=== PATIENT | female | born 1950 | race Caucasian/White ===

== ENCOUNTER 2017-08-08 10:07 | Outpatient (CLI) | payer MEDICARE, MEDICAID ==
--- NOTE | 2017-08-08 12:10 | RAD ---
TWO VIEWS OF THE CHEST: HISTORY: Dyspnea. COMPARISON: 07/21/2017 FINDINGS: Two views of the chest show a normal sized cardiomediastinal silhouette. There are healing right po sterior rib fractures. There is no evidence of consolidation, mass, or pleural effusion. IMPRESSION: No evidence of acute cardiopulmonary disease. POS: [facility]
== END 2017-08-08 10:08 | disposition home or self-care (01) ==
LOC: RAD 10:07
PROVIDERS: ATTEND Internal Medicine Critical Care Medicine
DX: R06.00 Dyspnea, unspecified (principal)
CPT/HCPCS: 71020

== ENCOUNTER 2017-08-23 18:26 | Emergency (ER) | payer MEDICARE, MEDICAID ==
[~2017-08-23 18:26] MED LIST: ISOVUE-370 76%-LOCM 1 ML ONE
[2017-08-23 19:26] LABS: #Basophils 0.1 thou/uL (0.0-0.2); #Eosinphils 0.1 thou/uL (0.0-0.7); #Lymphocytes 2.9 thou/uL (1.20-3.40); #Monocytes 0.8 thou/uL (0.11-0.59); #Neutrophils 5.4 thou/uL (1.40-6.50); %Basophils 0.6 % (0.0-1.0); %Eosinophils 0.8 % (0.0-10.0); %Lymphocytes 31.8 % (21.0-51.0); %Monocytes 8.8 % (0.0-10.0); Hematocrit 44.5 % (36.0-47.0); Mean Platelet Volume 6.4 fL (7.4-10.4); Red Blood Cell (RBC) Count 4.84 mill/uL (4.20-5.40); White Blood Cell (WBC) Count 9.2 thou/uL (4.8-10.8)
[2017-08-23 19:45] LABS: ALT (SGPT) 11 U/L (8-55); AST (SGOT) 22 U/L (5-34); Alkaline Phosphatase 93 U/L (40-150); Anion Gap 15 mmol/L (10-20); BUN (Urea Nitrogen) 9 mg/dL (9.8-20.1); Bilirubin, Total 0.3 mg/dL (0.2-1.2); CK (CPK) 363 U/L (29-168); Calc. Creatinine Clearance 0 mL/min (70-130); Calcium 9.7 mg/dL (7.8-10.44); Carbon Dioxide 23 mmol/L (23-31); Chloride 93 mmol/L (98-107); Estimated GFR-MDRD 89; Globulin 2.9 g/dL (2.4-3.5); Protein, Total 7.3 g/dL (6.0-8.3)
[2017-08-23] MEDS ORDERED: Lorazepam 2 MG/ML VIAL ONE (19:45)
[2017-08-23 19:50] LABS: Troponin I Less than 0.010 ng/mL (< 0.028)
--- NOTE | 2017-08-23 21:09 | RAD ---
PA AND LATERAL CHEST X-RAY 08/23/17 HISTORY: Dyspnea. Difficulty breathing. COMPARISON: 08/08/17. The cardiac silhouette and pulmonary vasculature are within normal limits. Lungs are clear. Remote r ight sided posterior rib fractures are again seen. There is osteopenia. Vascular calcifications in t he thoracic aorta. Postsurgical changes lower cervical spine are again seen. There has been no inter amadou change from prior exam. IMPRESSION: 1. No acute cardiopulmonary process. 2. Osteopenia with remote right sided rib fractures. POS: [facility]
--- NOTE | 2017-08-23 21:17 | CT ---
CT HEAD WITHOUT IV CONTRAST: 08/23/17 HISTORY: Headache post fall. COMPARISON: 07/22/16. FINDINGS: Again noted are mild scattered chronic small vessel ischemic changes as well as cerebral volume loss . There is mild cerebellar volume loss. There is no evidence of a hemorrhage, acute infarction, mass effect, or midline shift. There has been no interval change from the prior exam. No calvarial fract ure is seen. IMPRESSION: 1. No acute intracranial abnormalities demonstrated. 2. Stable chronic small vessel ischemic changes and cerebral as well as cerebellar volume loss. POS: [facility]
--- NOTE | 2017-08-23 23:41 | CT ---
CT ANGIOGRAM THORAX WITH IV CONTRAST AND 3D RECONSTRUCTION 08/23/17 HISTORY: Worsening shortness of breath that began 4 to 5 days ago. COMPARISON: 07/21/17. FINDINGS: No filling defects are seen in the pulmonary arteries to suggest a pulmonary arteries to suggest a p ulmonary embolus. Vascular calcifications are again seen in the thoracic aorta. Thoracic aorta is no rmal in caliber without evidence of an aortic dissection. Linear densities are seen within the regio n of the lingula and right lower lobe likely related to atelectasis. Very minimal pleural thickening at the posterior aspect of the right mid lung zone versus very tiny amount of pleural fluid. Remote right sided rib fractures are again seen. Calcified granulomata are seen in the spleen and liver. There is a small hiatal hernia. Small amount of fluid and debris is seen in the esophagus which may be related to gastroesophageal reflux. There has been no other interval change from prior exam. IMPRESSION: 1. No CT evidence of a pulmonary embolus. 2. Additional findings are as described above. POS: [facility]
== END 2017-08-23 22:31 | disposition home or self-care (01) ==
LOC: ERS 18:26
DX: J44.9 Chronic obstructive pulmonary disease, unspecified (principal); F41.9 Anxiety disorder, unspecified; I10 Essential (primary) hypertension; E78.5 Hyperlipidemia, unspecified; F31.9 Bipolar disorder, unspecified; Z87.891 Personal history of nicotine dependence; Z79.899 Other long term (current) drug therapy
CPT/HCPCS: 70450; 71020; 71275; 80053; 82550; 82553; 84484; 85025; 85379; 93005; 96374; J2060

== ENCOUNTER 2017-09-03 17:26 | Inpatient (IN) | payer MEDICARE, OTHER ==
[2017-09-03 18:11] LABS: #Lymphocytes 1.8 thou/uL (1.20-3.40); #Monocytes 0.5 thou/uL (0.11-0.59); #Neutrophils 6.2 thou/uL (1.40-6.50); %Basophils 0.4 % (0.0-1.0); %Eosinophils 0.5 % (0.0-10.0); %Lymphocytes 20.8 % (21.0-51.0); Hematocrit 40.4 % (36.0-47.0); Mean Platelet Volume 5.2 fL (7.4-10.4); Red Blood Cell (RBC) Count 4.42 mill/uL (4.20-5.40); White Blood Cell (WBC) Count 8.5 thou/uL (4.8-10.8)
[2017-09-03 18:27] LABS: ALT (SGPT) 8 U/L (8-55); AST (SGOT) 12 U/L (5-34); Alkaline Phosphatase 94 U/L (40-150); Anion Gap 12 mmol/L (10-20); BUN (Urea Nitrogen) 6 mg/dL (9.8-20.1); Bilirubin, Total 0.3 mg/dL (0.2-1.2); Calc. Creatinine Clearance 0 mL/min (70-130); Calcium 8.6 mg/dL (7.8-10.44); Carbon Dioxide 23 mmol/L (23-31); Chloride 89 mmol/L (98-107); Estimated GFR-MDRD Greater than 90; Globulin 2.4 g/dL (2.4-3.5); Lipase Less than 4 U/L (8-78); Magnesium 1.7 mg/dL (1.6-2.6)
--- NOTE | 2017-09-03 18:27 | RAD ---
PORTABLE CHEST: 09/03/17 HISTORY: Syncope. COMPARISON: 07/21/17 exam. The heart size is within normal limits. There are atherosclerotic changes of the aorta. Right sided rib fracture is again noted. The bones appear demineralized. IMPRESSION: No active intrathoracic disease. POS: [facility]
[2017-09-03 18:32] LABS: Troponin I Less than 0.010 ng/mL (< 0.028)
[2017-09-03 18:56] LABS: Osmolality, Serum 244 mOsm/kg (280-295)
[2017-09-03 19:09] LABS: Bilirubin Negative (Negative); Blood, Urine Negative (Negative); Glucose, Urine (Dipstick) Negative (Negative); Ketone, Urine Negative (Negative); Nitrite Negative (Negative); Protein, Urine (Dipstick) Negative (Neg-Trace)
[2017-09-03 19:11] LABS: Bacteria/HPF 2+ HPF (None Seen); Hyaline Casts/LPF 4-6 HYALINE CAST LPF (0-3 Hyaline); RBC/HPF 0-3 HPF (0-3)
[2017-09-03 19:15] LABS: Amphetamine Not Detected (NotDetected); Methadone Not Detected (NotDetected); Methamphetamine Not Detected (NotDetected)
--- NOTE | 2017-09-03 20:00 | CT ---
CT BRAIN PERFORMED WITHOUT CONTRAST ENHANCEMENT: 09/03/17 HISTORY: Altered mental status. COMPARISON: 08/23/17 study. There is some generalized ventricular and sulcal prominence. There is some small vessel chronic isch emic white matter change. There is no signs of intracerebral hemorrhage or extra-axial fluid collect ions. Mastoid air cells and visualized sinuses are clear. IMPRESSION: No acute intracranial abnormalities. POS: [facility]
[2017-09-03] MEDS ORDERED: Ondansetron ODT 4 MG TAB SL PRN (22:08)
[2017-09-03] MEDS ORDERED: Ondansetron HCl/PF 4 MG/2 ML Vial IVP PRN (22:08)
[2017-09-03] MEDS ORDERED: HYDROcodone/Acetaminophen 10/325 mg Tablet PO PRN (22:25)
[2017-09-03] MEDS ORDERED: Acetaminophen 325 MG TAB PO PRN (22:25)
[2017-09-03] MEDS ORDERED: Ondansetron ODT 4 MG TAB PO PRN (22:25)
[2017-09-03] MEDS ORDERED: HYDROcodone/Acetaminophen 5/325 mg Tablet PO PRN (22:25)
[2017-09-03 23:01] VITALS: BMI 20.7
[2017-09-03] MEDS: Sodium Chloride 0.9% 1,000 ML IV SCH (23:07)
[2017-09-04 05:06] LABS: #Eosinphils 0.1 thou/uL (0.0-0.7); #Lymphocytes 1.7 thou/uL (1.20-3.40); #Monocytes 0.5 thou/uL (0.11-0.59); #Neutrophils 5.5 thou/uL (1.40-6.50); %Basophils 0.1 % (0.0-1.0); %Eosinophils 1.1 % (0.0-10.0); %Lymphocytes 21.5 % (21.0-51.0); %Monocytes 6.6 % (0.0-10.0); Hematocrit 44.2 % (36.0-47.0); Mean Platelet Volume 5.8 fL (7.4-10.4); Red Blood Cell (RBC) Count 4.78 mill/uL (4.20-5.40); White Blood Cell (WBC) Count 7.8 thou/uL (4.8-10.8)
[2017-09-04 05:17] LABS: Anion Gap 10 mmol/L (10-20); BUN (Urea Nitrogen) 4 mg/dL (9.8-20.1); Calc. Creatinine Clearance 81 mL/min (70-130); Calcium 8.6 mg/dL (7.8-10.44); Carbon Dioxide 24 mmol/L (23-31); Chloride 98 mmol/L (98-107); Estimated GFR-MDRD Greater than 90
[2017-09-04] MEDS: Sodium Chloride 0.9% 1,000 ML IV SCH ×3 (05:47→18:10)
--- NOTE | 2017-09-04 06:54 | HP ---
DATE OF ADMISSION: 09/03/2017 CHIEF COMPLAINT: Dizzy. HISTORY OF PRESENT ILLNESS: Ms. Pierce is a 67-year-old white female with a history of COPD, hyp ertension, chronic headaches, and hyperlipidemia who presents to the emergency department for new ep isode of dizziness. She became dizzy/lightheaded earlier today. She does not know if this was related to any change in position. She actually fell and hit her head, but did not cause any injuries per further evaluation here. She has been a little more confused and weak than normal and she says that she has been off balance for about a week. Her last fall was on 05/19/2017. Again this time she did hit her head, but CT scan here was negativ e for injury. She denies any nausea or vomiting, no diarrhea or constipation. Her medical decision maker is Leonardo Kaiser in the emergency department as well my RNs. I discussed advance directives with the patient and her son, she does not want any breathing tube at all, but is okay with CPR, cardioversion/electricity, and pressors. Emergency department workup revealed sodium of 119, she was given normal saline. Vital signs remain ed stable otherwise and we were called for further workup and admission. PAST MEDICAL HISTORY: 1. COPD. 2. Headaches, chronic. 3. Hypertension. 4. Hyperlipidemia. PAST SURGICAL HISTORY: 1. Left breast biopsy. 2. Vulvectomy. 3. Hysterectomy with left oophorectomy. 4. Left knee repair. 5. Tonsillectomy. 6. Neck fusion. 7. Bilateral hip rods after a fall and hip fracture in May. HOME MEDICATIONS: She has no list available. She does state she takes lisinopril, she thinks 5 mg a day. She takes Ativan and gabapentin, these are relatively new. Her son has actually told her no t to take gabapentin, but she has been taking it anyways. ALLERGIES: DEMEROL, IMITREX and PENICILLIN. FAMILY HISTORY: Negative for clotting or bleeding disorder, she has no history of immune dysfunctio n. SOCIAL HISTORY: Negative for 1 pack per day. She smoked for many years. No alcohol of significanc e and no drugs. REVIEW OF SYSTEMS: A 10-point review of systems was performed and was negative for all other system s except as stated as per HPI. PHYSICAL EXAMINATION: VITAL SIGNS: Temperature 98.3, pulse 73, blood pressure 152/76, respiratory rate 18, satting 95% on room air. GENERAL: She is awake. She is alert. She is oriented x3. She is a well-developed, well-nourished , white female, appears to be in no acute distress, but does appear tired. HEENT: Normocephalic, atraumatic. Pupils equal, react bilaterally, mucous membranes are moist. Th ere are no visible lesions. No thrush. NECK: Supple, without lymphadenopathy, JVD or thyromegaly. LUNGS: Clear anteriorly. She has no wheezes, no rales, no rhonchi with symmetrical chest excursion . She has adequate air movement. There is no prolonged expiratory phase. No wheezing. CARDIOVASCULAR: Normal S1 and S2. She has a regular rate and a normal rhythm. She has no murmurs. ABDOMEN: Soft, it is nontender, nondistended, no masses, no organomegaly. She has no rebound, rigi dity or guarding. EXTREMITIES: Show no cyanosis, no clubbing. She has no edema. SKIN: Warm, moist, and well perfused without rashes or lesions. MUSCULOSKELETAL: Normal to inspection. Her joints are uninflamed. There is no palpable joint effu dipak, no tenderness. NEUROLOGIC: Nonfocal. She moves all 4 extremities equally. Sensation appears to be intact. Stren gth is 4 to 5/5. LABORATORY EVALUATION: CMP showed a sodium of 119, potassium normal at 4.5, chloride low at 89, bic arbonate 23, BUN 6, creatinine 0.58, and glucose was 95. Calcium normal at 8.6. Liver functions ar e normal. CBC was within normal limits. White blood cell count 8.5, hemoglobin 13.4 and platelets 335,000. S he had a troponin I that was negative and an MB that was normal at 2.1. TSH was normal at 2.42. Se rum osmolarity was low at 244. Urine drug screen was positive for benzodiazepines, and urinalysis w as otherwise contaminated skin cells. She had a brain CT that showed no acute intracranial abnormalities and a chest x-ray showed no acute cardiopulmonary abnormalities. ASSESSMENT AND PLAN: 1. Hyponatremia: She is hypoosmolar. Suspect this is due to losses. She appears to be euvolemic at this time. We will start her on normal saline and monitor response. We will shoot to correct ap proximately 10-15 mEq per day. I do not believe this is chronic hyponatremia. She had a sodium forest wn just a little over a week ago that was abnormal at 127 and back on 07/24/2017, was normal in the 140s. 2. Fall: Likely secondary to her hyponatremia and weakness. Should improve as her sodium improves . No evidence of any injury. 3. History of chronic obstructive pulmonary disease without acute exacerbation: She is not on any home medication that she knows of. Her son will give us her accurate list. 4. Hypertension, on lisinopril. Blood pressure currently 152/76. Watch closely and make adjustmen ts as needed. 5. Hyperlipidemia. She denies taking any medications for this at this time.
--- NOTE | 2017-09-04 08:34 | PDOC.EVN ---
Event Note - Event Note Event Note: Pt seen briefly, she indicated that her PCP is Dr. Vanegas. Discussed with Dr. Foley covering for Dr. Vanegas, who agreed to take over care of pt starting today. Will sign off.
[2017-09-04] MEDS ORDERED: FLU VACC TS2017-18 (>65YR) 0.5 ML SYRINGE IM ONE (09:00)
[2017-09-04] MEDS: Enoxaparin Sodium 40 MG/0.4 ML SYRINGE SC SCH (09:26)
[2017-09-04] MEDS: Famotidine 20 MG TAB PO SCH ×2 (09:26→20:34)
--- NOTE | 2017-09-04 13:43 | PRG ---
DATE OF SERVICE: 09/04/2017 TIME: 11:51 a.m. SUBJECTIVE: The patient denies any complaints at this time. She is resting comfortably in the bed. She was admitted overnight by the hospitalist group who called me after realizing that Dr. Vanegas is her primary care doctor and I resumed her care this morning. She states that the reason she came i nto the hospital only confusion and altered mental status has resolved completely. PHYSICAL EXAMINATION: VITAL SIGNS: Temperature 98.3, pulse 83, respirations 16, O2 sat 94% on room air, and blood pressur e 140/65. GENERAL: This is a thin female in no apparent distress. HEENT: Unremarkable. HEART: Regular rate and rhythm with no murmurs. LUNGS: Clear to auscultation bilaterally. ABDOMEN: Soft, nontender, and nondistended with normoactive bowel sounds. NEUROLOGIC: Nonfocal. LABORATORY DATA: CBC is unremarkable. Metabolic panel is significant for sodium of 128. This is i mproved from 119 night. Renal function is normal with BUN of 4 and creatinine is 0.58, glucose is 7 8. ASSESSMENT AND PLAN: 1. Hyponatremia, this is hypo-osmolar. She responded quite well to IV normal saline. We will cont inue this for the time being and repeat her basic metabolic panel in the morning. 2. Fall, likely secondary to #1 and weakness. She denies feeling weak at this time. 3. History of chronic obstructive pulmonary disease without acute exacerbation. 4. Hypertension, on lisinopril at home. 5. Hyperlipidemia.
[2017-09-04] MEDS ORDERED: Lisinopril 5 MG TAB PO SCH (17:30)
[2017-09-04] MEDS ORDERED: Nicotine 7 MG PATCH TOP SCH (18:00)
[2017-09-05] MEDS: Sodium Chloride 0.9% 1,000 ML IV SCH ×2 (02:39→08:44)
[2017-09-05 06:35] LABS: Anion Gap 6 mmol/L (10-20); BUN (Urea Nitrogen) 5 mg/dL (9.8-20.1); Calc. Creatinine Clearance 91 mL/min (70-130); Calcium 8.6 mg/dL (7.8-10.44); Carbon Dioxide 28 mmol/L (23-31); Chloride 106 mmol/L (98-107); Estimated GFR-MDRD Greater than 90
[2017-09-05] MEDS ORDERED: PROVENTIL INHALER 6.7 G (200 INHALATIONS) INH PRN (07:16)
[2017-09-05 07:45] VITALS: BP 186/81; TEMP 97.8
--- NOTE | 2017-09-05 07:52 | DIS ---
DISCHARGE DIAGNOSES: 1. Hyponatremia. 2. Fall. 3. Chronic obstructive pulmonary disease. 4. Hypertension. 5. Hyperlipidemia. CONSULTS: None. PROCEDURES: None. HOSPITAL COURSE: This is a 67-year-old female with history of severe COPD, tobacco abuse, hypertens ion, and hyperlipidemia who presented to the emergency room with confusion and dizziness. She did h ave a fall during this state, however, she was evaluated here along with a brain CT that showed no i njury to the brain. She was found to have a sodium of 119. The patient admits to not eating very much and drinking a lo t of fluids. She was started on normal saline and over the past 2 days has improved significantly. She is no longer confused at this time. As for her COPD, this is fairly stable. She has been on her home medications. She was not started on her DuoNebs and fills mildly out of breath. We will give her treatment of DuoNeb before she is d ischarged. As for her hypertension, her blood pressure is mildly elevated. However, she was not started on her home medications. She is asymptomatic at this time. DISPOSITION: Stable. DISCHARGE INSTRUCTIONS: 1. Discharged to home. 2. Diet: Regular. 3. Activity: Ad melia. 4. Followup: Followup visit with Dr. Vanegas in 7-10 days.
[2017-09-05] MEDS: Famotidine 20 MG TAB PO SCH (08:40)
[2017-09-05] MEDS: Enoxaparin Sodium 40 MG/0.4 ML SYRINGE SC SCH (08:41)
[2017-09-05] MEDS ORDERED: Lisinopril 5 MG TAB PO SCH (09:00)
== END 2017-09-05 10:08 | disposition home or self-care (01) | DRG 641 ==
LOC: ERS 17:26 → 2NO 21:00
PROVIDERS: ADMIT Family Medicine; ATTEND Family Medicine
DX: E87.1 Hypo-osmolality and hyponatremia (principal); J44.9 Chronic obstructive pulmonary disease, unspecified; I10 Essential (primary) hypertension; E78.5 Hyperlipidemia, unspecified; Z88.5 Allergy status to narcotic agent; Z88.0 Allergy status to penicillin; Z88.8 Allergy status to other drugs, medicaments and biological substances; F17.210 Nicotine dependence, cigarettes, uncomplicated; W19.XXXA Unspecified fall, initial encounter
CPT/HCPCS: 36415; 70450; 71010; 80048; 80053; 80306; 81003; 81015; 82553; 83690; 83735; 83930; 84443; 84484; 85025; 87040; 87086; 90471; 90682; 93005; 94640; 96365; A4216; G0008; J1650; J1956; J7620; Q2036

== ENCOUNTER 2017-10-03 14:50 | Observation (INO) | payer MEDICARE, OTHER ==
[2017-10-03 15:44] LABS: #Eosinphils 0.1 thou/uL (0.0-0.7); #Lymphocytes 2.4 thou/uL (1.20-3.40); #Monocytes 0.5 thou/uL (0.11-0.59); #Neutrophils 2.7 thou/uL (1.40-6.50); %Basophils 0.7 % (0.0-1.0); %Lymphocytes 41.8 % (21.0-51.0); %Monocytes 9.2 % (0.0-10.0); Hematocrit 41.3 % (36.0-47.0); Mean Platelet Volume 6.1 fL (7.4-10.4); White Blood Cell (WBC) Count 5.6 thou/uL (4.8-10.8)
[2017-10-03] MEDS ORDERED: Ketorolac Tromethamine 30 MG/ML VIAL ONE (15:51)
[2017-10-03] MEDS ORDERED: methylPREDNISolone Sod Succ/PF 125 MG/2 ML VIAL ONE (15:51)
[2017-10-03] MEDS ORDERED: diphenhydrAMINE 50 MG/ML VIAL ONE (15:51)
[2017-10-03] MEDS ORDERED: Metoclopramide HCl 10 MG/2 ML VIAL ONE (15:51)
[2017-10-03 15:57] LABS: ALT (SGPT) Less than 7 U/L (8-55); AST (SGOT) 12 U/L (5-34); Alkaline Phosphatase 74 U/L (40-150); Anion Gap 11 mmol/L (10-20); BUN (Urea Nitrogen) 5 mg/dL (9.8-20.1); Bilirubin, Total 0.5 mg/dL (0.2-1.2); Calc. Creatinine Clearance 0 mL/min (70-130); Calcium 9.1 mg/dL (7.8-10.44); Carbon Dioxide 24 mmol/L (23-31); Chloride 96 mmol/L (98-107); Estimated GFR-MDRD Greater than 90; Globulin 2.3 g/dL (2.4-3.5); Protein, Total 6.2 g/dL (6.0-8.3)
[2017-10-03 16:01] LABS: Troponin I Less than 0.010 ng/mL (< 0.028)
[2017-10-03] MEDS ORDERED: Magnesium Sulfate 2 GM/100 ML BAG ONE (17:43)
[2017-10-03] MEDS ORDERED: Labetalol HCl 100 MG/20 ML VIAL ONE (19:34)
--- NOTE | 2017-10-03 19:36 | CT ---
CT HEAD WITHOUT CONTRAST: Technique: Multiple axial tomograms were obtained through the head without IV enhancement. History: Headache. Hypertension. FINDINGS: The ventricles have normal size and position. There is no evidence of intracranial hemorrhage, mass, or infarct. Sinuses and mastoids are well aerated. IMPRESSION: No evidence of acute process. POS: [facility]
[2017-10-03] MEDS ORDERED: Montelukast Sodium 10 mg Tablet PO SCH (21:00)
[2017-10-03] MEDS ORDERED: Mirtazapine 15 MG TAB PO SCH (21:00)
[2017-10-03] MEDS ORDERED: busPIRone HCl 10 MG TAB PO SCH ×3 (21:00→22:30)
[2017-10-03] MEDS ORDERED: Ondansetron ODT 4 MG TAB PO PRN (21:10)
[2017-10-03] MEDS ORDERED: Bisacodyl 10 MG SUPP PR PRN (21:10)
[2017-10-03] MEDS ORDERED: Benzonatate 100 MG CAP PO PRN (21:10)
[2017-10-03 22:13] VITALS: BMI 20.4
[2017-10-03] MEDS ORDERED: Gabapentin 300 MG CAP PO SCH (22:15)
[2017-10-03] MEDS ORDERED: Varenicline Tartrate 0.5 MG TAB PO SCH (22:15)
[2017-10-03] MEDS ORDERED: traZODone HCl 50 MG TAB PO SCH (22:15)
[2017-10-03] MEDS ORDERED: Sodium Chloride 0.9% 1,000 ML IV SCH (22:15)
[2017-10-03] MEDS: Divalproex Sodium DR 500 MG TAB PO SCH (22:43)
[2017-10-03] MEDS: Lorazepam 0.5 MG TAB PO SCH (22:43)
[2017-10-03] MEDS: Acetaminophen 325 MG TAB PO PRN (22:44)
--- NOTE | 2017-10-04 00:10 | HP ---
DATE OF ADMISSION: 10/03/2017 PRIMARY CARE PHYSICIAN: Juanito Vanegas D.O. CHIEF COMPLAINT: Headache and elevated blood pressure. HISTORY OF PRESENT ILLNESS: This is a 67-year-old female with past medical history of hypertension, COPD, hyponatremia, physical deconditioning, who presented to the ER after physical therapy, found he r to have blood pressures in the 180s to 190s systolic. She also reported a worsening headache at th at time. She denied other neurologic changes including vision changes, speech changes, and weakness on one side. In the emergency room, she has been given labetalol, which has improved her blood press ure to 160s systolic. Her headache is improved; however, she still complains of headache in the fron [place] region. Brain scan in the emergency room shows no acute process. ALLERGIES: 1. IMITREX. 2. PENICILLIN. 3. DEMEROL. MEDICATIONS: 1. Mirtazapine 45 mg p.o. q. day. 2. Divalproex ER 500 mg p.o. b.i.d. 3. Lexapro 20 mg p.o. q. day. 4. Singulair 10 mg p.o. q. day. 5. Benztropine 2 mg p.o. b.i.d. 6. Trazodone 100 mg 2 tablets p.o. at bedtime. 7. Tessalon 100 mg q.4 hours p.r.n. cough. 8. Omeprazole 20 mg p.o. q. day. 9. Buspirone 15 mg p.o. b.i.d. 10. Lorazepam 0.5 mg p.o. t.i.d. p.r.n. anxiety. 11. Mucinex 600 mg p.o. b.i.d. p.r.n. cough. 12. Vitamin D3 50,000 units q. week. 13. Gabapentin 300 mg p.o. t.i.d. 14. Lisinopril 5 mg p.o. q. day. 15. ProAir inhaler 2 puffs inhaled q.4 hours as needed for shortness of breath, cough or wheezing. 16. Mometasone/formoterol 200/5 mcg 2 puffs inhaled twice a day. 17. Ipratropium/albuterol 0.5/2.5 mg per 3 mL nebulized 3 mL twice a day as needed for shortness of breath and cough. PAST SURGICAL HISTORY: 1. Hysterectomy. 2. Left knee surgery. 3. Tonsillectomy. 4. Hip fracture repair. SOCIAL HISTORY: Admits to smoking one-half pack per day. Denies alcohol and illicit drugs. FAMILY HISTORY: Unremarkable. REVIEW OF SYSTEMS: General: Reports low appetite. Denies fever or chills. HEENT: Denies headache , vision changes, sore throat, dysphagia. Skin: Denies rashes or lesions. Cardiovascular: Denies chest pain, palpitations. Respiratory: Denies shortness of breath, cough. Gastrointestinal: Denie s nausea, vomiting, abdominal pain, diarrhea, constipation. Genitourinary: Denies dysuria, hematuri a, and discharge. Musculoskeletal: Denies joint stiffness and swelling. Neurologic: Reports heada archie. Denies syncope and dizziness. PHYSICAL EXAMINATION: VITAL SIGNS: Blood pressure 186/97, pulse 78, respirations 20, temperature 97.4, oxygen saturation 9 5% on room air. GENERAL: Alert and oriented x3 with no acute distress. SKIN: No rashes or lesions. HEENT: Normocephalic. Pupils are equally round and react to light. Extraocular muscles intact. Mo ist mucous membranes with nonerythematous throat. HEART: Regular rate and rhythm, no murmurs. LUNGS: Clear to auscultation bilaterally, no wheezes or rales. ABDOMEN: Nontender, nondistended. Bowel sounds heard throughout. MUSCULOSKELETAL: Normal strength and range of motion. NEUROLOGIC: Cranial nerves II-XII intact. Sensation within normal limits. No cerebellar signs. LABORATORY DATA: White blood cell count 5.6, hemoglobin 13.6, hematocrit 41.3, platelets 321. Sodium 127, potassium 4.0, chloride 96, carbon dioxide 24, BUN 5, creatinine 0.61, glucose 112, calci um 9.1, total bilirubin 0.5, AST 12, ALT less than 7, alkaline phosphatase 74. CK-MB 1.4, Troponins less than 0.010, total protein 6.2, albumin 3.9, globulin 2.3. CT of the brain shows no acute process. ASSESSMENT AND PLAN: 1. Hypertensive urgency. We will increase her home medication of lisinopril to 10 mg daily. We geo l also give labetalol in the hospital p.r.n., systolic blood pressure greater than 180. She has no n eurologic signs at this time. If blood pressure is improved tomorrow, she may be able to go home. 2. Hyponatremia, this is likely due to poor diet. She is not eating regular meals. We will start M egace and continue on discharge. 3. Chronic obstructive pulmonary disease. Breathing is well controlled at this time.
[2017-10-04 04:57] LABS: #Monocytes 0.1 thou/uL (0.11-0.59); #Neutrophils 2.1 thou/uL (1.40-6.50); %Basophils 0.4 % (0.0-1.0); %Eosinophils 0.2 % (0.0-10.0); %Lymphocytes 32.3 % (21.0-51.0); %Monocytes 2.3 % (0.0-10.0); Hematocrit 43.6 % (36.0-47.0); Mean Platelet Volume 6.3 fL (7.4-10.4); Red Blood Cell (RBC) Count 4.63 mill/uL (4.20-5.40); White Blood Cell (WBC) Count 3.2 thou/uL (4.8-10.8)
[2017-10-04 05:06] LABS: Anion Gap 13 mmol/L (10-20); BUN (Urea Nitrogen) 8 mg/dL (9.8-20.1); Calc. Creatinine Clearance 78 mL/min (70-130); Calcium 9.1 mg/dL (7.8-10.44); Carbon Dioxide 21 mmol/L (23-31); Chloride 101 mmol/L (98-107); Estimated GFR-MDRD Greater than 90
[2017-10-04] MEDS ORDERED: Mometasone/Formoterol 120 PUFF INHALER INH SCH (06:30)
[2017-10-04] MEDS: Acetaminophen 325 MG TAB PO PRN (08:26)
[2017-10-04] MEDS: Divalproex Sodium DR 500 MG TAB PO SCH (08:26)
[2017-10-04] MEDS: Gabapentin 300 MG CAP PO SCH ×2 (08:27→16:03)
[2017-10-04] MEDS: Lorazepam 0.5 MG TAB PO SCH ×2 (08:27→16:03)
[2017-10-04] MEDS ORDERED: Docusate 100 MG CAP PO SCH (09:00)
[2017-10-04] MEDS ORDERED: Megestrol Acetate 40 MG TAB PO SCH (09:00)
[2017-10-04] MEDS ORDERED: Lisinopril 10 MG TAB PO SCH (09:00)
[2017-10-04] MEDS ORDERED: Escitalopram Oxalate 20 mg Tablet PO SCH (09:00)
[2017-10-04] MEDS ORDERED: Varenicline Tartrate 0.5 MG TAB PO SCH (09:00)
[2017-10-04] MEDS ORDERED: Gabapentin 300 MG CAP PO SCH (09:00)
[2017-10-04] MEDS ORDERED: busPIRone HCl 10 MG TAB PO SCH (09:00)
[2017-10-04] MEDS ORDERED: Ibuprofen 600 MG TAB PO SCH (16:00)
--- NOTE | 2017-10-04 16:25 | ULT ---
RENAL ULTRASOUND: Date: 10-04-17 Comparison: None. History: Labile blood pressures. Technique: Multiplanar grayscale sonographic imaging of the kidneys and urinary bladder obtained. FINDINGS: The right kidney measures 9.7 x 3.6 x 4.1 cm. There is no right sided renal mass, hydronephrosis or s tone noted. The pre void urinary bladder volume is approximately 18 cm. There is prominent circumferential urinar y bladder wall thickening, nonspecific. The left kidney measures 10.5 x 7.5 x 5.2 cm. No renal mass, hydronephrosis, or stone seen on the left. IMPRESSION: Nonspecific circumferential urinary bladder wall thickening. Clinical correlation and correlation wit h urinalysis is advised. Inflammatory, infectious, and/or neoplastic disease could have this appearan ce. POS: [facility]
[2017-10-04 16:27] VITALS: BP 132/64; TEMP 99.1
[2017-10-04] MEDS ORDERED: traZODone HCl 50 MG TAB PO SCH (21:00)
--- NOTE | 2017-10-05 11:36 | DIS ---
DATE OF ADMISSION: 10/03/2017 DATE OF DISCHARGE: 10/04/2017 ADMISSION DIAGNOSES: 1. Hypertensive urgency. 2. Hyponatremia. 3. Chronic obstructive pulmonary disease. DISCHARGE DIAGNOSES: 1. Hypertensive urgency, improved. 2. Hyponatremia, improved. 3. Chronic obstructive pulmonary disease. NEW DISCHARGE MEDICATIONS: 1. Increase lisinopril to 10 mg p.o. daily. 2. Megace 40 mg p.o. daily. CONSULTS: None. PROCEDURES: None. HOSPITAL COURSE: This is a 67-year-old female with past medical history of chronic obstruc tive pulmonary disease, chronic hyponatremia due to low appetite, who presented to the emergency room with headache and found to have blood pressures in the 180-190 systolic. She had been taking her li sinopril, but blood pressure had been slowly increasing. For her blood pressure, increased her lisin opril and her blood pressure stabilized in the hospital and was normal prior to discharge. For hyponatremia, she was given normal saline IV fluids and sodium did improve. This is most likely due to poor diet and loss of appetite. We will start Megace in the patient's setting to attempt to i mprove her appetite. As for her COPD, she was asymptomatic as far as shortness of breath, cough, and wheezing. Renal ultrasound was performed for the high blood pressure. There was no evidence of renal artery st enosis; however, there is bladder wall thickening. This will be evaluated in the outpatient setting. DISPOSITION: Stable. DISCHARGE INSTRUCTIONS: 1. Discharged to home. 2. Diet: Heart healthy. 3. Activity: ad melia. 4. Followup: Followup with Dr. aVnegas in the next 10-14 days.
[2017-10-08] MEDS ORDERED: Ergocalciferol 1.25 MG(50,000 UNITS) CAP PO SCH (09:00)
== END 2017-10-04 17:51 | disposition home or self-care (01) ==
LOC: ERS 14:50 → 2SW 19:04
PROVIDERS: ADMIT Family Medicine; ATTEND Family Medicine
DX: I16.0 Hypertensive urgency (principal); E87.1 Hypo-osmolality and hyponatremia; J44.9 Chronic obstructive pulmonary disease, unspecified; I10 Essential (primary) hypertension; F17.210 Nicotine dependence, cigarettes, uncomplicated; Z88.0 Allergy status to penicillin; Z88.5 Allergy status to narcotic agent; Z88.8 Allergy status to other drugs, medicaments and biological substances; Z79.899 Other long term (current) drug therapy; Z90.710 Acquired absence of both cervix and uterus; Z98.890 Other specified postprocedural states
CPT/HCPCS: 70450; 76770; 80048; 80053; 82553; 84484; 85025 ×2; 93005; 94640; 94664; 96361 ×2; 96365; 96367; 96375; 99285; 99406; G0378; 36415; J1200; J1885; J2765; J2930; J3475; S0179

== ENCOUNTER 2017-12-05 19:07 | Emergency (ER) | payer MEDICARE, OTHER ==
[2017-12-05 19:56] LABS: #Basophils 0.1 thou/uL (0.0-0.2); #Eosinphils 0.1 thou/uL (0.0-0.7); #Lymphocytes 2.8 thou/uL (1.20-3.40); #Monocytes 0.5 thou/uL (0.11-0.59); #Neutrophils 3.4 thou/uL (1.40-6.50); %Lymphocytes 40.5 % (21.0-51.0); %Monocytes 7.7 % (0.0-10.0); %Neutrophils 49.8 % (42.0-75.0); Hemoglobin 12.5 g/dL (12.0-16.0); Mean Corpuscular HGB CONC 33.2 g/dL (32.0-36.0); Mean Corpuscular Hemoglobin 32.4 pg (27.0-31.0); Mean Corpuscular Volume 97.6 fl (81.0-99.0); Mean Platelet Volume 5.3 fL (7.4-10.4); Platelet Count 330 thou/uL (130-400); RBC Distribution Width 12.2 % (11.5-14.5); Red Blood Cell (RBC) Count 3.86 mill/uL (4.20-5.40); White Blood Cell (WBC) Count 6.8 thou/uL (4.8-10.8)
[2017-12-05 20:03] LABS: PTT 33.3 SEC (22.9-36.1); Prothrombin Time 12.7 SEC (12.0-14.7)
[2017-12-05 20:19] LABS: ALT (SGPT) 8 U/L (8-55); AST (SGOT) 12 U/L (5-34); Albumin 3.8 g/dL (3.4-4.8); Alkaline Phosphatase 48 U/L (40-150); Anion Gap 12 mmol/L (10-20); BUN (Urea Nitrogen) 7 mg/dL (9.8-20.1); Bilirubin, Total 0.4 mg/dL (0.2-1.2); CK (CPK) 62 U/L (29-168); Calc. Creatinine Clearance 0 mL/min (70-130); Calcium 8.7 mg/dL (7.8-10.44); Carbon Dioxide 20 mmol/L (23-31); Chloride 96 mmol/L (98-107); Estimated GFR-MDRD Greater than 90; Globulin 2.2 g/dL (2.4-3.5); Glucose 91 mg/dL (80-115); Potassium 4.2 mmol/L (3.5-5.1); Sodium 124 mmol/L (136-145)
[2017-12-05 20:24] LABS: CKMB 1.1 ng/mL (0-6.6); Troponin I Less than 0.010 ng/mL (< 0.028)
--- NOTE | 2017-12-05 20:34 | RAD ---
PORTABLE CHEST: Date: 12-05-17 Provided Clinical History: Altered mental status. Comparison: 09-03-17 FINDINGS: Cardiac and mediastinal silhouette is within normal limits. Emphysematous changes are seen involving the lung parenchyma. No focal consolidation, pleural fluid, or pneumothorax are apparent. IMPRESSION: No evidence for an acute cardiopulmonary process. POS: [facility]
[2017-12-05 20:44] LABS: Bilirubin Negative (Negative); Blood, Urine Negative (Negative); Clarity CLEAR (Clear); Glucose, Urine (Dipstick) Negative (Negative); Leukocyte Negative (Negative); Nitrite Negative (Negative); Protein, Urine (Dipstick) Negative (Neg-Trace); Specific Gravity, Urine 1.009 (1.002-1.036); pH, Urine 6.5 (5.0-9.0)
--- NOTE | 2017-12-05 21:27 | CT ---
CT BRAIN: Date: 12-05-17 Provided Clinical History: Confusion, altered mental status, trauma. FINDINGS: Comparison is made with 10-03-17. Evaluation is limited by patient motion. The ventricular system appears normal in size and morphology . There is no evidence for intracranial hemorrhage or mass effect. The extracranial soft tissues and osseous structures demonstrate an unremarkable CT appearance. IMPRESSION: No evidence for intracranial hemorrhage or mass effect. POS: [facility]
--- NOTE | 2017-12-05 21:30 | CT ---
CT CERVICAL SPINE: Date: 12-05-17 Provided Clinical History: Trauma. FINDINGS: There is no evidence for fracture or traumatic subluxation. Post-operative and degenerative changes a re seen involving the cervical spine. There is degenerative retrolisthesis of C3 on C4. Post-operativ e changes of intervertebral disc device placement are noted at C3-4, C4-5, C5-6 and C6-7. Cervical de generative changes are noted. No prevertebral soft tissue swelling is evident. Visualized lung apices appear clear. IMPRESSION: No evidence for fracture or traumatic subluxation. POS: [facility]
[2017-12-05 22:50] LABS: Acetaminophen Less than 6.0 mcg/mL (10.0-30.0); Alcohol Less than 10 mg/dL (Less than 10); Salicylate Less than 8.0 mg/dL (15.0-30.0)
[2017-12-05 23:15] LABS: Amphetamine Not Detected (NotDetected); Barbiturates Screen Not Detected (NotDetected); Benzodiazepine Screen Detected (NotDetected); Cocaine Metabolite Screen Not Detected (NotDetected); Medtox Control Line Valid? VALID (VALID); Medtox Reader # READER 1; Methadone Not Detected (NotDetected); Methamphetamine Not Detected (NotDetected); Opiate Screen Detected (NotDetected); Oxycodone Screen Not Detected (NotDetected); Phencyclidine (PCP) Not Detected (NotDetected); THC/Cannabinoid Screen Not Detected (NotDetected); Tricyclic Screen Not Detected (NotDetected)
== END 2017-12-06 00:15 | disposition home or self-care (01) ==
LOC: ERS 19:07
DX: F13.10 Sedative, hypnotic or anxiolytic abuse, uncomplicated (principal); I10 Essential (primary) hypertension; J44.9 Chronic obstructive pulmonary disease, unspecified; E78.5 Hyperlipidemia, unspecified; F41.9 Anxiety disorder, unspecified; F31.9 Bipolar disorder, unspecified; Z87.891 Personal history of nicotine dependence; Z79.899 Other long term (current) drug therapy
CPT/HCPCS: 36415; 51701; 70450; 71045; 72125; 80053; 80306; 80307; 81003; 82550; 82553; 83605; 84484; 85025; 85610; 85730; 87086; 93005; 96360; A4353

== ENCOUNTER 2017-12-06 23:25 | Emergency (ER) | payer MEDICARE, OTHER ==
[2017-12-07] MEDS ORDERED: Albuterol Sulfate 2.5 mg/0.5 ml Neb ONE (00:54)
[2017-12-07 01:02] LABS: #Basophils 0.1 thou/uL (0.0-0.2); #Eosinphils 0.1 thou/uL (0.0-0.7); #Lymphocytes 2.3 thou/uL (1.20-3.40); #Monocytes 0.7 thou/uL (0.11-0.59); #Neutrophils 4.2 thou/uL (1.40-6.50); %Basophils 0.7 % (0.0-1.0); %Eosinophils 1.2 % (0.0-10.0); %Lymphocytes 31.7 % (21.0-51.0); %Monocytes 9.1 % (0.0-10.0); %Neutrophils 57.4 % (42.0-75.0); Hemoglobin 12.7 g/dL (12.0-16.0); Mean Corpuscular HGB CONC 32.9 g/dL (32.0-36.0); Mean Corpuscular Hemoglobin 32.4 pg (27.0-31.0); Mean Corpuscular Volume 98.5 fl (81.0-99.0); Mean Platelet Volume 5.5 fL (7.4-10.4); Platelet Count 364 thou/uL (130-400); RBC Distribution Width 12.2 % (11.5-14.5); Red Blood Cell (RBC) Count 3.91 mill/uL (4.20-5.40); White Blood Cell (WBC) Count 7.4 thou/uL (4.8-10.8)
[2017-12-07 01:19] LABS: ALT (SGPT) 7 U/L (8-55); AST (SGOT) 12 U/L (5-34); Alkaline Phosphatase 57 U/L (40-150); Anion Gap 12 mmol/L (10-20); BUN (Urea Nitrogen) 6 mg/dL (9.8-20.1); Bilirubin, Total 0.3 mg/dL (0.2-1.2); Calc. Creatinine Clearance 0 mL/min (70-130); Calcium 9.6 mg/dL (7.8-10.44); Carbon Dioxide 24 mmol/L (23-31); Chloride 101 mmol/L (98-107); Estimated GFR-MDRD 88; Globulin 2.4 g/dL (2.4-3.5); Glucose 98 mg/dL (80-115); Potassium 4.4 mmol/L (3.5-5.1); Protein, Total 6.4 g/dL (6.0-8.3); Sodium 133 mmol/L (136-145)
[2017-12-07 01:22] LABS: CKMB 1.9 ng/mL (0-6.6); Troponin I Less than 0.010 ng/mL (< 0.028)
[2017-12-07] MEDS ORDERED: methylPREDNISolone Sod Succ/PF 125 MG/2 ML VIAL ONE (01:44)
[2017-12-07] MEDS ORDERED: predniSONE 20 MG TAB ONE (02:21)
--- NOTE | 2017-12-07 07:39 | RAD ---
CHEST 1 VIEW: HISTORY: Shortness of breath. COMPARISON: Chest 1 view 12/05/17. FINDINGS: No pneumothorax or effusion. Cardiac silhouette and mediastinal contours are similar. No new focal airspace opacity. No acute intrathoracic abnormality. POS: [facility]
--- NOTE | 2017-12-10 17:49 | EKG ---
Test Reason : Blood Pressure : / mmHG Vent. Rate : 086 BPM Atrial Rate : 086 BPM P-R Int : 172 ms QRS Dur : 072 ms QT Int : 362 ms P-R-T Axes : 039 053 040 degrees QTc Int : 433 ms Normal sinus rhythm Normal ECG Confirmed by KOMAL ROSE D.O. ([id number]), photo editor YVROSE PAGAN ([id number]) on 12/10/2017 5:48:20 PM Referred By: ALFONSO Confirmed By:KOMAL ROSE D.O.
== END 2017-12-07 03:07 | disposition home or self-care (01) ==
LOC: ERS 23:25
DX: J44.1 Chronic obstructive pulmonary disease with (acute) exacerbation (principal); I10 Essential (primary) hypertension; E78.5 Hyperlipidemia, unspecified; F41.9 Anxiety disorder, unspecified; F32.9 Major depressive disorder, single episode, unspecified; Z87.891 Personal history of nicotine dependence; Z79.899 Other long term (current) drug therapy
CPT/HCPCS: 36415; 71045; 80053; 82553; 84484; 85025; 93005; 94640; J2930; J7506; J7611

== ENCOUNTER 2017-12-07 12:35 | Emergency (ER) | payer MEDICARE, OTHER ==
--- NOTE | 2017-12-07 13:54 | CT ---
NONCONTRAST HEAD CT: HISTORY: Trauma. COMPARISON: 12/05/2017 TECHNIQUE: A noncontrast head CT is performed from the skull base to the skull vertex. FINDINGS: No parenchymal hemorrhage. No extraaxial hematoma. No midline shift. The basilar cisterns are cortez nt. Brain volume is age appropriate. Cortical linder white matter differentiation is preserved. Ventricles and sulci are patent and symmetric. There is a small hematoma involving the right parietal scalp, near the vertex. The calvarium is inta ct. Adequate aeration of the sinuses and mastoid air cells. IMPRESSION: 1. No intracranial post traumatic sequela. 2. Small right parietal scalp hematoma, near the vertex. POS: [facility]
== END 2017-12-07 14:35 | disposition home or self-care (01) ==
LOC: ERS 12:35
DX: S01.01XA Laceration without foreign body of scalp, initial encounter (principal); I10 Essential (primary) hypertension; J44.9 Chronic obstructive pulmonary disease, unspecified; E78.5 Hyperlipidemia, unspecified; F41.9 Anxiety disorder, unspecified; F31.9 Bipolar disorder, unspecified; F17.210 Nicotine dependence, cigarettes, uncomplicated; W01.198A Fall on same level from slipping, tripping and stumbling with subsequent striking against other object, initial encounter
CPT/HCPCS: 12001; 70450

== ENCOUNTER 2017-12-16 14:18 | Emergency (ER) | payer MEDICARE, MEDICAID ==
[2017-12-16 14:59] LABS: #Lymphocytes 2.1 thou/uL (1.20-3.40); #Monocytes 0.7 thou/uL (0.11-0.59); #Neutrophils 4.6 thou/uL (1.40-6.50); %Basophils 0.6 % (0.0-1.0); %Eosinophils 0.6 % (0.0-10.0); %Lymphocytes 28.2 % (21.0-51.0); %Monocytes 9.2 % (0.0-10.0); %Neutrophils 61.4 % (42.0-75.0); Hemoglobin 14.4 g/dL (12.0-16.0); Mean Corpuscular HGB CONC 33.3 g/dL (32.0-36.0); Mean Corpuscular Hemoglobin 33.1 pg (27.0-31.0); Mean Corpuscular Volume 99.3 fl (81.0-99.0); Mean Platelet Volume 5.4 fL (7.4-10.4); Platelet Count 420 thou/uL (130-400); RBC Distribution Width 12.1 % (11.5-14.5); Red Blood Cell (RBC) Count 4.34 mill/uL (4.20-5.40); White Blood Cell (WBC) Count 7.4 thou/uL (4.8-10.8)
[2017-12-16 15:21] LABS: ALT (SGPT) 8 U/L (8-55); AST (SGOT) 14 U/L (5-34); Albumin 4.1 g/dL (3.4-4.8); Alkaline Phosphatase 66 U/L (40-150); Anion Gap 13 mmol/L (10-20); BUN (Urea Nitrogen) 8 mg/dL (9.8-20.1); Bilirubin, Total 0.4 mg/dL (0.2-1.2); Calc. Creatinine Clearance 0 mL/min (70-130); Calcium 9.7 mg/dL (7.8-10.44); Carbon Dioxide 20 mmol/L (23-31); Chloride 105 mmol/L (98-107); Estimated GFR-MDRD Greater than 90; Globulin 2.8 g/dL (2.4-3.5); Glucose 102 mg/dL (80-115); Protein, Total 6.9 g/dL (6.0-8.3); Sodium 134 mmol/L (136-145)
[2017-12-16 15:23] LABS: CKMB 3.1 ng/mL (0-6.6); Troponin I 0.014 ng/mL (< 0.028)
== END 2017-12-16 15:09 ==
LOC: ERS 14:18
DX: Z53.21 Procedure and treatment not carried out due to patient leaving prior to being seen by health care provider (principal)
CPT/HCPCS: 36415; 80053; 82553; 84484; 85025; 93005

== ENCOUNTER 2017-12-20 15:59 | Emergency (ER) | payer MEDICARE, MEDICAID ==
[2017-12-20] MEDS ORDERED: Meclizine HCl 25 MG TAB ONE (17:43)
--- NOTE | 2017-12-20 18:32 | CT ---
CT HEAD WITHOUT CONTRAST: 12/20/17 Multiple axial tomograms obtained through the head without IV enhancement. HISTORY: Dizziness. Ventricles have normal size and position. Mild cortical volume loss. No evidence of hemorrhage, mass or acute infarct. IMPRESSION: No acute abnormality. POS: [facility]
[2017-12-20] MEDS ORDERED: Acetaminophen 325 MG TAB ONE (18:49)
== END 2017-12-20 18:59 | disposition home or self-care (01) ==
LOC: ERS 15:59
DX: R42 Dizziness and giddiness (principal); S00.03XD Contusion of scalp, subsequent encounter; I10 Essential (primary) hypertension; J44.9 Chronic obstructive pulmonary disease, unspecified; E78.5 Hyperlipidemia, unspecified; F31.9 Bipolar disorder, unspecified; F41.9 Anxiety disorder, unspecified; F17.210 Nicotine dependence, cigarettes, uncomplicated
CPT/HCPCS: 70450

== ENCOUNTER 2018-02-14 00:45 | Emergency (ER) | payer MEDICARE, MEDICAID ==
[2018-02-14 01:32] LABS: #Basophils 0.1 thou/uL (0.0-0.2); #Eosinphils 0.1 thou/uL (0.0-0.7); #Lymphocytes 0.9 thou/uL (1.20-3.40); #Monocytes 0.3 thou/uL (0.11-0.59); #Neutrophils 6.2 thou/uL (1.40-6.50); %Basophils 0.8 % (0.0-1.0); %Eosinophils 0.7 % (0.0-10.0); %Lymphocytes 11.4 % (21.0-51.0); %Neutrophils 83.1 % (42.0-75.0); Hemoglobin 14.4 g/dL (12.0-16.0); Mean Corpuscular HGB CONC 32.7 g/dL (32.0-36.0); Mean Corpuscular Hemoglobin 32.7 pg (27.0-31.0); Mean Platelet Volume 5.4 fL (7.4-10.4); Platelet Count 415 thou/uL (130-400); RBC Distribution Width 11.9 % (11.5-14.5); White Blood Cell (WBC) Count 7.4 thou/uL (4.8-10.8)
[2018-02-14 01:47] LABS: ALT (SGPT) 7 U/L (8-55); AST (SGOT) 13 U/L (5-34); Albumin 3.9 g/dL (3.4-4.8); Alkaline Phosphatase 69 U/L (40-150); Anion Gap 12 mmol/L (10-20); BUN (Urea Nitrogen) 13 mg/dL (9.8-20.1); Bilirubin, Total 0.4 mg/dL (0.2-1.2); CK (CPK) 146 U/L (29-168); Calc. Creatinine Clearance 0 mL/min (70-130); Calcium 8.8 mg/dL (7.8-10.44); Carbon Dioxide 24 mmol/L (23-31); Chloride 100 mmol/L (98-107); Estimated GFR-MDRD Greater than 90; Globulin 2.5 g/dL (2.4-3.5); Glucose 124 mg/dL (80-115); Potassium 3.8 mmol/L (3.5-5.1); Protein, Total 6.4 g/dL (6.0-8.3); Sodium 132 mmol/L (136-145)
[2018-02-14 01:49] LABS: CKMB 2.3 ng/mL (0-6.6); Troponin I Less than 0.010 ng/mL (< 0.028)
[2018-02-14] MEDS ORDERED: Ondansetron HCl/PF 4 MG/2 ML Vial ONE (01:57)
--- NOTE | 2018-02-14 07:40 | RAD ---
SINGLE VIEW CHEST: Date: 02/14/18 COMPARISON: 12/07/17. HISTORY: Chest pain. FINDINGS: Single view of the chest shows a normal sized cardiomediastinal silhouette. There is no evidence of c onsolidation, mass, or pleural effusion. The bones are unremarkable. IMPRESSION: No evidence of acute cardiopulmonary disease. POS: [facility]
--- NOTE | 2018-03-17 14:58 | EKG ---
Test Reason : Blood Pressure : / mmHG Vent. Rate : 100 BPM Atrial Rate : 100 BPM P-R Int : 164 ms QRS Dur : 072 ms QT Int : 328 ms P-R-T Axes : 079 054 061 degrees QTc Int : 423 ms Normal sinus rhythm Biatrial enlargement Abnormal ECG Confirmed by MIRELLA SHAFFER, PING ([id number]), editor index YVROSE PAGAN ([id number]) on 03/17/2018 2:57:26 PM Referred By: Confirmed By:PING VU MD
== END 2018-02-14 02:56 | disposition home or self-care (01) ==
LOC: ERS 00:45
DX: R07.2 Precordial pain (principal); I10 Essential (primary) hypertension; J44.9 Chronic obstructive pulmonary disease, unspecified; E78.5 Hyperlipidemia, unspecified; F31.9 Bipolar disorder, unspecified; F41.9 Anxiety disorder, unspecified; F17.210 Nicotine dependence, cigarettes, uncomplicated; Z79.899 Other long term (current) drug therapy; Z71.6 Tobacco abuse counseling
CPT/HCPCS: 36415; 71045; 80053; 82553; 84484; 85025; 93005; 94760; 96374; 99406; J2405

== ENCOUNTER 2018-03-19 15:19 | Emergency (ER) | payer MEDICARE ==
[2018-03-19] MEDS ORDERED: Sulfameth/Trimethoprim DS 800-160mg TAB ONE (16:03)
[2018-03-19] MEDS ORDERED: HYDROcodone/Acetaminophen 5/325 mg Tablet ONE ×2 (16:03→16:05)
== END 2018-03-19 16:10 | disposition home or self-care (01) ==
LOC: SCSER 15:19
DX: L03.317 Cellulitis of buttock (principal); I10 Essential (primary) hypertension; J44.9 Chronic obstructive pulmonary disease, unspecified; E78.5 Hyperlipidemia, unspecified; F41.9 Anxiety disorder, unspecified; F31.9 Bipolar disorder, unspecified; F17.210 Nicotine dependence, cigarettes, uncomplicated; Z79.899 Other long term (current) drug therapy
CPT/HCPCS: 99283

== ENCOUNTER 2018-03-20 14:37 | Emergency (ER) | payer MEDICARE, OTHER ==
--- NOTE | 2018-03-20 16:20 | CT ---
CT BRAIN WITHOUT CONTRAST: HISTORY: Fall earlier today, in recliner at home. Altered mental status. COMPARISON: 12/20/2017 TECHNIQUE: Multiple contiguous axial images were obtained in a CT of the brain without contrast. FINDINGS: The brain is normal in morphology and attenuation without focal lesions or confluent areas of infarct ion. There is no evidence of hydrocephalus, intracranial hemorrhage, or extraaxial fluid collection. The calvarium and overlying soft tissues are unremarkable. The visualized paranasal sinuses and mast oid air cells are well aerated. IMPRESSION: No evidence of acute intracranial abnormality. POS: [facility]
--- NOTE | 2018-03-20 16:30 | RAD ---
TWO VIEWS OF THE LEFT HIP: COMPARISON: None. HISTORY: Fell off a chair with left hip pain. FINDINGS: Two views left hip show the patient to be status post ORIF of the left femur. No acute fracture or d islocation are seen. No perihardware lucency is present. There is mild soft tissue swelling lateral ly. IMPRESSION: No evidence of acute osseous abnormality. POS: [facility]
--- NOTE | 2018-03-20 16:30 | RAD ---
TWO VIEWS OF THE RIGHT HIP: COMPARISON: None. HISTORY: Slid off a chair and fell down with right hip pain. FINDINGS: Two views right hip show the patient to be status post ORIF of the proximal right femur. No acute fr acture or dislocation is seen. No perihardware lucency is identified. IMPRESSION: No evidence of acute osseous abnormality. POS: [facility]
--- NOTE | 2018-03-20 16:35 | RAD ---
AP RADIOGRAPH PELVIS: 03/20/2018 HISTORY: The patient was sitting down and slid off the chair and fell forward. Complaining of bilateral hip p ain. COMPARISON: 05/18/2017 FINDINGS: There are post surgical changes involving the hips bilaterally with intramedullary rods and dynamic c ompression type screws transfixing each femoral neck and proximal femur. No hardware complication is appreciated. No definite fracture is seen. There is deformity involving the right inferior pubic r amus and pubic bone, which has the appearance of a remote healed fracture. Post surgical changes of the right hip have occurred in the interim. No other interval change. IMPRESSION: 1. Bilateral total hip prosthesis without hardware complication. 2. Remote fracture, right inferior pubic ramus. 3. No obvious acute fracture is seen; however, dedicated views of each hip may be helpful for furthe r evaluation. 4. Suggestion of mild subcutaneous edema, lateral aspect of each hip. POS: [facility]
== END 2018-03-20 18:00 | disposition home or self-care (01) ==
LOC: ERS 14:37
DX: M25.551 Pain in right hip (principal); E78.5 Hyperlipidemia, unspecified; F31.9 Bipolar disorder, unspecified; F41.9 Anxiety disorder, unspecified; F17.210 Nicotine dependence, cigarettes, uncomplicated; I10 Essential (primary) hypertension; J44.9 Chronic obstructive pulmonary disease, unspecified; W07.XXXA Fall from chair, initial encounter; Z79.899 Other long term (current) drug therapy
CPT/HCPCS: 70450; 72170

== ENCOUNTER 2018-03-21 07:37 | Emergency (ER) | payer MEDICARE, OTHER ==
[2018-03-21] MEDS ORDERED: Acetaminophen 325 MG TAB ONE (08:38)
--- NOTE | 2018-03-21 08:56 | RAD ---
THREE VIEWS RIGHT SHOULDER: Indication: Fall. Comparison: None. FINDINGS: There is a comminuted three-part proximal humerus fracture that is mildly displaced. The distal fract ure fragment is displaced laterally [id number] cortex width. There is diffuse osteopenia. Visuali zed right lung is clear. IMPRESSION: Nondisplaced proximal humerus fracture. POS: [facility]
== END 2018-03-21 11:40 | disposition home or self-care (01) ==
LOC: ERS 07:37
DX: S42.201A Unspecified fracture of upper end of right humerus, initial encounter for closed fracture (principal); I10 Essential (primary) hypertension; J44.9 Chronic obstructive pulmonary disease, unspecified; E78.5 Hyperlipidemia, unspecified; F41.9 Anxiety disorder, unspecified; F31.9 Bipolar disorder, unspecified; F17.210 Nicotine dependence, cigarettes, uncomplicated; Z79.899 Other long term (current) drug therapy; W18.30XA Fall on same level, unspecified, initial encounter

== ENCOUNTER 2018-03-26 15:24 | Emergency (ER) | payer MEDICARE, OTHER ==
[2018-03-26] MEDS ORDERED: Ketorolac Tromethamine 30 MG/ML VIAL ONE (16:03)
== END 2018-03-26 16:31 | disposition home or self-care (01) ==
LOC: ERS 15:24
DX: S42.201D Unspecified fracture of upper end of right humerus, subsequent encounter for fracture with routine healing (principal); E78.5 Hyperlipidemia, unspecified; F31.9 Bipolar disorder, unspecified; F41.9 Anxiety disorder, unspecified; F17.210 Nicotine dependence, cigarettes, uncomplicated; I10 Essential (primary) hypertension; J44.9 Chronic obstructive pulmonary disease, unspecified
CPT/HCPCS: 96372; J1885

== ENCOUNTER 2018-06-29 13:07 | Observation (INO) | payer MEDICARE, OTHER ==
[2018-06-29 14:07] LABS: #Basophils 0.1 thou/uL (0.0-0.2); #Eosinphils 0.1 thou/uL (0.0-0.7); #Lymphocytes 1.8 thou/uL (1.20-3.40); #Monocytes 0.5 thou/uL (0.11-0.59); %Eosinophils 1.4 % (0.0-10.0); %Lymphocytes 32.7 % (21.0-51.0); Hemoglobin 13.8 g/dL (12.0-16.0); Mean Corpuscular HGB CONC 33.5 g/dL (32.0-36.0); Mean Corpuscular Hemoglobin 32.4 pg (27.0-31.0); Mean Corpuscular Volume 96.6 fL (78.0-98.0); Mean Platelet Volume 5.7 fL (7.4-10.4); Platelet Count 260 thou/uL (130-400); RBC Distribution Width 12.9 % (11.5-14.5); Red Blood Cell (RBC) Count 4.27 mill/uL (4.20-5.40); White Blood Cell (WBC) Count 5.4 thou/uL (4.8-10.8)
[2018-06-29 14:24] LABS: Troponin I Less than 0.010 ng/mL (< 0.028)
[2018-06-29 14:31] LABS: ALT (SGPT) 12 U/L (8-55); AST (SGOT) 20 U/L (5-34); Alkaline Phosphatase 61 U/L (40-150); Anion Gap 13 mmol/L (10-20); BUN (Urea Nitrogen) 13 mg/dL (9.8-20.1); Bilirubin, Total 0.4 mg/dL (0.2-1.2); CK (CPK) 72 U/L (29-168); Calc. Creatinine Clearance 0 mL/min (70-130); Calcium 9.5 mg/dL (7.8-10.44); Carbon Dioxide 28 mmol/L (23-31); Chloride 96 mmol/L (98-107); Estimated GFR-MDRD Greater than 90; Globulin 2.6 g/dL (2.4-3.5); Glucose 97 mg/dL (80-115); Protein, Total 6.6 g/dL (6.0-8.3); Sodium 132 mmol/L (136-145)
--- NOTE | 2018-06-29 14:40 | RAD ---
CHEST ONE VIEW: HISTORY: Altered mental status. COMPARISON: 04/05/2018 FINDINGS: Incompletely healed proximal right humerus fracture. Slight elongation of the aorta. Normal cardiac silhouette. Hyperinflation with chronic changes. No pneumothorax or osseous abnormalities. Old le ft rib fracture is noted. IMPRESSION: 1. No acute cardiopulmonary process. 2. Incompletely healed proximal right humerus fracture. POS: [facility]
--- NOTE | 2018-06-29 14:41 | CT ---
NONCONTRAST HEAD CT: HISTORY: Altered mental status. COMPARISON: 03/20/2018 FINDINGS: No parenchymal hemorrhage. No extraaxial hematoma. No midline shift. Basilar cisterns are patent. Age appropriate atrophy. Cortical linder white matter differentiation is preserved. The ventricles and sulci are patent and symmetric. Intact calvarium. Adequate aeration of the sinuses and mastoid air cells. IMPRESSION: No acute intracranial process. POS: [facility]
--- NOTE | 2018-06-29 15:04 | CT ---
CT CERVICAL SPINE WITHOUT CONTRAST: HISTORY: Mental status change. Confusion x4 days. Generalized weakness and balance issues x4 days. Fell yes terday and hit head. Post traumatic pain. COMPARISON: 12/05/2017 FINDINGS: There is no craniocervical dissociation. The lateral masses of C1 and C2 articulate appropriately. There has been removal of a cervical fusion plate at C4, C5, C6, and C7. Tracks from the previous sc rews are still present. There are disk prostheses at C3-C4, C4-C5, C5-C6, and C6-C7. Stable appeara nce of the C3 vertebral body with loss of vertebral body height and slight retropulsion. There is no evidence of an acute fracture. There is slight irregularity involving the superior endplate of T2, similar to the previous examination. Soft tissue neck structures are unremarkable. Atherosclerosis of the carotid arteries is noted. The upper mediastinum is unremarkable. Chronic changes in the lung parenchyma are noted. Atheroscle rosis of the aorta is identified. Varying degrees of central canal stenosis and neural foraminal narrowing on the basis of degenerative change. IMPRESSION: No cervical spine fracture. Chronic post surgical/post fusion changes are noted. POS: [facility]
[2018-06-29 15:31] LABS: Bilirubin Negative (Negative); Blood, Urine Negative (Negative); Clarity CLEAR (Clear); Glucose, Urine (Dipstick) Negative (Negative); Leukocyte Negative (Negative); Nitrite Negative (Negative); Protein, Urine (Dipstick) Negative (Neg-Trace); Specific Gravity, Urine 1.015 (1.002-1.036)
[2018-06-29] MEDS ORDERED: Bisacodyl 5 MG TAB PO PRN (21:26)
[2018-06-29] MEDS ORDERED: Labetalol HCl 100 MG/20 ML VIAL SLOW IVP PRN (21:26)
[2018-06-29] MEDS ORDERED: Senokot 8.6 MG TAB PO PRN (21:26)
[2018-06-29] MEDS ORDERED: Acetaminophen 325 MG TAB PO PRN (21:26)
[2018-06-29] MEDS ORDERED: hydrALAZINE 20 MG/ML VIAL SLOW IVP PRN (21:26)
[2018-06-29 21:59] VITALS: BMI 18.8
[2018-06-29] MEDS ORDERED: Benztropine 1 MG TAB PO SCH (22:30)
[2018-06-29] MEDS ORDERED: PROVENTIL INHALER 6.7 G (200 INHALATIONS) INH SCH (22:30)
[2018-06-29] MEDS ORDERED: Docusate 100 MG CAP PO SCH (22:30)
[2018-06-29] MEDS ORDERED: Heparin 5,000 UNITS/ML VIAL SC SCH (22:30)
[2018-06-29] MEDS ORDERED: busPIRone HCl 10 MG TAB PO SCH (22:30)
[2018-06-29] MEDS ORDERED: Mometasone/Formoterol 120 PUFF INHALER INH SCH (22:30)
[2018-06-29] MEDS ORDERED: Gabapentin 300 MG CAP PO SCH (22:30)
[2018-06-29] MEDS ORDERED: Meclizine HCl 25 MG TAB PO PRN (22:35)
[2018-06-29] MEDS ORDERED: Ondansetron ODT 4 MG TAB PO PRN (22:36)
[2018-06-29] MEDS ORDERED: traZODone HCl 50 MG TAB PO SCH (22:45)
[2018-06-29] MEDS ORDERED: Ibuprofen 200 MG TAB PO SCH (22:45)
[2018-06-29] MEDS ORDERED: PROVENTIL INHALER 6.7 G (200 INHALATIONS) INH PRN (23:24)
[2018-06-30 05:20] LABS: #Eosinphils 0.1 thou/uL (0.0-0.7); #Lymphocytes 1.5 thou/uL (1.20-3.40); #Monocytes 0.3 thou/uL (0.11-0.59); #Neutrophils 1.9 thou/uL (1.40-6.50); %Lymphocytes 39.7 % (21.0-51.0); %Monocytes 7.9 % (0.0-10.0); %Neutrophils 49.4 % (42.0-75.0); Hemoglobin 12.6 g/dL (12.0-16.0); Mean Corpuscular HGB CONC 34.2 g/dL (32.0-36.0); Mean Corpuscular Hemoglobin 32.1 pg (27.0-31.0); Mean Corpuscular Volume 93.9 fL (78.0-98.0); Platelet Count 229 thou/uL (130-400); RBC Distribution Width 12.5 % (11.5-14.5); Red Blood Cell (RBC) Count 3.91 mill/uL (4.20-5.40); White Blood Cell (WBC) Count 3.9 thou/uL (4.8-10.8)
[2018-06-30 05:37] LABS: Anion Gap 11 mmol/L (10-20); BUN (Urea Nitrogen) 12 mg/dL (9.8-20.1); Calc. Creatinine Clearance 79 mL/min (70-130); Calcium 8.7 mg/dL (7.8-10.44); Carbon Dioxide 27 mmol/L (23-31); Cardiac Risk 3.8 (Less than 4.5); Chloride 99 mmol/L (98-107); Cholesterol 185 mg/dl (< 200 Desired); Estimated GFR-MDRD Greater than 90; Glucose 80 mg/dL (80-115); HDL Cholesterol 49 mg/dL (>60 Neg Risk); LDL Cholesterol, Calculated 124 mg/dL; Potassium 4.2 mmol/L (3.5-5.1); Sodium 133 mmol/L (136-145); Triglycerides 62 mg/dL (Less than 150)
[2018-06-30] MEDS ORDERED: PROVENTIL INHALER 6.7 G (200 INHALATIONS) INH SCH (07:00)
[2018-06-30] MEDS: Mometasone/Formoterol 120 PUFF INHALER INH SCH ×2 (07:29→19:44)
--- NOTE | 2018-06-30 08:40 | ULT ---
ULTRASOUND CAROTID DOPPLER STANDARD: HISTORY: Transient ischemic attack. COMPARISON: None. TECHNIQUE: Real-time, linder scale, color Doppler and spectral analysis of the extracranial carotid and vertebral arteries is performed. FINDINGS: Moderate atherosclerotic plaque both carotid bulbs and proximal joint carotid arteries. Antegrade fl ow of both vertebral arteries. No elevated peak systolic velocities in the internal carotid arteries to suggest hemodynamically sign ificant stenosis. IMPRESSION: No hemodynamically significant stenosis. POS: [facility]
--- NOTE | 2018-06-30 08:54 | MRI ---
MRI BRAIN WITHOUT CONTRAST: Date: 06/29/18 HISTORY: TIA. COMPARISON: CT brain prior day. FINDINGS: On the diffusion-weighted imaging sequence, there are no abnormal areas of diffusion restriction to s uggest an acute infarction. This is confirmed on the ADC map. On the susceptibility-weighted imaging sequence, there are no abnormal areas of hemorrhage. Mild atrophy. No midline shift. Low grade microvascular ischemic changes. The [place] flow-voids are maintained. Orbits are unremarkable. IMPRESSION: No acute intracranial abnormality. No evidence of hemorrhage or infarct. POS: [facility]
[2018-06-30] MEDS ORDERED: Meclizine HCl 25 MG TAB PO PRN (08:59)
[2018-06-30] MEDS ORDERED: Lisinopril 10 MG TAB PO SCH (09:00)
[2018-06-30] MEDS ORDERED: busPIRone HCl 10 MG TAB PO SCH (09:00)
[2018-06-30] MEDS ORDERED: Non-Formulary Item 1 EACH (Fluticasone/Vilanterol [Breo Ellipta] 1 PUFF) INH SCH (09:00)
[2018-06-30] MEDS ORDERED: Montelukast Sodium 10 mg Tablet PO SCH (09:00)
[2018-06-30] MEDS ORDERED: Escitalopram Oxalate 20 mg Tablet PO SCH (09:00)
[2018-06-30] MEDS ORDERED: Ibuprofen 200 MG TAB PO SCH (09:00)
[2018-06-30] MEDS ORDERED: Divalproex Sodium DR 500 MG TAB PO SCH (09:00)
--- NOTE | 2018-06-30 09:40 | PDOC.EVN ---
Event Note - Event Note Event Note: h&p [id number]
--- NOTE | 2018-06-30 09:40 | HP ---
CHIEF COMPLAINT: Altered mental status. HISTORY OF PRESENT ILLNESS: This patient is a 67-year-old female who presented via the emergency dep artment. Family reports that the patient has been having some increased confusion and weakness with balance issues for about the last 4 days. I was able to talk to the patient's son. He reported that they found the patient yesterday morning early around 5:30-6 lying on the kitchen floor. They were unsure if the patient had fallen or was simply lying there. When he yelled her name, she easily imme diately awakened and he was able to get her up off the floor. He found no evidence that she had inju red herself at that time. The patient reports that she actually remembers falling and believes that she simply fell over backwards. She reports that she falls frequently because of balance issues. Th e patient's son also reports that she has a new PCP that she saw a few weeks ago. He is unaware of a ny new changes in her medications. They do report in the emergency department that the patient had q uit smoking about 3 weeks ago and has been wearing a nicotine patch. REVIEW OF SYSTEMS: Difficult to obtain as the patient is somewhat confused this morning. She does r eport that she has some difficulty with urinating. She states she has some urgency as difficulty ini tiating the void. She also reports some loose stools, but not ijeoma diarrhea. She denies any recent chest pain or cough. PAST MEDICAL HISTORY: Notable for apparent bipolar disorder with depression. She had a history of h yponatremia requiring previous admissions. She has hypertension, COPD, hyperlipidemia and anxiety. PAST SURGICAL HISTORY: Left breast biopsy, vulvectomy, hysterectomy with left oophorectomy, left kne e repair, tonsillectomy, cervical spinal fusion, bilateral hip rods following fall with hip fracture. FAMILY HISTORY: Not immediately obtainable history and the record indicate no significant findings. SOCIAL HISTORY: The patient was previously a 1 pack a day smoker, apparently quit 3 weeks ago. No h istory of alcohol or drugs. The patient currently lives with her son and [id number]. ALLERGIES: PENICILLIN, SUMATRIPTAN and MEPERIDINE. HOME MEDICATIONS: Depakote 1000 mg every day, Zofran 4 mg p.o. q.4 hours p.r.n., DuoNebs t.i.d., ibu profen 400 q.i.d., quetiapine 300 mg at bedtime, meclizine 25 mg q.i.d., gabapentin 300 mg at bedtime , albuterol 2 puffs q.i.d., Breo Ellipta 1 inhalation every day, escitalopram 20 mg every day, Zestri l 10 mg every day, Singulair 10 mg every day, trazodone 100 mg at bedtime, omeprazole 20 mg every day , BuSpar 15 mg b.i.d., Cogentin 2 mg at bedtime. PHYSICAL EXAMINATION: VITAL SIGNS: Temperature 98, pulse 69, respirations 15, O2 sat 92% on room air, BP ranging from 103/ 57-162/83. GENERAL APPEARANCE: Age appropriate female. She is awake, alert, in no distress, pleasant, conversa nt. She is somewhat confused. She is fidgeting good deal with things on her tray. She is having so me trouble hitting her coffee cup with her creamers and hitting her mouth with the food although she is not tremulous and appears to have a normal cerebellar function. HEENT: Pupils are reactive bilaterally. She has no OP lesions. She has upper incisors without jace olars or molars. NECK: Supple and symmetric. She has no thyromegaly, no lymphadenopathy. HEART: Regular rate and rhythm without murmurs, gallops or rubs. LUNGS: Clear to auscultation bilaterally with good chest wall expansion and air exchange. ABDOMEN: Soft, nontender, nondistended. EXTREMITIES: Warm and dry with good pulses. No edema. INITIAL LABORATORY DATA AND IMAGING DATA: Initial white count 5.4, hemoglobin 13.8, platelets 260. Sodium 132, potassium 5.0, chloride 96, BUN 13 and creatinine 0.62. Troponin less than 0.01. TSH is 3.7. Urinalysis was negative. Chest x-ray was clear. CT of the brain reveals no acute findings. CT cervical spine, no acute findings. Labs from this morning; white count 3.9, hemoglobin 12.6, plat elets 229. Sodium 133, potassium 4.2, chloride 99, BUN 12 and creatinine 0.4. Triglycerides 62, cho lesterol 185, LDL 124, HDL 49 and carotid Dopplers are negative. ASSESSMENT AND PLAN: 1. Altered mental status. Etiology of this is not fully clear at this time. It does not appear to be infectious. She does not appear to have had any type of vascular insufficiency or CVA. There is no evidence of traumatic injury to indicate concussion. The patient does have a history of mismanagi ng her own medications. We will check a urine drug screen. The patient's son indicates that about a month ago, they took over managing her medications and sorting them for her. Suspect that low likel ihood, but still a possibility. Next possibly iatrogenic secondary to polypharmacy. The patient is on numerous medications that could affect her cognition, memory and physical functioning as well as b alance. We will try to reach out to [facility] and get some information about why specifically she is on s ome of these medications and see if there are opportunities to wean it. There is also some possibili ty of some type of organic degenerative cognitive disorder, although this seems to be fairly abrupt i n onset and would make that less likely. We will keep the patient on telemetry for the time being to rule out the possibilities of arrhythmia, although presently, the patient is in sinus rhythm and sti ll symptomatic. 2. History of hypertension. Continue with her home medications. 3. Bipolar depression. Again, the patient is on numerous medications. We will continue those for t he time being. 4. History of falls. The patient has had a history of several fractures based on her x-rays which p resumably are due to falls. The patient is currently ambulating with walker. Her son indicates she is not doing a whole lot lately other than getting up and eating and then going back to bed for much of the time. I will ask physical therapy to evaluate the patient. 5. Chronic obstructive pulmonary disease, chronic. Continue with her home regimen. 6. Hyperlipidemia, stable, chronic. Continue with her usual home regimen. 7. Deep venous thrombosis prophylaxis with sequential compression devices.
[2018-06-30] MEDS: busPIRone HCl 10 MG TAB PO SCH ×2 (09:48→20:51)
[2018-06-30] MEDS: Montelukast Sodium 10 mg Tablet PO SCH (09:50)
[2018-06-30] MEDS: Escitalopram Oxalate 20 mg Tablet PO SCH (09:50)
[2018-06-30] MEDS ORDERED: Ibuprofen 200 MG TAB PO PRN (09:50)
[2018-06-30] MEDS: Docusate 100 MG CAP PO SCH ×2 (09:51→20:52)
[2018-06-30] MEDS: Heparin 5,000 UNITS/ML VIAL SC SCH ×3 (09:51→20:54)
[2018-06-30] MEDS: Divalproex Sodium DR 500 MG TAB PO SCH (09:52)
[2018-06-30] MEDS: Lisinopril 10 MG TAB PO SCH (10:06)
[2018-06-30] MEDS ORDERED: PROVENTIL INHALER 6.7 G (200 INHALATIONS) INH PRN (11:00)
--- NOTE | 2018-06-30 11:21 | HP ---
PRIMARY CARE PHYSICIAN: Juanito Vanegas. HISTORY OF PRESENT ILLNESS: This is a 67-year-old female with a history of hypertension, COPD who pr esented with a chief complaint of altered mental status. It appears that patient was brought in by shena platt after observing her for the last 4 days to be "not making sense" in conversation. It appears t hat in the emergency department, the patient also has been endorsing hallucinations in the form of __ ___. Over the last four days, the patient has also apparently been falling x4 with complaints of generaliz ed weakness and disequilibrium. The patient was noted to have hit her head at least one of those 4 t imes without any known loss of consciousness by the family. At the time of my evaluation, the patient herself is a very, very poor historian. Endorses very frus trated about not being able to figure out what she needs to tell me what has been going on. REVIEW OF SYSTEMS: As per HPI. CONSTITUTIONAL: No fevers, no chills, no significant weight loss or gain. HEENT: Patient herself denies any lightheadedness, dizziness. History of having fallen and feeling imbalance is translated from the ER provider. CARDIOVASCULAR: No chest pain or chest pressure. No left-sided arm numbness or tingling actively. RESPIRATORY: Currently no cough, no congestion. Difficulty with breathing. GASTROINTESTINAL: Hanny ent states that she has had no episode. She denies any diarrhea, denies any constipation, although i n the emergency department records, it appears that the patient's review of systems at that point in time had endorsed diarrhea. GENITOURINARY: Denies any dysuria or urinary frequency to color and odo r. MUSCULOSKELETAL: Denies any new myalgias or arthralgias. It appears that there was reported to have a fall; however, at the time of my evaluation, the patient is unable to endorse or deny a fall. PAST MEDICAL HISTORY: As per above significant for; 1. Hypertension. 2. Chronic obstructive pulmonary disease. 3. Hyperlipidemia. 4. Status post carpal tunnel surgery. 5. Status post appendectomy. 6. Status post hysterectomy with oophorectomy of the left ovary. 7. Status post left knee replacement. 8. Status post multiple neck fusions. 9. Status post "rods" in both hips per the patient. 10. Anxiety. 11. Depression. 12. Bipolar disorder. MEDICATIONS: Please see EMR for full details or list currently includes Depakote 1000 mg p.o. daily, mg p.o. q.4 hours p.r.n., ipratropium/albuterol 3 mL nebs t.i.d. p.r.n., ibuprofen 400 mg p.o. q.i.d. p.r.n., quetiapine fumarate 300 mg p.o. at bedtime, meclizine 25 mg p.o. q.i.d. p.r.n., gabap entin 300 mg p.o. at bedtime, albuterol sulfate 2 puffs inhalation q.i.d. p.r.n., fluticasone/vilante rol 1 puff inhalation daily, escitalopram oxalate 20 mg p.o. daily, lisinopril 10 mg p.o. daily, robin elukast 10 mg p.o. daily, trazodone 100 mg p.o. at bedtime, omeprazole 20 mg p.o. daily, buspirone 15 mg p.o. b.i.d., benztropine mesylate 2 mg p.o. at bedtime. ALLERGIES: Numerous and include PENICILLINS, causing hives, SUMATRIPTAN causing shortness of breath and MEPERIDINE with an unknown reaction listed. FAMILY HISTORY: Essentially negative. SOCIAL HISTORY: Patient has stopped smoking over the last 2-3 weeks and she is using a nicotine patc h. Previously smoked half pack a day. Denies any alcohol or illicit drug use. Patient is currently presumed to be FULL CODE as she has a fair amount of confusion and her history giving along with deg ree of issues with consistency. In addition, patient is also hallucinating. PHYSICAL EXAMINATION: GENERAL: The patient is awake, alert, conversant, in no acute distress. She is in the hospital bed. HEENT: Normocephalic, atraumatic. Equal ocular motions are intact, slightly dry mucous membranes. CARDIOVASCULAR: S1, S2. No murmurs, rubs or gallops. Pulses is 2+ bilateral upper extremities. No pitting pedal edema. RESPIRATORY: Reasonable air movement. No overt wheezes, rales or rhonchi. No conversational dyspne a. ABDOMEN: Positive bowel sounds, soft, nontender to palpation. MUSCULOSKELETAL: Able to reposition in the bed by herself and is moving all 4 extremities spontaneou sly. LABORATORY DATA AND IMAGING DATA: WBC 5.4, hemoglobin 13.8, hematocrit 41.3, platelets 260. Sodium 132, potassium 5.0, chloride 96, bicarbonate 28, BUN 13, creatinine 0.62, glucose 97, calcium 9.5, to anton bilirubin 0.4, AST 20, ALT 12, alkaline phosphatase 61. Creatinine kinase 72, troponin less than 0.01, total protein 6.6, albumin 4.0, TSH 3.7106, triglycerides 62, cholesterol 185, LDL 124, HDL 49 . UA is essentially planned. Valproic acid level 77.3. On 06/29/2018, MRI of the brain. Impressio n: No acute intracranial abnormality. No evidence of hemorrhage or infarct. ASSESSMENT AND PLAN: A 67-year-old female presenting with a chief complaint of altered mental status . 1. Altered mental status with issues of dysequilibrium. The patient is unfortunately a poor histori an as demonstrated above during the history component of this H and P. I will appreciate Neurology c onsultation. Evaluate for common causes of altered mental status and delirium has been otherwise yvan ssly negative at this point in time. The patient does not have any overt signs or symptoms consisten t with infection. She also does not have any overt ischemic neurological insult that is visible on i maging either. The patient is on several medications and Depakote level appears to be reasonable. I t is unclear how many of the medications are completely new or have had recent dosage changes. Uncle ar how much of this could be indicative of an underlying psychiatric component as well as the patient has a known history of bipolar disease without any prior known history of psychosis. Hallucinations are rather concerning in this regard. 2. Would recommend ultimately consideration of a Psychiatry consultation if organic etiologies for t he patient's presentation are thoroughly ruled out. 3. Hypertension appears to be stable. Continue home regimen. 4. Chronic obstructive pulmonary disease appears to be stable. Continue home regimen. 5. Diet: As tolerated. 6. Activity: As tolerated. 7. Deep venous thrombosis prophylaxis, enoxaparin.
[2018-06-30 11:29] LABS: Amphetamine Not Detected (NotDetected); Barbiturates Screen Not Detected (NotDetected); Benzodiazepine Screen Not Detected (NotDetected); Cocaine Metabolite Screen Not Detected (NotDetected); Medtox Control Line Valid? VALID (VALID); Medtox Reader # READER 4; Methadone Not Detected (NotDetected); Methamphetamine Not Detected (NotDetected); Opiate Screen Not Detected (NotDetected); Oxycodone Screen Not Detected (NotDetected); Phencyclidine (PCP) Not Detected (NotDetected); THC/Cannabinoid Screen Not Detected (NotDetected); Tricyclic Screen Detected (NotDetected)
[2018-06-30] MEDS: traZODone HCl 50 MG TAB PO SCH (20:50)
[2018-06-30] MEDS: Benztropine 1 MG TAB PO SCH (20:50)
[2018-06-30] MEDS: Gabapentin 300 MG CAP PO SCH (20:52)
[2018-06-30] MEDS: Ibuprofen 200 MG TAB PO PRN (20:53)
[2018-06-30] MEDS ORDERED: Gabapentin 300 MG CAP PO SCH (21:00)
[2018-06-30] MEDS ORDERED: traZODone HCl 50 MG TAB PO SCH (21:00)
[2018-06-30] MEDS ORDERED: Benztropine 1 MG TAB PO SCH (21:00)
[2018-06-30] MEDS ORDERED: QUETIAPINE FUMARATE 300 MG PO SCH (21:00)
[2018-07-01 05:32] LABS: #Basophils 0.1 thou/uL (0.0-0.2); #Eosinphils 0.1 thou/uL (0.0-0.7); #Lymphocytes 2.1 thou/uL (1.20-3.40); #Monocytes 0.4 thou/uL (0.11-0.59); #Neutrophils 2.1 thou/uL (1.40-6.50); %Basophils 1.5 % (0.0-1.0); %Eosinophils 1.6 % (0.0-10.0); %Lymphocytes 44.8 % (21.0-51.0); %Monocytes 7.5 % (0.0-10.0); %Neutrophils 44.6 % (42.0-75.0); Mean Corpuscular HGB CONC 33.9 g/dL (32.0-36.0); Mean Corpuscular Hemoglobin 32.2 pg (27.0-31.0); Mean Corpuscular Volume 94.8 fL (78.0-98.0); Mean Platelet Volume 6.3 fL (7.4-10.4); Platelet Count 215 thou/uL (130-400); RBC Distribution Width 12.4 % (11.5-14.5); Red Blood Cell (RBC) Count 4.03 mill/uL (4.20-5.40); White Blood Cell (WBC) Count 4.6 thou/uL (4.8-10.8)
[2018-07-01 05:58] LABS: Anion Gap 9 mmol/L (10-20); BUN (Urea Nitrogen) 12 mg/dL (9.8-20.1); Calc. Creatinine Clearance 74 mL/min (70-130); Calcium 8.5 mg/dL (7.8-10.44); Carbon Dioxide 24 mmol/L (23-31); Chloride 97 mmol/L (98-107); Estimated GFR-MDRD Greater than 90; Glucose 82 mg/dL (80-115); Potassium 4.2 mmol/L (3.5-5.1); Sodium 126 mmol/L (136-145)
[2018-07-01] MEDS: Mometasone/Formoterol 120 PUFF INHALER INH SCH ×2 (07:27→18:32)
[2018-07-01] MEDS: Escitalopram Oxalate 20 mg Tablet PO SCH (08:41)
[2018-07-01] MEDS: Divalproex Sodium DR 500 MG TAB PO SCH (08:41)
[2018-07-01] MEDS: Docusate 100 MG CAP PO SCH ×2 (08:41→20:19)
[2018-07-01] MEDS: Montelukast Sodium 10 mg Tablet PO SCH (08:41)
[2018-07-01] MEDS: Lisinopril 10 MG TAB PO SCH (08:42)
[2018-07-01] MEDS: busPIRone HCl 10 MG TAB PO SCH ×2 (08:42→20:19)
[2018-07-01] MEDS: Heparin 5,000 UNITS/ML VIAL SC SCH ×3 (08:42→20:20)
--- NOTE | 2018-07-01 15:10 | PDOC.PN ---
- Subjective Encounter Start Date: 07/01/18 Encounter Start Time: 11:00 Patient feels well. Says she is doing better, but when asked in what way she is better, she has a hard time explaining. She say her shoulder feels better. - Objective Resuscitation Status: Resuscitation Status FULL:Full Resuscitation Vital Signs & Weight: Vital Signs (12 hours) Temp Pulse Resp BP BP Pulse Ox 07/01/18 11:30 98.5 F 70 16 137/73 94 L 07/01/18 08:42 97.7 F 67 22 H 125/66 07/01/18 07:46 97.7 F 67 22 H 161/76 H 92 L 07/01/18 04:13 98.3 F 61 20 125/66 95 Weight Admit Weight 110 lb 1.6 oz Weight 111 lb 8 oz I&O: 06/30/18 07/01/18 07/02/18 06:59 06:59 06:59 Intake Total 360 1460 Output Total 350 1050 600 Balance 10 410 -600 Result Diagrams: 07/01/18 05:05 07/01/18 05:04 Phys Exam - Physical Examination Constitutional: NAD Respiratory: no wheezing, no rales, no rhonchi, clear to auscultation bilateral Cardiovascular: RRR, no significant murmur Gastrointestinal: soft, non-tender Neurological: non-focal Psychiatric: normal affect Deviation from normal: She is still pleasantly confused. Dx/Plan (1) Altered mental status, unspecified Code(s): R41.82 - ALTERED MENTAL STATUS, UNSPECIFIED Status: Acute Comment: No evidence of physical, infectious or metabolic issues. Appears to be related to underlying psychiatric disorder, psych meds, or possibly dementia. [facility] consult requested. (2) Bipolar disorder Code(s): F31.9 - BIPOLAR DISORDER, UNSPECIFIED Status: Chronic Comment: [facility] (3) Hyperlipidemia Code(s): E78.5 - HYPERLIPIDEMIA, UNSPECIFIED Status: Chronic Qualifiers: Comment: Stable. Home meds. (4) Hypertension Code(s): I10 - ESSENTIAL (PRIMARY) HYPERTENSION Status: Chronic Qualifiers: Comment: Stable. Home meds. (5) Right humeral fracture Code(s): S42.301A - UNSP FRACTURE OF SHAFT OF HUMERUS, RIGHT ARM, INIT Status : Acute Comment: Has been present for several months. Incompletely healed, but can be slow. - Plan * MR consult. Medically stable.
--- NOTE | 2018-07-01 15:34 | PDOC.EVN ---
Event Note - Event Note Event Note: Discussed the patient's humeral fx with Ortho. She has had follow up in their clinic and she is progressing adequately with healing.
[2018-07-01] MEDS: Benztropine 1 MG TAB PO SCH (20:19)
[2018-07-01] MEDS: Gabapentin 300 MG CAP PO SCH (20:20)
[2018-07-01] MEDS: traZODone HCl 50 MG TAB PO SCH (20:20)
[2018-07-02 05:52] LABS: #Eosinphils 0.1 thou/uL (0.0-0.7); #Lymphocytes 1.9 thou/uL (1.20-3.40); #Monocytes 0.4 thou/uL (0.11-0.59); #Neutrophils 2.4 thou/uL (1.40-6.50); %Basophils 0.7 % (0.0-1.0); %Eosinophils 1.3 % (0.0-10.0); %Lymphocytes 40.3 % (21.0-51.0); %Monocytes 7.7 % (0.0-10.0); %Neutrophils 50.1 % (42.0-75.0); Hemoglobin 13.5 g/dL (12.0-16.0); Mean Corpuscular HGB CONC 33.3 g/dL (32.0-36.0); Mean Corpuscular Hemoglobin 31.5 pg (27.0-31.0); Mean Corpuscular Volume 94.5 fL (78.0-98.0); Platelet Count 233 thou/uL (130-400); RBC Distribution Width 12.5 % (11.5-14.5); Red Blood Cell (RBC) Count 4.31 mill/uL (4.20-5.40); White Blood Cell (WBC) Count 4.7 thou/uL (4.8-10.8)
[2018-07-02 06:15] LABS: Anion Gap 12 mmol/L (10-20); BUN (Urea Nitrogen) 8 mg/dL (9.8-20.1); Calc. Creatinine Clearance 74 mL/min (70-130); Calcium 9.3 mg/dL (7.8-10.44); Carbon Dioxide 25 mmol/L (23-31); Chloride 96 mmol/L (98-107); Estimated GFR-MDRD Greater than 90; Glucose 82 mg/dL (80-115); Potassium 4.1 mmol/L (3.5-5.1); Sodium 129 mmol/L (136-145)
[2018-07-02] MEDS: Mometasone/Formoterol 120 PUFF INHALER INH SCH (06:24)
[2018-07-02] MEDS: busPIRone HCl 10 MG TAB PO SCH (09:06)
[2018-07-02] MEDS: Docusate 100 MG CAP PO SCH (09:06)
[2018-07-02] MEDS: Montelukast Sodium 10 mg Tablet PO SCH (09:07)
[2018-07-02] MEDS: Heparin 5,000 UNITS/ML VIAL SC SCH (09:07)
[2018-07-02] MEDS: Escitalopram Oxalate 20 mg Tablet PO SCH (09:07)
[2018-07-02] MEDS: Lisinopril 10 MG TAB PO SCH (09:07)
[2018-07-02] MEDS: Divalproex Sodium DR 500 MG TAB PO SCH (09:07)
[2018-07-02 11:29] VITALS: BP 162/83; TEMP 98.6
--- NOTE | 2018-07-02 15:26 | PDOC.PN ---
- Subjective Encounter Start Date: 07/02/18 Encounter Start Time: 15:24 Doing very well. No specific complaints. - Objective Resuscitation Status: Resuscitation Status FULL:Full Resuscitation Vital Signs & Weight: Vital Signs (12 hours) Temp Pulse Resp BP Pulse Ox 07/02/18 11:29 98.6 F 76 18 162/83 H 92 L 07/02/18 09:15 98.6 F 76 18 07/02/18 07:52 98.3 F 86 16 167/95 H 92 L Weight Admit Weight 110 lb 1.6 oz Weight 111 lb 8 oz I&O: 07/01/18 07/02/18 07/03/18 06:59 06:59 06:59 Intake Total 1460 1830 Output Total 1050 1400 700 Balance 410 430 -700 Result Diagrams: 07/02/18 05:36 07/02/18 05:36 Phys Exam - Physical Examination Constitutional: NAD Respiratory: no wheezing, no rales, no rhonchi, clear to auscultation bilateral Cardiovascular: RRR, no significant murmur Gastrointestinal: soft, non-tender Dx/Plan (1) Altered mental status, unspecified Code(s): R41.82 - ALTERED MENTAL STATUS, UNSPECIFIED Status: Acute Comment: No evidence of physical, infectious or metabolic issues. Appears to be related to underlying psychiatric disorder, psych meds, or possibly dementia. [facility] consult requested. (2) Bipolar disorder Code(s): F31.9 - BIPOLAR DISORDER, UNSPECIFIED Status: Chronic Comment: [facility] (3) Hyperlipidemia Code(s): E78.5 - HYPERLIPIDEMIA, UNSPECIFIED Status: Chronic Qualifiers: Comment: Stable. Home meds. (4) Hypertension Code(s): I10 - ESSENTIAL (PRIMARY) HYPERTENSION Status: Chronic Qualifiers: Comment: Stable. Home meds. (5) Right humeral fracture Code(s): S42.301A - UNSP FRACTURE OF SHAFT OF HUMERUS, RIGHT ARM, INIT Status : Acute Comment: Has been present for several months. Incompletely healed, but can be slow. - Plan * Doing well. Delayed in transfer to mental health facility. Should go today.
[2018-07-02] MEDS: Ibuprofen 200 MG TAB PO PRN (15:30)
--- NOTE | 2018-07-03 15:20 | CON ---
DATE OF CONSULTATION: 06/30/2018 REFERRING PROVIDER: Akin Tong M.D. REASON FOR CONSULTATION: Altered mental status. HISTORY OF PRESENT ILLNESS: Ms. Pierce is a 68-year-old being admitted for evaluation of altered mental status. The patient is a very poor historian and thus I talked to her son over the phone to obtain detailed history. Son reports that patient was found early in the morning to be laying on the kitchen floor. He was not sure whether the patient fell or simply lay there or she was missed her balance and fell down. There was no evidence of any injury at that time. He reported that patient has been having episodes of confusion over the past 2 years that is intermittent . She also has had increasing episodes of fall resulting in multiple injuries. He reports that she used to live by herself, but recently has been living with her son. PAST MEDICAL HISTORY: Reviewed and they are as dictated H&P note done by Dr. Shabbir Gardner dated 06/30/2018. PAST SURGICAL HISTORY: Reviewed and they are as dictated H&P note done by Dr. Shabbir Gardner dated 06/30/2018. FAMILY HISTORY: Reviewed and they are as dictated H&P note done by Dr. Shabbir Gardner dated 06/30/2018. SOCIAL HISTORY: Reviewed and they are as dictated H&P note done by Dr. Shabbir Gardner dated 06/30/2018. CURRENT MEDICATIONS: Reviewed and they are as dictated H&P note done by Dr. Shabbir Gardner dated 06/30/2018. ALLERGIES: Reviewed and they are as dictated H&P note done by Dr. Shabbir Gardner dated 06/30/2018. REVIEW OF SYSTEMS: Unable to perform. PHYSICAL EXAMINATION: VITAL SIGNS: Blood pressure of 154/92, pulse 76, 92% on room air. GENERAL: A well-developed, well-nourished female, in no apparent distress. RESPIRATORY: Clear to auscultation bilaterally. CARDIOVASCULAR: Regular rate and rhythm. NEUROLOGIC: Mental status: The patient is awake, alert, but disoriented to time. She seems to repeat same conversation multiple times. Speech and language: Mild dysarthria noted. Cranial nerves: Pupils are 3 mm and reactive. Visual wilhelm are intact. Extraocular muscles are intact. No nystagmus. Face is symmetric. Tongue and uvula midline. Motor exam showed normal tone and bulk with 5/5 strength in both upper and lower extremities. Sensory: Sensation is intact and symmetric. Deep tendon reflexes 2+ reflexes in both upper and lower extremities. Babinski: Plantar responses flexion bilaterally. Coordination intact to [id number] and finger tapping bilaterally. LABORATORY DATA: CMP, urinalysis, urine drug screen, which is significant for wbc's 3-9. Sodium was 133, otherwise unremarkable. MRI brain without contrast was reviewed, which showed no acute intracranial abnormality. Carotid Doppler results were reviewed, which showed no hemodynamically significant stenosis. IMPRESSION: 1. Altered mental status, likely toxic metabolic encephalopathy. 2. Possible underlying dementia Ms. Pierce is 68-year-old female who presented with the changes in mentation. After discussion with the son, it is likely the patient may have underlying dementia. Some of this could also be contributed by underlying psychotropic medications. It is best that the patient have her antipsychotic medications to be adjusted by [facility]. The patient is okay to be discharged to home with outpatient followup to [facility]rology [facility] sometime in the future. Thank you for the consultation. LUCIUS
--- NOTE | 2018-07-04 09:48 | DIS ---
DATE OF ADMISSION: 06/29/2018 DATE OF DISCHARGE: 07/03/2018 DISCHARGE DIAGNOSES: 1. Altered mental status with confusion. 2. Fall. 3. Proximal humeral fracture is healing. 4. History of bipolar disorder. 5. Hyperlipidemia. 6. Hypertension. 7. Encephalopathy due to psychotropic medications. 8. Chronic obstructive pulmonary disease. HOSPITAL COURSE: This patient is a 68-year-old female with history of bipolar disorder who has been followed by [facility] and is on multiple psychotropic medications. The patient was living with her son and [id number]. She was found down on the floor, but was easily awaken and back on her feet. Family reported that the patient had not been acting at her normal baseline for several days and she was brought to the hospital for further evaluation. Patient had an initial CT scan of the brain which showed no acute processes. She had a CT scan of her C-spine which showed only chronic postsurgical changes and she had a chest x-ray which was negative for acute cardiopulmonary processes , did reveal the incompletely healed right proximal humeral fracture. The patient's workup and exam were otherwise largely unremarkable. She was admitted to the hospital for further evaluation. HOSPITAL COURSE: The patient did undergo an MRI of the brain when she was admitted. This showed no evidence of hemorrhage, infarct or intracranial abnormalities. Patient was felt to possibly be having some encephalopathy secondary to her multiple psychotropic medications. Neurology was consulted and felt that the patient may have some underlying baseline dementia and her situation being made worse by the psychotropic medications. The patient underwent further testing including echocardiogram, which was essentially normal with an ejection fraction of 55%-60%. Carotid Dopplers were performed which revealed no hemodynamically significant stenosis. The patient's proximal right humeral fracture was discussed with Orthopedic Surgery and Dr. Oscar was able to work with the patient's outpatient record and confirmed that she had been followed there appropriately and there was appropriate, but slow healing of proximal fracture. No further intervention was required. Once it became clear that the patient's exam was remaining stable, there were no new metabolic or anatomic explanations for the change in her mental status. Neurology had the opportunity to see the patient. It was felt that the patient' s most likely a problem was encephalopathic secondary to her psychotropic medications, possibly overlying baseline dementia. We discussed this with the family who felt that it would be most appropriate for us to attempt to get patient addressed while she was still hospitalized and [facility] was consulted. They felt the patient was appropriate and given her tangential thinking and concerns for managing herself. Therefore, did have a physician to physician conversation with Dr. Hanson patient was ultimately transferred on the day of discharge. PHYSICAL EXAMINATION: VITAL SIGNS: At that time, patient's temperature was 98.6, pulse 76, respirations 18, O2 sat 92% on room air, BP was 162/83. GENERAL APPEARANCE: She was very much awake and alert. She had no significant complaints. She was not sure why she was there. She had no physical exam findings of concern. HEART: Regular rate and rhythm. LUNGS: Clear bilaterally. ABDOMEN: Soft, nontender. EXTREMITIES: Warm and dry with good movement of her right upper extremity. DISCHARGE MEDICATIONS: The patient will be discharged to the [facility]. She will continue with her usual home medications including trazodone, omeprazole, Singulair, Cogentin, escitalopram, Depakote, gabapentin, buspirone, Zestril, Zofran, DuoNeb, ibuprofen, quetiapine, meclizine , ProAir HFA, Breo Ellipta. Further management of those medications will be through [facility]. The patient is otherwise to have a regular diet and activity level as tolerated. LUCIUS
== END 2018-07-02 16:02 | disposition short-term general hospital (02) ==
LOC: ERS 13:07 → 2SW 18:49
PROVIDERS: ADMIT Internal Medicine; ATTEND Internal Medicine
DX: R41.82 Altered mental status, unspecified (principal); F31.9 Bipolar disorder, unspecified; E87.1 Hypo-osmolality and hyponatremia; I10 Essential (primary) hypertension; J44.9 Chronic obstructive pulmonary disease, unspecified; E78.5 Hyperlipidemia, unspecified; F41.9 Anxiety disorder, unspecified; S42.301A Unspecified fracture of shaft of humerus, right arm, initial encounter for closed fracture; G92 Toxic encephalopathy; T43.95XA Adverse effect of unspecified psychotropic drug, initial encounter; Z87.891 Personal history of nicotine dependence; Z79.899 Other long term (current) drug therapy; Z88.0 Allergy status to penicillin; Z88.5 Allergy status to narcotic agent; Z88.8 Allergy status to other drugs, medicaments and biological substances; Z98.1 Arthrodesis status; Z98.890 Other specified postprocedural states
CPT/HCPCS: 51701; 70450; 70551; 71045; 72125; 80048 ×3; 80061; 80164; 80306; 81003; 82550; 82553; 84484; 85025 ×3; 93005; 93306; 93880; 94640; 94664; 97116; 97139 ×4; 99285; G0378 ×2; G8978; G8979; G8980; 36415; 80053; 84443; G9165-GN-CK; G9166-GN-CJ; J1644

== ENCOUNTER 2018-07-16 13:38 | Observation (INO) | payer MEDICARE, OTHER ==
[2018-07-16 14:20] LABS: #Basophils 0.1 thou/uL (0.0-0.2); #Eosinphils 0.1 thou/uL (0.0-0.7); #Lymphocytes 2.2 thou/uL (1.20-3.40); #Monocytes 0.6 thou/uL (0.11-0.59); #Neutrophils 2.6 thou/uL (1.40-6.50); %Basophils 1.6 % (0.0-1.0); %Eosinophils 1.4 % (0.0-10.0); %Lymphocytes 40.2 % (21.0-51.0); %Neutrophils 46.9 % (42.0-75.0); Hemoglobin 13.6 g/dL (12.0-16.0); Mean Corpuscular HGB CONC 33.9 g/dL (32.0-36.0); Mean Corpuscular Hemoglobin 32.6 pg (27.0-31.0); Mean Corpuscular Volume 96.1 fL (78.0-98.0); Mean Platelet Volume 5.7 fL (7.4-10.4); Platelet Count 314 thou/uL (130-400); RBC Distribution Width 13.3 % (11.5-14.5); Red Blood Cell (RBC) Count 4.16 mill/uL (4.20-5.40); White Blood Cell (WBC) Count 5.5 thou/uL (4.8-10.8)
[2018-07-16] MEDS ORDERED: Meclizine HCl 25 MG TAB ONE (14:29)
[2018-07-16] MEDS ORDERED: Metoclopramide HCl 10 MG/2 ML VIAL ONE (14:29)
[2018-07-16 14:42] LABS: ALT (SGPT) 10 U/L (8-55); AST (SGOT) 13 U/L (5-34); Alkaline Phosphatase 80 U/L (40-150); Anion Gap 12 mmol/L (10-20); BUN (Urea Nitrogen) 18 mg/dL (9.8-20.1); Bilirubin, Total 0.2 mg/dL (0.2-1.2); CK (CPK) 34 U/L (29-168); Calc. Creatinine Clearance 0 mL/min (70-130); Calcium 9.1 mg/dL (7.8-10.44); Carbon Dioxide 25 mmol/L (23-31); Chloride 98 mmol/L (98-107); Estimated GFR-MDRD 89; Globulin 2.7 g/dL (2.4-3.5); Glucose 94 mg/dL (80-115); Potassium 4.6 mmol/L (3.5-5.1); Protein, Total 6.7 g/dL (6.0-8.3); Sodium 130 mmol/L (136-145)
[2018-07-16 14:44] LABS: CKMB 0.9 ng/mL (0-6.6); Troponin I Less than 0.010 ng/mL (< 0.028)
--- NOTE | 2018-07-16 15:16 | RAD ---
AP VIEW CHEST: Date: 07/16/18 INDICATION: Chest pain. COMPARISON: Prior study dated 06/29/18. IMPRESSION: There are linear opacities involving the right lung base which may be related to subsegmental atelect asis. This is superimposed on COPD change, which is stable. Heart size is normal. No pleural effusion or pneumothorax is evident. No air space consolidation is evident. No acute osseous abnormality is n oted. POS: RICHARD
--- NOTE | 2018-07-16 15:28 | CT ---
CT OF THE BRAIN WITHOUT CONTRAST: Date: 07/16/18 INDICATION: History of dizziness. COMPARISON: Prior exam dated 06/29/18. IMPRESSION: No acute infarct, hemorrhage, or hydrocephalus is present. The examination does not appear appreciabl y changed from the comparison study. Mastoid air cells and paranasal sinuses are clear. POS: LALITHA
[2018-07-16] MEDS ORDERED: Senokot 8.6 MG TAB PO PRN (17:25)
[2018-07-16] MEDS ORDERED: Ondansetron HCl/PF 4 MG/2 ML Vial IVP PRN (17:25)
[2018-07-16] MEDS ORDERED: Mag-Al 1200 mg/1200 mg/30 ML UDCUP PO PRN (17:25)
[2018-07-16] MEDS ORDERED: Acetaminophen 325 MG TAB PO PRN ×2 (17:25)
[2018-07-16] MEDS ORDERED: Nitroglycerin 0.4 MG TAB (25 Tab Bottle) PO PRN (17:25)
[2018-07-16] MEDS ORDERED: Ondansetron ODT 4 MG TAB SL PRN (17:25)
[2018-07-16] MEDS ORDERED: Calcium Carbonate 500 MG ChewTAB PO PRN (17:25)
--- NOTE | 2018-07-16 17:39 | HP ---
DATE OF ADMISSION: 07/16/2018 PRIMARY CARE PHYSICIAN: Brandt Ramos. CHIEF COMPLAINT: Chest discomfort. HISTORY OF PRESENT ILLNESS: The patient is a 68-year-old female with hypertension, anxiety and depre ssion with recent hospitalization with altered mentation presented to the emergency room with above c omplaints. Patient was discharged to [facility] 10 days ago. She currently lives at home. The patient had episode of chest discomfort along with dizziness while she was at home. The pain was epigastric in the area without any radiation. The pain was moderate in intensity, lasted for 20-30 minutes. It resolved without any medication. No aggravating or relieving factor reported. She is u nable to describe the quality of the pain. She was diaphoretic with some nausea. No syncope or palp itations reported. PAST MEDICAL HISTORY: 1. Anxiety, depression. 2. History of fall. 3. History of proximal humeral fracture. 4. Bipolar disorder. 5. Hypertension. 6. Hyperlipidemia. 7. Chronic obstructive pulmonary disease. PAST SURGICAL HISTORY: 1. Left breast biopsy. 2. Cervical fusion. 3. Tonsillectomy. 4. Total abdominal hysterectomy. 5. PEG tube placement in the past with subsequent removal. 6. Several orthopedic surgeries. 7. C3-C4 hardware removal. 8. Vulvar cancer status post surgery in 1979. ALLERGIES: Patient is allergic to PENICILLIN, SUMATRIPTAN and DEMEROL. CURRENT HOME MEDICATIONS: The patient does not recall all of her medications. Family to get [place] list of medications. FAMILY HISTORY: She is FULL CODE, makes her own decision with the help of her family. Migraines run s in her family. Brother with hepatitis C with liver cancer. One sister with colon cancer. SOCIAL HISTORY: Patient has a [id number] smoking history. No alcohol reported. She has 2 childre n. She is . REVIEW OF SYSTEMS: The following complete review of systems was negative, unless otherwise mentioned in the HPI or below: Constitutional: Weight loss or gain, ability to conduct usual activities. Skin: Rash, itching. Eyes: Double vision, pain. ENT/Mouth: Nose bleeding, neck stiffness, pain, tenderness. Cardiovascular: Palpitations, dyspnea on exertion, orthopnea. Respiratory: Shortness of breath, wheezing, cough, hemoptysis, fever or night sweats. Gastrointestinal: Poor appetite, abdominal pain, heartburn, nausea, vomiting, constipation, or diarr hea. Genitourinary: Urgency, frequency, dysuria, nocturia. Musculoskeletal: Pain, swelling. Neurologic/Psychiatric: Anxiety, depression. Allergy/Immunologic: Skin rash, bleeding tendency. PHYSICAL EXAMINATION: VITAL SIGNS: Temperature 98.3, respiration 18, pulse rate of 95, blood pressure of 116/72 with O2 sa turation 98% on room air. GENERAL: A 68-year-old female in no apparent distress. Denies any chest discomfort. HEENT: Head atraumatic, normocephalic. Sclerae are anicteric. Moist mucous membrane, no oral lesio n. NECK: Supple, no JVD appreciated. No carotid bruit. LUNGS: Clear to auscultation bilaterally. HEART: S1 and S2 present. Regular rate and rhythm. No reproducible chest wall tenderness. ABDOMEN: Soft, mild epigastric tenderness, no rebound, guarding, no costovertebral angle tenderness. EXTREMITIES: No edema or calf tenderness. NEUROLOGIC: Grossly nonfocal, moves all four extremities. PSYCHIATRIC: Alert, awake, oriented x3. SKIN: Warm and dry. LYMPH NODES: No palpable lymph nodes in the neck. PERIPHERAL VASCULAR: Radial pulses palpable bilaterally. MUSCULOSKELETAL: No joint swelling or tenderness. IMAGING DATA AND LABORATORY DATA: 1. EKG by my review showed normal sinus rhythm. 2. Troponin was negative. 3. CBC showed WBC 5.5 with hemoglobin 13.6. 4. Chemistries showed sodium 130 with potassium 4.6, BUN 18, creatinine 0.66. 5. Chest x-ray by my review was negative for infiltrate. 6. CT scan of the brain by my review was negative. IMPRESSION: 1. Atypical chest discomfort. The patient has a long history of smoking. She also has a history of hypertension and hyperlipidemia. She had a cardiac catheterization at [facility] in the last 7-8 years per patient report. She is unable to recall the details. We will schedule a Cardiolite stress test due to intermediate probability for coronary artery disease. 2. Chronic obstructive pulmonary disease. We will start p.r.n. nebulization. We will resume medica tions once confirmed. 3. Hypertension. We will resume home medications once confirmed. 4. Anxiety, depression, and bipolar disorder. We will resume all of her medications once confirmed. 5. Gastroesophageal reflux disease. We will continue proton pump inhibitors. 6. Chronic hyponatremia. 7. Chronic kidney disease stage 2. 8. Recent hospitalization for altered mentation due to multiple psychotropic medications requiring i npatient psychiatry hospitalization. 9. History of falls. 10. Hyperlipidemia. Plan of care was discussed with the patient in detail. She stated understanding.
[2018-07-16] MEDS ORDERED: PROVENTIL INHALER 6.7 G (200 INHALATIONS) INH PRN (17:52)
[2018-07-16 17:54] LABS: Troponin I 0.017 ng/mL (< 0.028)
[2018-07-16 17:57] VITALS: BMI 19.3
[2018-07-16] MEDS: Mometasone/Formoterol 120 PUFF INHALER INH SCH (19:41)
[2018-07-16 20:36] LABS: Troponin I Less than 0.010 ng/mL (< 0.028)
[2018-07-16] MEDS ORDERED: Gabapentin 300 MG CAP PO SCH (21:00)
[2018-07-16] MEDS ORDERED: traZODone HCl 50 MG TAB PO SCH (21:00)
[2018-07-16] MEDS: busPIRone HCl 10 MG TAB PO SCH (21:17)
[2018-07-16] MEDS: Famotidine 20 MG TAB PO SCH (21:17)
[2018-07-16] MEDS: Cyproheptadine 4 MG TAB PO SCH (21:18)
[2018-07-17] MEDS: Mometasone/Formoterol 120 PUFF INHALER INH SCH (07:17)
[2018-07-17] MEDS: Famotidine 20 MG TAB PO SCH (07:47)
[2018-07-17] MEDS: busPIRone HCl 10 MG TAB PO SCH (07:48)
[2018-07-17] MEDS ORDERED: Montelukast Sodium 10 mg Tablet PO SCH (09:00)
[2018-07-17] MEDS ORDERED: Divalproex Sodium DR 500 MG TAB PO SCH (09:00)
[2018-07-17] MEDS ORDERED: Aspirin 325 MG TAB PO SCH (09:00)
[2018-07-17] MEDS ORDERED: Lisinopril 10 MG TAB PO SCH (09:00)
[2018-07-17 12:08] VITALS: BP 167/82; TEMP 97.5
--- NOTE | 2018-07-17 13:06 | NM ---
MYOCARDIAL PERFUSION EVALUATION: INDICATION: Chest pain. RADIOPHARMACEUTICAL: 33 mCi Technetium 99m sestamibi IV with stress and 10.7 mCi Technetium 99m sestamibi IV with rest. FINDINGS: When comparing the rest and stress images, no reversible myocardial perfusion defect is evident. Ther e is normal wall motion and thickening. The estimated LVEF is 80%. IMPRESSION: Normal myocardial perfusion evaluation. POS: LALITHA
[2018-07-17] MEDS: Cyproheptadine 4 MG TAB PO SCH (13:51)
[2018-07-17] MEDS ORDERED: Regadenoson 0.4 MG/5 ML SYRINGE ONE (14:50)
--- NOTE | 2018-07-18 10:21 | DIS ---
DATE OF DISCHARGE: 07/17/2018 DISCHARGE DISPOSITION: Home. FOLLOWUP: Follow up with primary care physician, Dr. Justin Zapien in 1 week. The patient was seen and examined on the day of discharge, denies any new complaints. BRIEF HOSPITAL COURSE: The patient is a 68-year-old female who presented to the emergency room with chest discomfort. Please refer to the history and physical for further details. The patient was admitted to the hospital with a diagnosis of chest discomfort, rule out acute coronar y syndrome. Serial cardiac enzymes were normal. She underwent a Cardiolite stress test that was neg ative for reversible ischemia. There was no wall motion abnormalities. She appeared stable for disc harge. No changes in her medications were made. FINAL DIAGNOSES: 1. Chest discomfort, acute coronary syndrome ruled out. 2. Negative Cardiolite stress test. 3. Chronic obstructive pulmonary disease. 4. Hypertension. 5. Former smoker. 6. History of falls. 7. Hyperlipidemia. 8. Chronic hyponatremia. 9. Gastroesophageal reflux disease. 10. Anxiety, depression, bipolar disorder. 11. Chronic kidney disease stage 2. 12. Recent hospitalization for altered mentation due to multiple psychotropic medications requiring inpatient psychiatry hospitalization.
== END 2018-07-17 15:31 | disposition home or self-care (01) ==
LOC: ERS 13:38 → 2SW 15:24
PROVIDERS: ADMIT Internal Medicine; ATTEND Internal Medicine
DX: R07.89 Other chest pain (principal); F41.8 Other specified anxiety disorders; F31.9 Bipolar disorder, unspecified; E78.5 Hyperlipidemia, unspecified; J44.9 Chronic obstructive pulmonary disease, unspecified; K21.9 Gastro-esophageal reflux disease without esophagitis; I12.9 Hypertensive chronic kidney disease with stage 1 through stage 4 chronic kidney disease, or unspecified chronic kidney disease; N18.2 Chronic kidney disease, stage 2 (mild); E87.1 Hypo-osmolality and hyponatremia; Z87.891 Personal history of nicotine dependence; Z91.81 History of falling; Z79.51 Long term (current) use of inhaled steroids; Z88.0 Allergy status to penicillin; Z88.5 Allergy status to narcotic agent; Z88.8 Allergy status to other drugs, medicaments and biological substances
CPT/HCPCS: 70450; 71045; 78452; 80053; 82550; 82553; 84484 ×2; 85025; 93005; 93017; 94640 ×2; 96365; 99285; A9500; G0378 ×2; 36415; J2765; J2785

== ENCOUNTER 2019-02-23 12:35 | Emergency (ER) | payer MEDICARE, OTHER ==
[2019-02-23] MEDS ORDERED: methylPREDNISolone Sod Succ/PF 125 MG/2 ML VIAL ONE (13:08)
--- NOTE | 2019-02-23 13:18 | RAD ---
Exam: Chest one view HISTORY:Dyspnea Comparison: 07/16/2018, 06/29/2018 FINDINGS: Cardiac silhouette: Normal Pulmonary vessels: Normal Costophrenic angles: Clear LUNGS: No masses or consolidation. Hyperinflation with chronic changes. Pneumothorax: None Osseous abnormalities: Old healed right proximal humerus fracture IMPRESSION: No acute cardiopulmonary process.
[2019-02-23 13:28] LABS: #Basophils 0.1 thou/uL (0.0-0.2); #Lymphocytes 2.1 thou/uL (1.20-3.40); #Monocytes 0.5 thou/uL (0.11-0.59); #Neutrophils 2.7 thou/uL (1.40-6.50); %Basophils 1.7 % (0.0-1.0); %Eosinophils 0.7 % (0.0-10.0); %Lymphocytes 38.4 % (21.0-51.0); %Monocytes 9.2 % (0.0-10.0); Hemoglobin 14.6 g/dL (12.0-16.0); Mean Corpuscular HGB CONC 32.3 g/dL (32.0-36.0); Mean Corpuscular Hemoglobin 31.3 pg (27.0-31.0); Mean Corpuscular Volume 96.9 fL (78.0-98.0); Mean Platelet Volume 6.1 fL (7.4-10.4); Platelet Count 304 thou/uL (130-400); RBC Distribution Width 11.6 % (11.5-14.5); Red Blood Cell (RBC) Count 4.68 mill/uL (4.20-5.40); White Blood Cell (WBC) Count 5.3 thou/uL (4.8-10.8)
[2019-02-23 13:53] LABS: ALT (SGPT) 13 U/L (8-55); AST (SGOT) 19 U/L (5-34); Albumin 4.3 g/dL (3.4-4.8); Alkaline Phosphatase 98 U/L (40-150); Anion Gap 13 mmol/L (10-20); BUN (Urea Nitrogen) 10 mg/dL (9.8-20.1); Bilirubin, Total 0.4 mg/dL (0.2-1.2); Calc. Creatinine Clearance 0 mL/min (70-130); Calcium 9.6 mg/dL (7.8-10.44); Carbon Dioxide 26 mmol/L (23-31); Chloride 102 mmol/L (98-107); Estimated GFR-MDRD 75; Globulin 2.7 g/dL (2.4-3.5); Glucose 101 mg/dL (80-115); Potassium 4.1 mmol/L (3.5-5.1); Sodium 137 mmol/L (136-145)
[2019-02-23] MEDS ORDERED: Acetaminophen/Codeine 30-300mg Tablet ONE (14:48)
== END 2019-02-23 15:02 | disposition home or self-care (01) ==
LOC: ERS 12:35
DX: J44.1 Chronic obstructive pulmonary disease with (acute) exacerbation (principal); R06.00 Dyspnea, unspecified; I10 Essential (primary) hypertension; E78.5 Hyperlipidemia, unspecified; F41.9 Anxiety disorder, unspecified; F31.9 Bipolar disorder, unspecified; F17.210 Nicotine dependence, cigarettes, uncomplicated
CPT/HCPCS: 36415; 71045; 80053; 84484; 85025; 93005; 94640; 96361; 96374; J2930; J7620

== ENCOUNTER 2019-12-28 13:34 | Inpatient (IN) | payer MEDICARE, OTHER ==
[2019-12-28] MEDS ORDERED: Albuterol Sulfate 2.5 mg/3 ml Neb ONE (14:30)
[2019-12-28] MEDS ORDERED: Albuterol Sulfate 2.5 mg/0.5 ml Neb ONE ×3 (14:30)
[2019-12-28] MEDS ORDERED: Acetaminophen 325 MG TAB ONE (15:16)
[2019-12-28] MEDS ORDERED: Acetaminophen 500 MG TAB ONE (15:17)
[2019-12-28 15:36] LABS: #Lymphocytes 1.2 thou/uL (1.20-3.40); #Monocytes 0.2 thou/uL (0.11-0.59); #Neutrophils 10.3 thou/uL (1.40-6.50); %Basophils 0.4 % (0.0-1.0); %Eosinophils 0.4 % (0.0-10.0); %Lymphocytes 10.5 % (21.0-51.0); %Monocytes 1.8 % (0.0-10.0); Mean Corpuscular Hemoglobin 32.3 pg (27.0-31.0); Mean Platelet Volume 6.7 fL (7.4-10.4); Platelet Count 295 thou/uL (130-400); RBC Distribution Width 12.1 % (11.5-14.5); Red Blood Cell (RBC) Count 4.63 mill/uL (4.20-5.40); White Blood Cell (WBC) Count 11.9 thou/uL (4.8-10.8)
--- NOTE | 2019-12-28 15:42 | RAD ---
RADIOGRAPH CHEST 1 VIEW: 12/28/19 HISTORY: dyspnea FINDINGS: There is hyperinflation of the lungs, consistent with COPD. The thoracic aorta is tortuous and ectat ic. There is no evidence of pneumothorax or pulmonary edema. The lateral costophrenic angles are sh karla. There is no cardiomegaly. There is questionable faint patchy area of slightly increased attenuat ion overlying the right upper lobe, new since prior study of 02/23/19. It is uncertain whether this is an actual lesion or artifact. IMPRESSION: 1) No acute pulmonary findings. 2) Emphysema. 3) Ectasia of thoracic aorta. 4) Questionable faint density overlying the right upper lobe. Recommend repeat chest radiograph with all external objects and clothing cleared from the right side of the chest. jn [] POS: TPC
[2019-12-28 16:02] LABS: ALT (SGPT) 12 U/L (8-55); AST (SGOT) 17 U/L (5-34); Albumin 4.2 g/dL (3.4-4.8); Alkaline Phosphatase 92 U/L (40-110); Anion Gap 17 mmol/L (10-20); BUN (Urea Nitrogen) 9 mg/dL (9.8-20.1); Bilirubin, Total 0.9 mg/dL (0.2-1.2); Calc. Creatinine Clearance 0 mL/min (70-130); Calcium 9.4 mg/dL (7.8-10.44); Carbon Dioxide 19 mmol/L (23-31); Chloride 103 mmol/L (98-107); Estimated GFR-MDRD 84; Globulin 2.3 g/dL (2.4-3.5); Glucose 100 mg/dL (80-115); Potassium 4.6 mmol/L (3.5-5.1); Protein, Total 6.5 g/dL (6.0-8.3); Sodium 134 mmol/L (136-145)
[2019-12-28] MEDS ORDERED: Senokot S 8.6-50 MG TAB PO PRN (17:56)
[2019-12-28 20:09] VITALS: BMI 18.7
[2019-12-28] MEDS: Gabapentin 300 MG CAP PO SCH (22:08)
[2019-12-28] MEDS ORDERED: PROVENTIL INHALER 6.7 G (200 INHALATIONS) INH PRN (22:18)
[2019-12-28] MEDS ORDERED: Melatonin 3 MG TAB PO PRN (22:20)
[2019-12-28] MEDS ORDERED: Benztropine 1 MG TAB PO SCH (22:45)
[2019-12-28] MEDS ORDERED: Mometasone/Formoterol 120 PUFF INHALER INH SCH (22:45)
[2019-12-28] MEDS ORDERED: Montelukast Sodium 10 mg Tablet PO SCH (22:45)
[2019-12-28] MEDS ORDERED: OLANZapine 2.5 MG TAB PO SCH (22:45)
[2019-12-28] MEDS: Nicotine 14 MG PATCH TD SCH (22:59)
[2019-12-28] MEDS: Propranolol HCl 20 MG TAB PO PRN (23:02)
[2019-12-28] MEDS: traMADol HCl 50 MG TAB PO PRN (23:05)
[2019-12-28] MEDS: Famotidine/PF 20 mg/2ml Vial SLOW IVP SCH (23:07)
--- NOTE | 2019-12-29 00:18 | HP ---
REASON FOR ADMISSION: COPD exacerbation. CHIEF COMPLAINT: Shortness of breath. PRIMARY CARE PHYSICIAN: Dr. Justin Zapien. HISTORY OF PRESENT ILLNESS: Ms. Pierce is a 69-year-old female who was brought to the emergency room today via EMS for complaint of shortness of breath x1 week. The patient reports a history of COPD. When EMS arrived at the patient's house, she was at 89% pulse ox in a tripod position. They gave her 3 DuoNebs and some Solu-Medrol while en route. When she got to the emergency room, she was at 95% on 2 L. She reports that she has had cough and wheezing times a week with some shortness of breath, especially with exertion. She reports that she has had COPD for a while, has been hospitalized for this before. She also has required intubation and CCU admission at one point, so she decided after week of not feeling better with her normal routine. She would go ahead and come to the emergency room. In the emergency room, she was given continuous albuterol treatment, respiratory treatment as well as another DuoNeb and then she required less oxygen and had improved. She will be admitted to the observation unit for further management and observation. REVIEW OF SYSTEMS: The patient reports shortness of breath. Reports cough, reports wheezing. Denies fever or chills. Denies any abdominal pain, nausea, vomiting, or diarrhea. All systems reviewed and are negative unless mentioned above or in the HPI. PAST MEDICAL HISTORY: Pertinent for hypertension, COPD, hyperlipidemia. PAST SURGICAL HISTORY: She had a left breast, vulvectomy, appendectomy, carpal tunnel surgery, hysterectomy, oophorectomy, left knee surgery x2, tonsillectomy, bilateral hip rods. PSYCHIATRIC HISTORY: Anxiety, bipolar, depression, last admission to [facility] in June of 2018. SOCIAL HISTORY: Denies any drug use. Smokes anywhere from half to 3/4 of a pack a day. Lives with family. KNOWN ALLERGIES: Demerol, Imitrex, naproxen, penicillin. CURRENT MEDICATIONS: 1. Albuterol ProAir 2 puffs q.i.d. as needed. 2. Atorvastatin 20 mg p.o. daily. 3. Cogentin 0.5 mg p.o. b.i.d. 4. Symbicort 160/4.5 one puff b.i.d. 5. Depakote 500 mg p.o. daily. 6. Prozac 20 mg p.o. daily. 7. DuoNebs t.i.d. p.r.n. 8. Myrbetriq 25 mg p.o. daily. 9. Singulair 10 mg p.o. at bedtime. 10. Zyprexa 2.5 mg p.o. at bedtime. 11. Ondansetron 4 mg p.o. q.4 hours as needed. 12. Protonix 40 mg p.o. daily. 13. Propranolol 20 mg p.o. b.i.d. 14. Flomax 0.4 mg p.o. daily. 15. Lisinopril 10 mg p.o. daily. PHYSICAL EXAMINATION: VITAL SIGNS: Blood pressure 134/72, pulse is 102, respirations 25, pO2 sats are 95% on 2 L, temp is 97.9. CONSTITUTIONAL: The patient appears nontoxic. She is alert and oriented to person, place and time. HEAD: Atraumatic and normocephalic. Eyes, pupils are equally round and reactive to light. Conjunctiva is normal. ENT: Mouth exam is normal. Mucous membranes are moist. NECK: Normal range of motion. Trachea is midline. RESPIRATORY/CHEST: Wheezing diffuse, scattered. Chest movement is symmetrical. CARDIOVASCULAR: Regular rate and rhythm. Heart sounds are normal. ABDOMEN: Nontender. Bowel sounds are heard. BACK: Normal range of motion. No tenderness. EXTREMITIES: Upper extremity, normal range of motion. Motor strength is normal. Radial pulses are normal. Lower extremity normal range of motion, normal strength. Pedal pulses are normal. No edema is noted. NEUROLOGIC: The patient is oriented to person, place, and time. Speech is normal. SKIN: Warm, dry, normal in color, visualized. IMAGIN. EKG in the emergency room shows normal sinus rhythm, beats per minute 82, has some left atrial enlargement. 2. Chest x-ray shows COPD changes, torturous aorta. No infiltrates or effusions. LABORATORY DATA: Sodium 134, carbon dioxide 19, BUN is 9, creatinine is 0.69, estimated GFR is 84. BNP 106. D-dimer was negative. White blood cell count is 11.9, hemoglobin is 15, hematocrit is 45.4, and platelet count is 295. PLAN/ASSESSMENT: 1. Chronic obstructive pulmonary disease exacerbation. We will do DuoNebs scheduled. We will continue her Symbicort. Keep her on oxygen as needed for pO2 saturations above 92%. Start Levaquin daily. IV piggyback. The patient is requesting Nicoderm patch. We will do daily. Restart her singular. 2. History of hypertension. We will restart home medications. 3. History of hyperlipidemia. We will restart home medications. 4. History of bipolar depression. We will restart her home medications. 5. The patient is a full code. 6. Case discussed with Dr. Dodd who agrees with plan. 7. Hospital course dependent on clinical findings. Job ID: [id number]
[2019-12-29 04:53] LABS: #Lymphocytes 1.6 thou/uL (1.20-3.40); #Monocytes 0.5 thou/uL (0.11-0.59); #Neutrophils 7.5 thou/uL (1.40-6.50); %Basophils 0.1 % (0.0-1.0); %Eosinophils 0.1 % (0.0-10.0); %Lymphocytes 16.8 % (21.0-51.0); %Monocytes 4.8 % (0.0-10.0); %Neutrophils 78.2 % (42.0-75.0); Hemoglobin 14.1 g/dL (12.0-16.0); Mean Corpuscular Hemoglobin 32.4 pg (27.0-31.0); Mean Corpuscular Volume 98.2 fL (78.0-98.0); Mean Platelet Volume 6.9 fL (7.4-10.4); Platelet Count 274 thou/uL (130-400); RBC Distribution Width 11.9 % (11.5-14.5); Red Blood Cell (RBC) Count 4.33 mill/uL (4.20-5.40); White Blood Cell (WBC) Count 9.5 thou/uL (4.8-10.8)
[2019-12-29 05:04] LABS: Anion Gap 15 mmol/L (10-20); BUN (Urea Nitrogen) 10 mg/dL (9.8-20.1); Calc. Creatinine Clearance 60 mL/min (70-130); Calcium 9.1 mg/dL (7.8-10.44); Carbon Dioxide 22 mmol/L (23-31); Chloride 104 mmol/L (98-107); Estimated GFR-MDRD 86; Glucose 114 mg/dL (80-115); Potassium 4.9 mmol/L (3.5-5.1); Sodium 136 mmol/L (136-145)
[2019-12-29] MEDS: Mometasone/Formoterol 120 PUFF INHALER INH SCH ×2 (07:06→19:18)
--- NOTE | 2019-12-29 07:45 | PDOC.HOSPP ---
- Subjective Encounter Date: 12/29/19 Encounter Time: 07:44 Subjective: dyspneic at restwith O2 supplementation - Objective Vital Signs & Weight: Vital Signs (12 hours) Temp Pulse Resp BP Pulse Ox 12/29/19 07:06 76 16 12/29/19 07:01 95 12/29/19 06:58 76 16 12/28/19 22:53 97.7 F 85 16 106/56 L 95 12/28/19 20:03 97.8 F 93 16 121/72 94 L Weight Weight 109 lb I&O: 12/28/19 12/29/19 12/30/19 06:59 06:59 06:59 Intake Total 400 Balance 400 Result Diagrams: 12/29/19 04:14 12/29/19 04:14 Hospitalist ROS - Medication Medications: Active Medications Generic Name Dose Route Start Last Admin Trade Name Freq PRN Reason Stop Dose Admin Albuterol/Ipratropium 3 ml 12/28/19 19:00 12/29/19 06:58 Duoneb NEB 3 ml [id number] ADALID Administration Famotidine 20 mg 12/28/19 21:00 12/28/19 23:07 Pepcid SLOW IVP Not Given Q12HR ADALID Gabapentin 300 mg 12/28/19 21:00 12/28/19 22:08 Neurontin PO Not Given HS ADALID Levofloxacin 500 mg/ Device 100 mls @ 100 mls/hr 12/28/19 20:00 12/28/19 21: 54 IVPB 100 mls Q24HR ADALID Administration Mometasone Furoate/Formoterol Fumar 1 puff 12/29/19 06:30 12/29/19 07:06 Dulera 200 Mcg/5 Mcg Inhaler INH 1 puff BID-RT ADALID Administration Nicotine 14 mg 12/28/19 22:30 12/28/19 22:59 Nicoderm Patch TD 14 mg Q24HR ADALID Administration Propranolol HCl 20 mg 12/28/19 22:18 12/28/19 23:02 Inderal PO 20 mg BIDPRN PRN Administration Headache Tramadol HCl 50 mg 12/28/19 22:21 12/28/19 23:05 Ultram PO 50 mg Q6H PRN Administration Headache, Aches or Pain - Exam General Appearance: awake alert Neck: no JVD Heart: RRR, no murmur Respiratory - other findings: hyperresonant, faint BS witn coarse BS and rhonchi Gastrointestinal: soft, normal bowel sounds Extremities: no edema Hosp A/P (1) Acute respiratory failure with hypoxia Code(s): J96.01 - ACUTE RESPIRATORY FAILURE WITH HYPOXIA Status: Acute (2) COPD exacerbation Code(s): J44.1 - CHRONIC OBSTRUCTIVE PULMONARY DISEASE W (ACUTE) EXACERBATION Status: Acute (3) Bipolar disorder Code(s): F31.9 - BIPOLAR DISORDER, UNSPECIFIED Status: Chronic Qualifiers: Active/Remission status: remission status unspecified Qualified Code(s): F31.9 - Bipolar disorder, unspecified (4) Hyperlipidemia Code(s): E78.5 - HYPERLIPIDEMIA, UNSPECIFIED Status: Chronic Qualifiers: Hyperlipidemia type: unspecified (5) Hypertension Code(s): I10 - ESSENTIAL (PRIMARY) HYPERTENSION Status: Chronic Qualifiers: Hypertension type: essential hypertension - Plan cont nebs, iv steroids, LABA, O2 suplementation abstain from smoking, discussed severity of disease expect 2-3 day inpt
--- NOTE | 2019-12-29 08:41 | RAD ---
EXAM: Chest 2 views: HISTORY: Abnormalities seen on chest x-ray yesterday COMPARISON: 08/23/2017; 12/28/2019 FINDINGS: There is a normal-sized cardiomediastinal silhouette. There is no evidence of consolidation, mass, or pleural effusion. There are remote healed right rib fractures. Post surgical changes are seen in the cervical spine. IMPRESSION: No evidence of acute cardiopulmonary disease
[2019-12-29] MEDS: Fluticasone Propionate Nasal Spray 16 gm Bottle NASAL SCH (08:43)
[2019-12-29] MEDS: Benztropine 1 MG TAB PO SCH ×2 (08:45→20:46)
[2019-12-29] MEDS: Atorvastatin Calcium 20 MG TAB PO SCH (08:47)
[2019-12-29] MEDS: traMADol HCl 50 MG TAB PO PRN (08:47)
[2019-12-29] MEDS: Tamsulosin HCl 0.4 MG CAP PO SCH (08:49)
[2019-12-29] MEDS: Lisinopril 10 MG TAB PO SCH (08:50)
[2019-12-29] MEDS: Enoxaparin Sodium 40 MG/0.4 ML SYRINGE SC SCH (08:51)
[2019-12-29] MEDS: FLUoxetine HCl 20 MG CAP PO SCH (08:51)
[2019-12-29] MEDS: Propranolol HCl 20 MG TAB PO PRN (08:56)
[2019-12-29] MEDS: Divalproex Sodium DR 500 MG TAB PO SCH (08:56)
[2019-12-29] MEDS: Famotidine/PF 20 mg/2ml Vial SLOW IVP SCH ×2 (08:57→20:47)
[2019-12-29] MEDS ORDERED: Montelukast Sodium 10 mg Tablet PO SCH (09:00)
[2019-12-29] MEDS ORDERED: methylPREDNISolone Sod Succ 40 MG VIAL IVP SCH (09:00)
[2019-12-29] MEDS ORDERED: Acetaminophen 325 MG TAB PO PRN (18:29)
[2019-12-29] MEDS: OLANZapine 2.5 MG TAB PO SCH (20:46)
[2019-12-29] MEDS: Nicotine 14 MG PATCH TD SCH (20:46)
[2019-12-29] MEDS: Gabapentin 300 MG CAP PO SCH (20:47)
[2019-12-29] MEDS: Montelukast Sodium 10 mg Tablet PO SCH (20:48)
[2019-12-29] MEDS ORDERED: traMADol HCl 50 MG TAB PO PRN (21:30)
[2019-12-30] MEDS: Mometasone/Formoterol 120 PUFF INHALER INH SCH ×2 (06:58→19:36)
--- NOTE | 2019-12-30 07:35 | PDOC.HOSPP ---
- Subjective Encounter Date: 12/30/19 Encounter Time: 07:33 Subjective: much improved, minimal cough, improved walking distance - Objective Vital Signs & Weight: Vital Signs (12 hours) Temp Pulse Resp BP Pulse Ox 12/30/19 06:29 75 14 96 12/30/19 00:25 76 14 97 12/29/19 19:48 98.5 F 72 20 116/74 93 L 12/29/19 19:41 93 L Weight Admit Weight 109 lb Weight 109 lb I&O: 12/29/19 12/30/19 12/31/19 06:59 06:59 06:59 Intake Total 400 1130 Balance 400 1130 Result Diagrams: 12/29/19 04:14 12/29/19 04:14 Hospitalist ROS - Medication Medications: Active Medications Generic Name Dose Route Start Last Admin Trade Name Freq PRN Reason Stop Dose Admin Acetaminophen 650 mg 12/29/19 18:29 12/29/19 18:33 Tylenol PO 650 mg Q6H PRN Administration Headache Albuterol/Ipratropium 3 ml 12/28/19 19:00 12/30/19 06:29 Duoneb NEB 3 ml [id number] ADALID Administration Atorvastatin Calcium 20 mg 12/29/19 09:00 12/29/19 08:47 Lipitor PO 20 mg DAILY ADALID Administration Benztropine Mesylate 0.5 mg 12/29/19 09:00 12/29/19 20:46 Cogentin PO 0.5 mg BID ADALID Administration Divalproex Sodium 500 mg 12/29/19 09:00 12/29/19 08:56 Depakote PO Not Given DAILY ADALID Enoxaparin Sodium 40 mg 12/29/19 09:00 12/29/19 08:51 Lovenox SC 40 mg 0900 ADALID Administration Famotidine 20 mg 12/28/19 21:00 12/29/19 20:47 Pepcid SLOW IVP 20 mg Q12HR ADALID Administration Fluoxetine HCl 20 mg 12/29/19 09:00 12/29/19 08:51 Prozac PO 20 mg DAILY ADALID Administration Fluticasone Propionate 0 gm 12/29/19 09:00 12/29/19 08:43 Flonase Nasal [place] NASAL 2 spr DAILY ADALID Administration Gabapentin 300 mg 12/28/19 21:00 12/29/19 20:47 Neurontin PO Not Given HS ADALID Lisinopril 10 mg 12/29/19 09:00 12/29/19 08:50 Zestril PO 10 mg DAILY ADALID Administration Mirabegron 25 mg 12/29/19 09:00 12/29/19 08:42 Myrbetriq Er PO 25 mg DAILY ADALID Administration Mometasone Furoate/Formoterol Fumar 1 puff 12/29/19 06:30 12/30/19 06:58 Dulera 200 Mcg/5 Mcg Inhaler INH 1 puff BID-RT ADALID Administration Montelukast Sodium 10 mg 12/29/19 21:00 12/29/19 20:48 Singulair PO 10 mg HS [facility] Administration Nicotine 14 mg 12/28/19 22:30 12/29/19 20:46 Nicoderm Patch TD 14 mg Q24HR ADALID Administration Olanzapine 2.5 mg 12/29/19 21:00 12/29/19 20:46 Zyprexa PO 2.5 mg HS ADALID Administration Pantoprazole Sodium 40 mg 12/29/19 09:00 12/29/19 08:50 Protonix PO 40 mg DAILY ADALID Administration Propranolol HCl 20 mg 12/28/19 22:18 12/29/19 08:56 Inderal PO 20 mg BIDPRN PRN Administration Headache Tamsulosin HCl 0.4 mg 12/29/19 09:00 12/29/19 08:49 Flomax PO 0.4 mg DAILY ADALID Administration Tramadol HCl 50 mg 12/29/19 21:30 12/29/19 21:45 Ultram PO 50 mg Q6H PRN Administration Moderate Pain (4-6) - Exam General Appearance: awake alert Neck: no JVD Heart: RRR, no murmur Respiratory - other findings: good inspiratory BS, mild ly coarse expiration Gastrointestinal: soft, normal bowel sounds Extremities: no edema Hosp A/P (1) Acute respiratory failure with hypoxia Code(s): J96.01 - ACUTE RESPIRATORY FAILURE WITH HYPOXIA Status: Acute (2) COPD exacerbation Code(s): J44.1 - CHRONIC OBSTRUCTIVE PULMONARY DISEASE W (ACUTE) EXACERBATION Status: Acute (3) Bipolar disorder Code(s): F31.9 - BIPOLAR DISORDER, UNSPECIFIED Status: Chronic Qualifiers: Active/Remission status: remission status unspecified Qualified Code(s): F31.9 - Bipolar disorder, unspecified (4) Hyperlipidemia Code(s): E78.5 - HYPERLIPIDEMIA, UNSPECIFIED Status: Chronic Qualifiers: Hyperlipidemia type: unspecified (5) Hypertension Code(s): I10 - ESSENTIAL (PRIMARY) HYPERTENSION Status: Chronic Qualifiers: Hypertension type: essential hypertension - Plan cont nebs, LABA, transition to po anyibx, steroide. plan DC tomorrow
[2019-12-30] MEDS: FLUoxetine HCl 20 MG CAP PO SCH (08:25)
[2019-12-30] MEDS: Atorvastatin Calcium 20 MG TAB PO SCH (08:25)
[2019-12-30] MEDS: Benztropine 1 MG TAB PO SCH ×2 (08:26→20:16)
[2019-12-30] MEDS: predniSONE 20 MG TAB PO SCH (08:27)
[2019-12-30] MEDS: Tamsulosin HCl 0.4 MG CAP PO SCH (08:27)
[2019-12-30] MEDS: Lisinopril 10 MG TAB PO SCH (08:27)
[2019-12-30] MEDS: Famotidine/PF 20 mg/2ml Vial SLOW IVP SCH ×2 (08:28→20:16)
[2019-12-30] MEDS: Enoxaparin Sodium 40 MG/0.4 ML SYRINGE SC SCH (08:28)
[2019-12-30] MEDS: Divalproex Sodium DR 500 MG TAB PO SCH (12:12)
[2019-12-30] MEDS: Fluticasone Propionate Nasal Spray 16 gm Bottle NASAL SCH (14:13)
[2019-12-30 19:42] VITALS: TEMP 98.5
[2019-12-30] MEDS: Gabapentin 300 MG CAP PO SCH (20:15)
[2019-12-30] MEDS: OLANZapine 2.5 MG TAB PO SCH (20:16)
[2019-12-30] MEDS: Montelukast Sodium 10 mg Tablet PO SCH (20:16)
[2019-12-30] MEDS: Nicotine 14 MG PATCH TD SCH (20:17)
[2019-12-30] MEDS: Propranolol HCl 20 MG TAB PO PRN (20:32)
[2019-12-31] MEDS: Mometasone/Formoterol 120 PUFF INHALER INH SCH (07:54)
[2019-12-31] MEDS: Benztropine 1 MG TAB PO SCH (08:27)
[2019-12-31] MEDS: Famotidine/PF 20 mg/2ml Vial SLOW IVP SCH (08:27)
[2019-12-31] MEDS: Enoxaparin Sodium 40 MG/0.4 ML SYRINGE SC SCH (08:27)
[2019-12-31] MEDS: Tamsulosin HCl 0.4 MG CAP PO SCH (08:28)
[2019-12-31] MEDS: Lisinopril 10 MG TAB PO SCH (08:28)
[2019-12-31] MEDS: Atorvastatin Calcium 20 MG TAB PO SCH (08:28)
[2019-12-31] MEDS: Fluticasone Propionate Nasal Spray 16 gm Bottle NASAL SCH (08:28)
[2019-12-31] MEDS: predniSONE 20 MG TAB PO SCH (08:28)
[2019-12-31] MEDS: FLUoxetine HCl 20 MG CAP PO SCH (08:28)
[2019-12-31 08:35] VITALS: BP 150/84
[2019-12-31] MEDS: Divalproex Sodium DR 500 MG TAB PO SCH (08:35)
--- NOTE | 2019-12-31 10:50 | DIS ---
DATE OF ADMISSION: 12/28/2019 DATE OF DISCHARGE: 12/31/2019 PRIMARY CARE PROVIDER: Dr. Justin Zapien. DISPOSITION: Discharged home. FINAL DIAGNOSES: Acute respiratory failure with hypoxia, chronic obstructive pulmonary disease with exacerbation, hypertension, dyslipidemia, bipolar disorder. DISCHARGE MEDICATIONS: New: 1. Levaquin 500 mg p.o. daily x7. 2. Zyprexa 2.5 mg at bedtime. 3. Benztropine 0.5 mg twice a day. 4. Singulair 10 mg a day. 5. Myrbetriq 20 mg daily. 6. Lipitor 20 mg a day. 7. Fluoxetine 20 mg a day. 8. Symbicort one puff b.i.d. 160/4.5. 9. Albuterol ProAir HFA two puffs q.4 hours p.r.n. 10. Protonix 40 mg a day. 11. Flomax 0.4 mg a day. 12. Propranolol 20 mg twice a day. 13. Zestril 10 mg a day. 14. DuoNeb 3 mL t.i.d. 15. Depakote 500 mg a day. ALLERGIES: PENICILLINS, IMITREX, MEPERIDINE. CODE STATUS: Full. DIET: Heart healthy. PENDING AT TIME OF DISCHARGE: Nothing. HOSPITAL COURSE: The patient admitted to the Hospitalist Service through [facility] with acute exacerbation of COPD. She was treated aggressively with nebulizers, long-acting beta-agonist. She required O2 supplementation. She received IV steroids transiently. Her initial laboratory; white count 11.9, followup 9.5; hemoglobin 15.0, followup 14.1; platelet count 295,000, followup 274,000. Comprehensive metabolic profile revealed normal liver function tests. She had a mild decreased CO2 at 19 on admission, 22 followup; mild sodium decreased 134 on admission, followup 136. The patient did well during her hospital stay. No procedures. No consultations. Being discharged for followup in 3 days by her primary care doctor. Job ID: [id number]
--- NOTE | 2020-01-01 01:43 | PQF ---
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 Clinical indicators are provided on the bottom of this form for your review Please check appropriate box(s): [ ] Protein Calorie Malnutrition: [ ] Mild [ ] Moderate [ ] Severe [ ] Other Malnutrition (please specify) __ [ ] Underweight without malnutrition [ ] Cachexia [ ] Other diagnosis [ x] Unable to determine In addition, please specify: Present on Admission (POA): [ ] Yes [ ] No [ ] Unable to determine CLINICAL INDICATORS - SIGNS / SYMPTOMS / LABS BMI18.7 Nutritional assessment- suggestive of severe malnutrition in the context of a chronic condition Nutritional assessment- mild temporal muscle wasting with severe fat wasting Nutritional assessment- 27% weight loss noted Nutritional assessment- Continue heart healthy diet RISK FACTORS COPD- H and P pg.1 smokes anywhere- H and P pg.1 Anxiety- H and P pg.1 Bipolar- H and P pg.1 acute respiratory failure- DS pg.1 Hypertension- H and P pg.1 TREATMENT: Dietary consult- Erednira Jones IV fluids- MAR I and O monitoring Moderate Malnutrition (in acute illness) Energy Intake: <75% of estimated energy requirement for > 7 days Weight Loss: 1-2%/1 week; 5%/ 1 month; 7.5%/3 months Other: mild body fat loss; mild muscle mass loss; mild fluid accumulation; Severe Malnutrition (in acute illness) Energy Intake: < 50% of estimated energy requirement for > 5 days Weight Loss: >1-2%/1 week; >5%/1 month; >7.5%/3 months Other: moderate body fat loss; moderate muscle mass loss; moderate- severe fluid accumulation; 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 Moderate Malnutrition (in chronic illness) Energy Intake: <75% of estimated energy requirement for >1 month Weight Loss: 5%/1 month; 7.5%/3 months; 10%/6 months; 20%/1 year Other: mild body fat loss; mild muscle mass loss; mild fluid accumulation Severe Malnutrition (in chronic illness) Energy Intake: <75% of estimated energy requirement for >1 month Weight Loss: >5%/1 month; >7.5%/3 months; >10%/6 months; >20%/1 year Other: severe body fat loss; severe muscle mass loss; severe fluid accumulation ; 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 (This form is maintained as a part of the permanent medical record) 2014 [employer]. All Rights Reserved [email or web address] MTDD
== END 2019-12-31 10:31 | disposition home or self-care (01) | DRG 189 ==
LOC: ERS 13:34 → OBSVTOIN 17:29 → 2SW 17:29 → T4-B 20:10
PROVIDERS: ADMIT Internal Medicine; ATTEND Internal Medicine
DX: J96.01 Acute respiratory failure with hypoxia (principal); J44.1 Chronic obstructive pulmonary disease with (acute) exacerbation; I10 Essential (primary) hypertension; E78.5 Hyperlipidemia, unspecified; F41.9 Anxiety disorder, unspecified; F31.9 Bipolar disorder, unspecified; F17.210 Nicotine dependence, cigarettes, uncomplicated; Z90.710 Acquired absence of both cervix and uterus; Z90.49 Acquired absence of other specified parts of digestive tract; Z88.0 Allergy status to penicillin; Z88.8 Allergy status to other drugs, medicaments and biological substances; Z79.51 Long term (current) use of inhaled steroids; Z79.899 Other long term (current) drug therapy
CPT/HCPCS: 36415; 71045; 71046; 80048; 80053; 83880; 84484; 85025; 85379; 87804; 93005; 94640; 94664; 94760; J1650; J1956; J2920; J7512; J7611; J7620; S0028

== ENCOUNTER 2020-01-01 14:49 | Emergency (ER) | payer MEDICARE, OTHER ==
[2020-01-01 15:21] LABS: Actual Bicarbonate (HCO3a) 24.5 mEq/L (22-28); Analyzer IN Cardio ER; Base Excess (BEa) 1.3 mEq/L (-2.0 to +3.0); CO2 Tension 34.5 mmHg (35.0-45.0); Calcium, Ionized 1.17 mmol/L (1.12-1.30); Hemoglobin (Hb) 14.6 g/dL (12.0-16.0); O2 Tension (PaO2) 77.7 mmHg (> 70.0); Potassium - ABG Lab 4.11 mmol/L (3.70-5.30); pH, Arterial 7.47 (7.35-7.45)
[2020-01-01 15:24] LABS: ALV-art Gradient 50.295 (0-20)
== END 2020-01-01 15:50 | disposition home or self-care (01) ==
LOC: ERS 14:49
DX: J44.9 Chronic obstructive pulmonary disease, unspecified (principal); F41.9 Anxiety disorder, unspecified; I10 Essential (primary) hypertension; E78.5 Hyperlipidemia, unspecified; F31.9 Bipolar disorder, unspecified; F17.210 Nicotine dependence, cigarettes, uncomplicated; Z79.899 Other long term (current) drug therapy
CPT/HCPCS: 82805; 93005; 94640; J7620

== ENCOUNTER 2020-01-23 20:07 | Emergency (ER) | payer MEDICARE, OTHER ==
[2020-01-23] MEDS ORDERED: HYDROcodone/Acetaminophen 5/325 mg Tablet ONE (20:28)
--- NOTE | 2020-01-23 21:04 | RAD ---
XR Hand Rt 3 View STANDARD HISTORY: Hand injury. COMPARISON: None. FINDINGS: The bones are demineralized. There are arthritic changes of the hand in wrist. An old avuls ion injury of the ulnar styloid is seen. Slight deformity to the distal radius may also indicate old injury. IMPRESSION: No acute findings.
== END 2020-01-23 22:27 | disposition home or self-care (01) ==
LOC: ERS 20:07
DX: S60.221A Contusion of right hand, initial encounter (principal); F41.9 Anxiety disorder, unspecified; F31.9 Bipolar disorder, unspecified; F17.210 Nicotine dependence, cigarettes, uncomplicated; J44.9 Chronic obstructive pulmonary disease, unspecified; E78.5 Hyperlipidemia, unspecified; I10 Essential (primary) hypertension; Z79.84 Long term (current) use of oral hypoglycemic drugs; Z79.51 Long term (current) use of inhaled steroids; Z79.899 Other long term (current) drug therapy; W23.0XXA Caught, crushed, jammed, or pinched between moving objects, initial encounter

== ENCOUNTER 2020-08-04 11:32 | Emergency (ER) | payer MEDICARE, OTHER ==
[2020-08-04 12:13] LABS: #Basophils 0.1 thou/uL (0.0-0.2); #Lymphocytes 2.3 thou/uL (1.20-3.40); #Monocytes 0.5 thou/uL (0.11-0.59); %Basophils 0.7 % (0.0-1.0); %Eosinophils 0.2 % (0.0-10.0); %Lymphocytes 21.2 % (21.0-51.0); %Monocytes 4.4 % (0.0-10.0); %Neutrophils 73.4 % (42.0-75.0); Hemoglobin 15.1 g/dL (12.0-16.0); Mean Corpuscular HGB CONC 31.9 g/dL (32.0-36.0); Mean Corpuscular Hemoglobin 31.4 pg (27.0-31.0); Mean Corpuscular Volume 98.5 fL (78.0-98.0); Mean Platelet Volume 6.7 fL (7.4-10.4); Platelet Count 309 thou/uL (130-400); RBC Distribution Width 11.4 % (11.5-14.5); White Blood Cell (WBC) Count 10.8 thou/uL (4.8-10.8)
[2020-08-04] MEDS ORDERED: methylPREDNISolone Sod Succ/PF 125 MG/2 ML VIAL ONE (12:16)
[2020-08-04 12:35] LABS: ALT (SGPT) 16 U/L (8-55); AST (SGOT) 18 U/L (5-34); Alkaline Phosphatase 70 U/L (40-110); Anion Gap 17 mmol/L (10-20); BUN (Urea Nitrogen) 14 mg/dL (9.8-20.1); Bilirubin, Total 0.5 mg/dL (0.2-1.2); CK (CPK) 69 U/L (29-168); Calc. Creatinine Clearance 0 mL/min (70-130); Calcium 9.2 mg/dL (7.8-10.44); Carbon Dioxide 20 mmol/L (23-31); Chloride 102 mmol/L (98-107); Estimated GFR-MDRD Greater than 90; Globulin 2.3 g/dL (2.4-3.5); Glucose 97 mg/dL (83-110); Potassium 4.2 mmol/L (3.5-5.1); Protein, Total 6.3 g/dL (6.0-8.3); Sodium 135 mmol/L (136-145)
--- NOTE | 2020-08-04 12:44 | RAD ---
Exam: Chest one view HISTORY:Chest pain. Comparison: 07/02/2020 FINDINGS: Cardiac silhouette: Normal Aorta: Atherosclerosis and mild elongation Pulmonary vessels: Normal Costophrenic angles: Clear LUNGS: No masses or consolidation. Chronic lung parenchymal changes. Stable hyperinflation. Pneumothorax: None Osseous abnormalities: Evidence of previous cervical fusion. Disc prostheses. IMPRESSION: COPD.
== END 2020-08-04 14:10 | disposition home or self-care (01) ==
LOC: ERS 11:32
DX: J44.1 Chronic obstructive pulmonary disease with (acute) exacerbation (principal); R51 Headache; F41.9 Anxiety disorder, unspecified; F31.9 Bipolar disorder, unspecified; I10 Essential (primary) hypertension; J44.9 Chronic obstructive pulmonary disease, unspecified; E78.5 Hyperlipidemia, unspecified; F17.210 Nicotine dependence, cigarettes, uncomplicated; Z79.899 Other long term (current) drug therapy
CPT/HCPCS: 71045; 80053; 82550; 84484; 85025; 87081; 87430; 93005; J2930

== ENCOUNTER 2020-08-07 12:23 | Inpatient (IN) | payer MEDICARE, OTHER ==
[2020-08-07] MEDS ORDERED: Magnesium 2 GM/50 ML BAG (IN WATER) ONE (12:48)
[2020-08-07] MEDS ORDERED: methylPREDNISolone Sod Succ/PF 125 MG/2 ML VIAL ONE (12:48)
[2020-08-07 13:06] LABS: #Basophils 0.1 thou/uL (0.0-0.2); #Eosinphils 0.1 thou/uL (0.0-0.7); #Lymphocytes 1.4 thou/uL (1.20-3.40); #Monocytes 0.7 thou/uL (0.11-0.59); #Neutrophils 6.5 thou/uL (1.40-6.50); %Basophils 0.8 % (0.0-1.0); %Eosinophils 0.9 % (0.0-10.0); %Lymphocytes 16.1 % (21.0-51.0); %Monocytes 7.6 % (0.0-10.0); %Neutrophils 74.7 % (42.0-75.0); Hemoglobin 16.6 g/dL (12.0-16.0); Mean Corpuscular HGB CONC 31.2 g/dL (32.0-36.0); Mean Corpuscular Hemoglobin 31.5 pg (27.0-31.0); Mean Platelet Volume 6.8 fL (7.4-10.4); Platelet Count 271 thou/uL (130-400); RBC Distribution Width 11.5 % (11.5-14.5); Red Blood Cell (RBC) Count 5.28 mill/uL (4.20-5.40); White Blood Cell (WBC) Count 8.7 thou/uL (4.8-10.8)
--- NOTE | 2020-08-07 13:27 | RAD ---
XR Chest 1 View Portable HISTORY: COPD cough and wheezing COMPARISON: 08/04/2020 FINDINGS: The heart size is normal. Chronic lung changes are again seen. The aorta is tortuous. The l ungs are well expanded without focal areas of consolidation, pneumothorax or pleural effusions. IMPRESSION: No radiographic evidence of acute cardiopulmonary process.
[2020-08-07 13:43] LABS: ALT (SGPT) 17 U/L (8-55); AST (SGOT) 23 U/L (5-34); Albumin 4.6 g/dL (3.4-4.8); Alkaline Phosphatase 84 U/L (40-110); Anion Gap 16 mmol/L (10-20); BUN (Urea Nitrogen) 11 mg/dL (9.8-20.1); Bilirubin, Total 0.3 mg/dL (0.2-1.2); Calc. Creatinine Clearance 0 mL/min (70-130); Calcium 9.7 mg/dL (7.8-10.44); Carbon Dioxide 26 mmol/L (23-31); Chloride 101 mmol/L (98-107); Estimated GFR-MDRD 90; Glucose 100 mg/dL (83-110); Potassium 4.1 mmol/L (3.5-5.1); Protein, Total 7.6 g/dL (6.0-8.3); Sodium 139 mmol/L (136-145)
[2020-08-07] MEDS ORDERED: Guaifenesin DM 100-10/5 ML UDCUP PO PRN (16:01)
[2020-08-07] MEDS ORDERED: Propranolol HCl 20 MG TAB PO PRN (16:01)
[2020-08-07] MEDS ORDERED: Bisacodyl 10 MG SUPP PR PRN (16:01)
[2020-08-07] MEDS ORDERED: Calcium Carbonate 500 MG ChewTAB PO PRN (16:01)
[2020-08-07] MEDS ORDERED: Senokot S 8.6-50 MG TAB PO PRN (16:01)
[2020-08-07] MEDS ORDERED: Ondansetron PF 4 MG/2 ML Vial IVP PRN (16:01)
[2020-08-07] MEDS ORDERED: Acetaminophen 325 MG TAB PO PRN (16:01)
[2020-08-07] MEDS ORDERED: Aspirin/APAP/Caffeine Tab (Excedrin Migraine) PO PRN (16:23)
--- NOTE | 2020-08-07 16:38 | HP ---
REASON FOR ADMISSION: COPD exacerbation. HISTORY OF PRESENTING ILLNESS: The patient gives history of having progressive shortness of breath from last 2 weeks. She states she was discharged 3 weeks back. 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 She was on all 4 extremities to get a good air supply per the patient. She tried various inhalers and nebulizers at home, none of which helped and the patient finally called EMS and was brought here. She says she ambulates by herself. PAST MEDICAL AND SURGICAL HISTORY: History of COPD, hypertension, dyslipidemia, bipolar disorder with depression, anxiety disorder, left breast biopsy, vulvectomy, hysterectomy with left oophorectomy, left knee surgery, tonsillectomy, C-spine fusion, bilateral hip surgery. CURRENT MEDICATIONS: The patient was recently discharged on the following medications; 1. Atorvastatin 20 mg p.o. daily. 2. Benztropine 0.5 mg p.o. twice daily. 3. Breo Ellipta inhaler daily. 4. DuoNeb three times daily p.r.n. 5. Flomax 0.4 mg daily. 6. Fluoxetine 20 mg daily. 7. Myrbetriq 25 mg daily extended release. 8. Protonix 40 mg daily. 9. Albuterol inhaler q.i.d. p.r.n. 10. Propranolol 20 mg twice daily. 11. Singulair 10 mg p.o. at bedtime. 12. Symbicort inhaler 160/4.5 mcg two puffs twice daily. 13. Vitamin D3 of 2000 units p.o. daily. 14. Zyprexa 7.5 mg p.o. at bedtime. 15. Excedrin p.r.n. for headache. 16. Lisinopril 10 mg p.o. daily. ALLERGIES: PENICILLIN, SUMATRIPTAN, AND MEPERIDINE. PERSONAL HISTORY: Still smokes half to three-fourth pack a day. She has been a lifelong smoker. She stays alone and says she ambulates by herself. FAMILY HISTORY: Mother at the age of 66. She apparently fell and had rib fractures, which resulted an internal bleeding from splenic hemorrhage and . Father at the age of 96 from natural causes. CODE STATUS: Full. Power of retail delivery driver is her son and RN, Mr. Leonardo Hodges. REVIEW OF SYSTEMS: CONSTITUTIONAL: Negative for weight loss or gain, ability to conduct usual activities. SKIN: Negative for rash, itching. EYES: Negative for double vision, pain. ENT/MOUTH: Negative for nose bleeding, neck stiffness, pain, tenderness. CARDIOVASCULAR: Negative for palpitations, dyspnea on exertion, orthopnea. RESPIRATORY: Negative for shortness of breath, wheezing, cough, hemoptysis, fever or night sweats. GASTROINTESTINAL: Negative for poor appetite, abdominal pain, heartburn, nausea, vomiting, constipation, or diarrhea. GENITOURINARY: Negative for urgency, frequency, dysuria, nocturia. MUSCULOSKELETAL: Negative for pain, swelling. NEUROLOGIC/PSYCHIATRIC: Negative for anxiety, depression. ALLERGY/IMMUNOLOGIC: Negative for skin rash, bleeding tendency. PHYSICAL EXAMINATION: GENERAL: The patient is a 70-year-old female, who is currently in mild respiratory distress and is tolerating BiPAP. VITAL SIGNS: Blood pressure 160/86, pulse 96 per minute, respiratory rate 24 per minute, saturating 80% on room air and 94% on BiPAP, temperature is 98.6 degrees Fahrenheit. NECK: Supple. No elevated JVD. HEENT: Eyes; extraocular muscles intact. Pupils reacting to light. Oral cavity, mucous membranes are dry. No exudates or congestion. CARDIOVASCULAR: S1 and S2 heard. Regular rhythm. RESPIRATORY: Air entry 1+ bilateral. Scattered wheezes plus bilateral. ABDOMEN: Soft. Bowel sounds heard. No tenderness, rigidity, or guarding. EXTREMITIES: No peripheral edema or calf tenderness. VASCULAR: Peripheral pulses 1+ bilateral. No ischemic ulcerations or gangrene. CENTRAL NERVOUS SYSTEM: No gross focal deficits noted. The patient is alert, awake, and oriented well. PSYCHIATRIC: The patient's mood is euthymic. No hallucinations or delusions. LABORATORY DATA: Chest x-ray done shows no acute cardiopulmonary abnormality. EKG done shows normal sinus rhythm at 92 beats per minute. Electrolytes are stable. BUN 11, creatinine 0.6, serum glucose 100. LFTs are within normal limits. First set of troponin is negative. Albumin 4.6. White count of 8.7, H and H 16 and 53, platelet count 271, MCV is 101 with 74% neutrophils. CLINICAL IMPRESSION AND PLAN: The patient will be admitted to [facility] for acute on chronic obstructive pulmonary disease exacerbation with acute respiratory failure with hypoxia requiring bipap now. The patient has had recurrent hospitalization here for chronic obstructive pulmonary disease flare-up with ongoing smoking. We will place her on Solu-Medrol 40 mg IV q.6 hourly and DuoNeb q.6 hourly. We will consult Dr. 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 She will be on empiric doxycycline for now. We will continue her home medications including Lipitor, benztropine, Zyprexa, fluoxetine, Breo Ellipta inhaler, lisinopril, Myrbetriq, Singulair, Protonix, propranolol, and Flomax as before. COVID-19 PCR has been collected in the ER and we will follow up on the results. Job ID: [id number] MTDD
[2020-08-07 17:24] VITALS: BMI 17.2
[2020-08-07] MEDS: Sodium Chloride 0.9% 1,000 ML IV SCH (17:58)
[2020-08-07] MEDS: methylPREDNISolone Sod Succ 40 MG VIAL IVP SCH (17:59)
[2020-08-07] MEDS: Acetaminophen/Codeine 30-300mg Tablet PO PRN (18:10)
[2020-08-07] MEDS: Mometasone 200 MCG/Formoterol 5 MCG 120 PUFF INHALER INH SCH (18:42)
[2020-08-07] MEDS: Arformoterol 15 MCG/2 ML NEB NEB SCH (18:44)
[2020-08-07] MEDS: Doxycycline 100 MG CAP PO SCH (20:23)
[2020-08-07] MEDS: Benztropine 1 MG TAB PO SCH (20:23)
[2020-08-07] MEDS: guaiFENesin ER 600 MG TAB PO SCH (20:24)
[2020-08-07] MEDS: Montelukast Sodium 10 mg Tablet PO SCH (20:24)
[2020-08-07] MEDS: OLANZapine 2.5 MG TAB PO SCH (21:01)
--- NOTE | 2020-08-07 23:46 | CON ---
DATE OF CONSULTATION: HISTORY OF PRESENT ILLNESS: Oneida Pierce is a 70-year-old cachectic female of Dr. Medeiros's, lives in [place], presented here with shortness of breath, unresponsive to usual home medication. She is still smoking up to 6 cigarettes a day. Around good day, she can barely walk even 30 feet without getting markedly short of breath. She is coughing up some grossly green sputum. No fever or chills. Her oxygen saturation was 88% on 3 L. She was placed on BiPAP and transferred over here. She is now in MICU. She is off the BiPAP and feels better. PAST MEDICAL HISTORY: End-stage COPD, persistent tobacco abuse, hypertension, chronic pain. PREVIOUS SURGERIES: Multiple; hysterectomy, oophorectomy, left knee surgery, tonsils, neck fusion, bilateral hip surgery, breast biopsy, vulvar surgery. ALLERGIES: PENICILLIN, IMITREX, DEMEROL. 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 HOME MEDICATIONS: Flomax 0.4, Inderal 20, Protonix, vitamin, Singulair 10, Myrbetriq 25, Zestril 10, nebulizer Breo, Prozac 20, benztropine, tension medication. REVIEW OF SYSTEMS: Otherwise, 10-point negative. PHYSICAL EXAMINATION: GENERAL: A cachectic female, in moderate distress. She is off the BiPAP. She is barely able to verbalize, still short of breath. VITAL SIGNS: Blood pressure is 120/80, pulse is 90, respirations 20, O2 saturation 92% on supplemental oxygen. CHEST: Decreased breath sounds. Prolonged expiration. Minimal wheezing. CARDIAC: Normal S1 and S2. No gallops. No masses. NEUROLOGICAL: She is awake, alert, and responsive. LABORATORY DATA AND DIAGNOSTIC STUDIES: X-ray, hyperinflation, marked. White count 8000, H and H is 16 and 53. Lytes are normal. ASSESSMENT: bronchitis, ongoing tobacco abuse, bipolar disorder, migraine headaches, hypertension. She is on adequate medication, steroids, neb treatments, supportive care. If she gets worse, I would try and reinstitute BiPAP. I will notify Dr. Medeiros. This is a consultation note, 70 minutes, 50% direct patient care. Job ID: [id number]
[2020-08-08] MEDS: methylPREDNISolone Sod Succ 40 MG VIAL IVP SCH ×4 (00:33→17:42)
[2020-08-08 04:07] LABS: #Lymphocytes 0.6 thou/uL (1.20-3.40); #Monocytes 0.1 thou/uL (0.11-0.59); #Neutrophils 3.4 thou/uL (1.40-6.50); %Basophils 0.7 % (0.0-1.0); %Eosinophils 0.1 % (0.0-10.0); %Lymphocytes 13.8 % (21.0-51.0); %Monocytes 1.7 % (0.0-10.0); %Neutrophils 83.7 % (42.0-75.0); Hemoglobin 14.9 g/dL (12.0-16.0); Mean Corpuscular HGB CONC 32.1 g/dL (32.0-36.0); Mean Corpuscular Hemoglobin 32.3 pg (27.0-31.0); Mean Platelet Volume 6.8 fL (7.4-10.4); Platelet Count 234 thou/uL (130-400); RBC Distribution Width 11.5 % (11.5-14.5); Red Blood Cell (RBC) Count 4.62 mill/uL (4.20-5.40)
[2020-08-08 04:28] LABS: Anion Gap 14 mmol/L (10-20); BUN (Urea Nitrogen) 15 mg/dL (9.8-20.1); Calc. Creatinine Clearance 54 mL/min (70-130); Carbon Dioxide 24 mmol/L (23-31); Chloride 105 mmol/L (98-107); Estimated GFR-MDRD 87; Glucose 160 mg/dL (83-110); Sodium 138 mmol/L (136-145)
[2020-08-08] MEDS: Arformoterol 15 MCG/2 ML NEB NEB SCH ×2 (07:52→18:15)
[2020-08-08] MEDS: Doxycycline 100 MG CAP PO SCH ×2 (08:40→22:23)
[2020-08-08] MEDS: Atorvastatin Calcium 20 MG TAB PO SCH (08:40)
[2020-08-08] MEDS: Cholecalciferol 1,000 UNITS (25 MCG) TAB PO SCH (08:40)
[2020-08-08] MEDS: FLUoxetine HCl 20 MG CAP PO SCH (08:40)
[2020-08-08] MEDS: Enoxaparin Sodium 40 MG/0.4 ML SYRINGE SC SCH (08:40)
[2020-08-08] MEDS: Acetaminophen/Codeine 30-300mg Tablet PO PRN ×2 (08:41→22:32)
[2020-08-08] MEDS: Lisinopril 10 MG TAB PO SCH (08:42)
[2020-08-08] MEDS: Tamsulosin HCl 0.4 MG CAP PO SCH (08:42)
[2020-08-08] MEDS: Multivit, Therapeutic 1 TAB PO SCH (08:42)
[2020-08-08] MEDS: Benztropine 1 MG TAB PO SCH ×2 (08:42→22:23)
[2020-08-08] MEDS: guaiFENesin ER 600 MG TAB PO SCH ×2 (08:42→22:24)
--- NOTE | 2020-08-08 09:15 | PRG ---
DATE OF SERVICE: 08/08/2020 SUBJECTIVE: Onieda Pierce is a 70-year-old female. This morning, she is awake, alert, and responsive. She is better, less short of breath. OBJECTIVE: VITAL SIGNS: Temperature 98, pulse 80, blood pressure 151/71, respiratory rate 18. CHEST: Decreased breath sounds. No wheezing. CARDIAC: Normal S1 and S2. No gallops. ABDOMEN: Soft. No masses. ASSESSMENT: Chronic obstructive pulmonary disease exacerbation, bronchitis, ongoing tobacco abuse. PLAN: She has much improved. She could be transferred out of the MICU to a regular floor. Switch over to oral prednisone. Hopefully, she can be discharged in the next several days. She needs to follow up with Dr. Medeiros. Job ID: [id number]
[2020-08-08] MEDS: Mometasone 200 MCG/Formoterol 5 MCG 120 PUFF INHALER INH SCH ×2 (11:05→18:15)
[2020-08-08] MEDS: Sodium Chloride 0.9% 1,000 ML IV SCH (11:42)
[2020-08-08 12:04] LABS: SARS-CoV-2 MS2 Positive; SARS-CoV-2 N Gene Negative; SARS-CoV-2 S Gene Negative; SARS-CoV-2 by NAA Not Detected (NotDetected); SARS-CoV-2 orf1ab Negative
--- NOTE | 2020-08-08 12:51 | PDOC.HOSPP ---
- Subjective Encounter Date: 08/08/20 Encounter Time: 08:25 Subjective: no wheezing, is on nasal canula is off bipap from last night feels better ate her breakfast - Objective Vital Signs & Weight: Vital Signs (12 hours) Temp 08/08/20 11:31 97.6 F 08/08/20 07:17 98.6 F 08/08/20 03:54 97.8 F Weight Admit Weight 97 lb 8 oz Weight 97 lb 8 oz Most Recent Monitor Data Heart Rate from ECG 78 NIBP 156/81 NIBP BP-Mean 106 Respiration from ECG 20 SpO2 95 I&O: 08/07/20 08/08/20 08/09/20 06:59 06:59 06:59 Intake Total 200 440 Output Total 100 250 Balance 100 190 Result Diagrams: 08/08/20 03:33 08/08/20 03:33 Hospitalist ROS - Medication Medications: Active Medications Generic Name Dose Route Start Last Admin Trade Name Freq PRN Reason Stop Dose Admin Acetaminophen/Codeine Phosphate 2 tab 08/07/20 16:42 08/08/20 08:41 Acetaminophen/Codeine 30-300mg Tablet PO 2 tab Q6H PRN Administration Moderate Pain (4-6) Albuterol/Ipratropium 3 ml 08/07/20 19:00 08/08/20 07:53 Ipratropium/Albuterol Sulfate 3 Ml Neb NEB Not Given [id number] ADALID Arformoterol Tartrate 15 mcg 08/07/20 18:30 08/08/20 07:52 Arformoterol 15 Mcg/2 Ml Neb NEB Not Given BID-RT ADALID Atorvastatin Calcium 20 mg 08/08/20 09:00 08/08/20 08:40 Atorvastatin Calcium 20 Mg Tab PO 20 mg DAILY ADALID Administration Benztropine Mesylate 0.5 mg 08/07/20 21:00 08/08/20 08:42 Benztropine 1 Mg Tab PO 0.5 mg BID ADALID Administration Cholecalciferol 2,000 units 08/08/20 09:00 08/08/20 08:40 Cholecalciferol 1,000 Units (25 Mcg) Tab PO 2,000 units DAILY ADALID Administration Doxycycline Hyclate 100 mg 08/07/20 21:00 08/08/20 08:40 Doxycycline 100 Mg Cap PO 100 mg BID ADALID Administration Enoxaparin Sodium 40 mg 08/08/20 09:00 08/08/20 08:40 Enoxaparin Sodium 40 Mg/0.4 Ml Syringe SC 40 mg 0900 ADALID Administration Fluoxetine HCl 20 mg 08/08/20 09:00 08/08/20 08:40 Fluoxetine Hcl 20 Mg Cap PO 20 mg DAILY ADALID Administration Guaifenesin 600 mg 08/07/20 21:00 08/08/20 08:42 Guaifenesin Er 600 Mg Tab PO 600 mg Q12HR ADALID Administration Sodium Chloride 1,000 mls @ 50 mls/hr 08/07/20 16:01 08/08/20 11:42 Normal Saline 0.9% IV 1,000 mls .Q20H ADALID Administration Lisinopril 10 mg 08/08/20 09:00 08/08/20 08:42 Lisinopril 10 Mg Tab PO 10 mg DAILY ADALID Administration Methylprednisolone Sodium Succinate 40 mg 08/07/20 18:00 08/08/20 11:28 Methylprednisolone Sod Succ 40 Mg Vial IVP 40 mg Q6HR ADALID Administration Mirabegron 25 mg 08/08/20 09:00 08/08/20 08:42 Mirabegron Er 25 Mg Tab PO 25 mg DAILY ADALID Administration Mometasone Furoate/Formoterol Fumar 2 puff 08/07/20 18:30 08/08/20 11:05 Mometasone 200 Mcg/Formoterol 5 Mcg 120 Puff Inhaler INH Not Given BID-RT ADALID Montelukast Sodium 10 mg 08/07/20 21:00 08/07/20 20:24 Montelukast Sodium 10 Mg Tablet PO 10 mg HS ADALID Administration Multivitamins 1 tab 08/08/20 09:00 08/08/20 08:42 Multivit, Therapeutic 1 Tab PO 1 tab DAILY ADALID Administration Olanzapine 7.5 mg 08/07/20 21:00 08/07/20 21:01 Olanzapine 2.5 Mg Tab PO 7.5 mg HS ADALID Administration Pantoprazole Sodium 40 mg 08/08/20 09:00 08/08/20 08:41 Pantoprazole 40 Mg Tab PO 40 mg DAILY ADALID Administration Tamsulosin HCl 0.4 mg 08/08/20 09:00 08/08/20 08:42 Tamsulosin Hcl 0.4 Mg Cap PO 0.4 mg DAILY ADALID Administration - Exam General Appearance: awake alert Eye: PERRL, anicteric sclera ENT: no oropharyngeal lesions, moist mucosa Neck: supple, no JVD Heart: RRR, no murmur Respiratory: no wheezes, no rales, rhonchi Gastrointestinal: soft, non-tender, non-distended, normal bowel sounds Extremities: no cyanosis, no edema Neurological: cranial nerve grossly intact, no focal deficits Psychiatric: normal affect, A&O x 3 Hosp A/P (1) Acute respiratory failure with hypoxia Code(s): J96.01 - ACUTE RESPIRATORY FAILURE WITH HYPOXIA Status: Acute (2) COPD exacerbation Code(s): J44.1 - CHRONIC OBSTRUCTIVE PULMONARY DISEASE W (ACUTE) EXACERBATION Status: Acute (3) Bipolar disorder Code(s): F31.9 - BIPOLAR DISORDER, UNSPECIFIED Status: Chronic Qualifiers: Active/Remission status: in full remission (4) Hyperlipidemia Code(s): E78.5 - HYPERLIPIDEMIA, UNSPECIFIED Status: Chronic Qualifiers: (5) Hypertension Code(s): I10 - ESSENTIAL (PRIMARY) HYPERTENSION Status: Chronic Qualifiers: - Plan is on nasal canula O2 and saturating well, will begin to taper from am continue steroids, empiric antibiotics, home meds as above mobilize as tolerated she is strongly considering to quit smoking completely, says was successful quitting before. Transfer to medical floor
--- NOTE | 2020-08-08 17:45 | PQF ---
CLINICAL DOCUMENTATION CLARIFICATION FORM: Dear Dr. Márquez Date: 08/08/2020 Please exercise your independent, professional judgment in responding to the clarification form. Clinical indicators are provided on the bottom of this form for your review. Please check appropriate box(es): [ x ] Protein Calorie Malnutrition: [ x] Mild [ ] Moderate [ ] Other Malnutrition (please specify) [ ] Underweight without malnutrition [ ] Other diagnosis [ ] Unable to determine In addition, please specify: Present on Admission (POA): [ x ] Yes [ ] No [ ] Unable to determine For continuity of documentation, please document condition throughout progress notes and discharge summary. Thank You. 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 Lifelong smoker. I/P: Recurrent hospitalization here for COPD flare-up ongoing smoking. 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: Triggered for BMI 17.2 08/08 Order for Supplement: Ensure Enlive BID Moderate Malnutrition (in acute illness) Energy Intake: <75% of estimated energy requirement for > 7 days Weight Loss: 1-2%/1 week; 5%/ 1 month; 7.5%/3 months Other: mild body fat loss; mild muscle mass loss; mild fluid accumulation; Severe Malnutrition (in acute illness) Energy Intake: = 50% of estimated energy requirement for = 5 days Weight Loss: >2%/1 week; >5%/1 month; >7.5%/3 months Other: moderate body fat loss; moderate muscle mass loss; moderate- severe fluid accumulation; 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 Moderate Malnutrition (in chronic illness) Energy Intake: <75% of estimated energy requirement for =1 month Weight Loss: 5%/1 month; 7.5%/3 months; 10%/6 months; 20%/1 year Other: mild body fat loss; mild muscle mass loss; mild fluid accumulation Severe Malnutrition (in chronic illness) Energy Intake: =75% of estimated energy requirement for =1 month Weight Loss: >5%/1 month; >7.5%/3 months; >10%/6 months; >20%/1 year Other: severe body fat loss; severe muscle mass loss; severe fluid accumulation; 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
[2020-08-08] MEDS: OLANZapine 2.5 MG TAB PO SCH (22:24)
[2020-08-08] MEDS: Montelukast Sodium 10 mg Tablet PO SCH (22:24)
[2020-08-09] MEDS: methylPREDNISolone Sod Succ 40 MG VIAL IVP SCH ×3 (00:20→13:07)
[2020-08-09] MEDS: Arformoterol 15 MCG/2 ML NEB NEB SCH ×2 (07:00→18:57)
[2020-08-09] MEDS: Mometasone 200 MCG/Formoterol 5 MCG 120 PUFF INHALER INH SCH ×2 (07:00→18:59)
[2020-08-09] MEDS: Benztropine 1 MG TAB PO SCH ×2 (08:04→20:41)
[2020-08-09] MEDS: Enoxaparin Sodium 40 MG/0.4 ML SYRINGE SC SCH (08:04)
[2020-08-09] MEDS: Sodium Chloride 0.9% 1,000 ML IV SCH (08:04)
[2020-08-09] MEDS: Tamsulosin HCl 0.4 MG CAP PO SCH (08:05)
[2020-08-09] MEDS: Atorvastatin Calcium 20 MG TAB PO SCH (08:05)
[2020-08-09] MEDS: Multivit, Therapeutic 1 TAB PO SCH (08:05)
[2020-08-09] MEDS: Cholecalciferol 1,000 UNITS (25 MCG) TAB PO SCH (08:05)
[2020-08-09] MEDS: FLUoxetine HCl 20 MG CAP PO SCH (08:05)
[2020-08-09] MEDS: Doxycycline 100 MG CAP PO SCH ×2 (08:05→20:41)
[2020-08-09] MEDS: Lisinopril 10 MG TAB PO SCH (08:06)
[2020-08-09] MEDS: guaiFENesin ER 600 MG TAB PO SCH ×2 (08:06→20:43)
--- NOTE | 2020-08-09 12:30 | PDOC.HOSPP ---
- Subjective Encounter Date: 08/09/20 Encounter Time: 12:24 Subjective: Ms. Pierce was seen today in follow-up of respiratory failure. She says she is breathing better. She does not have any new complaints. - Objective Vital Signs & Weight: Vital Signs (12 hours) Temp Pulse Resp BP BP Pulse Ox 08/09/20 08:06 161/76 H 08/09/20 08:00 97.9 F 106 H 20 161/76 H 94 L 08/09/20 07:37 97.9 F 106 H 20 161/76 H 92 L 08/09/20 07:01 98 08/09/20 06:56 110 H 21 H 98 Weight Admit Weight 97 lb 8 oz Weight 97 lb 8 oz Most Recent Monitor Data Heart Rate from ECG 78 NIBP 156/81 NIBP BP-Mean 106 Respiration from ECG 20 SpO2 95 I&O: 08/08/20 08/09/20 08/10/20 06:59 06:59 06:59 Intake Total 200 2190 Output Total 100 250 Balance 100 1940 Result Diagrams: 08/08/20 03:33 08/08/20 03:33 Hospitalist ROS - Medication Medications: Active Medications Generic Name Dose Route Start Last Admin Trade Name Freq PRN Reason Stop Dose Admin Acetaminophen/Codeine Phosphate 2 tab 08/07/20 16:42 08/08/20 22:32 Acetaminophen/Codeine 30-300mg Tablet PO 2 tab Q6H PRN Administration Moderate Pain (4-6) Albuterol/Ipratropium 3 ml 08/07/20 19:00 08/09/20 06:56 Ipratropium/Albuterol Sulfate 3 Ml Neb NEB 3 ml [id number] ADALID Administration Arformoterol Tartrate 15 mcg 08/07/20 18:30 08/09/20 07:00 Arformoterol 15 Mcg/2 Ml Neb NEB 15 mcg BID-RT ADALID Administration Atorvastatin Calcium 20 mg 08/08/20 09:00 08/09/20 08:05 Atorvastatin Calcium 20 Mg Tab PO 20 mg DAILY ADALID Administration Benztropine Mesylate 0.5 mg 08/07/20 21:00 08/09/20 08:04 Benztropine 1 Mg Tab PO 0.5 mg BID ADALID Administration Cholecalciferol 2,000 units 08/08/20 09:00 09/26/20 08:05 Cholecalciferol 1,000 Units (25 Mcg) Tab PO 2,000 units DAILY ADALID Administration Doxycycline Hyclate 100 mg 08/07/20 21:00 08/09/20 08:05 Doxycycline 100 Mg Cap PO 100 mg BID ADALID Administration Enoxaparin Sodium 40 mg 08/08/20 09:00 08/09/20 08:04 Enoxaparin Sodium 40 Mg/0.4 Ml Syringe SC 40 mg 0900 ADALID Administration Fluoxetine HCl 20 mg 08/08/20 09:00 08/09/20 08:05 Fluoxetine Hcl 20 Mg Cap PO 20 mg DAILY ADALID Administration Guaifenesin 600 mg 08/07/20 21:00 08/09/20 08:06 Guaifenesin Er 600 Mg Tab PO 600 mg Q12HR ADALID Administration Sodium Chloride 1,000 mls @ 50 mls/hr 08/07/20 16:01 08/09/20 08:04 Normal Saline 0.9% IV Not Given .Q20H ADALID Lisinopril 10 mg 08/08/20 09:00 08/09/20 08:06 Lisinopril 10 Mg Tab PO 10 mg DAILY ADALID Administration Methylprednisolone Sodium Succinate 40 mg 08/07/20 18:00 08/09/20 06:17 Methylprednisolone Sod Succ 40 Mg Vial IVP 40 mg Q6HR ADALID Administration Mirabegron 25 mg 08/08/20 09:00 08/09/20 08:06 Mirabegron Er 25 Mg Tab PO 25 mg DAILY ADALID Administration Mometasone Furoate/Formoterol Fumar 2 puff 08/07/20 18:30 08/09/20 07:00 Mometasone 200 Mcg/Formoterol 5 Mcg 120 Puff Inhaler INH 2 puff BID-RT ADALID Administration Montelukast Sodium 10 mg 08/07/20 21:00 08/08/20 22:24 Montelukast Sodium 10 Mg Tablet PO 10 mg HS ADALID Administration Multivitamins 1 tab 08/08/20 09:00 08/09/20 08:05 Multivit, Therapeutic 1 Tab PO 1 tab DAILY ADALID Administration Olanzapine 7.5 mg 08/07/20 21:00 08/08/20 22:24 Olanzapine 2.5 Mg Tab PO 7.5 mg HS ADALID Administration Pantoprazole Sodium 40 mg 08/08/20 09:00 08/09/20 08:05 Pantoprazole 40 Mg Tab PO 40 mg DAILY DAALID Administration Tamsulosin HCl 0.4 mg 08/08/20 09:00 08/09/20 08:05 Tamsulosin Hcl 0.4 Mg Cap PO 0.4 mg DAILY ADALID Administration - Exam Eye: PERRL, anicteric sclera Heart: RRR, no murmur, no gallops, no rubs, normal peripheral pulses Respiratory: CTAB, no wheezes, no rales, no ronchi, normal chest expansion, no tachypnea, normal percussion Gastrointestinal: soft, non-tender, non-distended, normal bowel sounds, no palpable masses, no hepatomegaly Extremities: no cyanosis Hosp A/P (1) Acute respiratory failure with hypoxia Code(s): J96.01 - ACUTE RESPIRATORY FAILURE WITH HYPOXIA Status: Acute (2) COPD exacerbation Code(s): J44.1 - CHRONIC OBSTRUCTIVE PULMONARY DISEASE W (ACUTE) EXACERBATION Status: Acute (3) Bipolar disorder Code(s): F31.9 - BIPOLAR DISORDER, UNSPECIFIED Status: Chronic Qualifiers: Active/Remission status: in full remission (4) Hypertension Code(s): I10 - ESSENTIAL (PRIMARY) HYPERTENSION Status: Chronic Qualifiers: - Plan * Acute on chronic respiratory failure- improved * COPD exacerbation- improved * Will need to determine what her oxygen requirements are prior to discharge * Anticipate discharge home today
--- NOTE | 2020-08-09 14:20 | PRG ---
DATE OF SERVICE: 08/09/2020 SUBJECTIVE: Oneida Pierce says she feels like she is back to her baseline. She has no complaints. OBJECTIVE: VITAL SIGNS: She is afebrile, heart rate is 84, respiratory rate is 20, oximetry is 95% on 2 L, and blood pressure 143/71. LUNGS: Clear. HEART: Regular rhythm. ABDOMEN: Soft. EXTREMITIES: Without edema. IMPRESSION: Chronic obstructive pulmonary disease exacerbation; bronchitis, clinically improving; ongoing tobacco use, She could go home late today or tomorrow given her reported clinical stability. Her prednisone probably needs to be tapered for 10 to 14 days. She sat to see if she qualifies for home oxygen while she is sitting up in a chair. Job ID: [id number]
[2020-08-09] MEDS: Acetaminophen/Codeine 30-300mg Tablet PO PRN ×2 (16:28→22:29)
[2020-08-09] MEDS: OLANZapine 2.5 MG TAB PO SCH (20:43)
[2020-08-09] MEDS: Montelukast Sodium 10 mg Tablet PO SCH (20:43)
[2020-08-10] MEDS: Sodium Chloride 0.9% 1,000 ML IV SCH (01:24)
[2020-08-10] MEDS: Acetaminophen/Codeine 30-300mg Tablet PO PRN ×2 (05:09→14:11)
[2020-08-10] MEDS: Arformoterol 15 MCG/2 ML NEB NEB SCH (06:57)
[2020-08-10] MEDS: Mometasone 200 MCG/Formoterol 5 MCG 120 PUFF INHALER INH SCH (06:58)
[2020-08-10] MEDS: Cholecalciferol 1,000 UNITS (25 MCG) TAB PO SCH (08:17)
[2020-08-10] MEDS: Tamsulosin HCl 0.4 MG CAP PO SCH (08:18)
[2020-08-10] MEDS: FLUoxetine HCl 20 MG CAP PO SCH (08:18)
[2020-08-10] MEDS: Multivit, Therapeutic 1 TAB PO SCH (08:18)
[2020-08-10] MEDS: Lisinopril 10 MG TAB PO SCH (08:18)
[2020-08-10] MEDS: Atorvastatin Calcium 20 MG TAB PO SCH (08:18)
[2020-08-10] MEDS: Doxycycline 100 MG CAP PO SCH (08:19)
[2020-08-10] MEDS: Enoxaparin Sodium 40 MG/0.4 ML SYRINGE SC SCH (08:19)
[2020-08-10] MEDS: Benztropine 1 MG TAB PO SCH (08:19)
[2020-08-10] MEDS: guaiFENesin ER 600 MG TAB PO SCH (08:24)
--- NOTE | 2020-08-10 15:18 | PDOC.HOSPP ---
- Subjective Encounter Date: 08/10/20 Encounter Time: 15:16 Subjective: Ms. Terrell was seen today in follow-up of COPD exacerbation. She notes having some coughing spells, but otherwise ok. - Objective Vital Signs & Weight: Vital Signs (12 hours) Temp Pulse Resp BP BP Pulse Ox 08/10/20 13:27 116 H 22 H 08/10/20 13:10 98.3 F 99 18 131/76 95 08/10/20 11:37 98.3 F 99 18 131/76 95 08/10/20 08:18 163/92 H 08/10/20 08:00 98.4 F 84 16 163/92 H 95 08/10/20 06:55 84 16 Weight Admit Weight 97 lb 8 oz Weight 97 lb 8 oz Most Recent Monitor Data Heart Rate from ECG 78 NIBP 156/81 NIBP BP-Mean 106 Respiration from ECG 20 SpO2 95 I&O: 08/09/20 08/10/20 08/11/20 06:59 06:59 06:59 Intake Total 2189 2039 Output Total 250 Balance 1939 2039 Result Diagrams: 08/08/20 03:33 08/08/20 03:33 Hospitalist ROS - Medication Medications: Active Medications Generic Name Dose Route Start Last Admin Trade Name Freq PRN Reason Stop Dose Admin Acetaminophen/Codeine Phosphate 2 tab 08/07/20 16:42 08/10/20 14:11 Acetaminophen/Codeine 30-300mg Tablet PO 2 tab Q6H PRN Administration Moderate Pain (4-6) Albuterol/Ipratropium 3 ml 08/07/20 19:00 08/10/20 13:27 Ipratropium/Albuterol Sulfate 3 Ml Neb NEB 3 ml [id number] ADALID Administration Arformoterol Tartrate 15 mcg 08/07/20 18:30 08/10/20 06:57 Arformoterol 15 Mcg/2 Ml Neb NEB 15 mcg BID-RT ADALID Administration Atorvastatin Calcium 20 mg 08/08/20 09:00 08/10/20 08:18 Atorvastatin Calcium 20 Mg Tab PO 20 mg DAILY ADALID Administration Benztropine Mesylate 0.5 mg 08/07/20 21:00 08/10/20 08:19 Benztropine 1 Mg Tab PO 0.5 mg BID ADALID Administration Cholecalciferol 2,000 units 08/08/20 09:00 08/10/20 08:17 Cholecalciferol 1,000 Units (25 Mcg) Tab PO 2,000 units DAILY ADALID Administration Doxycycline Hyclate 100 mg 08/07/20 21:00 08/10/20 08:19 Doxycycline 100 Mg Cap PO 100 mg BID ADALID Administration Enoxaparin Sodium 40 mg 08/08/20 09:00 08/10/20 08:19 Enoxaparin Sodium 40 Mg/0.4 Ml Syringe SC 40 mg 0900 ADALID Administration Fluoxetine HCl 20 mg 08/08/20 09:00 08/10/20 08:18 Fluoxetine Hcl 20 Mg Cap PO 20 mg DAILY ADALID Administration Guaifenesin 600 mg 08/07/20 21:00 08/10/20 08:24 Guaifenesin Er 600 Mg Tab PO 600 mg Q12HR ADALID Administration Sodium Chloride 1,000 mls @ 50 mls/hr 08/07/20 16:01 08/10/20 01:24 Normal Saline 0.9% IV Not Given .Q20H ADALID Lisinopril 10 mg 08/08/20 09:00 08/10/20 08:18 Lisinopril 10 Mg Tab PO 10 mg DAILY ADALID Administration Mirabegron 25 mg 08/08/20 09:00 08/10/20 08:19 Mirabegron Er 25 Mg Tab PO 25 mg DAILY ADALID Administration Mometasone Furoate/Formoterol Fumar 2 puff 08/07/20 18:30 08/10/20 06:58 Mometasone 200 Mcg/Formoterol 5 Mcg 120 Puff Inhaler INH 2 puff BID-RT ADALID Administration Montelukast Sodium 10 mg 08/07/20 21:00 08/09/20 20:43 Montelukast Sodium 10 Mg Tablet PO 10 mg HS ADALID Administration Multivitamins 1 tab 08/08/20 09:00 08/10/20 08:18 Multivit, Therapeutic 1 Tab PO 1 tab DAILY ADALID Administration Olanzapine 7.5 mg 08/07/20 21:00 08/09/20 20:43 Olanzapine 2.5 Mg Tab PO 7.5 mg HS ADALID Administration Pantoprazole Sodium 40 mg 08/08/20 09:00 08/10/20 08:19 Pantoprazole 40 Mg Tab PO 40 mg DAILY ADALID Administration Tamsulosin HCl 0.4 mg 08/08/20 09:00 08/10/20 08:18 Tamsulosin Hcl 0.4 Mg Cap PO 0.4 mg DAILY ADALID Administration - Exam Eye: PERRL, anicteric sclera Heart: RRR, no murmur, no gallops, no rubs, normal peripheral pulses Respiratory: CTAB, no wheezes, no rales, no ronchi, normal chest expansion, no tachypnea Gastrointestinal: soft, non-tender, non-distended, normal bowel sounds, no palpable masses, no hepatomegaly Extremities: no cyanosis, no edema Hosp A/P (1) Acute respiratory failure with hypoxia Code(s): J96.01 - ACUTE RESPIRATORY FAILURE WITH HYPOXIA Status: Acute (2) COPD exacerbation Code(s): J44.1 - CHRONIC OBSTRUCTIVE PULMONARY DISEASE W (ACUTE) EXACERBATION Status: Acute (3) Bipolar disorder Code(s): F31.9 - BIPOLAR DISORDER, UNSPECIFIED Status: Chronic Qualifiers: Active/Remission status: in full remission (4) Hypertension Code(s): I10 - ESSENTIAL (PRIMARY) HYPERTENSION Status: Chronic Qualifiers: - Plan * Acute on chronic respiratory failure- improved * COPD exacerbation- improved * She is awaiting home oxygen arrangements * Likely home this evening
[2020-08-10 15:49] VITALS: BP 129/80; TEMP 98.2
== END 2020-08-10 17:26 | disposition home or self-care (01) | DRG 189 ==
LOC: ERS 12:23 → IMCU/EMU 13:49 → T4-A 08-08 12:54
PROVIDERS: ADMIT Internal Medicine; ATTEND Internal Medicine
PROC: 5A09357 Assistance with Respiratory Ventilation, Less than 24 Consecutive Hours, Continuous Positive Airway Pressure (ICD-10-PCS; principal; 2020-08-07)
DX: J96.21 Acute and chronic respiratory failure with hypoxia (principal); J44.1 Chronic obstructive pulmonary disease with (acute) exacerbation; E44.1 Mild protein-calorie malnutrition; Z68.1 Body mass index [BMI] 19.9 or less, adult; Z20.828 Contact with and (suspected) exposure to other viral communicable diseases; E78.5 Hyperlipidemia, unspecified; F41.9 Anxiety disorder, unspecified; F31.9 Bipolar disorder, unspecified; F17.210 Nicotine dependence, cigarettes, uncomplicated; I10 Essential (primary) hypertension; J40 Bronchitis, not specified as acute or chronic; G89.29 Other chronic pain; G43.909 Migraine, unspecified, not intractable, without status migrainosus; Z90.49 Acquired absence of other specified parts of digestive tract; Z90.710 Acquired absence of both cervix and uterus; Z90.721 Acquired absence of ovaries, unilateral; Z98.1 Arthrodesis status; Z79.899 Other long term (current) drug therapy; Z88.8 Allergy status to other drugs, medicaments and biological substances; Z88.0 Allergy status to penicillin
CPT/HCPCS: 36415; 71045; 80048; 80053; 82550; 84484; 85025; 87081; 87430; 87635; 93005; 94640; 94660; 94664; 94760; 96374; 96375; J1650; J2920; J2930; J3475; J7620; U0003

== ENCOUNTER 2020-08-12 17:07 | Inpatient (IN) | payer MEDICARE, OTHER ==
[2020-08-12] MEDS ORDERED: Albuterol Sulfate 2.5 mg/3 ml Neb ONE (17:19)
[2020-08-12] MEDS ORDERED: Dexamethasone 10 MG/ML VIAL ONE (17:27)
[2020-08-12] MEDS ORDERED: Magnesium 2 GM/50 ML BAG (IN WATER) ONE (17:27)
[2020-08-12 17:28] LABS: Actual Bicarbonate (HCO3a) 24.6 mEq/L (22-28); Analyzer IN Cardio ER; Base Excess (BEa) 1.2 mEq/L (-2.0 to +3.0); CO2 Tension 35.8 mmHg (35.0-45.0); Calcium, Ionized (arterial) 1.23 mmol/L (1.12-1.30); Carboxyhemoglobin (COHb) 1.6 gm% (0.0-3.0); Hemoglobin (Hb) 16.2 g/dL (12.0-16.0); O2 Tension (PaO2), arterial 63.1 mmHg (> 70.0); Potassium - ABG Lab 4.66 mmol/L (3.70-5.30); pH, Arterial 7.46 (7.35-7.45)
[2020-08-12 17:30] LABS: Puncture Site LRA
[2020-08-12 17:44] LABS: #Basophils 0.1 thou/uL (0.0-0.2); #Eosinphils 0.2 thou/uL (0.0-0.7); #Lymphocytes 2.8 thou/uL (1.20-3.40); #Monocytes 0.5 thou/uL (0.11-0.59); #Neutrophils 7.7 thou/uL (1.40-6.50); %Basophils 0.9 % (0.0-1.0); %Eosinophils 2.1 % (0.0-10.0); %Lymphocytes 24.7 % (21.0-51.0); %Monocytes 4.6 % (0.0-10.0); %Neutrophils 67.7 % (42.0-75.0); Hemoglobin 15.9 g/dL (12.0-16.0); Mean Corpuscular HGB CONC 31.3 g/dL (32.0-36.0); Mean Corpuscular Hemoglobin 31.5 pg (27.0-31.0); Mean Platelet Volume 6.5 fL (7.4-10.4); Platelet Count 384 thou/uL (130-400); RBC Distribution Width 11.3 % (11.5-14.5); Red Blood Cell (RBC) Count 5.06 mill/uL (4.20-5.40); White Blood Cell (WBC) Count 11.4 thou/uL (4.8-10.8)
--- NOTE | 2020-08-12 17:57 | RAD ---
XR Chest 1 View Portable HISTORY: Difficulty breathing COMPARISON: 08/07/2020 FINDINGS: The heart size is normal. The aorta is tortuous. Chronic lung changes again seen. The lungs are well expanded without focal areas of consolidation, pneumothorax or pleural effusions. IMPRESSION: No radiographic evidence of acute cardiopulmonary process.
[2020-08-12 18:02] LABS: ALT (SGPT) 18 U/L (8-55); AST (SGOT) 19 U/L (5-34); Alkaline Phosphatase 87 U/L (40-110); Anion Gap 16 mmol/L (10-20); BUN (Urea Nitrogen) 11 mg/dL (9.8-20.1); Bilirubin, Total 0.3 mg/dL (0.2-1.2); CK (CPK) 54 U/L (29-168); Calc. Creatinine Clearance 0 mL/min (70-130); Calcium 9.1 mg/dL (7.8-10.44); Carbon Dioxide 23 mmol/L (23-31); Chloride 104 mmol/L (98-107); Estimated GFR-MDRD Greater than 90; Globulin 2.4 g/dL (2.4-3.5); Glucose 90 mg/dL (83-110); Lipase 10 U/L (8-78); Potassium 5.3 mmol/L (3.5-5.1); Protein, Total 6.4 g/dL (6.0-8.3); Sodium 138 mmol/L (136-145)
[2020-08-12] MEDS ORDERED: Ondansetron PF 4 MG/2 ML Vial IVP PRN (20:00)
[2020-08-12] MEDS ORDERED: Sodium Chloride 0.9% 1,000 ML IV SCH (20:00)
[2020-08-12] MEDS ORDERED: Bacteriostatic Water 30 ML VIAL FS PRN (20:00)
[2020-08-12] MEDS ORDERED: Ondansetron ODT 4 MG TAB SL PRN (20:00)
--- NOTE | 2020-08-12 21:45 | PDOC.HHP ---
Hospitalist HPI - History of Present Illness Dyspnea History of Present Illness: This is a 70-year-old female with a history of COpD on home oxygen, hypertension, bipolar disorder and depression who presents with worsening dyspnea. She was discharged 2 days ago after being managed for COPD exacerbation. She was at home today this morning and woke up noticing that she was in severe distress with no improvement with breathing treatment and inhalers at home. This led to the need for coming back to the ED for further evaluation. In the ED she received Decadron, partial sulfate 1 nebs at presentation. Labs showed a leukocytosis of 11.4 with elevated potassium at 5.3 otherwise was within normal limits. Chest x-ray showed no acute cardiopulmonary events. Hospitalist team was consulted to admit. Hospitalist ROS - Review of Systems Constitutional: denies: fever, chills, sweats Respiratory: reports: cough, shortness of breath, SOB with excertion. denies: hemoptysis Cardiovascular: denies: chest pain, palpitations, edema Gastrointestinal: denies: nausea, vomiting, abdominal pain, diarrhea Genitourinary: denies: dysuria, frequency - Medication Medications: Active Medications Generic Name Dose Route Start Last Admin Trade Name Freq PRN Reason Stop Dose Admin Sodium Chloride 1,000 mls @ 100 mls/hr 08/12/20 20:00 08/12/20 20:37 Normal Saline 0.9% IV 08/12/20 23:59 1,000 mls .Q10H ADALID Administration Hospitalist History - Past Medical History Psych: reports: Anxiety, Bipolar - Past Surgical History Past Surgical History: reports: Hysterectomy, Tonsillectomy - Social History Alcohol: reports: None Drugs: reports: none - Exam General - other findings: In mild respiratory distress. Heart - other findings: S1-S2 present. No murmurs gallops or rubs. Respiratory - other findings: Reduced air entry bilaterally. Bilateral wheezing Gastrointestinal - other findings: Soft, nontender. Bowel sounds present. Hospitalist Results - Labs Result Diagrams: 08/12/20 17:30 08/12/20 17:30 Lab results: WBC 11.4 thou/uL (4.8-10.8) H 08/12/20 17:30 Hgb 15.9 g/dL (12.0-16.0) 08/12/20 17:30 Hct 50.9 % (36.0-47.0) H 08/12/20 17:30 MCV 101.0 fL (78.0-98.0) H 08/12/20 17:30 Plt Count 384 thou/uL (130-400) 08/12/20 17:30 Neutrophils % 67.7 % (42.0-75.0) 08/12/20 17:30 ABG pH 7.46 (7.35-7.45) H 08/12/20 17:18 ABG pCO2 35.8 mmHg (35.0-45.0) 08/12/20 17:18 ABG pO2 63.1 mmHg (> 70.0) 08/12/20 17:18 Sodium 138 mmol/L (136-145) 08/12/20 17:30 Potassium 5.3 mmol/L (3.5-5.1) H 08/12/20 17:30 Chloride 104 mmol/L (98-107) 08/12/20 17:30 Carbon Dioxide 23 mmol/L (23-31) 08/12/20 17:30 BUN 11 mg/dL (9.8-20.1) 08/12/20 17:30 Creatinine 0.64 mg/dL (0.6-1.1) 08/12/20 17:30 Glucose 90 mg/dL (83-110) 08/12/20 17:30 Lactic Acid 0.7 mmol/L (0.5-2.2) 08/12/20 17:30 Calcium 9.1 mg/dL (7.8-10.44) 08/12/20 17:30 Total Bilirubin 0.3 mg/dL (0.2-1.2) 08/12/20 17:30 AST 19 U/L (5-34) 08/12/20 17:30 ALT 18 U/L (8-55) 08/12/20 17:30 Alkaline Phosphatase 87 U/L (40-110) 08/12/20 17:30 Creatine Kinase 54 U/L (29-168) 08/12/20 17:30 Troponin I 0.014 ng/mL (< 0.028) 08/12/20 17:30 B-Natriuretic Peptide 35.6 pg/mL (0-100) 08/12/20 17:30 Serum Total Protein 6.4 g/dL (6.0-8.3) 08/12/20 17:30 Albumin 4.0 g/dL (3.4-4.8) 08/12/20 17:30 Lipase 10 U/L (8-78) 08/12/20 17:30 Hospitalist H&P A/P - Plan Plan: This is a 70-year-old female patient with a history of COPD on home oxygen, hypertension bipolar disorder will be admitted on account of recurrent COPD exac erbation. She was just discharged 2 days ago. COPD exacerbation Admit to MICU Continue duo nebs, steroids on Solu-Medrol Antibioticsazithromycin BiPAP as needed Oxygen therapy as needed Pulmonology consult if worsens. Hypertension Continue home BP medications Monitor blood pressure VT prophylaxisSCD CODE STATUSfull code Dispositionpending improvement
[2020-08-12] MEDS: Azithromycin 500 MG in Sodium Chloride 0.9% 250 ML 250 ML IVPB SCH (22:47)
[2020-08-13 03:26] LABS: #Lymphocytes 0.9 thou/uL (1.20-3.40); #Monocytes 0.1 thou/uL (0.11-0.59); #Neutrophils 6.4 thou/uL (1.40-6.50); %Basophils 0.4 % (0.0-1.0); %Eosinophils 0.1 % (0.0-10.0); %Lymphocytes 12.1 % (21.0-51.0); %Monocytes 0.7 % (0.0-10.0); %Neutrophils 86.6 % (42.0-75.0); Hemoglobin 14.4 g/dL (12.0-16.0); Mean Corpuscular HGB CONC 31.7 g/dL (32.0-36.0); Mean Platelet Volume 6.4 fL (7.4-10.4); Platelet Count 307 thou/uL (130-400); RBC Distribution Width 11.2 % (11.5-14.5); Red Blood Cell (RBC) Count 4.49 mill/uL (4.20-5.40); White Blood Cell (WBC) Count 7.4 thou/uL (4.8-10.8)
[2020-08-13 03:49] LABS: Anion Gap 13 mmol/L (10-20); BUN (Urea Nitrogen) 15 mg/dL (9.8-20.1); Calc. Creatinine Clearance 55 mL/min (70-130); Calcium 8.5 mg/dL (7.8-10.44); Carbon Dioxide 23 mmol/L (23-31); Chloride 103 mmol/L (98-107); Estimated GFR-MDRD Greater than 90; Glucose 207 mg/dL (83-110); Potassium 4.6 mmol/L (3.5-5.1); Sodium 134 mmol/L (136-145)
[2020-08-13] MEDS: Mometasone 100 MCG/Formoterol 5 MCG 120 PUFF INHALER INH SCH ×2 (07:42→19:22)
[2020-08-13] MEDS ORDERED: Non-Formulary Item 1 EACH (Fluticasone/Vilanterol [Breo Ellipta 200-25 Mcg Inh] 1 EACH Bl INH SCH (09:00)
[2020-08-13] MEDS ORDERED: Atorvastatin Calcium 20 MG TAB PO SCH (09:00)
[2020-08-13] MEDS ORDERED: Lisinopril 10 MG TAB PO SCH (09:00)
[2020-08-13] MEDS: methylPREDNISolone Sod Succ 40 MG VIAL IVP SCH (09:30)
[2020-08-13] MEDS: FLUoxetine HCl 20 MG CAP PO SCH (09:31)
[2020-08-13] MEDS: Benztropine 1 MG TAB PO SCH (09:32)
[2020-08-13] MEDS: Enoxaparin Sodium 40 MG/0.4 ML SYRINGE SC SCH (09:33)
[2020-08-13] MEDS ORDERED: Acetaminophen 325 MG TAB PO PRN (10:44)
--- NOTE | 2020-08-13 13:44 | PDOC.HOSPP ---
- Subjective Encounter Date: 08/13/20 Encounter Time: 12:00 Subjective: Patient seen and examined in bed. She was on BiPAP overnight currently on nasal cannula. Feels better but have ongoing shortness of breath and intermittent cough. Denies any chest pain - Objective Vital Signs & Weight: Vital Signs (12 hours) Temp Pulse Resp Pulse Ox 08/13/20 11:00 98.6 F 97 18 08/13/20 07:56 93 L 08/13/20 07:38 94 L 08/13/20 07:36 94 24 H 94 L 08/13/20 07:00 98.3 F 08/13/20 03:58 97.8 F 08/13/20 02:40 104 H 16 95 Weight Weight 97 lb 14.4 oz Most Recent Monitor Data Heart Rate from ECG 95 NIBP 151/85 NIBP BP-Mean 107 Respiration from ECG 23 SpO2 97 I&O: 08/12/20 08/13/20 08/14/20 06:59 06:59 06:59 Intake Total 942 Output Total 600 Balance -600 942 Result Diagrams: 08/13/20 03:15 08/13/20 03:15 Additional Labs: Accuchecks 08/13/20 05:44 POC Glucose 170 H Hospitalist ROS - Medication Medications: Active Medications Generic Name Dose Route Start Last Admin Trade Name Freq PRN Reason Stop Dose Admin Acetaminophen 650 mg 08/13/20 10:44 08/13/20 11:09 Acetaminophen 325 Mg Tab PO 650 mg Q4H PRN Administration Headache/Fever or Pain Albuterol/Ipratropium 3 ml 08/13/20 02:30 08/13/20 11:00 Ipratropium/Albuterol Sulfate 3 Ml Neb NEB 3 ml [id number] ADALID Administration Benztropine Mesylate 0.5 mg 08/13/20 09:00 08/13/20 09:32 Benztropine 1 Mg Tab PO 0.5 mg DAILY ADALID Administration Enoxaparin Sodium 40 mg 08/13/20 09:00 08/13/20 09:33 Enoxaparin Sodium 40 Mg/0.4 Ml Syringe SC 40 mg 0900 ADALID Administration Fluoxetine HCl 40 mg 08/13/20 09:00 08/13/20 09:31 Fluoxetine Hcl 20 Mg Cap PO 40 mg DAILY ADALID Administration Azithromycin 500 mg/ Sodium 250 mls @ 250 mls/hr 08/12/20 21:00 08/12/20 22:47 Chloride IVPB 250 mls 2100 ADALID Administration Methylprednisolone Sodium Succinate 40 mg 08/13/20 09:00 08/13/20 09:30 Methylprednisolone Sod Succ 40 Mg Vial IVP 40 mg DAILY ADALID Administration Mometasone Furoate/Formoterol Fumar 2 puff 08/13/20 06:30 08/13/20 07:42 Mometasone 100 Mcg/Formoterol 5 Mcg 120 Puff Inhaler INH 2 puff BID-RT ADALID Administration - Exam General Appearance: awake alert Neck: supple, no JVD Heart: RRR, no murmur, no gallops, no rubs Respiratory - other findings: Reduced entry bilaterally. Generalized wheezing Gastrointestinal - other findings: Soft, nontender. Bowel sounds present normal. Extremities - other findings: No edema. Hosp A/P - Plan This is a 70-year-old female patient with a history of COPD on home oxygen, hypertension bipolar disorder will be admitted on account of recurrent COPD exacerbation. She was just discharged 2 days ago. She was managed in MICU overnight on BiPAP with no improvement. We will monitor and transfer out of MICU once more stable. COPD exacerbation Admit to MICU Continue duo nebs, steroids on Solu-Medrol Antibioticsazithromycin BiPAP as needed Oxygen therapy as needed Pulmonology consult if worsens. Hypertension Continue home BP medications Monitor blood pressure Bipolar disorder Start olanzapine and fluoxetine Continue monitor. VT prophylaxisSCD CODE STATUSfull code Dispositionpending improvement
[2020-08-13] MEDS: Acetaminophen/Codeine 30-300mg Tablet PO PRN ×3 (13:53→21:52)
[2020-08-13] MEDS: Lisinopril 20 MG TAB PO SCH (14:01)
[2020-08-13 14:43] VITALS: BMI 16.8
[2020-08-13] MEDS ORDERED: guaiFENesin ER 600 MG TAB PO SCH (15:00)
--- NOTE | 2020-08-13 19:40 | CON ---
DATE OF CONSULTATION: 08/13/2020 REASON FOR CONSULTATION: COPD exacerbation. HISTORY OF PRESENT ILLNESS: This is a 70-year-old female, who occasionally sees me in the office, but is largely noncompliant with followup. She was in the hospital last week with COPD exacerbation. She left on Tuesday because she was feeling better. She came back into the hospital yesterday because she was increasingly short of breath. She swears she did not smoke in between the time she was discharged and brought back into the hospital. PAST MEDICAL HISTORY: 1. Severe COPD. 2. Tobacco abuse. 3. Bipolar disorder. 4. Hypertension. 5. Chronic pain. PAST SURGICAL HISTORY: Hysterectomy, oophorectomy, left knee surgery, neck fusion, bilateral hip surgery, breast biopsy, and vulvar surgery. ALLERGIES: PENICILLIN, IMITREX, AND DEMEROL. SOCIAL HISTORY: Heavy smoker. MEDICATIONS: Reviewed. See chart. REVIEW OF SYSTEMS: A 10-point review of systems is otherwise negative. PHYSICAL EXAMINATION: VITAL SIGNS: Temperature 98.6, pulse 93, blood pressure 150/83, and O2 saturation 100%. HEENT: Unremarkable. NECK: No adenopathy or JVD. LUNGS: No wheezing at this time. CARDIAC: S1 and S2. Regular. ABDOMEN: Soft. EXTREMITIES: No edema. LABORATORY DATA: White blood cell count 7.4, hematocrit 45, and platelet count 307. A pH of 7.46, pCO2 of 35, and pO2 of 63. Sodium 134, potassium 4.6, BUN 15, creatinine 0.6, and glucose 207. Chest x-ray demonstrates hyperinflation without evidence of mass, effusion, or infiltrate. ASSESSMENT: 1. Chronic obstructive pulmonary disease with acute exacerbation. 2. Medical noncompliance. 3. Tobacco abuse. PLAN: I reviewed her medications. Agree with plan for steroids, antibiotics, and nebulization treatments. She is off the BiPAP and she is safe to transfer to the floor. No further recommendations at this time. Job ID: [id number]
[2020-08-13] MEDS: guaiFENesin ER 600 MG TAB PO SCH (21:50)
[2020-08-13] MEDS: Montelukast Sodium 10 mg Tablet PO SCH (21:50)
[2020-08-13] MEDS: Atorvastatin Calcium 20 MG TAB PO SCH (21:50)
[2020-08-13] MEDS: OLANZapine 2.5 MG TAB PO SCH (21:51)
[2020-08-13] MEDS: Azithromycin 500 MG in Sodium Chloride 0.9% 250 ML 250 ML IVPB SCH (21:51)
[2020-08-14] MEDS: Mometasone 100 MCG/Formoterol 5 MCG 120 PUFF INHALER INH SCH ×2 (07:34→18:28)
--- NOTE | 2020-08-14 09:02 | PRG ---
DATE OF SERVICE: 08/14/2020 SUBJECTIVE: The patient is doing okay, had no acute complaints. OBJECTIVE: VITAL SIGNS: Temperature 98.4, pulse 90, respirations 18, O2 saturation is 95% on 2 L, and blood pressure 134/94. HEENT: Unremarkable. NECK: No JVD. LUNGS: Clear without wheezing. CARDIAC: S1 and S2. Regular. ABDOMEN: Soft. EXTREMITIES: No edema. ASSESSMENT: 1. Chronic obstructive pulmonary disease with exacerbation. 2. Tobacco abuse. PLAN: The patient is on corticosteroids, embolization treatments, and antibiotics. She is afraid she is going to get worse if she goes home. If she continues to smoke, that indeed will happen. I have no further suggestions at this time. Job ID: [id number]
[2020-08-14] MEDS: Benztropine 1 MG TAB PO SCH (09:19)
[2020-08-14] MEDS: FLUoxetine HCl 20 MG CAP PO SCH (09:19)
[2020-08-14] MEDS: guaiFENesin ER 600 MG TAB PO SCH ×2 (09:20→20:17)
[2020-08-14] MEDS: methylPREDNISolone Sod Succ 40 MG VIAL IVP SCH (09:20)
[2020-08-14] MEDS: Enoxaparin Sodium 40 MG/0.4 ML SYRINGE SC SCH (09:20)
[2020-08-14] MEDS: Acetaminophen/Codeine 30-300mg Tablet PO PRN ×3 (09:24→18:30)
--- NOTE | 2020-08-14 14:40 | PDOC.HOSPP ---
- Subjective Encounter Date: 08/14/20 Encounter Time: 11:00 Subjective: Patient was seen and examined in bed. She feels better but now stable on 2 L oxygen. She has intermittent cough with nonbloody productive sputum. Also complains of headache - Objective Vital Signs & Weight: Vital Signs (12 hours) Temp Pulse Resp BP Pulse Ox 08/14/20 14:29 100 16 08/14/20 12:00 98.4 F 82 18 138/101 H 98 08/14/20 10:44 90 20 08/14/20 08:00 98.4 F 90 18 134/94 H 95 08/14/20 07:34 100 18 08/14/20 03:36 98.4 F 88 21 H 153/70 H 96 Weight Admit Weight 93 lb 12.8 oz Weight 104 lb Most Recent Monitor Data Heart Rate from ECG 83 NIBP 148/86 NIBP BP-Mean 106 Respiration from ECG 25 SpO2 98 I&O: 08/13/20 08/14/20 08/15/20 06:59 06:59 06:59 Intake Total 2882 Output Total 600 Balance -600 2882 Result Diagrams: 08/13/20 03:15 08/13/20 03:15 Hospitalist ROS - Medication Medications: Active Medications Generic Name Dose Route Start Last Admin Trade Name Freq PRN Reason Stop Dose Admin Acetaminophen 650 mg 08/13/20 10:44 08/13/20 11:09 Acetaminophen 325 Mg Tab PO 650 mg Q4H PRN Administration Headache/Fever or Pain Acetaminophen/Codeine Phosphate 1 tab 08/13/20 13:11 08/14/20 09:24 Acetaminophen/Codeine 30-300mg Tablet PO 1 tab Q4H PRN Administration Moderate Pain (4-6) Acetaminophen/Codeine Phosphate 2 tab 08/14/20 13:43 08/14/20 13:52 Acetaminophen/Codeine 30-300mg Tablet PO 2 tab Q4H PRN Administration Pain 7-10 Albuterol/Ipratropium 3 ml 08/13/20 02:30 08/14/20 14:29 Ipratropium/Albuterol Sulfate 3 Ml Neb NEB 3 ml [id number] ADALID Administration Atorvastatin Calcium 20 mg 08/13/20 21:00 08/13/20 21:50 Atorvastatin Calcium 20 Mg Tab PO 20 mg 2100 ADALID Administration Benztropine Mesylate 0.5 mg 08/13/20 09:00 08/14/20 09:19 Benztropine 1 Mg Tab PO 0.5 mg DAILY ADALID Administration Enoxaparin Sodium 40 mg 08/13/20 09:00 08/14/20 09:20 Enoxaparin Sodium 40 Mg/0.4 Ml Syringe SC Not Given 0900 ADALID Fluoxetine HCl 40 mg 08/13/20 09:00 08/14/20 09:19 Fluoxetine Hcl 20 Mg Cap PO 40 mg DAILY ADALID Administration Guaifenesin 600 mg 08/13/20 21:00 08/14/20 09:20 Guaifenesin Er 600 Mg Tab PO 600 mg Q12HR ADALID Administration Azithromycin 500 mg/ Sodium 250 mls @ 250 mls/hr 08/12/20 21:00 08/13/20 21 :51 Chloride IVPB 250 mls 2100 ADALID Administration Lisinopril 30 mg 08/13/20 15:00 08/13/20 14:01 Lisinopril 20 Mg Tab PO 30 mg 1500 ADALID Administration Methylprednisolone Sodium Succinate 40 mg 08/13/20 09:00 08/14/20 09:20 Methylprednisolone Sod Succ 40 Mg Vial IVP 40 mg DAILY ADALID Administration Mometasone Furoate/Formoterol Fumar 2 puff 08/13/20 06:30 08/14/20 07:34 Mometasone 100 Mcg/Formoterol 5 Mcg 120 Puff Inhaler INH 2 puff BID-RT ADALID Administration Montelukast Sodium 10 mg 08/13/20 21:00 08/13/20 21:50 Montelukast Sodium 10 Mg Tablet PO 10 mg HS ADALID Administration Olanzapine 7.5 mg 08/13/20 21:00 08/13/20 21:51 Olanzapine 2.5 Mg Tab PO 7.5 mg HS ADALID Administration - Exam General Appearance: awake alert Heart: RRR, no murmur, no gallops, no rubs Respiratory - other findings: Reduced air entry bilaterally. Occasional wheezing. Gastrointestinal: soft, non-tender, non-distended, normal bowel sounds Extremities: no cyanosis, no clubbing, no edema Neurological: cranial nerve grossly intact, no focal deficits Psychiatric: A&O x 3 Hosp A/P - Plan This is a 70-year-old female patient with a history of COPD on home oxygen, hypertension bipolar disorder will be admitted on account of recurrent COPD exacerbation. She was just discharged 2 days ago. Patient is out of MICU and on nasal cannula 2 L. We will monitor for 1 more day and possible discharge tomorrow. COPD exacerbation Improving Continue management Pulmonology consult if worsens. Hypertension Continue home BP medications Monitor blood pressure Bipolar disorder Start olanzapine and fluoxetine Continue monitor. VT prophylaxisSCD CODE STATUSfull code Dispositionlikely home
[2020-08-14] MEDS: Lisinopril 20 MG TAB PO SCH (15:24)
[2020-08-14] MEDS: Montelukast Sodium 10 mg Tablet PO SCH (20:17)
[2020-08-14] MEDS: Azithromycin 500 MG in Sodium Chloride 0.9% 250 ML 250 ML IVPB SCH (20:17)
[2020-08-14] MEDS: OLANZapine 2.5 MG TAB PO SCH (20:17)
[2020-08-14] MEDS: Atorvastatin Calcium 20 MG TAB PO SCH (20:17)
[2020-08-15] MEDS: Mometasone 100 MCG/Formoterol 5 MCG 120 PUFF INHALER INH SCH (06:08)
[2020-08-15] MEDS: methylPREDNISolone Sod Succ 40 MG VIAL IVP SCH (09:37)
[2020-08-15] MEDS: FLUoxetine HCl 20 MG CAP PO SCH (09:37)
[2020-08-15] MEDS: guaiFENesin ER 600 MG TAB PO SCH (09:37)
[2020-08-15] MEDS: Enoxaparin Sodium 40 MG/0.4 ML SYRINGE SC SCH (09:37)
[2020-08-15] MEDS: Benztropine 1 MG TAB PO SCH (09:38)
[2020-08-15] MEDS: Acetaminophen/Codeine 30-300mg Tablet PO PRN (10:20)
[2020-08-15 12:33] VITALS: BP 158/77; TEMP 96.7
--- NOTE | 2020-08-15 21:17 | PQF ---
CLINICAL DOCUMENTATION CLARIFICATION FORM: Dear Dr. Carlie Mckinnon MD [id number] Please check appropriate box(es): [ x ] Acute On Chronic Respiratory Failure : [x ] with Hypoxia [ ] with Hypercapnia [ ] Chronic Respiratory failure only [ ] Hypoxia [ ] other diagnosis [ ] unable to determine In addition, please specify: Present on Admission (POA): [ ] Yes [ ] No [ ] Unable to determine To be completed by CDI/Coding staff for physician review: Clinical indicators /signs and symptoms/labs: 08/12 ER visit: RESP 32, 84% RA > 94% 2l/NC, pt brought in via ems, appears in distressed upon exam is having trouble breathing. is on home o2 ( 2L ), Tripod breathing associated with productive green sputum/cough * Final Dx: Acute Respiratory Distress, Acute COPD Flare 08/12 HPI: 70 year old female with hx of copd, on home o2, presents with worsening dyspnea, A/P : COPD exacerbation, continue with bipap, supplemental o2 ( [facility]) 08/13 PN : she was on Bipap overnight, currently on nasal cannula, she feels better but having ongoing shortness of breath and intermittent cough ( [facility] ) 08/15 PN : she feels better now, stable on 2L oxygen ( [facility]) Risk: * advanced age (70) * COPD exacerbation ([facility]/ H& P) 08/12 Treatments: * supplemental oxygen ( 08/12 - present) * edinb (ED) Thank you! CDS/Heating Fixture Tender Signature: Jodie Elkins RN Date: 08/15/2020 Acute Respiratory Failure: ABG pH < 7.35 or > 7.45; Decreased oxygen saturation (<90% room air or < 95% on oxygen); PCO2 > 50 mm Hg; PO2 < 60 mm Hg; Labored or rapid respirations ARDS: Dx Criteria [[place] ARDS]: Respiratory symptoms within one week of a known clinical insult (e.g. shock, infection, surgery, trauma) Bilateral opacities in CXR/Chest CT not due to CHF or fluid This is a permanent part of the Medical Recordcute Respiratory Failure due to: (etiology) MTDD
--- NOTE | 2020-08-17 21:59 | DIS ---
DATE OF ADMISSION: 08/12/2020 DATE OF DISCHARGE: 08/15/2020 DISCHARGE DIAGNOSES: 1. Acute on chronic respiratory failure with hypoxia 2. Chronic obstructive pulmonary disease exacerbation. 3. Hypertension. 4. Bipolar disorder. BRIEF HOSPITAL COURSE: This is a 70-year-old female patient with a history of severe COPD, who was admitted and discharged 2 days ago on account of COPD exacerbation but then came back on account of worsening shortness of breath. She was admitted for persistent COPD exacerbation and started on breathing treatment, steroids, and antibiotic azithromycin. Pulmonology was consulted to help in management. She was monitored on admission with significant improvement in her respiration and clinical state. She was discharged to continue on home oxygen, complete steroids and antibiotics. DISCHARGE PHYSICAL EXAMINATION: GENERAL: The patient is in bed, in no acute distress, on 2 L oxygen. CARDIOVASCULAR SYSTEM: S1 and S2 present. No murmurs, gallops, or rubs. RESPIRATORY SYSTEM: Air entry reduced bilaterally. No wheezing, rhonchi, or rales heard. ABDOMEN: Flat, nontender, nondistended. Bowel sounds present. EXTREMITIES: No edema, cyanosis, or clubbing. CONSULTATIONS: Dr. Harsha Medeiros - Pulmonology. DISCHARGE CONDITION: Stable. Job ID: [id number] [facility]
== END 2020-08-15 13:07 | disposition home or self-care (01) | DRG 189 ==
LOC: ERS 17:07 → IMCU/EMU 18:24 → ONC 08-13 18:36
PROVIDERS: ADMIT Student in an Organized Health Care Education/Training Program; ATTEND Student in an Organized Health Care Education/Training Program
DX: J96.21 Acute and chronic respiratory failure with hypoxia (principal); J44.1 Chronic obstructive pulmonary disease with (acute) exacerbation; I10 Essential (primary) hypertension; F31.9 Bipolar disorder, unspecified; G89.29 Other chronic pain; F17.210 Nicotine dependence, cigarettes, uncomplicated; Z99.81 Dependence on supplemental oxygen; Z90.710 Acquired absence of both cervix and uterus; Z90.89 Acquired absence of other organs; Z88.0 Allergy status to penicillin; Z88.8 Allergy status to other drugs, medicaments and biological substances; Z98.1 Arthrodesis status; Z91.19 Patient's noncompliance with other medical treatment and regimen
CPT/HCPCS: 36415; 36416; 71045; 80048; 80053; 82550; 82805; 83605; 83690; 83880; 84484; 85025; 87040; 93005; 94640; 94660; 96361; 96365; 96375; J0456; J1100; J1650; J2920; J3475; J7050; J7611; J7620

== ENCOUNTER 2020-08-28 11:04 | Emergency (ER) | payer MEDICARE, OTHER ==
[2020-08-28] MEDS ORDERED: Magnesium 2 GM/50 ML BAG (IN WATER) ONE (11:22)
[2020-08-28] MEDS ORDERED: methylPREDNISolone Sod Succ/PF 125 MG/2 ML VIAL ONE (11:22)
[2020-08-28] MEDS ORDERED: Albuterol Sulfate 2.5 mg/3 ml Neb ONE (11:25)
[2020-08-28 11:57] LABS: #Basophils 0.1 thou/uL (0.0-0.2); #Eosinphils 0.1 thou/uL (0.0-0.7); #Lymphocytes 1.6 thou/uL (1.20-3.40); #Monocytes 0.4 thou/uL (0.11-0.59); #Neutrophils 5.5 thou/uL (1.40-6.50); %Basophils 0.8 % (0.0-1.0); %Eosinophils 0.7 % (0.0-10.0); %Monocytes 5.2 % (0.0-10.0); %Neutrophils 72.3 % (42.0-75.0); Hemoglobin 13.4 g/dL (12.0-16.0); Mean Corpuscular HGB CONC 33.2 g/dL (32.0-36.0); Mean Corpuscular Hemoglobin 32.1 pg (27.0-31.0); Mean Corpuscular Volume 96.6 fL (78.0-98.0); Mean Platelet Volume 6.5 fL (7.4-10.4); Platelet Count 368 thou/uL (130-400); RBC Distribution Width 11.2 % (11.5-14.5); Red Blood Cell (RBC) Count 4.17 mill/uL (4.20-5.40); White Blood Cell (WBC) Count 7.6 thou/uL (4.8-10.8)
--- NOTE | 2020-08-28 12:01 | RAD ---
PORTABLE CHEST 1 VIEW: Date; 08/28/2020 Time: 1151 hours HISTORY: Shortness of breath and dyspnea. COMPARISON: 08/12/2020. FINDINGS: The heart size is normal. The aorta is tortuous. Changes of COPD are again seen. No lobar consolidati on, pneumothoraces, or pleural effusions are identified. IMPRESSION: No acute process. POS: [facility]
[2020-08-28 12:30] LABS: ALT (SGPT) 11 U/L (8-55); AST (SGOT) 17 U/L (5-34); Albumin 3.6 g/dL (3.4-4.8); Alkaline Phosphatase 76 U/L (40-110); Anion Gap 11 mmol/L (10-20); BUN (Urea Nitrogen) 15 mg/dL (9.8-20.1); Bilirubin, Total 0.3 mg/dL (0.2-1.2); Calc. Creatinine Clearance 0 mL/min (70-130); Calcium 8.7 mg/dL (7.8-10.44); Carbon Dioxide 25 mmol/L (23-31); Chloride 98 mmol/L (98-107); Estimated GFR-MDRD Greater than 90; Globulin 2.5 g/dL (2.4-3.5); Glucose 159 mg/dL (83-110); Potassium 4.3 mmol/L (3.5-5.1); Protein, Total 6.1 g/dL (6.0-8.3); Sodium 130 mmol/L (136-145)
[2020-08-29 10:20] LABS: Base Excess-Venous 0.7 mmol/L (-2.0 to 3.0); Bicarbonate (HCO3v) 25.4 mmol/L (22.0-28.0); CO2 Tension (PvCO2) 40.1 mmHg (40.0-50.0); Calcium, Ionized 1.11 mmol/L (1.15-1.33); Chloride 97 mmol/L (98-107); Hemoglobin - Calc 14.3 g/dL (12.0-16.0); Potassium 4.2 mmol/L (3.5-5.1); Sodium 131 mmol/L (138-145); T. Carbon Dioxide 26.6 mmol/L (22.0-28.0); vO2 Saturation-calc 96.2 % (60.0-85.0)
== END 2020-08-28 14:09 | disposition home or self-care (01) ==
LOC: ERS 11:04
DX: J44.1 Chronic obstructive pulmonary disease with (acute) exacerbation (principal); I10 Essential (primary) hypertension; E78.5 Hyperlipidemia, unspecified; F41.9 Anxiety disorder, unspecified; F31.9 Bipolar disorder, unspecified; F17.210 Nicotine dependence, cigarettes, uncomplicated; Z79.899 Other long term (current) drug therapy
CPT/HCPCS: 36415; 71045; 80053; 82330; 82435; 82803; 83880; 84132; 84295; 84484; 85014; 85025; 94640; 94760; 96365; 96366; 96375; J2930; J3475; J7611

== ENCOUNTER 2020-10-09 18:52 | Emergency (ER) | payer MEDICARE, OTHER ==
[2020-10-09 19:52] LABS: #Basophils 0.1 thou/uL (0.0-0.2); #Eosinphils 0.1 thou/uL (0.0-0.7); #Lymphocytes 2.3 thou/uL (1.20-3.40); #Monocytes 0.7 thou/uL (0.11-0.59); #Neutrophils 5.1 thou/uL (1.40-6.50); %Basophils 0.9 % (0.0-1.0); %Lymphocytes 27.7 % (21.0-51.0); %Monocytes 8.1 % (0.0-10.0); %Neutrophils 62.2 % (42.0-75.0); Hemoglobin 15.2 g/dL (12.0-16.0); Mean Corpuscular Hemoglobin 32.2 pg (27.0-31.0); Mean Corpuscular Volume 97.6 fL (78.0-98.0); Mean Platelet Volume 6.5 fL (7.4-10.4); Platelet Count 330 thou/uL (130-400); RBC Distribution Width 11.8 % (11.5-14.5); Red Blood Cell (RBC) Count 4.71 mill/uL (4.20-5.40); White Blood Cell (WBC) Count 8.1 thou/uL (4.8-10.8)
[2020-10-09] MEDS ORDERED: methylPREDNISolone Sod Succ/PF 125 MG/2 ML VIAL ONE (20:15)
[2020-10-09 20:19] LABS: ALT (SGPT) 15 U/L (8-55); AST (SGOT) 28 U/L (5-34); Alkaline Phosphatase 78 U/L (40-110); Anion Gap 14 mmol/L (10-20); BUN (Urea Nitrogen) 13 mg/dL (9.8-20.1); Bilirubin, Total 0.3 mg/dL (0.2-1.2); Calc. Creatinine Clearance 0 mL/min (70-130); Calcium 9.5 mg/dL (7.8-10.44); Carbon Dioxide 28 mmol/L (23-31); Chloride 101 mmol/L (98-107); Estimated GFR-MDRD 75; Globulin 2.9 g/dL (2.4-3.5); Glucose 99 mg/dL (83-110); Magnesium 1.9 mg/dL (1.6-2.6); Potassium 4.2 mmol/L (3.5-5.1); Protein, Total 6.9 g/dL (6.0-8.3); Sodium 139 mmol/L (136-145)
--- NOTE | 2020-10-09 20:59 | RAD ---
SINGLE VIEW CHEST: Date: 10/09/2020 COMPARISON: 09/24/2020. HISTORY: Dyspnea with shortness of breath. FINDINGS: Single view of the chest shows a normal sized cardiomediastinal silhouette with atherosclerotic calci fications in the aorta. Hyperexpansion of the lungs is likely secondary to COPD. There is no evidence of consolidation, mass, or pleural effusion. Degenerative changes are seen in the spine. Postsurgica l changes are seen in the cervical spine. IMPRESSION: 1. No evidence of acute cardiopulmonary disease. 2. COPD. POS: [facility]
[2020-10-09 21:00] LABS: SARS-CoV-2 NAA Rapid Test Not Detected (NotDetected)
== END 2020-10-09 22:50 | disposition home or self-care (01) ==
LOC: ERS 18:52
DX: J44.1 Chronic obstructive pulmonary disease with (acute) exacerbation (principal); Z20.828 Contact with and (suspected) exposure to other viral communicable diseases; I10 Essential (primary) hypertension; E78.5 Hyperlipidemia, unspecified; F41.9 Anxiety disorder, unspecified; F31.9 Bipolar disorder, unspecified; F17.210 Nicotine dependence, cigarettes, uncomplicated; Z79.899 Other long term (current) drug therapy
CPT/HCPCS: 71045; 80053; 83605; 83735; 83880; 84484; 85025; 87040; 87804 ×2; 93005; 94640 ×2; 96374; 99285; U0002; 36415; 87149; J2930; J7620

== ENCOUNTER 2020-10-19 15:01 | Emergency (ER) | payer MEDICARE, OTHER ==
[2020-10-19] MEDS ORDERED: Metoclopramide HCl 10 MG/2 ML VIAL ONE (16:42)
[2020-10-19] MEDS ORDERED: diphenhydrAMINE 50 MG/ML VIAL ONE (16:42)
[2020-10-19] MEDS ORDERED: Acetaminophen 500 MG TAB ONE (16:42)
--- NOTE | 2020-10-19 17:16 | RAD ---
Exam: Chest one view HISTORY:Cough Comparison: 10/09/2020 FINDINGS: Cardiac silhouette: Normal Aorta: Atherosclerotic and elongated Pulmonary vessels: Normal Costophrenic angles: Clear LUNGS: Hyperinflation. Chronic lung parenchymal changes. Pneumothorax: None Osseous abnormalities: None IMPRESSION: 1. Other cirrhosis and elongation of the aorta 2. Hyperinflation with COPD changes of the lung parenchyma. Chronic changes without mass or consolida tion.
[2020-10-19] MEDS ORDERED: Magnesium 2 GM/50 ML BAG (IN WATER) ONE (17:34)
[2020-10-20 02:30] LABS: SARS-CoV-2 MS2 Positive; SARS-CoV-2 N Gene Negative; SARS-CoV-2 S Gene Negative; SARS-CoV-2 by NAA Not Detected (NotDetected); SARS-CoV-2 orf1ab Negative
== END 2020-10-19 20:45 | disposition home or self-care (01) ==
LOC: ERS 15:01
DX: J44.1 Chronic obstructive pulmonary disease with (acute) exacerbation (principal); R51.9 Headache, unspecified; Z20.828 Contact with and (suspected) exposure to other viral communicable diseases; I10 Essential (primary) hypertension; E78.5 Hyperlipidemia, unspecified; F17.210 Nicotine dependence, cigarettes, uncomplicated; Z79.899 Other long term (current) drug therapy
CPT/HCPCS: 71045; U0003; 87635; 96365; 96366; 96367; 96375; J1200; J2765; J3475

== ENCOUNTER 2020-10-21 18:05 | Inpatient (IN) | payer MEDICARE, OTHER ==
[~2020-10-21 18:05] MED LIST changes: -ISOVUE-370 76%-LOCM 1 ML ONE; +Iopamidol-370 76% 500 ML 1 ML ONE
[2020-10-21] MEDS ORDERED: Albuterol 200 PUFF (6.7GM INHALER) ONE (18:45)
[2020-10-21 18:54] LABS: #Lymphocytes 1.4 thou/uL (1.20-3.40); #Monocytes 0.8 thou/uL (0.11-0.59); #Neutrophils 9.2 thou/uL (1.40-6.50); %Basophils 0.4 % (0.0-1.0); %Eosinophils 0.4 % (0.0-10.0); %Lymphocytes 12.3 % (21.0-51.0); %Monocytes 6.8 % (0.0-10.0); %Neutrophils 80.2 % (42.0-75.0); Mean Corpuscular HGB CONC 32.9 g/dL (32.0-36.0); Mean Corpuscular Volume 97.2 fL (78.0-98.0); Mean Platelet Volume 6.5 fL (7.4-10.4); Platelet Count 276 thou/uL (130-400); RBC Distribution Width 11.6 % (11.5-14.5); Red Blood Cell (RBC) Count 4.07 mill/uL (4.20-5.40); White Blood Cell (WBC) Count 11.4 thou/uL (4.8-10.8)
--- NOTE | 2020-10-21 18:55 | RAD ---
XR Chest 1 View Portable History: Dyspnea Comparison: Radiograph 2 days prior Findings: Patient is rotated to the right. Severe obstructive pulmonary disease. Scarring throughout the lung bases. No confluent airspace consolidation, pneumothorax or effusion. Cardiac silhouette and mediastinal contours are similar given rotation. Calcific tendinosis left rotator cuff. Impression: No acute intrathoracic abnormality.
[2020-10-21 19:09] LABS: ALT (SGPT) 12 U/L (8-55); AST (SGOT) 15 U/L (5-34); Albumin 3.6 g/dL (3.4-4.8); Alkaline Phosphatase 74 U/L (40-110); Anion Gap 17 mmol/L (10-20); BUN (Urea Nitrogen) 9 mg/dL (9.8-20.1); Bilirubin, Total 0.8 mg/dL (0.2-1.2); Calc. Creatinine Clearance 0 mL/min (70-130); Calcium 8.5 mg/dL (7.8-10.44); Carbon Dioxide 18 mmol/L (23-31); Chloride 105 mmol/L (98-107); Globulin 2.3 g/dL (2.4-3.5); Glucose 113 mg/dL (83-110); Potassium 3.8 mmol/L (3.5-5.1); Protein, Total 5.9 g/dL (6.0-8.3); Sodium 136 mmol/L (136-145)
[2020-10-21] MEDS ORDERED: Azithromycin 500 MG VIAL ONE (19:32)
[2020-10-21] MEDS ORDERED: Acetaminophen 500 MG TAB ONE (19:45)
[2020-10-21 19:46] LABS: SARS-CoV-2 NAA Rapid Test Not Detected (NotDetected)
--- NOTE | 2020-10-21 20:20 | PDOC.BPN ---
- Brief Progress Note HP dictated
--- NOTE | 2020-10-21 21:21 | CT ---
CTA Angio Chest W WO Con History: Shortness of breath Comparison: Chest radiograph same day. CT angiogram chest 2017 Findings: CT angiogram chest performed after the intravenous administration of contrast. 3-D renderin g provided. Pulmonary arteries are dilated. No proximal segmental pulmonary arterial filling defect. No significant pericardial effusion. Moderate atherosclerotic plaque of the aorta without aneurysmal dilatation. Some mild to moderate bronchial wall thickening along the right middle lobe and right lower lobe with a focal area of consolidation within the right middle lobe and anterior segment right lower lobe. Calcified small right perihilar lymph nodes. Severe background emphysema. Spiculated nodule right upp er lobe measures 5 mm although is adjacent to an area of bronchial wall thickening. This is best seen on axial image 3 7. Incomplete burst fracture of L1 is not acute and has minimal retropulsion. Multiple calcified splenic granulomas. No acute osseous abnormality. Impression: 1. No pulmonary embolism. 2. Extensive bronchitis along with low-grade right lower lobe and right middle lobe pneumonia. 3. 5 mm spiculated nodule right upper lobe axial image 37 for which follow-up CT the chest in 3-6 mon ths after resolution of symptomatology is recommended as this is adjacent to an area of bronchitis. 4. Prior granulomatous infection. 5. Severe background emphysema.
--- NOTE | 2020-10-21 21:45 | HP ---
CHIEF COMPLAINT: Shortness of breath. HISTORY OF PRESENT ILLNESS: Ms. Pierce is a 70-year-old female with past medical history of COPD, hypertension, anxiety, among others, presents to the emergency room with worsening shortness of breath. The patient has been having cough and shortness of breath for the last 3 weeks, got worse for the last few days. The patient also endorses subjective fever, chills, yellow-green phlegm production. COVID test was negative 3 days ago. Repeat COVID test in the emergency room was negative. The patient is on home oxygen at 2 L/minute. The patient still currently smokes. Symptoms are worse by smoking. Unable to sleep for the last 2 to 3 days due to the persistent nighttime coughing. Denies chest pain, abdominal pain, or diarrhea. En route to the emergency room, the patient was given IV Solu-Medrol, nebulizer which was continued in the emergency room. Minimal improvement. Workup in the emergency room, the patient had a chest x-ray which shows no acute finding. The patient is being admitted to the hospital for further management. PAST MEDICAL HISTORY: 1. COPD. 2. Chronic respiratory failure, on home oxygen. 3. Hypertension. 4. Anxiety. PAST SURGICAL HISTORY: Reviewed, not pertinent. FAMILY HISTORY: Reviewed, noncontributory. SOCIAL HISTORY: She is an everyday smoker. ALLERGIES: ALLERGIC TO DEMEROL, IMITREX, MEPERIDINE, NAPROSYN, PENICILLIN, SUMATRIPTAN. HOME MEDICATIONS: See home medication reconciliation form for updated medications. REVIEW OF SYSTEMS: Review of 14 systems negative except what is mentioned in history of present illness. PHYSICAL EXAMINATION: GENERAL: The patient is awake, alert, in moderate respiratory distress. VITAL SIGNS: Blood pressure is 160/64, pulse is 97, respiratory rate is 28, temperature 98.9, and oxygen saturation is 92% on 3 L/minute nasal cannula. HEAD AND NECK: Normocephalic, atraumatic. Neck is supple. No JVD. CHEST: Bilateral expiratory wheeze. HEART: S1 and S2, regular. ABDOMEN: Soft, nontender. Bowel sounds present. NEURO: Anxious, awake, alert, moving extremities. PSYCH: Unable to assess. GENITOURINARY: No suprapubic tenderness. No flank tenderness. EXTREMITIES: No clubbing or cyanosis. LABORATORY DATA: As mentioned above in history of present illness. Chest x-ray as mentioned above in history present illness. ASSESSMENT AND PLAN: 1. Acute on chronic respiratory failure. 2. Chronic obstructive pulmonary disease with exacerbation. 3. Hypertension. 4. Anxiety. PLAN: 1. Admit. 2. Oxygen to keep saturation more than 92%. 3. Bronchodilators scheduled and as needed. 4. IV steroids. 5. Empiric IV antibiotics. 6. Reconcile home medications. 7. DVT prophylaxis as appropriate. 8. Expected length of stay at least 1 midnight if the patient is stable and shows significant clinical improvement. Job ID: [id number]
[2020-10-22 01:13] VITALS: BMI 16.0
[2020-10-22] MEDS: methylPREDNISolone Sod Succ 40 MG VIAL IVP SCH ×5 (02:05→20:48)
[2020-10-22] MEDS: cefTRIAXone\\ROCEPHIN 1 GM in Sodium Chloride 0.9% 100 ML IVPB SCH ×2 (02:05→20:49)
[2020-10-22] MEDS: HYDROcodone/Acetaminophen 5/325 mg Tablet PO PRN ×3 (04:17→20:54)
[2020-10-22] MEDS: Guaifenesin DM 100-10/5 ML UDCUP PO PRN ×3 (04:18→20:48)
[2020-10-22] MEDS: Enoxaparin Sodium 40 MG/0.4 ML SYRINGE SC SCH (08:22)
[2020-10-22] MEDS ORDERED: FLU VACC QS2020-21(65YR UP)/PF 240 MCG/0.7 ML SYRINGE IM ONE (09:00)
--- NOTE | 2020-10-22 09:26 | PDOC.HOSPP ---
- Subjective Encounter Date: 10/22/20 Encounter Time: 09:24 Subjective: coughing, sob with minimal exertion - Objective Vital Signs & Weight: Vital Signs (12 hours) Temp Pulse Resp BP BP Pulse Ox 10/22/20 07:30 98.3 F 81 18 111/64 96 10/22/20 06:33 96 20 96 10/22/20 04:22 100 10/22/20 03:56 97.6 F 81 17 123/72 93 L 10/22/20 01:24 97.3 F L 81 20 120/74 92 L 10/22/20 00:25 100 22 H 98 Weight Weight 93 lb Result Diagrams: 10/21/20 18:37 10/21/20 18:37 Hospitalist ROS - Medication Medications: Active Medications Generic Name Dose Route Start Last Admin Trade Name Freq PRN Reason Stop Dose Admin Hydrocodone Bitart/Acetaminophen 1 tab 10/21/20 20:12 10/22/20 04:17 Hydrocodone/Acetaminophen 5/325 Mg Tablet PO 1 tab Q4H PRN Administration Moderate Pain (4-6) Albuterol/Ipratropium 3 ml 10/22/20 01:00 10/22/20 06:33 Ipratropium/Albuterol Sulfate 3 Ml Neb NEB 3 ml [id number] ADALID Administration Enoxaparin Sodium 40 mg 10/22/20 09:00 10/22/20 08:22 Enoxaparin Sodium 40 Mg/0.4 Ml Syringe SC 40 mg 09 ADALID Administration Guaifenesin/Dextromethorphan 15 ml 10/22/20 04:01 10/22/20 04:18 Guaifenesin Dm 100-10/5 Ml Udcup PO 15 ml Q4H PRN Administration Cough Ceftriaxone Sodium 1 gm/ 100 mls @ 200 mls/hr 10/21/20 20:00 10/22/20 02:05 Sodium Chloride IVPB Not Given 1999 [facility] Methylprednisolone Sodium Succinate 40 mg 10/21/20 20:00 10/22/20 08:21 Methylprednisolone Sod Succ 40 Mg Vial IVP 40 mg 0200,0800,1400,1999 ADALID Administration - Exam General Appearance: awake alert Neck: no JVD Heart: RRR, no murmur Respiratory - other findings: tight wheezes, scattered rhonchi Gastrointestinal: soft, non-tender, normal bowel sounds Extremities: no edema Hosp A/P (1) Acute respiratory failure with hypoxia Code(s): J96.01 - ACUTE RESPIRATORY FAILURE WITH HYPOXIA Status: Acute (2) COPD exacerbation Code(s): J44.1 - CHRONIC OBSTRUCTIVE PULMONARY DISEASE W (ACUTE) EXACERBATION Status: Acute (3) Head ache Code(s): R51 - HEADACHE * DO NOT USE * Status: Acute Qualifiers: Headache chronicity pattern: acute headache Intractability: not intractable (4) Bipolar disorder Code(s): F31.9 - BIPOLAR DISORDER, UNSPECIFIED Status: Chronic (5) Hyperlipidemia Code(s): E78.5 - HYPERLIPIDEMIA, UNSPECIFIED Status: Chronic Qualifiers: Hyperlipidemia type: unspecified (6) Hypertension Code(s): I10 - ESSENTIAL (PRIMARY) HYPERTENSION Status: Chronic Qualifiers: Hypertension type: essential hypertension - Plan cont nebs, iv steroids, iv antibx cannot RO pna cont home meds teaalon fo cough
[2020-10-22 09:29] LABS: Anion Gap 14 mmol/L (10-20); BUN (Urea Nitrogen) 14 mg/dL (9.8-20.1); Calc. Creatinine Clearance 64 mL/min (70-130); Calcium 8.8 mg/dL (7.8-10.44); Carbon Dioxide 21 mmol/L (23-31); Chloride 107 mmol/L (98-107); Glucose 129 mg/dL (83-110); Potassium 3.9 mmol/L (3.5-5.1); Sodium 138 mmol/L (136-145)
[2020-10-22 09:31] LABS: #Lymphocytes 0.7 thou/uL (1.20-3.40); #Monocytes 0.6 thou/uL (0.11-0.59); #Neutrophils 7.7 thou/uL (1.40-6.50); %Basophils 0.2 % (0.0-1.0); %Monocytes 6.5 % (0.0-10.0); %Neutrophils 85.3 % (42.0-75.0); Mean Corpuscular HGB CONC 30.7 g/dL (32.0-36.0); Mean Corpuscular Hemoglobin 30.2 pg (27.0-31.0); Mean Corpuscular Volume 98.3 fL (78.0-98.0); Platelet Count 288 thou/uL (130-400); RBC Distribution Width 11.7 % (11.5-14.5); Red Blood Cell (RBC) Count 3.96 mill/uL (4.20-5.40); White Blood Cell (WBC) Count 9.1 thou/uL (4.8-10.8)
[2020-10-22] MEDS ORDERED: Mag-Al 1200 mg/1200 mg/30 ML UDCUP PO SCH (12:30)
--- NOTE | 2020-10-22 14:01 | PDOC.BPN ---
- Brief Progress Note Encounter Date: 10/22/20 Encounter Time: 13:59 anterior chest pain described as indigestion. Trop nl, EKG no acute jones( personally reviewed), relief with antacid. Dx gastritis, started PoPPI daily
[2020-10-22] MEDS: Benzonatate 100 MG CAP PO SCH ×2 (16:07→20:48)
[2020-10-22] MEDS ORDERED: Azithromycin 500 MG in Sodium Chloride 0.9% 250 ML 250 ML IVPB SCH (18:00)
[2020-10-22] MEDS: Montelukast Sodium 10 mg Tablet PO SCH (20:48)
[2020-10-22] MEDS: OLANZapine 2.5 MG TAB PO SCH (20:49)
[2020-10-22] MEDS: Acetaminophen 325 MG TAB PO PRN (20:55)
[2020-10-22] MEDS: Mometasone 200 MCG/Formoterol 5 MCG 120 PUFF INHALER INH SCH (21:40)
[2020-10-23] MEDS: methylPREDNISolone Sod Succ 40 MG VIAL IVP SCH ×2 (01:27→08:44)
[2020-10-23] MEDS: Guaifenesin DM 100-10/5 ML UDCUP PO PRN ×2 (05:39→23:08)
[2020-10-23] MEDS: HYDROcodone/Acetaminophen 5/325 mg Tablet PO PRN ×2 (06:24→15:11)
[2020-10-23] MEDS: Cholecalciferol 1,000 UNITS (25 MCG) TAB PO SCH (08:42)
[2020-10-23] MEDS: FLUoxetine HCl 20 MG CAP PO SCH (08:43)
[2020-10-23] MEDS: Tamsulosin HCl 0.4 MG CAP PO SCH (08:43)
[2020-10-23] MEDS: Lisinopril 10 MG TAB PO SCH (08:43)
[2020-10-23] MEDS: Benzonatate 100 MG CAP PO SCH ×3 (08:43→20:36)
[2020-10-23] MEDS: Enoxaparin Sodium 40 MG/0.4 ML SYRINGE SC SCH (08:44)
[2020-10-23] MEDS: Mometasone 200 MCG/Formoterol 5 MCG 120 PUFF INHALER INH SCH ×2 (08:59→21:44)
[2020-10-23] MEDS ORDERED: guaiFENesin ER 600 MG TAB PO SCH ×2 (10:31→10:45)
[2020-10-23] MEDS ORDERED: Calcium Carbonate 500 MG ChewTAB PO PRN (10:33)
--- NOTE | 2020-10-23 16:48 | PDOC.HOSPP ---
- Subjective Encounter Date: 10/23/20 Encounter Time: 12:00 Subjective: F/u: COPD The patient is still coughing excessively. She states originally it was more productive and green in color, but now it's more dry. She states there is a spot near her neck where she is unable to get up her cough She is on 2L of oxygen at home - Objective Vital Signs & Weight: Vital Signs (12 hours) Temp Pulse Resp BP Pulse Ox Pulse Ox Pulse Ox 10/23/20 15:43 94 L 99 10/23/20 08:59 79 20 100 10/23/20 08:40 100 10/23/20 08:00 97.7 F 78 16 146/71 H 100 Weight Admit Weight 93 lb Weight 93 lb Result Diagrams: 10/22/20 08:38 10/22/20 08:38 Hospitalist ROS - Review of Systems Constitutional: denies: fever, chills - Medication Medications: Active Medications Generic Name Dose Route Start Last Admin Trade Name Freq PRN Reason Stop Dose Admin Acetaminophen 650 mg 10/21/20 19:31 10/22/20 20:55 Acetaminophen 325 Mg Tab PO 650 mg Q4H PRN Administration Headache/Fever/Mild Pain (1-3) Hydrocodone Bitart/Acetaminophen 1 tab 10/21/20 20:12 10/23/20 15:11 Hydrocodone/Acetaminophen 5/325 Mg Tablet PO 1 tab Q4H PRN Administration Moderate Pain (4-6) Albuterol/Ipratropium 3 ml 10/22/20 01:00 10/23/20 15:22 Ipratropium/Albuterol Sulfate 3 Ml Neb NEB Not Given [id number] ADALID Benzonatate 100 mg 10/22/20 15:00 10/23/20 15:08 Benzonatate 100 Mg Cap PO 100 mg TID ADALID Administration Cholecalciferol 2,000 units 10/23/20 09:00 10/23/20 08:42 Cholecalciferol 1,000 Units (25 Mcg) Tab PO 2,000 units DAILY ADALID Administration Enoxaparin Sodium 40 mg 10/22/20 09:00 10/23/20 08:44 Enoxaparin Sodium 40 Mg/0.4 Ml Syringe SC 40 mg 0900 ADALID Administration Fluoxetine HCl 40 mg 10/23/20 09:00 10/23/20 08:43 Fluoxetine Hcl 20 Mg Cap PO 40 mg DAILY ADALID Administration Guaifenesin/Dextromethorphan 15 ml 10/22/20 04:01 10/23/20 05:39 Guaifenesin Dm 100-10/5 Ml Udcup PO 15 ml Q4H PRN Administration Cough Ceftriaxone Sodium 1 gm/ 100 mls @ 200 mls/hr 10/21/20 20:00 10/22/20 20:49 Sodium Chloride IVPB 100 mls 2000 ADALID Administration Azithromycin 500 mg/ Sodium 250 mls @ 250 mls/hr 10/22/20 18:00 10/22/20 20:19 Chloride IVPB 250 mls 1800 ADALID Administration Lisinopril 10 mg 10/23/20 09:00 10/23/20 08:43 Lisinopril 10 Mg Tab PO 10 mg DAILY ADALID Administration Mirabegron 25 mg 10/23/20 09:00 10/23/20 10:14 Mirabegron Er 25 Mg Tab PO 25 mg DAILY ADALID Administration Mometasone Furoate/Formoterol Fumar 2 puff 10/22/20 18:30 10/23/20 08:59 Mometasone 200 Mcg/Formoterol 5 Mcg 120 Puff Inhaler INH 2 puff BID-RT ADALID Administration Montelukast Sodium 10 mg 10/22/20 21:00 10/22/20 20:48 Montelukast Sodium 10 Mg Tablet PO 10 mg HS ADALID Administration Olanzapine 7.5 mg 10/22/20 21:00 10/22/20 20:49 Olanzapine 2.5 Mg Tab PO 7.5 mg HS ADALID Administration Pantoprazole Sodium 40 mg 10/23/20 09:00 10/23/20 08:43 Pantoprazole 40 Mg Tab PO 40 mg DAILY ADALID Administration Tamsulosin HCl 0.4 mg 10/23/20 09:00 10/23/20 08:43 Tamsulosin Hcl 0.4 Mg Cap PO 0.4 mg DAILY ADALID Administration - Exam General Appearance: NAD, awake alert General - other findings: had coughing spell that sounded rhonchorous and like smokers cough Eye: PERRL, anicteric sclera ENT: normocephalic atraumatic Neck: no JVD Heart: RRR, no murmur, no gallops, no rubs Respiratory - other findings: minimal expiratory wheeze at the base Gastrointestinal: soft, non-tender, non-distended Extremities: no cyanosis, no clubbing, no edema Skin: normal turgor, no lesions, no rashes Hosp A/P - Plan CTA chest: no PE. Extensive bronchitis with right lower lobe and right middle lobe pneumonia This is a 70 year old female who presented to the hospital with Acute hypoxic respiratory failure secondary to COPD exacerbation and pneumonia - CTA chest shows RML and RLL pneumonia - continue ceftriaxone day 2. Will switch to oral azithromycin 250 mg daily -wean oxygen down to 2L nasal cannula - will add mucinex to cough regimen 5 mm spiculated nodule right upper lobe - f/u CT chest in 3-6 months recommended Tobacco abuse - patient has cut down to 5 cigarettes daily from one pack daily. Failed other nicotine cessation treatments GERD - continue protonix
--- NOTE | 2020-10-23 17:37 | PRG ---
DATE OF SERVICE: 10/23/2020 SUBJECTIVE: This patient called my office. They asked me to come by and see her in regard to her COPD exacerbation. She is still smoking about half a pack of cigarettes per day and really has no desire to quit. I have gone round and round with her in the past about her smoking and the fact that she really cannot be helped if she continues to smoke. She is currently in the hospital with COPD exacerbation. OBJECTIVE: VITAL SIGNS: Demonstrate temperature 97.7, pulse 79, respirations 20, O2 saturation 100% on 2 L, O2 saturation 94% on nasal cannula. GENERAL: She appears disheveled as usual. HEENT: Unremarkable. NECK: No adenopathy or JVD. LUNGS: Fairly clear, but distant breath sounds. CARDIAC: S1 and S2. Regular. ABDOMEN: Soft. EXTREMITIES: No edema. I have reviewed the orders on her chart. ASSESSMENT: 1. Chronic obstructive pulmonary disease exacerbation. 2. Continued tobacco abuse. PLAN: I agree with the excellent care being provided by the hospitalist. I have told the patient she has to quit smoking. Job ID: [id number]
[2020-10-23] MEDS: Azithromycin 250 MG TAB PO SCH (17:39)
[2020-10-23] MEDS: guaiFENesin ER 600 MG TAB PO SCH (20:36)
[2020-10-23] MEDS: Montelukast Sodium 10 mg Tablet PO SCH (20:36)
[2020-10-23] MEDS: Atorvastatin Calcium 20 MG TAB PO SCH (20:36)
[2020-10-23] MEDS: OLANZapine 2.5 MG TAB PO SCH (20:36)
[2020-10-23] MEDS: cefTRIAXone\\ROCEPHIN 1 GM in Sodium Chloride 0.9% 100 ML IVPB SCH (20:39)
[2020-10-24] MEDS: Acetaminophen 325 MG TAB PO PRN (05:48)
[2020-10-24] MEDS: Guaifenesin DM 100-10/5 ML UDCUP PO PRN ×2 (05:48→13:01)
[2020-10-24] MEDS: Mometasone 200 MCG/Formoterol 5 MCG 120 PUFF INHALER INH SCH ×2 (07:25→19:21)
[2020-10-24] MEDS: FLUoxetine HCl 20 MG CAP PO SCH (08:34)
[2020-10-24] MEDS: guaiFENesin ER 600 MG TAB PO SCH ×2 (08:35→19:56)
[2020-10-24] MEDS: Benzonatate 100 MG CAP PO SCH (08:35)
[2020-10-24] MEDS: Tamsulosin HCl 0.4 MG CAP PO SCH (08:35)
[2020-10-24] MEDS: predniSONE 20 MG TAB PO SCH (08:35)
[2020-10-24] MEDS: Enoxaparin Sodium 40 MG/0.4 ML SYRINGE SC SCH (08:36)
[2020-10-24] MEDS: Cholecalciferol 1,000 UNITS (25 MCG) TAB PO SCH (08:36)
[2020-10-24] MEDS: Lisinopril 10 MG TAB PO SCH (08:36)
--- NOTE | 2020-10-24 13:27 | PDOC.HOSPP ---
- Subjective Encounter Date: 10/24/20 Encounter Time: 10:30 Subjective: F/u: COPD The patient feels better. The mucinex is helping break her phlegm but there is a spot in her chest she still feel she can't cough some stuff up. She doesn't feel comfortable going home today yet. I weaned her oxygen to 2L and was maintaining sat at 92%. - Objective Vital Signs & Weight: Vital Signs (12 hours) Temp Pulse Resp BP BP Pulse Ox 10/24/20 08:36 158/84 H 10/24/20 07:26 88 16 10/24/20 07:23 98.4 F 87 18 158/82 H 93 L 10/24/20 05:27 81 22 H 98 Weight Admit Weight 93 lb Weight 93 lb I&O: 10/23/20 10/24/20 10/25/20 06:59 06:59 06:59 Intake Total 2049 Balance 2049 Result Diagrams: 10/22/20 08:38 10/22/20 08:38 Hospitalist ROS - Review of Systems Constitutional: denies: fever, chills - Medication Medications: Active Medications Generic Name Dose Route Start Last Admin Trade Name Freq PRN Reason Stop Dose Admin Acetaminophen 650 mg 10/21/20 19:31 10/24/20 05:48 Acetaminophen 325 Mg Tab PO 650 mg Q4H PRN Administration Headache/Fever/Mild Pain (1-3) Hydrocodone Bitart/Acetaminophen 1 tab 10/21/20 20:12 10/23/20 15:11 Hydrocodone/Acetaminophen 5/325 Mg Tablet PO 1 tab Q4H PRN Administration Moderate Pain (4-6) Albuterol/Ipratropium 3 ml 10/21/20 19:31 10/24/20 05:27 Ipratropium/Albuterol Sulfate 3 Ml Neb NEB 3 ml [id number] PRN Administration SOB &/or Wheezing Albuterol/Ipratropium 3 ml 10/22/20 01:00 10/24/20 07:26 Ipratropium/Albuterol Sulfate 3 Ml Neb NEB 3 ml [id number] ADALID Administration Atorvastatin Calcium 20 mg 10/23/20 21:00 10/23/20 20:36 Atorvastatin Calcium 20 Mg Tab PO 20 mg HS ADALID Administration Azithromycin 250 mg 10/23/20 18:00 10/23/20 17:39 Azithromycin 250 Mg Tab PO 10/26/20 18:01 250 mg 1800 ADALID Administration Benzonatate 100 mg 10/22/20 15:00 10/24/20 08:35 Benzonatate 100 Mg Cap PO 100 mg TID ADALID Administration Cholecalciferol 2,000 units 10/23/20 09:00 10/24/20 08:36 Cholecalciferol 1,000 Units (25 Mcg) Tab PO 2,000 units DAILY ADALID Administration Enoxaparin Sodium 40 mg 10/22/20 09:00 10/24/20 08:36 Enoxaparin Sodium 40 Mg/0.4 Ml Syringe SC 40 mg 0900 ADALID Administration Fluoxetine HCl 40 mg 10/23/20 09:00 10/24/20 08:34 Fluoxetine Hcl 20 Mg Cap PO 40 mg DAILY ADALID Administration Guaifenesin 600 mg 10/23/20 21:00 10/24/20 08:35 Guaifenesin Er 600 Mg Tab PO 600 mg Q12HR ADALID Administration Guaifenesin/Dextromethorphan 15 ml 10/22/20 04:01 10/24/20 13:01 Guaifenesin Dm 100-10/5 Ml Udcup PO 15 ml Q4H PRN Administration Cough Ceftriaxone Sodium 1 gm/ 100 mls @ 200 mls/hr 10/21/20 20:00 10/23/20 20:39 Sodium Chloride IVPB 100 mls 2000 ADALID Administration Lisinopril 10 mg 10/23/20 09:00 10/24/20 08:36 Lisinopril 10 Mg Tab PO 10 mg DAILY ADALID Administration Mirabegron 25 mg 10/23/20 09:00 10/24/20 11:10 Mirabegron Er 25 Mg Tab PO 25 mg DAILY ADALID Administration Mometasone Furoate/Formoterol Fumar 2 puff 10/22/20 18:30 10/24/20 07:25 Mometasone 200 Mcg/Formoterol 5 Mcg 120 Puff Inhaler INH 2 puff BID-RT ADALID Administration Montelukast Sodium 10 mg 10/22/20 21:00 10/23/20 20:36 Montelukast Sodium 10 Mg Tablet PO 10 mg HS ADALID Administration Olanzapine 7.5 mg 10/22/20 21:00 10/23/20 20:36 Olanzapine 2.5 Mg Tab PO 7.5 mg HS ADALID Administration Pantoprazole Sodium 40 mg 10/23/20 09:00 10/24/20 08:35 Pantoprazole 40 Mg Tab PO 40 mg DAILY ADALID Administration Prednisone 40 mg 10/24/20 08:00 10/24/20 08:35 Prednisone 20 Mg Tab PO 40 mg QAM-WM ADALID Administration Sodium Chloride 10 ml 10/23/20 21:00 10/24/20 08:37 Flush - Normal Saline 10 Ml Syringe IVF 10 ml Q12HR ADALID Administration Tamsulosin HCl 0.4 mg 10/23/20 09:00 10/24/20 08:35 Tamsulosin Hcl 0.4 Mg Cap PO 0.4 mg DAILY ADALID Administration - Exam General Appearance: NAD, awake alert Eye: PERRL, anicteric sclera ENT: normocephalic atraumatic, no oropharyngeal lesions Neck: no JVD Heart: RRR, no murmur, no gallops, no rubs Respiratory - other findings: diminished breath sounds bilaterally Gastrointestinal: soft, non-tender, non-distended, normal bowel sounds, no hepatomegaly Extremities: no cyanosis, no clubbing, no edema Skin: normal turgor, no lesions, no rashes Neurological: cranial nerve grossly intact, normal sensation to touch, no weakness, no focal deficits, no new deficit Musculoskeletal: normal tone, normal strength, no muscle wasting Hosp A/P - Plan CTA chest: no PE. Extensive bronchitis with right lower lobe and right middle lobe pneumonia This is a 70 year old female who presented to the hospital with COPD exacerbation and pneumonia Acute hypoxic respiratory failure secondary to COPD exacerbation and pneumonia - CTA chest shows RML and RLL pneumonia - continue ceftriaxone day 3 and azithromycin, oxygen weaned down to 1L - continue mucinex. Will d/c tessalon pearls to allow for adequate clearance of phlegm 5 mm spiculated nodule right upper lobe - f/u CT chest in 3-6 months recommended Tobacco abuse - patient has cut down to 5 cigarettes daily from one pack daily. Failed other nicotine cessation treatments GERD - continue protonix Plan: possible d/c in am
[2020-10-24] MEDS: Azithromycin 250 MG TAB PO SCH (17:26)
[2020-10-24 19:28] VITALS: TEMP 97.7
[2020-10-24] MEDS: cefTRIAXone\\ROCEPHIN 1 GM in Sodium Chloride 0.9% 100 ML IVPB SCH (19:55)
[2020-10-24] MEDS: Montelukast Sodium 10 mg Tablet PO SCH (19:56)
[2020-10-24] MEDS: Atorvastatin Calcium 20 MG TAB PO SCH (19:56)
[2020-10-24] MEDS: OLANZapine 2.5 MG TAB PO SCH (19:56)
[2020-10-25] MEDS: HYDROcodone/Acetaminophen 5/325 mg Tablet PO PRN (03:34)
[2020-10-25] MEDS: Guaifenesin DM 100-10/5 ML UDCUP PO PRN (03:39)
[2020-10-25] MEDS: Mometasone 200 MCG/Formoterol 5 MCG 120 PUFF INHALER INH SCH (07:44)
[2020-10-25] MEDS: guaiFENesin ER 600 MG TAB PO SCH (07:52)
[2020-10-25] MEDS: Lisinopril 10 MG TAB PO SCH (07:53)
[2020-10-25] MEDS: Cholecalciferol 1,000 UNITS (25 MCG) TAB PO SCH (07:53)
[2020-10-25] MEDS: Tamsulosin HCl 0.4 MG CAP PO SCH (07:53)
[2020-10-25] MEDS: FLUoxetine HCl 20 MG CAP PO SCH (07:53)
[2020-10-25] MEDS: predniSONE 20 MG TAB PO SCH (07:53)
[2020-10-25] MEDS: Enoxaparin Sodium 40 MG/0.4 ML SYRINGE SC SCH (07:54)
[2020-10-25 07:56] VITALS: BP 158/84
--- NOTE | 2020-10-25 14:05 | PDOC.DS.DS ---
Provider - Provider Date of Admission: 10/22/20 09:20 Date of Discharge: 10/25/20 Admitting Provider: June Patton MD Primary Care Physician: MAHIN MOORE Course - Hospital Course Hospital Course: The patient is a 70-year-old female with past medical history of COPD on home O2 who was admitted to the hospital for acute on chronic respiratory failure with hypoxia due to exacerbation of COPD. Her Covid test was negative. The patient was managed with scheduled nebulizer treatments, antibiotics, and corticosteroids leading to resolution of her symptoms. Resuscitation Status: 10/21/20 19:31 Resuscitation Status Routine Resuscitation Status: FULL: Full Resuscitation - Labs Lab Results: 10/22/20 08:38 10/22/20 08:38 - Physical Exam Vitals: Vital Signs (12 hours) Pulse Resp BP Pulse Ox 10/25/20 14:02 92 20 96 10/25/20 07:53 158/84 H 10/25/20 07:44 87 20 97 Weight Admit Weight 93 lb Weight 93 lb Physical Exam: The patient was seen and examined on the day of discharge. Plan - Discharge Medications Prescriptions: predniSONE 20 mg PO QAM-WM #5 tab Home Medications: Medication Instructions Recorded Confirmed Type Montelukast Sodium [Singulair] 10 mg PO HS 04/23/17 10/22/20 History Lisinopril [Zestril] 10 mg PO DAILY #30 tab 10/04/17 10/22/20 Rx Albuterol Sulfate [Proair HFA] 2 puff INH QID PRN 06/29/18 10/22/20 History Ipratropium/Albuterol Sulfate 3 ml NEB Q6HR 06/29/18 10/22/20 History [DuoNeb] Atorvastatin Calcium 20 mg PO DAILY 12/28/19 10/22/20 History Benztropine Mesylate 0.5 mg PO DAILY 12/28/19 10/22/20 History FLUoxetine HCl [Fluoxetine HCl] 40 mg PO DAILY 12/28/19 10/22/20 History Mirabegron [Myrbetriq] 25 mg PO DAILY 12/28/19 10/22/20 History OLANZapine [ZyPREXA] 7.5 mg PO HS 12/28/19 10/22/20 History Pantoprazole Sodium 1 tab PO DAILY 12/28/19 10/22/20 History Propranolol HCl 20 mg PO BID PRN 12/28/19 10/22/20 History Tamsulosin HCl [Flomax] 0.4 mg PO DAILY 12/28/19 10/22/20 History Cholecalciferol (Vitamin D3) 2,000 unit PO DAILY 06/29/20 10/22/20 History [Vitamin D3] Fluticasone/Vilanterol [Breo 1 puff INH DAILY 06/29/20 10/22/20 History Ellipta 200-25 Mcg INH] Multivit-Min/FA/Lycopen/Lutein 1 tab PO DAILY 06/29/20 10/22/20 History [S[employer] Senior] predniSONE 20 mg PO QAM-WM #5 tab 10/25/20 Rx Allergies: Penicillins Allergy (Unknown, Verified 10/22/20 01:29) Hives sumatriptan [From Imitrex] Allergy (Unknown, Verified 10/22/20 01:29) Short of Breath MADE PAIN WORSE sumatriptan succinate [From Imitrex] Allergy (Unknown, Verified 10/22/20 01:29) Short of Breath MADE PAIN WORSE naproxen Allergy (Verified 10/22/20 01:29) meperidine HCl [From Demerol] Adverse Reaction (Intermediate, Verified 10/22/20 01:29) hallucinations - Follow up Plan Referrals: CARLITA KULKARNI & [Primary Care Provider] - Disposition: HOME Quality - Care Measures CORE MEASURES:: N/A
--- NOTE | 2020-10-28 05:20 | PQF ---
CLINICAL DOCUMENTATION CLARIFICATION FORM: Dear : Becky Varghese Date / Time: 10/28/2020 0519 Please exercise your independent, professional judgment in responding to the clarification form. Clinical indicators are provided on the bottom of this form for your review Please check appropriate box(es): [ >] Protein Calorie Malnutrition: [ ] Mild [ > ] Moderate [ ] Severe [ ] Other Malnutrition (please specify) [ ] Underweight without malnutrition [ ] Cachexia [ ] Other diagnosis, please specify [ ] Unable to determine In addition, please specify: Present on Admission (POA): [ > ] Yes [ ] No [ ] Unable to determine Physician Signature: Date/Time: For continuity of documentation, please document condition throughout progress notes and discharge summary. Thank You. To be completed by CDI/Coding staff for physician review: Present Clinical Indicators - Signs / Symptoms / Labs Results and Location in Medical Record [X] BP 122/64, Pulse 102, Resp 29, Temp 98.8 Vital signs 10/22 Serum Total Protein 5.9, Albumin 3.6, Globolin 2.3, Ratio 1.6 Laboratory 10/17 [X] BMI of 16 Nutritional assessment [facility] 10/22 [X] Moderate temporalis, pectoralis, interosseous muscle wasting, moderate orbotal and buccal fat pad wasting, estimated intake, suggestive of moderate malnutrition in the context of chronic illness Nutritional assessment [facility]itian [facility] 10/22 [X] Decreased appetite Nutritional assessment [facility] 10/22 [X] Weight changes -19% x1 year Nutritional assessment [facility]itian [facility] 10/22 Present Risk Factors Results and Location in Medical Record [X] 70 year-old Female H&P p1 10/21 Dr Patton [X] Gastritis H&P p1 10/21 Dr Patton [X] GERD HPN p5 10/23 Dr Randhawa [X] Smoker ED Notes 10/22 [X] Cannabis abuse ED Notes 10/22 Present Treatments Results and Location in Medical Record [X] Dietary consult Nutritional assessment Dietitian [facility] 10/22 [X] Nutritional supplements Nutritional assessment [facility]itian [facility] 10/22 [X] Weight monitoring Nutritional assessment [facility]itian [facility] 10/22 [X] Oral intake monitoring Nutritional assessment [facility]itian [facility] 10/22 [X] Appetite stimulant - medication Nutritional assessment [facility]itian [facility] 10/22 CDS/Software Validation Engineer Signature: Oneida Man Phone #: [phone] Date/Time: 09/28/2020518 Moderate Malnutrition (in acute illness) ? Energy Intake: <75% of estimated energy requirement for > 7 days ? Weight Loss: 1-2%/1 week; 5%/ 1 month; 7.5%/3 months ? Other: mild body fat loss; mild muscle mass loss; mild fluid accumulation; Severe Malnutrition (in acute illness) ? Energy Intake: ? 50% of estimated energy requirement for ? 5 days ? Weight Loss: >2%/1 week; >5%/1 month; >7.5%/3 months ? 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 Energy Intake: <75% of estimated energy requirement for ?1 month ? Weight Loss: 5%/1 month; 7.5%/3 months; 10%/6 months; 20%/1 year ? Other: mild body fat loss; mild muscle mass loss; mild fluid accumulation Severe Malnutrition (in chronic illness) ? Energy Intake: ?75% of estimated energy requirement for ?1 month ? Weight Loss: >5%/1 month; >7.5%/3 months; >10%/6 months; >20%/1 year ? Other: severe body fat loss; severe muscle mass loss; severe fluid accumulation; measurably reduced employee benefits administrator strength This is a permanent part of the Medical Record MTDD
--- NOTE | 2020-10-28 05:21 | PQF ---
CLINICAL DOCUMENTATION CLARIFICATION FORM: Dear : Becky Varghese Date / Time: 10/28/2020 Please exercise your independent, professional judgment in responding to the clarification form. Clinical indicators are provided on the bottom of this form for your review Please check appropriate box(es): [ ] Aspiration Pneumonia [ > ] Empirically treating Gram Negative Pneumonia [ ] Empirically treating Anaerobic Pneumonia [ ] Simple Pneumonia [ ] Pneumonia of unknown etiology [ ] Other diagnosis, please specify [ ] Unable to determine Physician Signature: Date/Time: For continuity of documentation, please document condition throughout progress notes and discharge summary. Thank You. To be completed by CDI/Coding staff for physician review: Present Clinical Indicators - Signs / Symptoms / Labs Results and Location in Medical Record [X] WBC 11.4, Plt count 276, Neutrophils 80.2, Lactic Acid 0.9 Laboratory 10/21 [X] Chest CT: Extensive bronchitis along with low-grade right lower lobe and right middle lobe pneumonia Imaging Dr Rodríguez 10/21 [X] BP 122/64, Pulse 102, Resp 29, Temp 98.8 Vital signs 10/22 [X] Pt having cough and SOB for the last 3weeks H&P p1 10/21 Dr Patton [X] Also endorses subjective fever, chills, yellow-green phlegm production H&P p1 10/21 Dr Patton [X] Acute on chronic respiratory failure due to COPD exacerbation and Pneumonia HPN p4 10/23 Dr Randhawa [X] 5mm spiculated nodule RUL HPN p4 10/23 Dr Randhawa [X] Chest: bilateral expiratory wheeze PN 10/22 Present Risk Factors Results and Location in Medical Record [X] 70 year-old Female H&P p1 10/21 Dr Patton [X] COPD H&P p1 10/21 Dr Patton [X] HTN H&P p1 10/21 Dr Patton [X] Chronic respiratory failure, home oxygen H&P p1 10/21 Dr Patton [X] GERD HPN p5 10/23 Dr Randhawa [X] Smoker ED Notes 10/22 Present Treatments Results and Location in Medical Record [X] Oxygen 2L Respiratory Panel 10/21 [X] IV Ceftriaxone 1 gm MAR 10/21 [X] IV Zithromax 500 mg JAN 23 CDS/Program Attendant Signature: Oneida Man Phone #: [phone] Date/Time: 10/28/2020 This is a permanent part of the Medical Record [facility]
== END 2020-10-25 15:32 | disposition home or self-care (01) | DRG 177 ==
LOC: ERS 18:05 → ERHOLD 19:35 → T4-B 10-22 01:08 → OBSVTOIN 10-22 09:20
PROVIDERS: ADMIT Internal Medicine; ATTEND Internal Medicine
DX: J15.6 Pneumonia due to other Gram-negative bacteria (principal); J96.21 Acute and chronic respiratory failure with hypoxia; J44.1 Chronic obstructive pulmonary disease with (acute) exacerbation; J44.0 Chronic obstructive pulmonary disease with (acute) lower respiratory infection; E44.0 Moderate protein-calorie malnutrition; Z68.1 Body mass index [BMI] 19.9 or less, adult; Z20.828 Contact with and (suspected) exposure to other viral communicable diseases; F41.9 Anxiety disorder, unspecified; I10 Essential (primary) hypertension; E78.5 Hyperlipidemia, unspecified; F31.9 Bipolar disorder, unspecified; F12.10 Cannabis abuse, uncomplicated; F17.210 Nicotine dependence, cigarettes, uncomplicated; R51.9 Headache, unspecified; K29.70 Gastritis, unspecified, without bleeding; R91.8 Other nonspecific abnormal finding of lung field; K21.9 Gastro-esophageal reflux disease without esophagitis; Z23 Encounter for immunization; Z88.6 Allergy status to analgesic agent; Z88.0 Allergy status to penicillin; Z88.8 Allergy status to other drugs, medicaments and biological substances; Z99.81 Dependence on supplemental oxygen; Z90.710 Acquired absence of both cervix and uterus; Z90.721 Acquired absence of ovaries, unilateral
CPT/HCPCS: 0240U; 36415; 71045; 71275; 80048; 80053; 83605; 83880; 84484; 85025; 85379; 85652; 86140; 87635; 90471; 90662; 93005; 93010; 94640; 94664; 94760; 96365; 96366; 96367; 96372; 96375; 96376; G0008; G0378; J0456; J0696; J1200; J1650; J2765; J2920; J3475; J3490; J7050; J7512; J7620; Q9967; U0003

== ENCOUNTER 2020-11-16 00:56 | Emergency (ER) | payer MEDICARE, OTHER ==
[2020-11-16] MEDS ORDERED: methylPREDNISolone Sod Succ/PF 125 MG/2 ML VIAL ONE (01:13)
[2020-11-16] MEDS ORDERED: Acetaminophen 500 MG TAB ONE (01:33)
--- NOTE | 2020-11-16 08:37 | RAD ---
EXAM: Chest one view: HISTORY: Difficulty breathing shortness of breath COMPARISON: 10/21/2020 FINDINGS: Heart size: Within normal limits. Lungs: Hyperinflation with scattered chronic appearing linear and interstitial increased markings. Flattening of the hemidiaphragms. No evidence for confluent lobar pneumonia, significant pleural effusion, acute edema, or pneumothorax , or other significant acute process. IMPRESSION: Stable chronic changes.
== END 2020-11-16 05:45 | disposition home or self-care (01) ==
LOC: ERS 00:56
DX: J44.1 Chronic obstructive pulmonary disease with (acute) exacerbation (principal); F17.210 Nicotine dependence, cigarettes, uncomplicated; E78.5 Hyperlipidemia, unspecified; I10 Essential (primary) hypertension
CPT/HCPCS: 71045; 93005; 96374; J2930; J7620

== ENCOUNTER 2021-03-27 21:43 | Inpatient (IN) | payer MEDICARE, MEDICAID ==
[2021-03-27] MEDS ORDERED: Lorazepam 2 MG/ML VIAL ONE (22:24)
[2021-03-27] MEDS ORDERED: Albuterol Sulfate 2.5 mg/3 ml Neb NEB PRN (23:13)
[2021-03-28 00:59] VITALS: BMI 16.8
[2021-03-28] MEDS: Ondansetron PF 4 MG/2 ML Vial IVP PRN (01:35)
[2021-03-28] MEDS: Nicotine 21 MG PATCH TD SCH ×3 (02:11→17:41)
[2021-03-28 04:02] LABS: #Lymphocytes 0.9 thou/uL (1.20-3.40); #Monocytes 0.1 thou/uL (0.11-0.59); %Basophils 0.2 % (0.0-1.0); %Eosinophils 0.2 % (0.0-10.0); %Monocytes 1.2 % (0.0-10.0); %Neutrophils 83.4 % (42.0-75.0); Hemoglobin 13.4 g/dL (12.0-16.0); Mean Corpuscular HGB CONC 32.3 g/dL (32.0-36.0); Mean Corpuscular Hemoglobin 31.5 pg (27.0-31.0); Mean Corpuscular Volume 97.5 fL (78.0-98.0); Mean Platelet Volume 7.1 fL (7.4-10.4); Platelet Count 251 thou/uL (130-400); RBC Distribution Width 11.6 % (11.5-14.5); Red Blood Cell (RBC) Count 4.26 mill/uL (4.20-5.40)
[2021-03-28 04:17] LABS: Anion Gap 12 mmol/L (10-20); BUN (Urea Nitrogen) 12 mg/dL (9.8-20.1); Calc. Creatinine Clearance 58 mL/min (70-130); Calcium 9.5 mg/dL (7.8-10.44); Carbon Dioxide 22 mmol/L (23-31); Chloride 107 mmol/L (98-107); Glucose 144 mg/dL (83-110); Potassium 4.3 mmol/L (3.5-5.1); Sodium 137 mmol/L (136-145)
[2021-03-28] MEDS: methylPREDNISolone Sod Succ 40 MG VIAL IVP SCH ×4 (05:26→23:06)
[2021-03-28] MEDS: Acetaminophen 325 MG TAB PO PRN ×2 (09:08→20:42)
[2021-03-28] MEDS: Enoxaparin Sodium 40 MG/0.4 ML SYRINGE SC SCH (09:09)
[2021-03-28] MEDS: Famotidine 20 MG TAB PO SCH ×2 (09:09→19:31)
[2021-03-28] MEDS: Lisinopril 20 MG TAB PO SCH (09:10)
[2021-03-28] MEDS: Acetaminophen/Codeine 30-300mg Tablet PO PRN (19:31)
[2021-03-28] MEDS: Budesonide 0.5 MG/2 ML NEB NEB SCH (19:53)
[2021-03-28] MEDS: Arformoterol 15 MCG/2 ML NEB NEB SCH (19:53)
[2021-03-28] MEDS: Mometasone 200 MCG/Formoterol 5 MCG 120 PUFF INHALER INH SCH (19:55)
[2021-03-28] MEDS ORDERED: Ketorolac Tromethamine 30 MG/ML VIAL IVP SCH (23:45)
[2021-03-29] MEDS: Ondansetron PF 4 MG/2 ML Vial IVP PRN ×2 (01:22→23:09)
[2021-03-29] MEDS: methylPREDNISolone Sod Succ 40 MG VIAL IVP SCH ×4 (05:22→23:09)
[2021-03-29] MEDS: Acetaminophen/Codeine 30-300mg Tablet PO PRN ×4 (05:23→23:09)
[2021-03-29 05:47] LABS: #Lymphocytes 0.8 thou/uL (1.20-3.40); #Monocytes 0.4 thou/uL (0.11-0.59); #Neutrophils 8.5 thou/uL (1.40-6.50); %Basophils 0.2 % (0.0-1.0); %Eosinophils 0.1 % (0.0-10.0); %Lymphocytes 8.5 % (21.0-51.0); %Neutrophils 87.2 % (42.0-75.0); Hemoglobin 12.6 g/dL (12.0-16.0); Mean Corpuscular HGB CONC 32.4 g/dL (32.0-36.0); Mean Corpuscular Hemoglobin 31.6 pg (27.0-31.0); Mean Corpuscular Volume 97.5 fL (78.0-98.0); Mean Platelet Volume 6.9 fL (7.4-10.4); Platelet Count 244 thou/uL (130-400); RBC Distribution Width 11.6 % (11.5-14.5); Red Blood Cell (RBC) Count 3.97 mill/uL (4.20-5.40); White Blood Cell (WBC) Count 9.7 thou/uL (4.8-10.8)
[2021-03-29 06:05] LABS: Anion Gap 11 mmol/L (10-20); BUN (Urea Nitrogen) 23 mg/dL (9.8-20.1); Calc. Creatinine Clearance 49 mL/min (70-130); Calcium 9.7 mg/dL (7.8-10.44); Carbon Dioxide 26 mmol/L (23-31); Chloride 105 mmol/L (98-107); Glucose 148 mg/dL (83-110); Potassium 4.6 mmol/L (3.5-5.1); Sodium 137 mmol/L (136-145)
[2021-03-29] MEDS: Arformoterol 15 MCG/2 ML NEB NEB SCH (07:46)
[2021-03-29] MEDS: Mometasone 200 MCG/Formoterol 5 MCG 120 PUFF INHALER INH SCH ×2 (07:47→23:11)
[2021-03-29] MEDS: Budesonide 0.5 MG/2 ML NEB NEB SCH (07:47)
[2021-03-29] MEDS: Famotidine 20 MG TAB PO SCH ×2 (08:02→20:43)
[2021-03-29] MEDS: Lisinopril 20 MG TAB PO SCH (08:02)
[2021-03-29] MEDS: Enoxaparin Sodium 40 MG/0.4 ML SYRINGE SC SCH (08:02)
[2021-03-29] MEDS: Nicotine 21 MG PATCH TD SCH (10:16)
[2021-03-30] MEDS: methylPREDNISolone Sod Succ 40 MG VIAL IVP SCH (05:31)
[2021-03-30] MEDS: Acetaminophen/Codeine 30-300mg Tablet PO PRN ×3 (05:35→20:42)
[2021-03-30 06:23] LABS: Anion Gap 12 mmol/L (10-20); BUN (Urea Nitrogen) 19 mg/dL (9.8-20.1); Calc. Creatinine Clearance 53 mL/min (70-130); Calcium 9.2 mg/dL (7.8-10.44); Carbon Dioxide 27 mmol/L (23-31); Chloride 101 mmol/L (98-107); Glucose 112 mg/dL (83-110); Potassium 4.9 mmol/L (3.5-5.1); Sodium 135 mmol/L (136-145)
[2021-03-30 07:17] LABS: Hemoglobin 13.1 g/dL (12.0-16.0); Mean Corpuscular Hemoglobin 31.2 pg (27.0-31.0); Mean Corpuscular Volume 97.3 fL (78.0-98.0); Platelet Count 270 thou/uL (130-400); RBC Distribution Width 11.7 % (11.5-14.5); White Blood Cell (WBC) Count 13.2 thou/uL (4.8-10.8)
[2021-03-30] MEDS: Mometasone 200 MCG/Formoterol 5 MCG 120 PUFF INHALER INH SCH ×2 (07:23→18:11)
[2021-03-30 07:36] LABS: Band 1 % (5-11); Lymphocytes 7 % (21-51); MDiff Complete? YES; Monocytes 4 % (0-10); Neutrophil 88 % (42-75); Platelet Morphology Comment Appears Adequate; RBC Morphology Normal
[2021-03-30] MEDS: predniSONE 20 MG TAB PO SCH (07:54)
[2021-03-30] MEDS: Lisinopril 20 MG TAB PO SCH (07:54)
[2021-03-30] MEDS: Famotidine 20 MG TAB PO SCH ×2 (07:55→20:39)
[2021-03-30] MEDS: Enoxaparin Sodium 40 MG/0.4 ML SYRINGE SC SCH (07:55)
[2021-03-30] MEDS: Nicotine 21 MG PATCH TD SCH (15:10)
[2021-03-31] MEDS: Lisinopril 20 MG TAB PO SCH (07:26)
[2021-03-31] MEDS: Acetaminophen 325 MG TAB PO PRN (07:27)
[2021-03-31] MEDS: Famotidine 20 MG TAB PO SCH (07:27)
[2021-03-31] MEDS: predniSONE 20 MG TAB PO SCH (07:28)
[2021-03-31] MEDS: Enoxaparin Sodium 40 MG/0.4 ML SYRINGE SC SCH (07:28)
[2021-03-31] MEDS: Mometasone 200 MCG/Formoterol 5 MCG 120 PUFF INHALER INH SCH (07:45)
[2021-03-31] MEDS: Acetaminophen/Codeine 30-300mg Tablet PO PRN (12:49)
[2021-03-31] MEDS: Nicotine 21 MG PATCH TD SCH (12:50)
[2021-03-31 15:38] VITALS: BP 144/79; TEMP 98.4
== END 2021-03-31 16:39 | disposition home or self-care (01) | DRG 189 ==
LOC: ERS 21:43 → CCU 23:09 → SURG B 03-28 16:32
PROVIDERS: ADMIT Internal Medicine; ATTEND Internal Medicine
PROC: 5A09357 Assistance with Respiratory Ventilation, Less than 24 Consecutive Hours, Continuous Positive Airway Pressure (ICD-10-PCS; principal; 2021-03-28)
DX: J96.22 Acute and chronic respiratory failure with hypercapnia (principal); J44.1 Chronic obstructive pulmonary disease with (acute) exacerbation; E44.1 Mild protein-calorie malnutrition; Z68.1 Body mass index [BMI] 19.9 or less, adult; J96.21 Acute and chronic respiratory failure with hypoxia; I10 Essential (primary) hypertension; E78.5 Hyperlipidemia, unspecified; F31.9 Bipolar disorder, unspecified; F17.210 Nicotine dependence, cigarettes, uncomplicated; F12.10 Cannabis abuse, uncomplicated; Z88.0 Allergy status to penicillin; Z79.52 Long term (current) use of systemic steroids; Z90.49 Acquired absence of other specified parts of digestive tract; Z90.710 Acquired absence of both cervix and uterus; Z90.721 Acquired absence of ovaries, unilateral
CPT/HCPCS: 36415; 80048; 85025; 94640; 94644; 94660; 96374; J1650; J1885; J1956; J2060; J2405; J2920; J7512; J7620; J7626

== ENCOUNTER 2021-04-01 17:19 | Emergency (ER) | payer MEDICARE, MEDICAID ==
[2021-04-01] MEDS ORDERED: methylPREDNISolone Sod Succ/PF 125 MG/2 ML VIAL ONE (17:57)
[2021-04-01] MEDS ORDERED: Magnesium 2 GM/50 ML BAG (IN WATER) ONE (17:57)
[2021-04-01 18:11] LABS: #Eosinphils 0.1 thou/uL (0.0-0.7); #Lymphocytes 1.6 thou/uL (1.20-3.40); #Monocytes 0.5 thou/uL (0.11-0.59); #Neutrophils 9.2 thou/uL (1.40-6.50); %Eosinophils 0.5 % (0.0-10.0); %Lymphocytes 13.9 % (21.0-51.0); %Monocytes 4.4 % (0.0-10.0); %Neutrophils 81.1 % (42.0-75.0); Hemoglobin 14.2 g/dL (12.0-16.0); Mean Corpuscular Hemoglobin 32.5 pg (27.0-31.0); Mean Corpuscular Volume 98.4 fL (78.0-98.0); Mean Platelet Volume 6.4 fL (7.4-10.4); Platelet Count 274 thou/uL (130-400); RBC Distribution Width 11.7 % (11.5-14.5); Red Blood Cell (RBC) Count 4.37 mill/uL (4.20-5.40); White Blood Cell (WBC) Count 11.4 thou/uL (4.8-10.8)
[2021-04-01] MEDS ORDERED: Dexamethasone 10 MG/ML VIAL ONE (18:17)
[2021-04-01] MEDS ORDERED: Morphine 4 MG/ML VIAL ONE (18:17)
[2021-04-01 18:32] LABS: ALT (SGPT) 19 U/L (8-55); AST (SGOT) 24 U/L (5-34); Albumin 3.8 g/dL (3.4-4.8); Alkaline Phosphatase 75 U/L (40-110); Anion Gap 10 mmol/L (10-20); BUN (Urea Nitrogen) 12 mg/dL (9.8-20.1); Bilirubin, Total 0.4 mg/dL (0.2-1.2); Calc. Creatinine Clearance 0 mL/min (70-130); Calcium 8.8 mg/dL (7.8-10.44); Carbon Dioxide 30 mmol/L (23-31); Chloride 101 mmol/L (98-107); Globulin 2.4 g/dL (2.4-3.5); Glucose 107 mg/dL (83-110); Potassium 4.1 mmol/L (3.5-5.1); Protein, Total 6.2 g/dL (5.8-8.1); Sodium 137 mmol/L (136-145)
[2021-04-01] MEDS ORDERED: HYDROcodone/Acetaminophen 5/325 mg Tablet ONE (20:24)
== END 2021-04-01 21:19 | disposition home or self-care (01) ==
LOC: ERS 17:19
DX: J44.1 Chronic obstructive pulmonary disease with (acute) exacerbation (principal); I10 Essential (primary) hypertension; E78.5 Hyperlipidemia, unspecified; F17.210 Nicotine dependence, cigarettes, uncomplicated; Z79.899 Other long term (current) drug therapy
CPT/HCPCS: 36415; 71045; 71275; 80053; 83735; 84484; 85025; 93005; 96374; 96375; J1100; J2270; J2930; J3475; J7620; Q9967

== ENCOUNTER 2021-04-05 16:46 | Emergency (ER) | payer MEDICARE, MEDICAID ==
[2021-04-05] MEDS ORDERED: Dexamethasone 10 MG/ML VIAL ONE (17:37)
[2021-04-05] MEDS ORDERED: HYDROcodone/Acetaminophen 10/325 mg Tablet ONE (19:00)
== END 2021-04-05 19:08 | disposition home or self-care (01) ==
LOC: ERS 16:46
DX: J44.9 Chronic obstructive pulmonary disease, unspecified (principal); I10 Essential (primary) hypertension; E78.5 Hyperlipidemia, unspecified; F17.210 Nicotine dependence, cigarettes, uncomplicated; Z79.899 Other long term (current) drug therapy
CPT/HCPCS: 71045; J1100

== ENCOUNTER 2021-04-06 15:17 | Emergency (ER) | payer MEDICARE, MEDICAID ==
[2021-04-06] MEDS ORDERED: Albuterol Sulfate 2.5 mg/3 ml Neb ONE (15:59)
[2021-04-06] MEDS ORDERED: Ipratropium Bromide 2.5 ml Neb ONE ×2 (15:59→16:01)
[2021-04-06] MEDS ORDERED: Magnesium 2 GM/50 ML BAG (IN WATER) ONE (16:15)
[2021-04-06 16:24] LABS: #Monocytes 0.6 thou/uL (0.11-0.59); #Neutrophils 9.1 thou/uL (1.40-6.50); %Basophils 0.3 % (0.0-1.0); %Eosinophils 0.2 % (0.0-10.0); %Lymphocytes 9.3 % (21.0-51.0); %Monocytes 5.2 % (0.0-10.0); %Neutrophils 85.1 % (42.0-75.0); Mean Corpuscular Hemoglobin 31.8 pg (27.0-31.0); Mean Corpuscular Volume 96.4 fL (78.0-98.0); Mean Platelet Volume 6.2 fL (7.4-10.4); Platelet Count 352 thou/uL (130-400); RBC Distribution Width 11.4 % (11.5-14.5); White Blood Cell (WBC) Count 10.7 thou/uL (4.8-10.8)
[2021-04-06 16:46] LABS: ALT (SGPT) 15 U/L (8-55); AST (SGOT) 13 U/L (5-34); Albumin 3.9 g/dL (3.4-4.8); Alkaline Phosphatase 85 U/L (40-110); Anion Gap 12 mmol/L (10-20); BUN (Urea Nitrogen) 33 mg/dL (9.8-20.1); Bilirubin, Total 0.3 mg/dL (0.2-1.2); Calc. Creatinine Clearance 0 mL/min (70-130); Calcium 9.2 mg/dL (7.8-10.44); Carbon Dioxide 29 mmol/L (23-31); Chloride 96 mmol/L (98-107); Globulin 2.4 g/dL (2.4-3.5); Glucose 130 mg/dL (83-110); Potassium 3.7 mmol/L (3.5-5.1); Protein, Total 6.3 g/dL (5.8-8.1); Sodium 133 mmol/L (136-145)
[2021-04-06] MEDS ORDERED: Metoclopramide HCl 10 MG TAB ONE (18:03)
[2021-04-06] MEDS ORDERED: diphenhydrAMINE 50 MG CAP ONE (18:03)
== END 2021-04-06 18:27 | disposition home or self-care (01) ==
LOC: ERS 15:17
DX: J44.1 Chronic obstructive pulmonary disease with (acute) exacerbation (principal); I10 Essential (primary) hypertension; E78.5 Hyperlipidemia, unspecified; F17.210 Nicotine dependence, cigarettes, uncomplicated; Z79.899 Other long term (current) drug therapy; Z79.51 Long term (current) use of inhaled steroids
CPT/HCPCS: 36415; 71045; 80053; 83880; 84484; 85025; 93005; 94644; 96365; J3475; J7611

== ENCOUNTER 2021-07-29 19:18 | Inpatient (IN) | payer MEDICARE, MEDICAID ==
[2021-07-29 23:21] VITALS: BMI 17.4
[2021-07-30] MEDS ORDERED: Acetaminophen 325 MG TAB PO PRN (02:31)
[2021-07-30] MEDS ORDERED: Nicotine 14 MG PATCH TD SCH (03:00)
[2021-07-30] MEDS ORDERED: Nicotine 21 MG PATCH TD SCH (04:00)
[2021-07-30] MEDS ORDERED: Propranolol HCl 20 MG TAB PO PRN (04:29)
[2021-07-30] MEDS ORDERED: Albuterol Sulfate 2.5 mg/3 ml Neb NEB PRN (04:36)
[2021-07-30] MEDS: methylPREDNISolone Sod Succ 40 MG VIAL IVP SCH ×2 (05:53→11:40)
[2021-07-30] MEDS ORDERED: Mometasone 200 MCG/Formoterol 5 MCG 120 PUFF INHALER INH SCH (06:30)
[2021-07-30 07:21] LABS: #Lymphocytes 1.3 thou/uL (1.20-3.40); #Monocytes 0.6 thou/uL (0.11-0.59); #Neutrophils 8.4 thou/uL (1.40-6.50); %Basophils 0.2 % (0.0-1.0); %Eosinophils 0.1 % (0.0-10.0); %Lymphocytes 12.4 % (21.0-51.0); %Monocytes 6.1 % (0.0-10.0); %Neutrophils 81.2 % (42.0-75.0); Hemoglobin 14.6 g/dL (12.0-16.0); Mean Corpuscular HGB CONC 32.9 g/dL (32.0-36.0); Mean Corpuscular Hemoglobin 32.1 pg (27.0-31.0); Mean Corpuscular Volume 97.5 fL (78.0-98.0); Mean Platelet Volume 6.6 fL (7.4-10.4); Platelet Count 313 thou/uL (130-400); RBC Distribution Width 11.5 % (11.5-14.5); Red Blood Cell (RBC) Count 4.56 mill/uL (4.20-5.40); White Blood Cell (WBC) Count 10.4 thou/uL (4.8-10.8)
[2021-07-30 07:35] LABS: Chloride 105 mmol/L (98-107); Potassium 4.5 mmol/L (3.5-5.1); Sodium 137 mmol/L (136-145)
[2021-07-30 07:36] LABS: Calcium 9.7 mg/dL (7.8-10.44); Glucose 125 mg/dL (83-110)
[2021-07-30 07:38] LABS: Anion Gap 16 mmol/L (10-20); Carbon Dioxide 21 mmol/L (23-31)
[2021-07-30 07:39] LABS: Calc. Creatinine Clearance 57 mL/min (70-130)
[2021-07-30 07:40] LABS: BUN (Urea Nitrogen) 17 mg/dL (9.8-20.1)
[2021-07-30] MEDS ORDERED: Tamsulosin HCl 0.4 MG CAP PO SCH (09:00)
[2021-07-30] MEDS ORDERED: FLUoxetine HCl 20 MG CAP PO SCH (09:00)
[2021-07-30] MEDS ORDERED: Lisinopril 10 MG TAB PO SCH (09:00)
[2021-07-30] MEDS ORDERED: Enoxaparin Sodium 40 MG/0.4 ML SYRINGE SC SCH (09:00)
[2021-07-30] MEDS ORDERED: Benztropine 1 MG TAB PO SCH (09:00)
[2021-07-30 12:18] VITALS: BP 148/89; TEMP 98
[2021-07-30] MEDS ORDERED: cefTRIAXone\\ROCEPHIN 2 GM in Sodium Chloride 0.9% 100 ML IVPB SCH (17:00)
[2021-07-30] MEDS ORDERED: Azithromycin 500 MG in Sodium Chloride 0.9% 250 ML 250 ML IVPB SCH (18:00)
== END 2021-07-30 15:33 | disposition home or self-care (01) | DRG 189 ==
LOC: T4-A 19:18
PROVIDERS: ADMIT Student in an Organized Health Care Education/Training Program; ATTEND Family Medicine
DX: J96.21 Acute and chronic respiratory failure with hypoxia (principal); J44.1 Chronic obstructive pulmonary disease with (acute) exacerbation; I10 Essential (primary) hypertension; E78.5 Hyperlipidemia, unspecified; F17.210 Nicotine dependence, cigarettes, uncomplicated; F12.10 Cannabis abuse, uncomplicated; Z88.6 Allergy status to analgesic agent; Z88.5 Allergy status to narcotic agent; Z88.0 Allergy status to penicillin; Z88.8 Allergy status to other drugs, medicaments and biological substances; Z79.899 Other long term (current) drug therapy; Z79.51 Long term (current) use of inhaled steroids; Z99.81 Dependence on supplemental oxygen; Z90.49 Acquired absence of other specified parts of digestive tract; Z90.721 Acquired absence of ovaries, unilateral; Z71.51 Drug abuse counseling and surveillance of drug abuser; Z71.6 Tobacco abuse counseling
CPT/HCPCS: 36415; 80048; 85025; 87804; 94640; J1650; J2920; J7620

== ENCOUNTER 2021-07-31 16:01 | Inpatient (IN) | payer MEDICARE, MEDICAID ==
[2021-07-31] MEDS ORDERED: Magnesium 2 GM/50 ML BAG (IN WATER) ONE (18:24)
[2021-07-31] MEDS ORDERED: methylPREDNISolone Sod Succ/PF 125 MG/2 ML VIAL ONE ×3 (18:24→18:30)
[2021-07-31 21:49] LABS: #Basophils 0.1 thou/uL (0.0-0.2); #Eosinphils 0.1 thou/uL (0.0-0.7); #Lymphocytes 3.4 thou/uL (1.20-3.40); #Neutrophils 10.1 thou/uL (1.40-6.50); %Basophils 0.9 % (0.0-1.0); %Eosinophils 0.4 % (0.0-10.0); %Lymphocytes 23.1 % (21.0-51.0); %Monocytes 6.8 % (0.0-10.0); %Neutrophils 68.7 % (42.0-75.0); Hemoglobin 14.5 g/dL (12.0-16.0); Mean Corpuscular HGB CONC 31.5 g/dL (32.0-36.0); Mean Corpuscular Hemoglobin 31.2 pg (27.0-31.0); Mean Platelet Volume 7.2 fL (7.4-10.4); Platelet Count 327 thou/uL (130-400); RBC Distribution Width 11.7 % (11.5-14.5); Red Blood Cell (RBC) Count 4.67 mill/uL (4.20-5.40); White Blood Cell (WBC) Count 14.7 thou/uL (4.8-10.8)
[2021-07-31] MEDS ORDERED: Acetaminophen 325 MG TAB PO PRN (23:28)
[2021-07-31] MEDS ORDERED: Ondansetron PF 4 MG/2 ML Vial IVP PRN (23:28)
[2021-07-31] MEDS ORDERED: Acetaminophen 650 MG Suppository PR PRN (23:28)
[2021-07-31] MEDS ORDERED: Ondansetron ODT 4 MG TAB PO PRN (23:28)
[2021-08-01 08:43] LABS: Anion Gap 15 mmol/L (10-20); BUN (Urea Nitrogen) 16 mg/dL (9.8-20.1); Calc. Creatinine Clearance 0 mL/min (70-130); Carbon Dioxide 24 mmol/L (23-31); Chloride 106 mmol/L (98-107); Potassium 4.2 mmol/L (3.5-5.1); Sodium 141 mmol/L (136-145)
[2021-08-01 08:44] LABS: ALT (SGPT) 15 U/L (8-55); AST (SGOT) 21 U/L (5-34); Albumin 3.9 g/dL (3.4-4.8); Alkaline Phosphatase 67 U/L (40-110); Bilirubin, Total 0.5 mg/dL (0.2-1.2); Calcium 9.2 mg/dL (7.8-10.44); Globulin 2.2 g/dL (2.4-3.5); Glucose 71 mg/dL (83-110); Lipase 20 U/L (8-78); Protein, Total 6.1 g/dL (5.8-8.1); Troponin I 0.018 ng/mL (< 0.028)
[2021-08-01] MEDS: Enoxaparin Sodium 40 MG/0.4 ML SYRINGE SC SCH (10:00)
[2021-08-01] MEDS: Azithromycin 500 MG in Sodium Chloride 0.9% 250 ML 250 ML IVPB SCH (10:34)
[2021-08-01] MEDS: methylPREDNISolone Sod Succ 40 MG VIAL IVP SCH (10:34)
[2021-08-01 11:17] VITALS: BMI 16.5
[2021-08-01 14:57] LABS: #Basophils 0.1 thou/uL (0.0-0.2); #Monocytes 1.3 thou/uL (0.11-0.59); #Neutrophils 8.5 thou/uL (1.40-6.50); %Basophils 0.7 % (0.0-1.0); %Eosinophils 0.4 % (0.0-10.0); %Lymphocytes 22.8 % (21.0-51.0); %Monocytes 10.3 % (0.0-10.0); %Neutrophils 65.9 % (42.0-75.0); Hemoglobin 14.1 g/dL (12.0-16.0); Mean Corpuscular HGB CONC 31.7 g/dL (32.0-36.0); Mean Corpuscular Hemoglobin 31.2 pg (27.0-31.0); Mean Corpuscular Volume 98.4 fL (78.0-98.0); Mean Platelet Volume 6.6 fL (7.4-10.4); Platelet Count 317 thou/uL (130-400); RBC Distribution Width 11.4 % (11.5-14.5); Red Blood Cell (RBC) Count 4.53 mill/uL (4.20-5.40); White Blood Cell (WBC) Count 12.9 thou/uL (4.8-10.8)
[2021-08-01 15:19] LABS: Anion Gap 13 mmol/L (10-20); BUN (Urea Nitrogen) 24 mg/dL (9.8-20.1); Calc. Creatinine Clearance 48 mL/min (70-130); Calcium 9.6 mg/dL (7.8-10.44); Carbon Dioxide 27 mmol/L (23-31); Chloride 103 mmol/L (98-107); Glucose 95 mg/dL (83-110); Potassium 4.9 mmol/L (3.5-5.1); Sodium 138 mmol/L (136-145)
[2021-08-01] MEDS ORDERED: Propranolol 10 MG TAB PO PRN (22:07)
[2021-08-02] MEDS: Azithromycin 500 MG in Sodium Chloride 0.9% 250 ML 250 ML IVPB SCH ×2 (00:03→23:34)
[2021-08-02] MEDS: methylPREDNISolone Sod Succ 40 MG VIAL IVP SCH ×2 (00:03→23:31)
[2021-08-02] MEDS: Nicotine 21 MG PATCH TD SCH ×2 (00:03→21:19)
[2021-08-02] MEDS: Mometasone 200 MCG/Formoterol 5 MCG 120 PUFF INHALER INH SCH ×2 (07:47→20:03)
[2021-08-02] MEDS: FLUoxetine HCl 20 MG CAP PO SCH (09:01)
[2021-08-02] MEDS: Enoxaparin Sodium 40 MG/0.4 ML SYRINGE SC SCH (09:01)
[2021-08-02] MEDS: Multivitamin W/ Minerals 1 TAB PO SCH (09:01)
[2021-08-02] MEDS: Amlodipine 5 MG TAB PO SCH (09:02)
[2021-08-02] MEDS: Lisinopril 10 MG TAB PO SCH (09:02)
[2021-08-02] MEDS: Benztropine 1 MG TAB PO SCH ×3 (09:02→21:19)
[2021-08-02] MEDS: Cholecalciferol 1,000 UNITS (25 MCG) TAB PO SCH (09:07)
[2021-08-02] MEDS ORDERED: traMADol HCl 50 MG TAB PO SCH (17:00)
[2021-08-02] MEDS ORDERED: traMADol HCl 50 MG TAB PO PRN (23:00)
[2021-08-03] MEDS: Mometasone 200 MCG/Formoterol 5 MCG 120 PUFF INHALER INH SCH (08:02)
[2021-08-03] MEDS: Benztropine 1 MG TAB PO SCH (08:31)
[2021-08-03] MEDS: FLUoxetine HCl 20 MG CAP PO SCH (08:32)
[2021-08-03] MEDS: Amlodipine 5 MG TAB PO SCH (08:32)
[2021-08-03] MEDS: Multivitamin W/ Minerals 1 TAB PO SCH (08:32)
[2021-08-03] MEDS: Lisinopril 10 MG TAB PO SCH (08:32)
[2021-08-03] MEDS: Enoxaparin Sodium 40 MG/0.4 ML SYRINGE SC SCH (08:32)
[2021-08-03] MEDS: Cholecalciferol 1,000 UNITS (25 MCG) TAB PO SCH (08:32)
[2021-08-03 08:33] VITALS: BP 121/70
[2021-08-03 09:14] VITALS: TEMP 98.1
[2021-08-03] MEDS ORDERED: Azithromycin 250 MG TAB PO SCH (21:00)
== END 2021-08-03 17:27 | disposition home or self-care (01) | DRG 189 ==
LOC: ERS 16:01 → ONC 22:39 → OBSVTOIN 08-02 16:34
PROVIDERS: ADMIT Student in an Organized Health Care Education/Training Program; ATTEND Family Medicine
DX: J96.21 Acute and chronic respiratory failure with hypoxia (principal); J44.1 Chronic obstructive pulmonary disease with (acute) exacerbation; I10 Essential (primary) hypertension; E78.5 Hyperlipidemia, unspecified; F17.210 Nicotine dependence, cigarettes, uncomplicated; D72.829 Elevated white blood cell count, unspecified; F41.9 Anxiety disorder, unspecified; F31.9 Bipolar disorder, unspecified; Z88.0 Allergy status to penicillin; Z88.8 Allergy status to other drugs, medicaments and biological substances; Z79.51 Long term (current) use of inhaled steroids; Z79.899 Other long term (current) drug therapy; Z90.49 Acquired absence of other specified parts of digestive tract
CPT/HCPCS: 36415; 71045; 80048; 80053; 83690; 84484; 85025; 94640; 96365; 96366; 96372; 96375; G0378; J0456; J1650; J2920; J2930; J3475; J7050; J7620

== ENCOUNTER 2021-08-22 00:07 | Emergency (ER) | payer MEDICARE, MEDICAID ==
[2021-08-22] MEDS ORDERED: predniSONE 20 MG TAB ONE (00:52)
[2021-08-22] MEDS ORDERED: Albuterol 200 PUFF (6.7GM INHALER) ONE (01:19)
== END 2021-08-22 03:15 | disposition home or self-care (01) ==
LOC: ERS 00:07
DX: J44.1 Chronic obstructive pulmonary disease with (acute) exacerbation (principal); I10 Essential (primary) hypertension; E78.5 Hyperlipidemia, unspecified; F17.210 Nicotine dependence, cigarettes, uncomplicated
CPT/HCPCS: 71045; 94640; 94664; J7512; J7620

== ENCOUNTER 2021-09-28 19:50 | Observation (INO) | payer MEDICARE, MEDICAID ==
[2021-09-28] MEDS ORDERED: Albuterol Sulfate 1.25 MG/3 ML NEB ONE (20:21)
[2021-09-28] MEDS ORDERED: Magnesium 2 GM/50 ML BAG (IN WATER) ONE (20:21)
[2021-09-28 20:53] LABS: #Basophils 0.1 thou/uL (0.0-0.2); #Eosinphils 0.1 thou/uL (0.0-0.7); #Lymphocytes 1.8 thou/uL (1.20-3.40); #Monocytes 0.4 thou/uL (0.11-0.59); #Neutrophils 7.9 thou/uL (1.40-6.50); %Basophils 0.5 % (0.0-1.0); %Eosinophils 0.9 % (0.0-10.0); %Lymphocytes 17.8 % (21.0-51.0); %Neutrophils 76.8 % (42.0-75.0); Hemoglobin 15.2 g/dL (12.0-16.0); Mean Corpuscular HGB CONC 32.9 g/dL (32.0-36.0); Mean Corpuscular Hemoglobin 32.5 pg (27.0-31.0); Mean Corpuscular Volume 98.9 fL (78.0-98.0); Mean Platelet Volume 6.6 fL (7.4-10.4); Platelet Count 249 thou/uL (130-400); RBC Distribution Width 11.4 % (11.5-14.5); Red Blood Cell (RBC) Count 4.67 mill/uL (4.20-5.40); White Blood Cell (WBC) Count 10.3 thou/uL (4.8-10.8)
[2021-09-28 21:08] LABS: ALT (SGPT) 9 U/L (8-55); AST (SGOT) 15 U/L (5-34); Albumin 3.9 g/dL (3.4-4.8); Alkaline Phosphatase 65 U/L (40-110); Anion Gap 14 mmol/L (10-20); BUN (Urea Nitrogen) 16 mg/dL (9.8-20.1); Bilirubin, Total 0.4 mg/dL (0.2-1.2); Calc. Creatinine Clearance 0 mL/min (70-130); Calcium 9.1 mg/dL (7.8-10.44); Carbon Dioxide 24 mmol/L (23-31); Chloride 108 mmol/L (98-107); Globulin 2.1 g/dL (2.4-3.5); Glucose 96 mg/dL (83-110); Potassium 4.3 mmol/L (3.5-5.1); Sodium 142 mmol/L (136-145)
[2021-09-28] MEDS ORDERED: HYDROcodone/Acetaminophen 5/325 mg Tablet ONE (22:50)
[2021-09-29 01:17] VITALS: BMI 17.9
[2021-09-29] MEDS ORDERED: Ondansetron PF 4 MG/2 ML Vial IVP PRN (04:46)
[2021-09-29] MEDS ORDERED: Acetaminophen 325 MG TAB PO PRN (04:46)
[2021-09-29 07:22] LABS: #Lymphocytes 0.9 thou/uL (1.20-3.40); #Monocytes 0.2 thou/uL (0.11-0.59); #Neutrophils 4.4 thou/uL (1.40-6.50); %Basophils 0.3 % (0.0-1.0); %Eosinophils 0.1 % (0.0-10.0); %Lymphocytes 16.7 % (21.0-51.0); %Monocytes 2.9 % (0.0-10.0); Hemoglobin 14.4 g/dL (12.0-16.0); Mean Corpuscular Hemoglobin 32.4 pg (27.0-31.0); Mean Corpuscular Volume 98.1 fL (78.0-98.0); Mean Platelet Volume 7.1 fL (7.4-10.4); Platelet Count 243 thou/uL (130-400); RBC Distribution Width 11.4 % (11.5-14.5); Red Blood Cell (RBC) Count 4.45 mill/uL (4.20-5.40); White Blood Cell (WBC) Count 5.5 thou/uL (4.8-10.8)
[2021-09-29 07:39] LABS: Anion Gap 15 mmol/L (10-20); BUN (Urea Nitrogen) 20 mg/dL (9.8-20.1); Calc. Creatinine Clearance 53 mL/min (70-130); Calcium 9.5 mg/dL (7.8-10.44); Carbon Dioxide 21 mmol/L (23-31); Chloride 103 mmol/L (98-107); Glucose 215 mg/dL (83-110); Potassium 4.8 mmol/L (3.5-5.1); Sodium 134 mmol/L (136-145)
[2021-09-29] MEDS ORDERED: Non-Formulary Item 1 EACH (Albuterol Sulfate [Proair Hfa] 8.5 GM Hfa.Aer.Ad) INH PRN (08:19)
[2021-09-29] MEDS ORDERED: Albuterol 200 PUFF (6.7GM INHALER) INH PRN (08:50)
[2021-09-29] MEDS ORDERED: Propranolol 10 MG TAB PO PRN (08:53)
[2021-09-29] MEDS ORDERED: [UNRECOGNIZED DRUG - OTHER] PO SCH (09:00)
[2021-09-29] MEDS ORDERED: Lisinopril 20 MG TAB PO SCH (09:00)
[2021-09-29] MEDS ORDERED: Non-Formulary Item 1 EACH (Benztropine Mesylate [Benztropine Mesylate] 0.5 MG Tablet) PO SCH (09:00)
[2021-09-29] MEDS ORDERED: Non-Formulary Item 1 EACH (Cholecalciferol (Vitamin D3) [Vitamin D3] 2,000 UNIT Capsule) PO SCH (09:00)
[2021-09-29] MEDS: FLUoxetine HCl 20 MG CAP PO SCH (09:02)
[2021-09-29] MEDS: Benztropine 1 MG TAB PO SCH ×2 (09:02→22:37)
[2021-09-29] MEDS: Vit A,C & E/Lutein/Minerals Tablet PO SCH (09:02)
[2021-09-29] MEDS: predniSONE 20 MG TAB PO SCH (09:02)
[2021-09-29] MEDS: Amlodipine 5 MG TAB PO SCH (09:03)
[2021-09-29] MEDS: Lisinopril 10 MG TAB PO SCH (09:03)
[2021-09-29] MEDS: Cholecalciferol 1,000 UNITS (25 MCG) TAB PO SCH (09:03)
[2021-09-29] MEDS: Enoxaparin Sodium 40 MG/0.4 ML SYRINGE SC SCH (09:04)
[2021-09-29] MEDS: Nicotine 21 MG PATCH TD SCH (09:04)
[2021-09-29 14:20] LABS: SARS-CoV-2 PCR by NAA Not Detected (NotDetected)
[2021-09-29] MEDS: Mometasone 200 MCG/Formoterol 5 MCG 120 PUFF INHALER INH SCH (19:59)
[2021-09-30] MEDS: Mometasone 200 MCG/Formoterol 5 MCG 120 PUFF INHALER INH SCH ×2 (06:48→18:17)
[2021-09-30 07:04] LABS: #Monocytes 0.6 thou/uL (0.11-0.59); #Neutrophils 5.4 thou/uL (1.40-6.50); %Basophils 0.3 % (0.0-1.0); %Eosinophils 0.2 % (0.0-10.0); %Lymphocytes 33.4 % (21.0-51.0); %Monocytes 6.2 % (0.0-10.0); %Neutrophils 59.8 % (42.0-75.0); Hemoglobin 13.6 g/dL (12.0-16.0); Mean Corpuscular Hemoglobin 32.4 pg (27.0-31.0); Mean Corpuscular Volume 98.1 fL (78.0-98.0); Mean Platelet Volume 6.9 fL (7.4-10.4); Platelet Count 240 thou/uL (130-400); RBC Distribution Width 11.4 % (11.5-14.5)
[2021-09-30 07:20] LABS: Anion Gap 11 mmol/L (10-20); BUN (Urea Nitrogen) 21 mg/dL (9.8-20.1); Calc. Creatinine Clearance 53 mL/min (70-130); Calcium 9.6 mg/dL (7.8-10.44); Carbon Dioxide 27 mmol/L (23-31); Chloride 103 mmol/L (98-107); Glucose 93 mg/dL (83-110); Potassium 4.2 mmol/L (3.5-5.1); Sodium 137 mmol/L (136-145)
[2021-09-30] MEDS: Vit A,C & E/Lutein/Minerals Tablet PO SCH (07:56)
[2021-09-30] MEDS: predniSONE 20 MG TAB PO SCH (07:56)
[2021-09-30] MEDS: Benztropine 1 MG TAB PO SCH (07:56)
[2021-09-30] MEDS: Lisinopril 10 MG TAB PO SCH (07:57)
[2021-09-30] MEDS: Amlodipine 5 MG TAB PO SCH (07:57)
[2021-09-30] MEDS: Cholecalciferol 1,000 UNITS (25 MCG) TAB PO SCH (07:57)
[2021-09-30] MEDS: FLUoxetine HCl 20 MG CAP PO SCH (07:57)
[2021-09-30] MEDS: Enoxaparin Sodium 40 MG/0.4 ML SYRINGE SC SCH (07:58)
[2021-09-30] MEDS: Nicotine 21 MG PATCH TD SCH (07:58)
[2021-09-30 08:42] VITALS: BP 147/74; TEMP 98.6
== END 2021-09-30 18:24 | disposition home or self-care (01) ==
LOC: ERS 19:50 → T4-A 22:35
PROVIDERS: ADMIT Internal Medicine; ATTEND Internal Medicine
DX: J44.1 Chronic obstructive pulmonary disease with (acute) exacerbation (principal); J96.21 Acute and chronic respiratory failure with hypoxia; I10 Essential (primary) hypertension; F17.210 Nicotine dependence, cigarettes, uncomplicated; E78.5 Hyperlipidemia, unspecified; Z79.52 Long term (current) use of systemic steroids; Z79.899 Other long term (current) drug therapy; Z88.0 Allergy status to penicillin; Z88.5 Allergy status to narcotic agent; Z88.6 Allergy status to analgesic agent; Z88.8 Allergy status to other drugs, medicaments and biological substances; Z99.81 Dependence on supplemental oxygen; Z20.822 Contact with and (suspected) exposure to COVID-19
CPT/HCPCS: 71045; 80048 ×2; 80053; 83880; 84484; 85025 ×3; 93005; 94640 ×5; 96365; 96372 ×2; 96375; 99285; G0378 ×4; U0003; U0005; 36415; J1650; J2405; J3475; J7512; J7620

== ENCOUNTER 2021-11-11 18:58 | Inpatient (IN) | payer MEDICARE, MEDICAID ==
[2021-11-11 22:34] VITALS: BMI 16.9
[2021-11-12] MEDS: methylPREDNISolone Sod Succ 40 MG VIAL IVP SCH ×4 (00:31→17:56)
[2021-11-12 07:10] LABS: #Lymphocytes 0.7 thou/uL (1.20-3.40); #Monocytes 0.1 thou/uL (0.11-0.59); #Neutrophils 1.8 thou/uL (1.40-6.50); %Basophils 0.5 % (0.0-1.0); %Eosinophils 0.1 % (0.0-10.0); %Lymphocytes 25.6 % (21.0-51.0); %Monocytes 2.6 % (0.0-10.0); %Neutrophils 71.1 % (42.0-75.0); Hemoglobin 14.5 g/dL (12.0-16.0); Mean Corpuscular HGB CONC 32.4 g/dL (32.0-36.0); Mean Corpuscular Hemoglobin 31.6 pg (27.0-31.0); Mean Corpuscular Volume 97.4 fL (78.0-98.0); Mean Platelet Volume 6.6 fL (7.4-10.4); Platelet Count 220 thou/uL (130-400); RBC Distribution Width 11.4 % (11.5-14.5); White Blood Cell (WBC) Count 2.6 thou/uL (4.8-10.8)
[2021-11-12] MEDS ORDERED: Propranolol HCl 20 MG TAB PO PRN (07:11)
[2021-11-12 07:23] LABS: Anion Gap 14 mmol/L (10-20); BUN (Urea Nitrogen) 18 mg/dL (9.8-20.1); Calc. Creatinine Clearance 56 mL/min (70-130); Calcium 9.5 mg/dL (7.8-10.44); Carbon Dioxide 26 mmol/L (23-31); Chloride 100 mmol/L (98-107); Glucose 176 mg/dL (83-110); Potassium 4.3 mmol/L (3.5-5.1); Sodium 136 mmol/L (136-145)
[2021-11-12] MEDS ORDERED: Propranolol 10 MG TAB PO PRN (07:44)
[2021-11-12] MEDS ORDERED: Lisinopril 20 MG TAB PO SCH (09:00)
[2021-11-12] MEDS ORDERED: Non-Formulary Item 1 EACH (Benztropine Mesylate [Benztropine Mesylate] 0.5 MG Tablet) PO SCH (09:00)
[2021-11-12] MEDS ORDERED: [UNRECOGNIZED DRUG - OTHER] PO SCH (09:00)
[2021-11-12] MEDS ORDERED: Atorvastatin Calcium 10 MG TAB PO SCH ×2 (09:00→10:00)
[2021-11-12] MEDS: Benztropine 1 MG TAB PO SCH ×2 (09:28→21:20)
[2021-11-12] MEDS: Amlodipine 5 MG TAB PO SCH (09:30)
[2021-11-12] MEDS: Famotidine 20 MG TAB PO SCH ×2 (09:32→21:20)
[2021-11-12] MEDS: Montelukast Sodium 10 mg Tablet PO SCH (09:32)
[2021-11-12] MEDS: Multivitamin W/ Minerals 1 TAB PO SCH (09:32)
[2021-11-12] MEDS: Lisinopril 10 MG TAB PO SCH (09:33)
[2021-11-12] MEDS: guaiFENesin/DM ER PO SCH ×2 (09:34→21:20)
[2021-11-12] MEDS: Nicotine 14 MG PATCH TD SCH (09:34)
[2021-11-12] MEDS: Enoxaparin Sodium 40 MG/0.4 ML SYRINGE SC SCH (09:35)
[2021-11-12] MEDS ORDERED: Cepastat Lozenges 1 LOZ PO PRN (12:48)
[2021-11-12] MEDS: Acetaminophen 325 MG TAB PO PRN (15:01)
[2021-11-12] MEDS: Benzonatate 100 MG CAP PO SCH ×2 (15:01→21:20)
[2021-11-12] MEDS: Ondansetron PF 4 MG/2 ML Vial IVP PRN (18:18)
[2021-11-12] MEDS: Ketorolac Tromethamine 30 MG/ML VIAL IVP PRN (18:32)
[2021-11-13] MEDS: methylPREDNISolone Sod Succ 40 MG VIAL IVP SCH ×4 (02:14→20:34)
[2021-11-13] MEDS: Ketorolac Tromethamine 30 MG/ML VIAL IVP PRN ×2 (02:14→08:54)
[2021-11-13] MEDS ORDERED: Melatonin 3 MG TAB PO SCH (03:45)
[2021-11-13 06:46] LABS: #Monocytes 0.5 thou/uL (0.11-0.59); #Neutrophils 8.4 thou/uL (1.40-6.50); %Eosinophils 0.1 % (0.0-10.0); %Lymphocytes 9.7 % (21.0-51.0); %Monocytes 5.3 % (0.0-10.0); %Neutrophils 84.9 % (42.0-75.0); Hemoglobin 13.7 g/dL (12.0-16.0); Mean Corpuscular HGB CONC 33.2 g/dL (32.0-36.0); Mean Corpuscular Hemoglobin 32.4 pg (27.0-31.0); Mean Corpuscular Volume 97.7 fL (78.0-98.0); Mean Platelet Volume 6.8 fL (7.4-10.4); Platelet Count 250 thou/uL (130-400); RBC Distribution Width 11.4 % (11.5-14.5); Red Blood Cell (RBC) Count 4.22 mill/uL (4.20-5.40); White Blood Cell (WBC) Count 9.9 thou/uL (4.8-10.8)
[2021-11-13 07:05] LABS: Anion Gap 11 mmol/L (10-20); BUN (Urea Nitrogen) 39 mg/dL (9.8-20.1); Calc. Creatinine Clearance 44 mL/min (70-130); Calcium 9.8 mg/dL (7.8-10.44); Carbon Dioxide 28 mmol/L (23-31); Chloride 104 mmol/L (98-107); Glucose 122 mg/dL (83-110); Potassium 4.7 mmol/L (3.5-5.1); Sodium 138 mmol/L (136-145)
[2021-11-13] MEDS: Nicotine 14 MG PATCH TD SCH (08:17)
[2021-11-13] MEDS: Amlodipine 5 MG TAB PO SCH (08:18)
[2021-11-13] MEDS: Benztropine 1 MG TAB PO SCH ×2 (08:22→20:32)
[2021-11-13] MEDS: Montelukast Sodium 10 mg Tablet PO SCH (08:24)
[2021-11-13] MEDS: Benzonatate 100 MG CAP PO SCH ×3 (08:24→20:31)
[2021-11-13] MEDS: Famotidine 20 MG TAB PO SCH ×2 (08:24→20:33)
[2021-11-13] MEDS: Lisinopril 10 MG TAB PO SCH (08:24)
[2021-11-13] MEDS: Multivitamin W/ Minerals 1 TAB PO SCH (08:24)
[2021-11-13] MEDS: guaiFENesin/DM ER PO SCH ×2 (08:25→20:33)
[2021-11-13] MEDS: Atorvastatin Calcium 20 MG TAB PO SCH (08:25)
[2021-11-13] MEDS: Enoxaparin Sodium 40 MG/0.4 ML SYRINGE SC SCH (08:26)
[2021-11-13] MEDS: Ondansetron PF 4 MG/2 ML Vial IVP PRN (14:05)
[2021-11-13] MEDS ORDERED: diphenhydrAMINE 25 MG CAP PO SCH (21:14)
[2021-11-14] MEDS: methylPREDNISolone Sod Succ 40 MG VIAL IVP SCH ×3 (06:33→21:26)
[2021-11-14 07:03] LABS: Anion Gap 12 mmol/L (10-20); BUN (Urea Nitrogen) 33 mg/dL (9.8-20.1); Calc. Creatinine Clearance 52 mL/min (70-130); Calcium 9.8 mg/dL (7.8-10.44); Carbon Dioxide 30 mmol/L (23-31); Chloride 102 mmol/L (98-107); Glucose 117 mg/dL (83-110); Potassium 4.6 mmol/L (3.5-5.1); Sodium 139 mmol/L (136-145)
[2021-11-14 07:14] LABS: #Lymphocytes 1.5 thou/uL (1.20-3.40); #Monocytes 1.1 thou/uL (0.11-0.59); #Neutrophils 10.4 thou/uL (1.40-6.50); %Eosinophils 0.4 % (0.0-10.0); %Lymphocytes 11.3 % (21.0-51.0); %Monocytes 8.6 % (0.0-10.0); %Neutrophils 79.7 % (42.0-75.0); Hemoglobin 14.2 g/dL (12.0-16.0); Mean Corpuscular HGB CONC 32.3 g/dL (32.0-36.0); Mean Corpuscular Hemoglobin 31.6 pg (27.0-31.0); Mean Corpuscular Volume 97.7 fL (78.0-98.0); Mean Platelet Volume 6.9 fL (7.4-10.4); Platelet Count 297 thou/uL (130-400); RBC Distribution Width 11.5 % (11.5-14.5); Red Blood Cell (RBC) Count 4.48 mill/uL (4.20-5.40); White Blood Cell (WBC) Count 13.1 thou/uL (4.8-10.8)
[2021-11-14] MEDS: Ondansetron PF 4 MG/2 ML Vial IVP PRN (08:51)
[2021-11-14] MEDS: Enoxaparin Sodium 30 MG/0.3 ML SYRINGE SC SCH (08:54)
[2021-11-14] MEDS ORDERED: Lorazepam 0.5 MG TAB PO PRN (09:35)
[2021-11-14] MEDS: Montelukast Sodium 10 mg Tablet PO SCH (10:15)
[2021-11-14] MEDS: Lisinopril 10 MG TAB PO SCH (10:15)
[2021-11-14] MEDS: Benzonatate 100 MG CAP PO SCH ×3 (10:15→21:29)
[2021-11-14] MEDS: Famotidine 20 MG TAB PO SCH ×2 (10:15→21:40)
[2021-11-14] MEDS: Atorvastatin Calcium 20 MG TAB PO SCH (10:16)
[2021-11-14] MEDS: guaiFENesin/DM ER PO SCH ×2 (10:16→21:29)
[2021-11-14] MEDS: Amlodipine 5 MG TAB PO SCH (10:16)
[2021-11-14] MEDS: Multivitamin W/ Minerals 1 TAB PO SCH (10:16)
[2021-11-14] MEDS: Benztropine 1 MG TAB PO SCH ×2 (10:16→21:28)
[2021-11-14] MEDS: Nicotine 14 MG PATCH TD SCH (10:24)
[2021-11-14] MEDS ORDERED: Nicotine 14 MG PATCH TD PRN (19:27)
[2021-11-14] MEDS: Doxycycline 100 MG CAP PO SCH (21:28)
[2021-11-15] MEDS: Polyethylene Glycol 3350 17 GM Packet PO PRN (04:33)
[2021-11-15] MEDS: methylPREDNISolone Sod Succ 40 MG VIAL IVP SCH ×2 (05:30→14:23)
[2021-11-15] MEDS: Acetaminophen 325 MG TAB PO PRN (08:44)
[2021-11-15] MEDS: Doxycycline 100 MG CAP PO SCH ×2 (08:44→20:18)
[2021-11-15] MEDS: guaiFENesin/DM ER PO SCH ×2 (08:44→20:18)
[2021-11-15] MEDS: Benztropine 1 MG TAB PO SCH ×2 (08:45→20:18)
[2021-11-15] MEDS: Montelukast Sodium 10 mg Tablet PO SCH (08:45)
[2021-11-15] MEDS: Lisinopril 10 MG TAB PO SCH (08:45)
[2021-11-15] MEDS: Atorvastatin Calcium 20 MG TAB PO SCH (08:45)
[2021-11-15] MEDS: Benzonatate 100 MG CAP PO SCH ×3 (08:45→20:18)
[2021-11-15] MEDS: Enoxaparin Sodium 30 MG/0.3 ML SYRINGE SC SCH (08:46)
[2021-11-15] MEDS: Multivitamin W/ Minerals 1 TAB PO SCH (08:46)
[2021-11-15] MEDS: Amlodipine 5 MG TAB PO SCH (08:46)
[2021-11-15] MEDS: Famotidine 20 MG TAB PO SCH ×2 (11:58→20:53)
[2021-11-15] MEDS: predniSONE 20 MG TAB PO SCH (17:03)
[2021-11-15] MEDS ORDERED: Loratadine 10 MG TAB PO SCH (21:00)
[2021-11-16] MEDS ORDERED: GUAIFENESIN SF SOLN 200 MG/10 ML UDCUP PO SCH (00:15)
[2021-11-16] MEDS: predniSONE 20 MG TAB PO SCH (07:56)
[2021-11-16] MEDS: guaiFENesin/DM ER PO SCH (07:56)
[2021-11-16] MEDS: Amlodipine 5 MG TAB PO SCH (07:56)
[2021-11-16] MEDS: Benzonatate 100 MG CAP PO SCH (07:56)
[2021-11-16] MEDS: Lisinopril 10 MG TAB PO SCH (07:56)
[2021-11-16] MEDS: Doxycycline 100 MG CAP PO SCH (07:56)
[2021-11-16] MEDS: Montelukast Sodium 10 mg Tablet PO SCH (07:57)
[2021-11-16] MEDS: Benztropine 1 MG TAB PO SCH (07:57)
[2021-11-16] MEDS: Atorvastatin Calcium 20 MG TAB PO SCH (07:57)
[2021-11-16] MEDS: Multivitamin W/ Minerals 1 TAB PO SCH (07:57)
[2021-11-16] MEDS: Famotidine 20 MG TAB PO SCH (07:58)
[2021-11-16] MEDS: Polyethylene Glycol 3350 17 GM Packet PO PRN (10:27)
[2021-11-16 14:27] VITALS: BP 123/79; TEMP 97.5
== END 2021-11-16 14:23 | disposition home or self-care (01) | DRG 189 ==
LOC: T4-B 22:27
PROVIDERS: ADMIT Internal Medicine; ATTEND Internal Medicine
DX: J96.21 Acute and chronic respiratory failure with hypoxia (principal); J44.1 Chronic obstructive pulmonary disease with (acute) exacerbation; Z20.822 Contact with and (suspected) exposure to COVID-19; F17.210 Nicotine dependence, cigarettes, uncomplicated; I12.9 Hypertensive chronic kidney disease with stage 1 through stage 4 chronic kidney disease, or unspecified chronic kidney disease; E78.5 Hyperlipidemia, unspecified; F31.9 Bipolar disorder, unspecified; F51.04 Psychophysiologic insomnia; F41.9 Anxiety disorder, unspecified; N18.2 Chronic kidney disease, stage 2 (mild); Z99.81 Dependence on supplemental oxygen; Z88.5 Allergy status to narcotic agent; Z88.0 Allergy status to penicillin; Z88.8 Allergy status to other drugs, medicaments and biological substances; Z79.51 Long term (current) use of inhaled steroids; Z79.52 Long term (current) use of systemic steroids; Z79.899 Other long term (current) drug therapy; Z90.710 Acquired absence of both cervix and uterus; Z90.722 Acquired absence of ovaries, bilateral; Z82.49 Family history of ischemic heart disease and other diseases of the circulatory system
CPT/HCPCS: 36415; 80048; 85025; 94640; 94760; J1650; J1885; J2405; J2920; J7512; J7620

== ENCOUNTER 2021-12-08 21:10 | Inpatient (IN) | payer MEDICARE, MEDICAID ==
[2021-12-08 23:10] VITALS: BMI 17.4
[2021-12-08] MEDS ORDERED: Enoxaparin Sodium 40 MG/0.4 ML SYRINGE SC SCH (23:30)
[2021-12-09] MEDS ORDERED: Cefepime 1 GM in Sodium Chloride 0.9% 100 ML IVPB SCH (04:00)
[2021-12-09] MEDS: methylPREDNISolone Sod Succ 40 MG VIAL IVP SCH ×3 (04:44→17:36)
[2021-12-09] MEDS ORDERED: Vancomycin 1 GM in Premix Bag 1 BAG IVPB SCH (05:00)
[2021-12-09] MEDS: Acetaminophen 325 MG TAB PO PRN (05:23)
[2021-12-09 06:19] LABS: #Lymphocytes 1.5 thou/uL (1.20-3.40); #Monocytes 0.4 thou/uL (0.11-0.59); #Neutrophils 4.3 thou/uL (1.40-6.50); %Basophils 0.1 % (0.0-1.0); %Eosinophils 0.7 % (0.0-10.0); %Lymphocytes 23.7 % (21.0-51.0); %Monocytes 6.3 % (0.0-10.0); %Neutrophils 69.3 % (42.0-75.0); Hemoglobin 12.1 g/dL (12.0-16.0); Mean Corpuscular HGB CONC 32.4 g/dL (32.0-36.0); Mean Corpuscular Volume 98.6 fL (78.0-98.0); Mean Platelet Volume 6.3 fL (7.4-10.4); Platelet Count 261 thou/uL (130-400); White Blood Cell (WBC) Count 6.1 thou/uL (4.8-10.8)
[2021-12-09 06:38] LABS: Anion Gap 11 mmol/L (10-20); BUN (Urea Nitrogen) 18 mg/dL (9.8-20.1); Calc. Creatinine Clearance 60 mL/min (70-130); Calcium 8.8 mg/dL (7.8-10.44); Carbon Dioxide 24 mmol/L (23-31); Chloride 110 mmol/L (98-107); Glucose 82 mg/dL (83-110); Potassium 3.8 mmol/L (3.5-5.1); Sodium 141 mmol/L (136-145)
[2021-12-09 07:12] LABS: SARS-CoV-2 NAA Rapid Test DETECTED (NotDetected)
[2021-12-09] MEDS ORDERED: Benzonatate 100 MG CAP PO PRN (07:36)
[2021-12-09] MEDS ORDERED: Propranolol HCl 20 MG TAB PO PRN (07:36)
[2021-12-09] MEDS ORDERED: Montelukast Sodium 10 mg Tablet PO SCH (09:00)
[2021-12-09] MEDS: Ondansetron PF 4 MG/2 ML Vial IVP PRN ×2 (09:41→21:31)
[2021-12-09] MEDS: Montelukast Sodium 10 mg Tablet PO SCH (09:43)
[2021-12-09] MEDS: Cholecalciferol 1,000 UNITS (25 MCG) TAB PO SCH (09:44)
[2021-12-09] MEDS: Famotidine 20 MG TAB PO SCH ×2 (09:44→20:48)
[2021-12-09] MEDS: Vit A,C & E/Lutein/Minerals Tablet PO SCH (09:44)
[2021-12-09] MEDS: Benztropine 1 MG TAB PO SCH ×2 (09:45→20:47)
[2021-12-09] MEDS: Amlodipine 5 MG TAB PO SCH (09:45)
[2021-12-09] MEDS: Ascorbic Acid 500 mg Chewable Tablet PO SCH (09:46)
[2021-12-09] MEDS: Lisinopril 20 MG TAB PO SCH (09:46)
[2021-12-09] MEDS: Zinc Sulfate 220 MG CAP PO SCH (09:46)
[2021-12-09] MEDS ORDERED: Albuterol 200 PUFF (6.7GM INHALER) INH PRN (10:15)
[2021-12-09] MEDS: Albuterol 200 PUFF (6.7GM INHALER) INH SCH ×4 (11:38→20:50)
[2021-12-09] MEDS ORDERED: Melatonin 3 MG TAB PO PRN (12:18)
[2021-12-09] MEDS: Mometasone 100 MCG/PUFF (1 INHALER) INH SCH (18:30)
[2021-12-09] MEDS: Atorvastatin Calcium 20 MG TAB PO SCH (20:48)
[2021-12-09] MEDS ORDERED: Lorazepam 0.5 MG TAB PO SCH (21:51)
[2021-12-10] MEDS: methylPREDNISolone Sod Succ 40 MG VIAL IVP SCH ×5 (00:15→23:35)
[2021-12-10] MEDS: Albuterol 200 PUFF (6.7GM INHALER) INH SCH ×6 (02:30→23:33)
[2021-12-10] MEDS: Mometasone 100 MCG/PUFF (1 INHALER) INH SCH ×2 (05:27→18:01)
[2021-12-10 07:20] LABS: #Lymphocytes 0.6 thou/uL (1.20-3.40); #Monocytes 0.3 thou/uL (0.11-0.59); #Neutrophils 3.7 thou/uL (1.40-6.50); %Basophils 0.5 % (0.0-1.0); %Eosinophils 0.1 % (0.0-10.0); %Lymphocytes 13.7 % (21.0-51.0); %Monocytes 5.6 % (0.0-10.0); %Neutrophils 80.1 % (42.0-75.0); Hemoglobin 13.1 g/dL (12.0-16.0); Mean Corpuscular HGB CONC 32.2 g/dL (32.0-36.0); Mean Corpuscular Volume 99.4 fL (78.0-98.0); Mean Platelet Volume 6.2 fL (7.4-10.4); Platelet Count 259 thou/uL (130-400); RBC Distribution Width 11.9 % (11.5-14.5); Red Blood Cell (RBC) Count 4.09 mill/uL (4.20-5.40); White Blood Cell (WBC) Count 4.6 thou/uL (4.8-10.8)
[2021-12-10 07:34] LABS: Anion Gap 12 mmol/L (10-20); BUN (Urea Nitrogen) 14 mg/dL (9.8-20.1); Calc. Creatinine Clearance 56 mL/min (70-130); Calcium 9.2 mg/dL (7.8-10.44); Carbon Dioxide 23 mmol/L (23-31); Chloride 104 mmol/L (98-107); Glucose 133 mg/dL (83-110); Potassium 4.3 mmol/L (3.5-5.1); Sodium 135 mmol/L (136-145)
[2021-12-10] MEDS: Cholecalciferol 1,000 UNITS (25 MCG) TAB PO SCH (08:31)
[2021-12-10] MEDS: Benztropine 1 MG TAB PO SCH ×2 (08:32→20:57)
[2021-12-10] MEDS: Famotidine 20 MG TAB PO SCH ×2 (08:32→20:57)
[2021-12-10] MEDS: Vit A,C & E/Lutein/Minerals Tablet PO SCH (08:33)
[2021-12-10] MEDS: Lisinopril 20 MG TAB PO SCH (08:33)
[2021-12-10] MEDS: Ascorbic Acid 500 mg Chewable Tablet PO SCH (08:34)
[2021-12-10] MEDS: Amlodipine 5 MG TAB PO SCH (08:35)
[2021-12-10] MEDS: Enoxaparin Sodium 40 MG/0.4 ML SYRINGE SC SCH (08:35)
[2021-12-10] MEDS: Montelukast Sodium 10 mg Tablet PO SCH (08:35)
[2021-12-10] MEDS: Zinc Sulfate 220 MG CAP PO SCH (08:35)
[2021-12-10] MEDS: Atorvastatin Calcium 20 MG TAB PO SCH (20:58)
[2021-12-10] MEDS: Melatonin 3 MG TAB PO SCH (20:58)
[2021-12-10] MEDS ORDERED: diphenhydrAMINE 25 MG CAP PO SCH (22:15)
[2021-12-11] MEDS: Albuterol 200 PUFF (6.7GM INHALER) INH SCH ×7 (02:27→22:34)
[2021-12-11] MEDS: methylPREDNISolone Sod Succ 40 MG VIAL IVP SCH ×4 (05:46→21:06)
[2021-12-11] MEDS: Mometasone 100 MCG/PUFF (1 INHALER) INH SCH ×2 (05:50→18:16)
[2021-12-11 07:14] LABS: #Lymphocytes 0.8 thou/uL (1.20-3.40); #Monocytes 0.7 thou/uL (0.11-0.59); #Neutrophils 4.5 thou/uL (1.40-6.50); %Basophils 0.1 % (0.0-1.0); %Eosinophils 0.1 % (0.0-10.0); %Lymphocytes 14.1 % (21.0-51.0); %Neutrophils 74.7 % (42.0-75.0); Hemoglobin 13.7 g/dL (12.0-16.0); Mean Corpuscular Hemoglobin 32.8 pg (27.0-31.0); Mean Corpuscular Volume 99.2 fL (78.0-98.0); Mean Platelet Volume 6.2 fL (7.4-10.4); Platelet Count 300 thou/uL (130-400); RBC Distribution Width 11.9 % (11.5-14.5)
[2021-12-11 07:35] LABS: Anion Gap 13 mmol/L (10-20); BUN (Urea Nitrogen) 24 mg/dL (9.8-20.1); Calc. Creatinine Clearance 51 mL/min (70-130); Calcium 9.2 mg/dL (7.8-10.44); Carbon Dioxide 25 mmol/L (23-31); Chloride 102 mmol/L (98-107); Glucose 129 mg/dL (83-110); Potassium 4.3 mmol/L (3.5-5.1); Sodium 136 mmol/L (136-145)
[2021-12-11] MEDS: Lisinopril 20 MG TAB PO SCH (08:13)
[2021-12-11] MEDS: Cholecalciferol 1,000 UNITS (25 MCG) TAB PO SCH (08:13)
[2021-12-11] MEDS: Ascorbic Acid 500 mg Chewable Tablet PO SCH (08:14)
[2021-12-11] MEDS: Benztropine 1 MG TAB PO SCH ×2 (08:14→21:06)
[2021-12-11] MEDS: Vit A,C & E/Lutein/Minerals Tablet PO SCH (08:15)
[2021-12-11] MEDS: Amlodipine 5 MG TAB PO SCH (08:15)
[2021-12-11] MEDS: Montelukast Sodium 10 mg Tablet PO SCH (08:15)
[2021-12-11] MEDS: Zinc Sulfate 220 MG CAP PO SCH (08:15)
[2021-12-11] MEDS: Enoxaparin Sodium 40 MG/0.4 ML SYRINGE SC SCH (08:15)
[2021-12-11] MEDS: Famotidine 20 MG TAB PO SCH ×2 (08:15→21:06)
[2021-12-11] MEDS: Atorvastatin Calcium 20 MG TAB PO SCH (21:06)
[2021-12-11] MEDS: Melatonin 3 MG TAB PO SCH (21:11)
[2021-12-11] MEDS ORDERED: diphenhydrAMINE 25 MG CAP PO SCH (22:11)
[2021-12-12] MEDS: Albuterol 200 PUFF (6.7GM INHALER) INH SCH ×6 (02:04→22:46)
[2021-12-12] MEDS: methylPREDNISolone Sod Succ 40 MG VIAL IVP SCH ×3 (05:39→20:10)
[2021-12-12] MEDS: Mometasone 100 MCG/PUFF (1 INHALER) INH SCH ×2 (05:40→17:41)
[2021-12-12] MEDS: Enoxaparin Sodium 40 MG/0.4 ML SYRINGE SC SCH (08:10)
[2021-12-12] MEDS: Benztropine 1 MG TAB PO SCH ×2 (08:11→20:13)
[2021-12-12] MEDS: Zinc Sulfate 220 MG CAP PO SCH (08:11)
[2021-12-12] MEDS: Vit A,C & E/Lutein/Minerals Tablet PO SCH (08:11)
[2021-12-12] MEDS: Ascorbic Acid 500 mg Chewable Tablet PO SCH (08:12)
[2021-12-12] MEDS: Lisinopril 20 MG TAB PO SCH (08:12)
[2021-12-12] MEDS: Montelukast Sodium 10 mg Tablet PO SCH (08:12)
[2021-12-12] MEDS: Famotidine 20 MG TAB PO SCH ×2 (08:12→20:10)
[2021-12-12] MEDS: Cholecalciferol 1,000 UNITS (25 MCG) TAB PO SCH (08:13)
[2021-12-12] MEDS: Amlodipine 5 MG TAB PO SCH (08:13)
[2021-12-12] MEDS: ALPRAZolam 0.25 MG TAB PO PRN (18:37)
[2021-12-12] MEDS: Atorvastatin Calcium 20 MG TAB PO SCH (20:10)
[2021-12-12] MEDS: Sucralfate 1 GM TAB PO SCH (20:12)
[2021-12-12] MEDS: Melatonin 3 MG TAB PO SCH (20:12)
[2021-12-13] MEDS: Albuterol 200 PUFF (6.7GM INHALER) INH SCH ×6 (02:45→20:21)
[2021-12-13] MEDS: methylPREDNISolone Sod Succ 40 MG VIAL IVP SCH ×2 (06:17→14:16)
[2021-12-13] MEDS: Mometasone 100 MCG/PUFF (1 INHALER) INH SCH ×2 (06:18→17:43)
[2021-12-13] MEDS: Sucralfate 1 GM TAB PO SCH ×2 (06:19→12:11)
[2021-12-13] MEDS: Vit A,C & E/Lutein/Minerals Tablet PO SCH (08:49)
[2021-12-13] MEDS: Enoxaparin Sodium 40 MG/0.4 ML SYRINGE SC SCH (08:49)
[2021-12-13] MEDS: Cholecalciferol 1,000 UNITS (25 MCG) TAB PO SCH (08:49)
[2021-12-13] MEDS: Montelukast Sodium 10 mg Tablet PO SCH (08:49)
[2021-12-13] MEDS: Lisinopril 20 MG TAB PO SCH (08:50)
[2021-12-13] MEDS: Zinc Sulfate 220 MG CAP PO SCH (08:50)
[2021-12-13] MEDS: Benztropine 1 MG TAB PO SCH ×2 (08:50→20:18)
[2021-12-13] MEDS: Famotidine 20 MG TAB PO SCH ×2 (08:50→20:18)
[2021-12-13] MEDS: Amlodipine 5 MG TAB PO SCH (08:50)
[2021-12-13] MEDS: Ascorbic Acid 500 mg Chewable Tablet PO SCH (08:50)
[2021-12-13] MEDS: Nicotine 14 MG PATCH TD PRN (14:42)
[2021-12-13] MEDS: Dexamethasone 4 MG TAB PO SCH (17:43)
[2021-12-13] MEDS: Atorvastatin Calcium 20 MG TAB PO SCH (20:18)
[2021-12-13] MEDS: Melatonin 3 MG TAB PO SCH (20:18)
[2021-12-13] MEDS: ALPRAZolam 0.25 MG TAB PO PRN (20:19)
[2021-12-14] MEDS: Albuterol 200 PUFF (6.7GM INHALER) INH SCH ×6 (03:15→22:30)
[2021-12-14] MEDS: Mometasone 100 MCG/PUFF (1 INHALER) INH SCH ×2 (05:29→17:41)
[2021-12-14] MEDS: Benztropine 1 MG TAB PO SCH ×2 (08:46→20:06)
[2021-12-14] MEDS: Zinc Sulfate 220 MG CAP PO SCH (08:46)
[2021-12-14] MEDS: Famotidine 20 MG TAB PO SCH ×2 (08:46→20:07)
[2021-12-14] MEDS: Ascorbic Acid 500 mg Chewable Tablet PO SCH (08:46)
[2021-12-14] MEDS: Montelukast Sodium 10 mg Tablet PO SCH (08:47)
[2021-12-14] MEDS: Cholecalciferol 1,000 UNITS (25 MCG) TAB PO SCH (08:47)
[2021-12-14] MEDS: Enoxaparin Sodium 40 MG/0.4 ML SYRINGE SC SCH (08:47)
[2021-12-14] MEDS: Dexamethasone 4 MG TAB PO SCH ×2 (08:47→17:41)
[2021-12-14] MEDS: Amlodipine 5 MG TAB PO SCH (08:48)
[2021-12-14] MEDS: Lisinopril 20 MG TAB PO SCH (08:48)
[2021-12-14] MEDS: Vit A,C & E/Lutein/Minerals Tablet PO SCH (10:32)
[2021-12-14] MEDS: Acetaminophen 325 MG TAB PO PRN (13:12)
[2021-12-14] MEDS: Melatonin 3 MG TAB PO SCH (20:06)
[2021-12-14] MEDS: Atorvastatin Calcium 20 MG TAB PO SCH (20:07)
[2021-12-14] MEDS: ALPRAZolam 0.25 MG TAB PO PRN (20:07)
[2021-12-15] MEDS: Albuterol 200 PUFF (6.7GM INHALER) INH SCH ×7 (02:30→21:34)
[2021-12-15] MEDS: Mometasone 100 MCG/PUFF (1 INHALER) INH SCH ×2 (05:31→17:32)
[2021-12-15] MEDS: Enoxaparin Sodium 40 MG/0.4 ML SYRINGE SC SCH (08:07)
[2021-12-15] MEDS: Dexamethasone 4 MG TAB PO SCH ×2 (08:10→17:31)
[2021-12-15] MEDS: Zinc Sulfate 220 MG CAP PO SCH (08:10)
[2021-12-15] MEDS: Lisinopril 20 MG TAB PO SCH (08:10)
[2021-12-15] MEDS: Ascorbic Acid 500 mg Chewable Tablet PO SCH (08:10)
[2021-12-15] MEDS: Benztropine 1 MG TAB PO SCH ×2 (08:10→21:32)
[2021-12-15] MEDS: Cholecalciferol 1,000 UNITS (25 MCG) TAB PO SCH (08:10)
[2021-12-15] MEDS: Famotidine 20 MG TAB PO SCH ×2 (08:11→21:32)
[2021-12-15] MEDS: Amlodipine 5 MG TAB PO SCH (08:11)
[2021-12-15] MEDS: Montelukast Sodium 10 mg Tablet PO SCH (08:11)
[2021-12-15] MEDS: Vit A,C & E/Lutein/Minerals Tablet PO SCH (08:11)
[2021-12-15] MEDS: Atorvastatin Calcium 20 MG TAB PO SCH (21:33)
[2021-12-15] MEDS: Melatonin 3 MG TAB PO SCH (21:33)
[2021-12-16] MEDS: Albuterol 200 PUFF (6.7GM INHALER) INH SCH ×5 (02:31→17:25)
[2021-12-16] MEDS: Mometasone 100 MCG/PUFF (1 INHALER) INH SCH ×2 (06:42→17:25)
[2021-12-16] MEDS: Vit A,C & E/Lutein/Minerals Tablet PO SCH (09:00)
[2021-12-16] MEDS: Enoxaparin Sodium 40 MG/0.4 ML SYRINGE SC SCH (09:00)
[2021-12-16] MEDS: Montelukast Sodium 10 mg Tablet PO SCH (09:01)
[2021-12-16] MEDS: Ascorbic Acid 500 mg Chewable Tablet PO SCH (09:01)
[2021-12-16] MEDS: Cholecalciferol 1,000 UNITS (25 MCG) TAB PO SCH (09:02)
[2021-12-16] MEDS: Famotidine 20 MG TAB PO SCH (09:02)
[2021-12-16] MEDS: Lisinopril 20 MG TAB PO SCH (09:02)
[2021-12-16] MEDS: Zinc Sulfate 220 MG CAP PO SCH (09:02)
[2021-12-16] MEDS: Dexamethasone 4 MG TAB PO SCH ×2 (09:02→17:25)
[2021-12-16] MEDS: Amlodipine 5 MG TAB PO SCH (09:02)
[2021-12-16] MEDS: Benztropine 1 MG TAB PO SCH (09:03)
[2021-12-16] MEDS: Acetaminophen 325 MG TAB PO PRN (09:13)
[2021-12-16] MEDS: Ondansetron PF 4 MG/2 ML Vial IVP PRN (09:13)
[2021-12-16] MEDS: Nicotine 14 MG PATCH TD PRN (11:45)
[2021-12-16 16:55] VITALS: BP 111/64; TEMP 98.9
[2021-12-16] MEDS: ALPRAZolam 0.25 MG TAB PO PRN (17:25)
== END 2021-12-16 19:22 | DRG 177 ==
LOC: SURG A 22:49 → T4-A 12-09 16:02
PROVIDERS: ADMIT Internal Medicine; ATTEND Internal Medicine
PROC: 8E0ZXY6 Isolation (ICD-10-PCS; principal; 2021-12-09)
DX: U07.1 COVID-19 (principal); J12.82 Pneumonia due to coronavirus disease 2019; J96.21 Acute and chronic respiratory failure with hypoxia; J96.22 Acute and chronic respiratory failure with hypercapnia; J44.1 Chronic obstructive pulmonary disease with (acute) exacerbation; J44.0 Chronic obstructive pulmonary disease with (acute) lower respiratory infection; E44.0 Moderate protein-calorie malnutrition; Z68.1 Body mass index [BMI] 19.9 or less, adult; F17.210 Nicotine dependence, cigarettes, uncomplicated; E78.5 Hyperlipidemia, unspecified; F31.9 Bipolar disorder, unspecified; G43.909 Migraine, unspecified, not intractable, without status migrainosus; I12.9 Hypertensive chronic kidney disease with stage 1 through stage 4 chronic kidney disease, or unspecified chronic kidney disease; N18.2 Chronic kidney disease, stage 2 (mild); K21.9 Gastro-esophageal reflux disease without esophagitis; F41.9 Anxiety disorder, unspecified; R10.9 Unspecified abdominal pain; Z71.6 Tobacco abuse counseling; Z99.81 Dependence on supplemental oxygen; Z88.0 Allergy status to penicillin; Z88.8 Allergy status to other drugs, medicaments and biological substances; Z88.6 Allergy status to analgesic agent; Z90.710 Acquired absence of both cervix and uterus; Z82.49 Family history of ischemic heart disease and other diseases of the circulatory system; Z79.899 Other long term (current) drug therapy; Z79.52 Long term (current) use of systemic steroids
CPT/HCPCS: 36415; 80048; 85025; 86140; 87070; 87205; 94640; J0692; J1650; J1956; J2405; J2920; J3370; J3490; J7620; J8540; U0002

== ENCOUNTER 2022-01-02 23:27 | Inpatient (IN) | payer MEDICARE, MEDICAID ==
[2022-01-03 00:50] VITALS: BMI 19.2
[2022-01-03] MEDS ORDERED: Ondansetron PF 4 MG/2 ML Vial IVP PRN (01:52)
[2022-01-03] MEDS ORDERED: Acetaminophen 325 MG TAB PO PRN (01:52)
[2022-01-03] MEDS ORDERED: Albuterol Sulfate 2.5 mg/3 ml Neb NEB PRN (01:54)
[2022-01-03] MEDS ORDERED: Albuterol 200 PUFF (6.7GM INHALER) INH PRN (01:58)
[2022-01-03 05:55] LABS: #Lymphocytes 0.9 thou/uL (1.20-3.40); #Monocytes 0.1 thou/uL (0.11-0.59); #Neutrophils 3.4 thou/uL (1.40-6.50); %Basophils 0.2 % (0.0-1.0); %Eosinophils 0.2 % (0.0-10.0); %Lymphocytes 20.1 % (21.0-51.0); %Monocytes 1.1 % (0.0-10.0); %Neutrophils 78.5 % (42.0-75.0); Hemoglobin 13.1 g/dL (12.0-16.0); Mean Corpuscular HGB CONC 31.2 g/dL (32.0-36.0); Mean Corpuscular Hemoglobin 31.3 pg (27.0-31.0); Mean Platelet Volume 5.9 fL (7.4-10.4); Platelet Count 289 thou/uL (130-400); RBC Distribution Width 12.3 % (11.5-14.5); Red Blood Cell (RBC) Count 4.18 mill/uL (4.20-5.40); White Blood Cell (WBC) Count 4.4 thou/uL (4.8-10.8)
[2022-01-03] MEDS ORDERED: Cefepime 1 GM in Sodium Chloride 0.9% 100 ML IVPB SCH (06:00)
[2022-01-03 06:23] LABS: Anion Gap 11 mmol/L (10-20); BUN (Urea Nitrogen) 21 mg/dL (9.8-20.1); Calc. Creatinine Clearance 67 mL/min (70-130); Calcium 9.7 mg/dL (7.8-10.44); Carbon Dioxide 26 mmol/L (23-31); Chloride 104 mmol/L (98-107); Glucose 141 mg/dL (83-110); Potassium 5.3 mmol/L (3.5-5.1); Sodium 136 mmol/L (136-145)
[2022-01-03] MEDS ORDERED: Albuterol 200 PUFF (6.7GM INHALER) INH SCH ×3 (06:30→13:00)
[2022-01-03] MEDS ORDERED: Mometasone 100 MCG/Formoterol 5 MCG 120 PUFF INHALER INH SCH (08:00)
[2022-01-03] MEDS ORDERED: Vancomycin 1 GM in Premix Bag 1 BAG IVPB SCH (08:00)
[2022-01-03] MEDS ORDERED: predniSONE 20 MG TAB PO SCH (08:00)
[2022-01-03] MEDS: Enoxaparin Sodium 30 MG/0.3 ML SYRINGE SC SCH (08:20)
[2022-01-03] MEDS: Benztropine 1 MG TAB PO SCH ×2 (08:20→21:36)
[2022-01-03] MEDS: Montelukast Sodium 10 mg Tablet PO SCH (08:21)
[2022-01-03] MEDS: Cholecalciferol 1,000 UNITS (25 MCG) TAB PO SCH (08:21)
[2022-01-03] MEDS: Amlodipine 5 MG TAB PO SCH (08:21)
[2022-01-03] MEDS: Multivitamin W/ Minerals 1 TAB PO SCH (08:21)
[2022-01-03] MEDS: methylPREDNISolone Sod Succ 40 MG VIAL IVP SCH ×2 (13:08→21:37)
[2022-01-03] MEDS: Cefepime 2 GM in Sodium Chloride 0.9% 100 ML IVPB SCH (17:23)
[2022-01-03] MEDS ORDERED: Acetaminophen/Codeine 30-300mg Tablet PO SCH (17:45)
[2022-01-03] MEDS: Vancomycin HCl 750 MG in Sodium Chloride 0.9% 250 ML 250 ML IVPB SCH (21:37)
[2022-01-03] MEDS: Atorvastatin Calcium 20 MG TAB PO SCH (21:37)
[2022-01-03] MEDS: Mometasone 100 MCG/Formoterol 5 MCG 120 PUFF INHALER INH SCH (23:22)
[2022-01-04] MEDS: Cefepime 2 GM in Sodium Chloride 0.9% 100 ML IVPB SCH ×2 (06:10→17:06)
[2022-01-04 06:14] LABS: #Lymphocytes 0.9 thou/uL (1.20-3.40); #Monocytes 0.6 thou/uL (0.11-0.59); #Neutrophils 10.6 thou/uL (1.40-6.50); %Lymphocytes 7.7 % (21.0-51.0); %Monocytes 4.8 % (0.0-10.0); %Neutrophils 87.5 % (42.0-75.0); Hemoglobin 11.8 g/dL (12.0-16.0); Mean Corpuscular HGB CONC 31.9 g/dL (32.0-36.0); Mean Platelet Volume 5.7 fL (7.4-10.4); Platelet Count 294 thou/uL (130-400); RBC Distribution Width 12.3 % (11.5-14.5); Red Blood Cell (RBC) Count 3.69 mill/uL (4.20-5.40); White Blood Cell (WBC) Count 12.1 thou/uL (4.8-10.8)
[2022-01-04] MEDS: methylPREDNISolone Sod Succ 40 MG VIAL IVP SCH ×4 (06:14→21:45)
[2022-01-04 06:29] LABS: Anion Gap 9 mmol/L (10-20); BUN (Urea Nitrogen) 25 mg/dL (9.8-20.1); Calc. Creatinine Clearance 67 mL/min (70-130); Calcium 9.3 mg/dL (7.8-10.44); Carbon Dioxide 28 mmol/L (23-31); Chloride 105 mmol/L (98-107); Glucose 131 mg/dL (83-110); Potassium 4.4 mmol/L (3.5-5.1); Sodium 138 mmol/L (136-145)
[2022-01-04] MEDS: Mometasone 100 MCG/Formoterol 5 MCG 120 PUFF INHALER INH SCH ×2 (07:30→18:57)
[2022-01-04] MEDS: Cholecalciferol 1,000 UNITS (25 MCG) TAB PO SCH (08:45)
[2022-01-04] MEDS: Vancomycin HCl 750 MG in Sodium Chloride 0.9% 250 ML 250 ML IVPB SCH ×2 (08:45→21:25)
[2022-01-04] MEDS: Benztropine 1 MG TAB PO SCH ×2 (08:46→21:16)
[2022-01-04] MEDS: Amlodipine 5 MG TAB PO SCH (08:46)
[2022-01-04] MEDS: Multivitamin W/ Minerals 1 TAB PO SCH (08:46)
[2022-01-04] MEDS: Montelukast Sodium 10 mg Tablet PO SCH (08:46)
[2022-01-04] MEDS: Enoxaparin Sodium 30 MG/0.3 ML SYRINGE SC SCH (08:47)
[2022-01-04] MEDS ORDERED: hydrOXYzine 10 MG TAB PO SCH (11:00)
[2022-01-04] MEDS: Acetaminophen/Codeine 30-300mg Tablet PO PRN (11:09)
[2022-01-04] MEDS ORDERED: hydrOXYzine 25 MG TAB PO PRN (16:32)
[2022-01-04] MEDS ORDERED: Lorazepam 0.5 MG TAB PO PRN (16:46)
[2022-01-04 19:57] LABS: Vancomycin, Trough 9.1 ug/mL
[2022-01-04] MEDS ORDERED: VANCOMYCIN 1.25 GM/250 ML BAG 1.25 GM in Premix Bag 1 BAG IVPB SCH (21:00)
[2022-01-04] MEDS: Atorvastatin Calcium 20 MG TAB PO SCH (21:16)
[2022-01-05] MEDS: Acetaminophen/Codeine 30-300mg Tablet PO PRN ×2 (01:33→15:21)
[2022-01-05] MEDS: Cefepime 2 GM in Sodium Chloride 0.9% 100 ML IVPB SCH (04:56)
[2022-01-05] MEDS: methylPREDNISolone Sod Succ 40 MG VIAL IVP SCH ×2 (04:59→14:57)
[2022-01-05 08:00] LABS: #Lymphocytes 0.8 thou/uL (1.20-3.40); #Monocytes 0.5 thou/uL (0.11-0.59); %Basophils 0.1 % (0.0-1.0); %Eosinophils 0.1 % (0.0-10.0); %Lymphocytes 5.7 % (21.0-51.0); %Monocytes 3.7 % (0.0-10.0); %Neutrophils 90.4 % (42.0-75.0); Hemoglobin 13.5 g/dL (12.0-16.0); Mean Corpuscular HGB CONC 30.7 g/dL (32.0-36.0); Mean Corpuscular Hemoglobin 30.9 pg (27.0-31.0); Platelet Count 295 thou/uL (130-400); RBC Distribution Width 12.7 % (11.5-14.5); Red Blood Cell (RBC) Count 4.38 mill/uL (4.20-5.40); White Blood Cell (WBC) Count 13.2 thou/uL (4.8-10.8)
[2022-01-05] MEDS: Mometasone 100 MCG/Formoterol 5 MCG 120 PUFF INHALER INH SCH (08:09)
[2022-01-05 08:19] LABS: Anion Gap 17 mmol/L (10-20); BUN (Urea Nitrogen) 19 mg/dL (9.8-20.1); Calc. Creatinine Clearance 51 mL/min (70-130); Calcium 10.1 mg/dL (7.8-10.44); Carbon Dioxide 24 mmol/L (23-31); Chloride 103 mmol/L (98-107); Glucose 129 mg/dL (83-110); Potassium 4.9 mmol/L (3.5-5.1); Sodium 139 mmol/L (136-145)
[2022-01-05] MEDS: Benztropine 1 MG TAB PO SCH (08:22)
[2022-01-05] MEDS: Enoxaparin Sodium 30 MG/0.3 ML SYRINGE SC SCH (08:22)
[2022-01-05] MEDS: Cholecalciferol 1,000 UNITS (25 MCG) TAB PO SCH (08:23)
[2022-01-05] MEDS: Multivitamin W/ Minerals 1 TAB PO SCH (08:23)
[2022-01-05] MEDS: Montelukast Sodium 10 mg Tablet PO SCH (08:23)
[2022-01-05] MEDS: Amlodipine 5 MG TAB PO SCH (08:23)
[2022-01-05 16:31] VITALS: TEMP 98.8
[2022-01-05 18:39] VITALS: BP 156/76
== END 2022-01-05 17:48 | disposition home or self-care (01) | DRG 177 ==
LOC: T4-A 23:48 → INTOOBSV 23:48 → OBSVTOIN 01-04 16:35
PROVIDERS: ADMIT Internal Medicine; ATTEND Internal Medicine
DX: J15.6 Pneumonia due to other Gram-negative bacteria (principal); J96.21 Acute and chronic respiratory failure with hypoxia; U07.1 COVID-19; J44.1 Chronic obstructive pulmonary disease with (acute) exacerbation; J44.0 Chronic obstructive pulmonary disease with (acute) lower respiratory infection; F17.210 Nicotine dependence, cigarettes, uncomplicated; Y95 Nosocomial condition; I10 Essential (primary) hypertension; F41.9 Anxiety disorder, unspecified; G43.909 Migraine, unspecified, not intractable, without status migrainosus; E78.5 Hyperlipidemia, unspecified; F31.9 Bipolar disorder, unspecified; Z99.81 Dependence on supplemental oxygen; Z88.6 Allergy status to analgesic agent; Z88.0 Allergy status to penicillin; Z88.8 Allergy status to other drugs, medicaments and biological substances; Z79.899 Other long term (current) drug therapy; Z90.89 Acquired absence of other organs; Z98.890 Other specified postprocedural states; Z90.710 Acquired absence of both cervix and uterus; Z82.49 Family history of ischemic heart disease and other diseases of the circulatory system; Z90.721 Acquired absence of ovaries, unilateral
CPT/HCPCS: 36415; 71045; 80048; 80202; 85025; 87081; 94640; 96365; 96366; 96367; 96372; 96375; 96376; G0378; J0692; J1650; J2405; J2920; J3370; J3490; J7050; J7512; J7620

== ENCOUNTER 2023-09-20 12:11 | Inpatient (IN) | payer MEDICARE, MEDICAID ==
[2023-09-20] MEDS ORDERED: Senokot S 8.6-50 MG TAB PO PRN (12:41)
[2023-09-20] MEDS ORDERED: Calcium Carbonate 500 MG ChewTAB PO PRN (12:41)
[2023-09-20] MEDS ORDERED: Oseltamivir 75 MG CAP PO SCH (13:00)
[2023-09-20] MEDS ORDERED: QUEtiapine 100 MG TAB PO PRN (13:05)
[2023-09-20 13:31] LABS: #Monocytes 0.2 thou/uL (0.11-0.59); #Neutrophils 7.3 thou/uL (1.40-6.50); %Basophils 0.1 % (0.0-1.0); %Lymphocytes 4.7 % (21.0-51.0); %Monocytes 2.1 % (0.0-10.0); %Neutrophils 92.3 % (42.0-75.0); Hematocrit 41.3 % (36.0-47.0); Hemoglobin 12.6 g/dL (12.0-16.0); Mean Corpuscular HGB CONC 30.5 g/dL (32.0-36.0); Mean Corpuscular Volume 98.3 fl (78.0-98.0); Mean Platelet Volume 7.9 fL (7.4-10.4); Platelet Count 205 10x3/uL (130-400); RBC Distribution Width 13.3 % (11.5-14.5); White Blood Cell (WBC) Count 7.9 10x3/uL (4.8-10.8)
[2023-09-20 14:04] LABS: ALT (SGPT) 15 U/L (8-55); AST (SGOT) 28 U/L (5-34); Albumin 3.7 g/dL (3.4-4.8); Alkaline Phosphatase 62 U/L (40-110); Anion Gap 13 mmol/L (10-20); BUN (Urea Nitrogen) 16 mg/dL (9.8-20.1); Bilirubin, Total 0.3 mg/dL (0.2-1.2); Calc. Creatinine Clearance 0 mL/min (70-130); Calcium 8.2 mg/dL (7.8-10.44); Carbon Dioxide 26 mmol/L (23-31); Chloride 101 mmol/L (98-107); Estimated GFR 92; Globulin 2.2 g/dL (2.4-3.5); Glucose 102 mg/dL (83-110); Potassium 5.1 mmol/L (3.5-5.1); Protein, Total 5.9 g/dL (5.8-8.1); Sodium 135 mmol/L (136-145)
[2023-09-20] MEDS: Azithromycin 500 MG in Sodium Chloride 0.9% 250 ML 250 ML IVPB SCH (14:15)
[2023-09-20] MEDS ORDERED: Mometasone 200 MCG/Formoterol 5 MCG 120 PUFF INHALER INH SCH (18:30)
[2023-09-20] MEDS: methylPREDNISolone Sod Succ 40 MG VIAL IVP SCH (18:32)
[2023-09-20] MEDS: Sodium Chloride 0.9% 1,000 ML IV SCH (18:33)
[2023-09-20] MEDS: Ipratropium/Albuterol 3 ML NEB NEB SCH ×2 (19:03→22:44)
[2023-09-20 19:20] VITALS: BMI 20.8
[2023-09-20] MEDS ORDERED: Lorazepam 2 MG/ML VIAL SLOW IVP SCH (20:15)
[2023-09-20] MEDS: Oseltamivir 75 MG CAP PO SCH (21:02)
[2023-09-21] MEDS: methylPREDNISolone Sod Succ 40 MG VIAL IVP SCH ×4 (00:41→17:43)
[2023-09-21] MEDS: Ondansetron PF 4 MG/2 ML Vial IVP PRN (05:30)
[2023-09-21 05:49] LABS: #Monocytes 0.3 thou/uL (0.11-0.59); #Neutrophils 5.7 thou/uL (1.40-6.50); %Lymphocytes 10.6 % (21.0-51.0); %Monocytes 4.3 % (0.0-10.0); %Neutrophils 84.5 % (42.0-75.0); Hematocrit 42.2 % (36.0-47.0); Mean Corpuscular HGB CONC 30.8 g/dL (32.0-36.0); Mean Corpuscular Hemoglobin 29.7 pg (27.0-31.0); Mean Corpuscular Volume 96.6 fl (78.0-98.0); Mean Platelet Volume 8.1 fL (7.4-10.4); Platelet Count 218 10x3/uL (130-400); RBC Distribution Width 13.1 % (11.5-14.5); Red Blood Cell (RBC) Count 4.37 mill/uL (4.20-5.40); White Blood Cell (WBC) Count 6.7 10x3/uL (4.8-10.8)
[2023-09-21] MEDS: Mometasone 100 MCG HFA INHALER (RT USE) INH SCH ×2 (06:44→19:12)
[2023-09-21] MEDS: Ipratropium/Albuterol 3 ML NEB NEB SCH ×4 (06:44→23:03)
[2023-09-21 08:09] LABS: ALT (SGPT) 14 U/L (8-55); AST (SGOT) 28 U/L (5-34); Albumin 3.7 g/dL (3.4-4.8); Alkaline Phosphatase 58 U/L (40-110); Anion Gap 16 mmol/L (10-20); BUN (Urea Nitrogen) 15 mg/dL (9.8-20.1); Bilirubin, Total 0.2 mg/dL (0.2-1.2); Calc. Creatinine Clearance 73 mL/min (70-130); Calcium 8.4 mg/dL (7.8-10.44); Carbon Dioxide 20 mmol/L (23-31); Chloride 102 mmol/L (98-107); Estimated GFR 94; Globulin 2.1 g/dL (2.4-3.5); Glucose 90 mg/dL (83-110); Potassium 4.4 mmol/L (3.5-5.1); Protein, Total 5.8 g/dL (5.8-8.1); Sodium 134 mmol/L (136-145)
[2023-09-21] MEDS: Sodium Chloride 0.9% 1,000 ML IV SCH (08:25)
[2023-09-21] MEDS: Lisinopril 10 MG TAB PO SCH (08:28)
[2023-09-21] MEDS: Aspirin 81 mg Enteric Coated Tablet PO SCH (08:28)
[2023-09-21] MEDS: traZODone HCl 50 MG TAB PO SCH (08:29)
[2023-09-21] MEDS: Montelukast Sodium 10 mg Tablet PO SCH (08:29)
[2023-09-21] MEDS: Amitriptyline HCl 25 MG TAB PO SCH (08:29)
[2023-09-21] MEDS: Acetaminophen 325 MG TAB PO PRN ×2 (08:29→14:19)
[2023-09-21] MEDS: Atorvastatin Calcium 20 MG TAB PO SCH (08:29)
[2023-09-21] MEDS: Mirabegron ER 25 MG ER.TAB PO SCH (08:30)
[2023-09-21] MEDS: Nicotine 14 MG PATCH TD SCH (08:30)
[2023-09-21] MEDS: Oseltamivir 75 MG CAP PO SCH ×2 (08:38→21:13)
[2023-09-21] MEDS ORDERED: Escitalopram Oxalate 10 mg Tablet PO SCH (09:00)
[2023-09-21] MEDS ORDERED: Amlodipine 5 MG TAB PO SCH (09:00)
[2023-09-21] MEDS: Azithromycin 500 MG in Sodium Chloride 0.9% 250 ML 250 ML IVPB SCH (12:39)
[2023-09-21] MEDS: Benzonatate 100 MG CAP PO PRN (14:13)
[2023-09-21] MEDS: Lorazepam 2 MG/ML VIAL SLOW IVP PRN (16:00)
[2023-09-21 18:58] LABS: Actual Bicarbonate (HCO3v) 24.1 mEq/L (22-28); Base Excess -2.1 mEq/L (-2.0 to +3.0); Calcium, Ionized (venous) 1.04 mmol/L (1.16-1.32); Chloride (VBG) 101 mmol/L (98-106); Hematocrit-VBG 41 % (36.0-47.0); Potassium (VBG) 4.92 mmol/L (3.70-5.30); Sodium 134 mmol/L (133-146); pH (venous) 7.329 (7.32-7.43)
[2023-09-22] MEDS: methylPREDNISolone Sod Succ 40 MG VIAL IVP SCH ×5 (00:32→21:53)
[2023-09-22] MEDS: Labetalol HCl 100 MG/20 ML VIAL SLOW IVP PRN (05:23)
[2023-09-22] MEDS: Lorazepam 2 MG/ML VIAL SLOW IVP PRN (06:00)
[2023-09-22 06:41] LABS: #Monocytes 0.3 thou/uL (0.11-0.59); #Neutrophils 4.2 thou/uL (1.40-6.50); %Lymphocytes 10.7 % (21.0-51.0); %Monocytes 5.9 % (0.0-10.0); %Neutrophils 82.6 % (42.0-75.0); Hematocrit 39.7 % (36.0-47.0); Hemoglobin 12.5 g/dL (12.0-16.0); Mean Corpuscular HGB CONC 31.5 g/dL (32.0-36.0); Mean Corpuscular Volume 95.4 fl (78.0-98.0); Platelet Count 207 10x3/uL (130-400); RBC Distribution Width 13.2 % (11.5-14.5); Red Blood Cell (RBC) Count 4.16 mill/uL (4.20-5.40); White Blood Cell (WBC) Count 5.1 10x3/uL (4.8-10.8)
[2023-09-22 07:02] LABS: Anion Gap 10 mmol/L (10-20); BUN (Urea Nitrogen) 19 mg/dL (9.8-20.1); Calc. Creatinine Clearance 70 mL/min (70-130); Calcium 9.2 mg/dL (7.8-10.44); Carbon Dioxide 31 mmol/L (23-31); Chloride 101 mmol/L (98-107); Estimated GFR 94; Glucose 119 mg/dL (83-110); Potassium 4.5 mmol/L (3.5-5.1); Sodium 137 mmol/L (136-145)
[2023-09-22] MEDS: Ipratropium/Albuterol 3 ML NEB NEB SCH ×3 (07:37→19:07)
[2023-09-22] MEDS: Mometasone 100 MCG HFA INHALER (RT USE) INH SCH ×2 (08:02→19:08)
[2023-09-22] MEDS ORDERED: Lisinopril 10 MG TAB PO SCH (09:45)
[2023-09-22] MEDS: Aspirin 81 mg Enteric Coated Tablet PO SCH (09:54)
[2023-09-22] MEDS: Mirabegron ER 25 MG ER.TAB PO SCH (09:54)
[2023-09-22] MEDS: Amitriptyline HCl 25 MG TAB PO SCH (09:55)
[2023-09-22] MEDS: Montelukast Sodium 10 mg Tablet PO SCH (09:55)
[2023-09-22] MEDS: Acetaminophen 325 MG TAB PO PRN (09:55)
[2023-09-22] MEDS: Nicotine 14 MG PATCH TD SCH (09:56)
[2023-09-22] MEDS: Atorvastatin Calcium 20 MG TAB PO SCH (09:56)
[2023-09-22] MEDS: Benzonatate 100 MG CAP PO PRN ×2 (09:56→17:47)
[2023-09-22] MEDS: Lisinopril 10 MG TAB PO SCH (09:58)
[2023-09-22] MEDS: traZODone HCl 50 MG TAB PO SCH (10:15)
[2023-09-22] MEDS: Ondansetron PF 4 MG/2 ML Vial IVP PRN (10:15)
[2023-09-22] MEDS: Oseltamivir 75 MG CAP PO SCH ×2 (10:41→20:52)
[2023-09-22] MEDS: Azithromycin 500 MG in Sodium Chloride 0.9% 250 ML 250 ML IVPB SCH (15:45)
[2023-09-22] MEDS: guaiFENesin/Codeine 200 mg/20 mg 10 ml Cup PO PRN (23:08)
[2023-09-23] MEDS: Ipratropium/Albuterol 3 ML NEB NEB SCH ×4 (02:27→18:53)
[2023-09-23] MEDS: Labetalol HCl 100 MG/20 ML VIAL SLOW IVP PRN (05:06)
[2023-09-23] MEDS: methylPREDNISolone Sod Succ 40 MG VIAL IVP SCH ×2 (05:14→20:31)
[2023-09-23] MEDS: guaiFENesin/Codeine 200 mg/20 mg 10 ml Cup PO PRN ×2 (06:38→16:15)
[2023-09-23] MEDS: Acetaminophen 325 MG TAB PO PRN ×3 (06:45→20:30)
[2023-09-23] MEDS: Mometasone 100 MCG HFA INHALER (RT USE) INH SCH ×2 (07:29→18:54)
[2023-09-23] MEDS: Nicotine 14 MG PATCH TD SCH (08:45)
[2023-09-23] MEDS: Lisinopril 20 MG TAB PO SCH (08:45)
[2023-09-23] MEDS: Aspirin 81 mg Enteric Coated Tablet PO SCH (08:45)
[2023-09-23] MEDS: traZODone HCl 50 MG TAB PO SCH (08:45)
[2023-09-23] MEDS: Montelukast Sodium 10 mg Tablet PO SCH (08:45)
[2023-09-23] MEDS: Amitriptyline HCl 25 MG TAB PO SCH (08:45)
[2023-09-23] MEDS: Atorvastatin Calcium 20 MG TAB PO SCH (08:46)
[2023-09-23] MEDS: Oseltamivir 75 MG CAP PO SCH ×2 (08:46→20:29)
[2023-09-23] MEDS: Mirabegron ER 25 MG ER.TAB PO SCH (08:46)
[2023-09-23] MEDS ORDERED: FLU VACC QS2023(65UP)/MF59C/PF 60 MCG/0.5 ML SYRINGE IM ONE (09:00)
[2023-09-23] MEDS ORDERED: Amlodipine 10 MG TAB PO SCH (09:30)
[2023-09-23] MEDS ORDERED: hydrALAZINE 25 MG TAB PO SCH (09:30)
[2023-09-23] MEDS: Azithromycin 500 MG in Sodium Chloride 0.9% 250 ML 250 ML IVPB SCH (14:25)
[2023-09-23] MEDS: traMADol HCl 50 MG TAB PO PRN (15:05)
[2023-09-23] MEDS: Benzonatate 100 MG CAP PO PRN ×2 (15:06→20:29)
[2023-09-23] MEDS: hydrALAZINE 25 MG TAB PO SCH (20:29)
[2023-09-23] MEDS: Ipratropium/Albuterol 3 ML NEB NEB PRN (22:08)
[2023-09-24] MEDS: Ipratropium/Albuterol 3 ML NEB NEB SCH ×4 (00:54→19:16)
[2023-09-24] MEDS: Lorazepam 2 MG/ML VIAL SLOW IVP PRN ×3 (01:06→21:15)
[2023-09-24 06:53] LABS: Hematocrit 44.9 % (36.0-47.0); Hemoglobin 14.5 g/dL (12.0-16.0); Mean Corpuscular HGB CONC 32.3 g/dL (32.0-36.0); Mean Corpuscular Hemoglobin 29.9 pg (27.0-31.0); Mean Corpuscular Volume 92.6 fl (78.0-98.0); Mean Platelet Volume 8.5 fL (7.4-10.4); Platelet Count 176 10x3/uL (130-400); RBC Distribution Width 12.9 % (11.5-14.5); Red Blood Cell (RBC) Count 4.85 mill/uL (4.20-5.40)
[2023-09-24 06:55] LABS: Delete Auto Diff?? YES; Manual Diff?? YES
[2023-09-24] MEDS: Mometasone 100 MCG HFA INHALER (RT USE) INH SCH ×2 (07:17→19:21)
[2023-09-24 07:32] LABS: Anion Gap 13 mmol/L (10-20); BUN (Urea Nitrogen) 16 mg/dL (9.8-20.1); Calc. Creatinine Clearance 69 mL/min (70-130); Calcium 9.2 mg/dL (7.8-10.44); Carbon Dioxide 29 mmol/L (23-31); Chloride 97 mmol/L (98-107); Estimated GFR 93; Glucose 123 mg/dL (83-110); Magnesium 1.9 mg/dL (1.6-2.6); Potassium 3.7 mmol/L (3.5-5.1); Sodium 135 mmol/L (136-145)
[2023-09-24 07:41] LABS: Band 2 % (5-11); CellaVision Operator ID lab.dlt; Eosinophils 1 % (0-10); Lymphocytes 15 % (21-51); Monocytes 6 % (0-10); Neutrophil 76 % (42-75); Platelet Adequacy Comment Platelets Normal; Total Cell Count 100
[2023-09-24] MEDS: traMADol HCl 50 MG TAB PO PRN (09:24)
[2023-09-24] MEDS: Acetaminophen 325 MG TAB PO PRN ×2 (09:25→21:03)
[2023-09-24] MEDS: Amitriptyline HCl 25 MG TAB PO SCH (09:25)
[2023-09-24] MEDS: hydrALAZINE 25 MG TAB PO SCH ×2 (09:26→21:04)
[2023-09-24] MEDS: Aspirin 81 mg Enteric Coated Tablet PO SCH (09:26)
[2023-09-24] MEDS: traZODone HCl 50 MG TAB PO SCH (09:26)
[2023-09-24] MEDS: Amlodipine 10 MG TAB PO SCH (09:26)
[2023-09-24] MEDS: Lisinopril 20 MG TAB PO SCH (09:27)
[2023-09-24] MEDS: Montelukast Sodium 10 mg Tablet PO SCH (09:27)
[2023-09-24] MEDS: Atorvastatin Calcium 20 MG TAB PO SCH (09:27)
[2023-09-24] MEDS: Oseltamivir 75 MG CAP PO SCH ×2 (09:28→21:03)
[2023-09-24] MEDS: Mirabegron ER 25 MG ER.TAB PO SCH (09:28)
[2023-09-24] MEDS: methylPREDNISolone Sod Succ 40 MG VIAL IVP SCH ×2 (09:29→21:04)
[2023-09-24] MEDS: Nicotine 14 MG PATCH TD SCH (09:29)
[2023-09-24] MEDS: guaiFENesin/Codeine 200 mg/20 mg 10 ml Cup PO PRN (10:08)
[2023-09-24] MEDS: Azithromycin 500 MG in Sodium Chloride 0.9% 250 ML 250 ML IVPB SCH (15:51)
[2023-09-24] MEDS: Ipratropium/Albuterol 3 ML NEB NEB PRN (15:51)
[2023-09-24] MEDS: Ibuprofen 800 MG TAB PO PRN (15:51)
[2023-09-24] MEDS ORDERED: Simethicone Chewable 80 MG TAB PO SCH (20:15)
[2023-09-25] MEDS: Ipratropium/Albuterol 3 ML NEB NEB SCH ×4 (02:30→18:13)
[2023-09-25] MEDS: Ibuprofen 800 MG TAB PO PRN ×2 (03:22→17:20)
[2023-09-25] MEDS: guaiFENesin/Codeine 200 mg/20 mg 10 ml Cup PO PRN (03:23)
[2023-09-25] MEDS: Benzonatate 100 MG CAP PO PRN ×2 (03:23→17:20)
[2023-09-25 06:58] LABS: #Monocytes 0.6 thou/uL (0.11-0.59); %Basophils 0.3 % (0.0-1.0); %Lymphocytes 16.1 % (21.0-51.0); %Monocytes 8.1 % (0.0-10.0); %Neutrophils 74.5 % (42.0-75.0); Hematocrit 42.9 % (36.0-47.0); Hemoglobin 13.9 g/dL (12.0-16.0); Mean Corpuscular HGB CONC 32.4 g/dL (32.0-36.0); Mean Corpuscular Hemoglobin 29.6 pg (27.0-31.0); Mean Corpuscular Volume 91.5 fl (78.0-98.0); Mean Platelet Volume 8.7 fL (7.4-10.4); Platelet Count 211 10x3/uL (130-400); RBC Distribution Width 12.7 % (11.5-14.5); Red Blood Cell (RBC) Count 4.69 mill/uL (4.20-5.40); White Blood Cell (WBC) Count 6.8 10x3/uL (4.8-10.8)
[2023-09-25] MEDS: Mometasone 100 MCG HFA INHALER (RT USE) INH SCH ×2 (07:15→18:15)
[2023-09-25 07:34] LABS: Anion Gap 12 mmol/L (10-20); BUN (Urea Nitrogen) 21 mg/dL (9.8-20.1); Calc. Creatinine Clearance 73 mL/min (70-130); Calcium 9.3 mg/dL (7.8-10.44); Carbon Dioxide 31 mmol/L (23-31); Chloride 98 mmol/L (98-107); Estimated GFR 95; Glucose 126 mg/dL (83-110); Potassium 3.9 mmol/L (3.5-5.1); Sodium 137 mmol/L (136-145)
[2023-09-25] MEDS: Amlodipine 10 MG TAB PO SCH (08:04)
[2023-09-25] MEDS: Lisinopril 20 MG TAB PO SCH (08:04)
[2023-09-25] MEDS: Amitriptyline HCl 25 MG TAB PO SCH (08:04)
[2023-09-25] MEDS: Aspirin 81 mg Enteric Coated Tablet PO SCH (08:04)
[2023-09-25] MEDS: Atorvastatin Calcium 20 MG TAB PO SCH (08:04)
[2023-09-25] MEDS: Montelukast Sodium 10 mg Tablet PO SCH (08:04)
[2023-09-25] MEDS: hydrALAZINE 25 MG TAB PO SCH ×2 (08:04→22:10)
[2023-09-25] MEDS: Nicotine 14 MG PATCH TD SCH (08:05)
[2023-09-25] MEDS: traZODone HCl 50 MG TAB PO SCH (08:05)
[2023-09-25] MEDS: Mirabegron ER 25 MG ER.TAB PO SCH (08:05)
[2023-09-25] MEDS: methylPREDNISolone Sod Succ 40 MG VIAL IVP SCH ×2 (08:05→22:10)
[2023-09-25] MEDS: Lorazepam 2 MG/ML VIAL SLOW IVP PRN ×3 (08:57→22:10)
[2023-09-25] MEDS: Ipratropium/Albuterol 3 ML NEB NEB PRN ×2 (09:06→11:40)
[2023-09-25] MEDS: Azithromycin 500 MG in Sodium Chloride 0.9% 250 ML 250 ML IVPB SCH (14:31)
[2023-09-25] MEDS: Acetaminophen 325 MG TAB PO PRN (17:20)
[2023-09-26] MEDS: Ipratropium/Albuterol 3 ML NEB NEB SCH ×4 (01:05→18:20)
[2023-09-26] MEDS ORDERED: Lorazepam 2 MG/ML VIAL SLOW IVP SCH (01:30)
[2023-09-26 06:03] LABS: Anion Gap 18 mmol/L (10-20); BUN (Urea Nitrogen) 21 mg/dL (9.8-20.1); Calc. Creatinine Clearance 72 mL/min (70-130); Carbon Dioxide 23 mmol/L (23-31); Chloride 101 mmol/L (98-107); Estimated GFR 95; Glucose 123 mg/dL (83-110); Sodium 138 mmol/L (136-145)
[2023-09-26 06:57] LABS: #Monocytes 0.4 thou/uL (0.11-0.59); #Neutrophils 7.9 thou/uL (1.40-6.50); %Basophils 0.2 % (0.0-1.0); %Lymphocytes 11.7 % (21.0-51.0); %Monocytes 4.5 % (0.0-10.0); %Neutrophils 82.4 % (42.0-75.0); Hematocrit 47.7 % (36.0-47.0); Hemoglobin 15.2 g/dL (12.0-16.0); Mean Corpuscular HGB CONC 31.9 g/dL (32.0-36.0); Mean Corpuscular Hemoglobin 29.3 pg (27.0-31.0); Mean Corpuscular Volume 92.1 fl (78.0-98.0); Mean Platelet Volume 8.5 fL (7.4-10.4); Platelet Count 275 10x3/uL (130-400); RBC Distribution Width 12.7 % (11.5-14.5); Red Blood Cell (RBC) Count 5.18 mill/uL (4.20-5.40); White Blood Cell (WBC) Count 9.6 10x3/uL (4.8-10.8)
[2023-09-26] MEDS: Mometasone 100 MCG HFA INHALER (RT USE) INH SCH ×2 (07:11→18:23)
[2023-09-26] MEDS: Aspirin 81 mg Enteric Coated Tablet PO SCH (09:29)
[2023-09-26] MEDS: traZODone HCl 50 MG TAB PO SCH (09:29)
[2023-09-26] MEDS: methylPREDNISolone Sod Succ 40 MG VIAL IVP SCH ×2 (09:29→20:50)
[2023-09-26] MEDS: Amlodipine 10 MG TAB PO SCH (09:29)
[2023-09-26] MEDS: Nicotine 14 MG PATCH TD SCH (09:29)
[2023-09-26] MEDS: Montelukast Sodium 10 mg Tablet PO SCH (09:29)
[2023-09-26] MEDS: Amitriptyline HCl 25 MG TAB PO SCH (09:29)
[2023-09-26] MEDS: Lisinopril 20 MG TAB PO SCH (09:29)
[2023-09-26] MEDS: Atorvastatin Calcium 20 MG TAB PO SCH (09:29)
[2023-09-26] MEDS: hydrALAZINE 25 MG TAB PO SCH ×2 (09:29→20:50)
[2023-09-26] MEDS: Mirabegron ER 25 MG ER.TAB PO SCH (14:07)
[2023-09-26] MEDS: Lorazepam 2 MG/ML VIAL SLOW IVP PRN (20:50)
[2023-09-26] MEDS: Benzonatate 100 MG CAP PO PRN (20:50)
[2023-09-26] MEDS: Ipratropium/Albuterol 3 ML NEB NEB PRN (22:56)
[2023-09-27] MEDS: Ipratropium/Albuterol 3 ML NEB NEB SCH ×4 (01:49→19:19)
[2023-09-27] MEDS: Lorazepam 2 MG/ML VIAL SLOW IVP PRN ×2 (04:49→12:06)
[2023-09-27 06:18] LABS: #Neutrophils 16.9 thou/uL (1.40-6.50); %Basophils 0.1 % (0.0-1.0); %Lymphocytes 5.7 % (21.0-51.0); %Monocytes 5.1 % (0.0-10.0); %Neutrophils 88.3 % (42.0-75.0); Hematocrit 42.7 % (36.0-47.0); Hemoglobin 13.5 g/dL (12.0-16.0); Mean Corpuscular HGB CONC 31.6 g/dL (32.0-36.0); Mean Corpuscular Hemoglobin 29.6 pg (27.0-31.0); Mean Corpuscular Volume 93.6 fl (78.0-98.0); Mean Platelet Volume 8.7 fL (7.4-10.4); Platelet Count 329 10x3/uL (130-400); RBC Distribution Width 12.9 % (11.5-14.5); Red Blood Cell (RBC) Count 4.56 mill/uL (4.20-5.40); White Blood Cell (WBC) Count 19.2 10x3/uL (4.8-10.8)
[2023-09-27 06:41] LABS: Anion Gap 11 mmol/L (10-20); BUN (Urea Nitrogen) 30 mg/dL (9.8-20.1); Calc. Creatinine Clearance 68 mL/min (70-130); Calcium 9.5 mg/dL (7.8-10.44); Carbon Dioxide 33 mmol/L (23-31); Chloride 100 mmol/L (98-107); Estimated GFR 94; Glucose 140 mg/dL (83-110); Potassium 3.8 mmol/L (3.5-5.1); Sodium 140 mmol/L (136-145)
[2023-09-27] MEDS: Mometasone 100 MCG HFA INHALER (RT USE) INH SCH ×2 (07:03→18:25)
[2023-09-27] MEDS ORDERED: Morphine IR 10 MG/5 ML UDCUP PO SCH (08:45)
[2023-09-27] MEDS ORDERED: HYDROcodone/Acetaminophen 7.5/325 mg Tablet PO PRN (09:37)
[2023-09-27] MEDS ORDERED: predniSONE 20 MG TAB PO SCH (09:45)
[2023-09-27] MEDS ORDERED: Morphine IR Tab 15 MG TAB PO SCH (09:45)
[2023-09-27] MEDS: Nicotine 14 MG PATCH TD SCH (09:47)
[2023-09-27] MEDS: Amlodipine 10 MG TAB PO SCH (09:48)
[2023-09-27] MEDS: Amitriptyline HCl 25 MG TAB PO SCH (09:48)
[2023-09-27] MEDS: Atorvastatin Calcium 20 MG TAB PO SCH (09:48)
[2023-09-27] MEDS: Montelukast Sodium 10 mg Tablet PO SCH (09:48)
[2023-09-27] MEDS: hydrALAZINE 25 MG TAB PO SCH ×2 (09:48→21:20)
[2023-09-27] MEDS: Aspirin 81 mg Enteric Coated Tablet PO SCH (09:48)
[2023-09-27] MEDS: traZODone HCl 50 MG TAB PO SCH (09:48)
[2023-09-27] MEDS: Lisinopril 20 MG TAB PO SCH (09:48)
[2023-09-27] MEDS: Mirabegron ER 25 MG ER.TAB PO SCH (09:49)
[2023-09-27] MEDS: methylPREDNISolone Sod Succ 40 MG VIAL IVP SCH (10:28)
[2023-09-27] MEDS: Morphine ER 30 MG TAB PO SCH (23:28)
[2023-09-28] MEDS: Ipratropium/Albuterol 3 ML NEB NEB SCH ×3 (01:55→13:03)
[2023-09-28] MEDS: Lorazepam 2 MG/ML VIAL SLOW IVP PRN ×2 (01:59→12:41)
[2023-09-28] MEDS: Mometasone 100 MCG HFA INHALER (RT USE) INH SCH (07:01)
[2023-09-28] MEDS ORDERED: predniSONE 20 MG TAB PO SCH (08:00)
[2023-09-28 08:04] VITALS: TEMP 97.9
[2023-09-28] MEDS: Lisinopril 20 MG TAB PO SCH (09:22)
[2023-09-28] MEDS: Atorvastatin Calcium 20 MG TAB PO SCH (09:22)
[2023-09-28] MEDS: Mirabegron ER 25 MG ER.TAB PO SCH (09:22)
[2023-09-28] MEDS: Aspirin 81 mg Enteric Coated Tablet PO SCH (09:22)
[2023-09-28] MEDS: traZODone HCl 50 MG TAB PO SCH (09:22)
[2023-09-28] MEDS: Nicotine 14 MG PATCH TD SCH (09:23)
[2023-09-28] MEDS: Montelukast Sodium 10 mg Tablet PO SCH (09:23)
[2023-09-28] MEDS: hydrALAZINE 25 MG TAB PO SCH (09:23)
[2023-09-28] MEDS: Amitriptyline HCl 25 MG TAB PO SCH (09:23)
[2023-09-28] MEDS: Amlodipine 10 MG TAB PO SCH (09:23)
[2023-09-28] MEDS: Morphine ER 30 MG TAB PO SCH (09:28)
[2023-09-28 12:11] VITALS: BP 105/69
== END 2023-09-28 13:31 | DRG 871 ==
LOC: CCU 12:11 → IMCU/EMU 09-21 15:19
PROVIDERS: ADMIT Internal Medicine; ATTEND Internal Medicine
PROC: 3E03329 Introduction of Other Anti-infective into Peripheral Vein, Percutaneous Approach (ICD-10-PCS; 2023-09-20)
PROC: 5A09457 Assistance with Respiratory Ventilation, 24-96 Consecutive Hours, Continuous Positive Airway Pressure (ICD-10-PCS; 2023-09-20)
PROC: 4A043R1 Measurement of Venous Saturation, Peripheral, Percutaneous Approach (ICD-10-PCS; principal; 2023-09-21)
DX: A41.89 Other specified sepsis (principal); J96.21 Acute and chronic respiratory failure with hypoxia; J96.22 Acute and chronic respiratory failure with hypercapnia; J44.1 Chronic obstructive pulmonary disease with (acute) exacerbation; E87.1 Hypo-osmolality and hyponatremia; Z66 Do not resuscitate; U09.9 Post COVID-19 condition, unspecified; J10.1 Influenza due to other identified influenza virus with other respiratory manifestations; F39 Unspecified mood [affective] disorder; I10 Essential (primary) hypertension; E78.5 Hyperlipidemia, unspecified; F19.10 Other psychoactive substance abuse, uncomplicated; F17.210 Nicotine dependence, cigarettes, uncomplicated; K21.9 Gastro-esophageal reflux disease without esophagitis; Z88.0 Allergy status to penicillin; Z88.8 Allergy status to other drugs, medicaments and biological substances; Z79.82 Long term (current) use of aspirin; Z79.899 Other long term (current) drug therapy; Z71.6 Tobacco abuse counseling
CPT/HCPCS: 36415; 36416; 71045; 80048; 80053; 82805; 83735; 84145; 85025; 94640; 94660; J0456; J1650; J2060; J2405; J2920; J7050; J7512; J7620